=== PATIENT | female | born 1990 | race Caucasian/White ===

== ENCOUNTER 2023-02-01 22:37 | Outpatient (REF) | payer OTHER, SELFPAY ==
[2023-02-04 20:10] LABS: Age Gdln ACOG Testing Note (.); HPV Aptima Negative (Negative); IGP, Aptima HPV, rfx 16/18,45 Note (.)
== END 2023-02-01 22:38 | disposition home or self-care (01) ==
LOC: LAB 22:37
PROVIDERS: PCP Obstetrics & Gynecology; Visit Provider Obstetrics & Gynecology
DX: Z01.419 Encounter for gynecological examination (general) (routine) without abnormal findings (principal)
CPT/HCPCS: 87624; G0145

== ENCOUNTER 2024-02-07 20:45 | Outpatient (REF) | payer OTHER, SELFPAY ==
[2024-02-10 19:11] LABS: Age Gdln ACOG Testing Note (.); HPV Aptima Negative (Negative); IGP, Aptima HPV, rfx 16/18,45 Note (.)
== END 2024-02-07 20:46 | disposition home or self-care (01) ==
LOC: LAB 20:45
PROVIDERS: PCP Obstetrics & Gynecology; Visit Provider Obstetrics & Gynecology
DX: Z01.419 Encounter for gynecological examination (general) (routine) without abnormal findings (principal)
CPT/HCPCS: 87624; 88175

== ENCOUNTER 2025-02-12 22:45 | Outpatient (REF) | payer OTHER, SELFPAY ==
--- OUTSIDE RECORDS SUMMARY | 2025-02-12 16:00 | XMS_ITS | Encounter Summary ---
Author Organization [facility] Address [address] [place] [address] Care Team Providers Care Manager Gyn Name Role Phone Maria Isabel Zamora NP Primary Care Provider +1 [phone] Reason for Visit * Reason Comments Gynecologic Exam Encounter Details Date Type Department Care Team (Late Contact Info) Description 02/12/2025 4:00 PM EDT Office Visit [facility] OB [address] [place] [address] Manuel Hernandez, DO [address] [place] [address] Well woman exam with routine gynecological exam; Dyspareunia in female; Urinary tract infection without hematuria, site unspecified Social History Tobacco Use Types Packs/Day Years Used Date Smoking Tobacco: Never Smokeless Tobacco: Never Alcohol Use Standard Drinks/Week Comments Yes 2 (1 standard drink = 0.6 oz pur e alcohol) caffeine intake: soda B1300 Health Literacy Answer Date Recor ded How often do you need to hav e someone help you when you read instructions, pamphlets, or other written material from your doctor or pharmacy? Never 06/22/2024 Humiliation, Afraid, Rape, and Kick questionnair e Answer Date Recorded Within the last year, have y ou been afraid of your partner or ex-partner? No 05/04/2023 Within the last year, have y ou been humiliated or emotionally abused in other ways by your partner or ex-partner? No Within the last year, have y ou been kicked, hit, slapped, or otherwise physically hurt by your partner or ex-partner? No 05/04/2023 Within the last year, have y ou been raped or forced to have any kind of sexual activity by your partner or ex-partner? No 05/04/2023 Social Connection and Isolat ion Panel [NHANES] Answer Date Recorded In a typical week, how many times do you talk on the phone with family, friends, or neighbors? More than three times a week 06/22/2024 How often do you get togethe r with friends or relatives? Twice a week 06/22/2024 How often do you attend chur ch or confucianist services? Never 06/22/2024 Do you belong to any clubs o r organizations such as roman catholic groups, unions, fraternal or athletic groups, or school groups? No 06/22/2024 How often do you attend meet ings of the clubs or organizations you belong to? Never 06/22/2024 Are you , , di vorced, , never , or living with a partner? 06/22/2024 AUDIT-C Answer Date Recorded Q1: How often do you have a drink containing alc ohol? 2-4 times a month 06/22/2024 Q2: How many drinks containi ng alcohol do you have on a typical day when you are drinking? 3 or 4 06/22/2024 Q3: How often do you have si x or more drinks on one occasion? Never 06/22/2024 Overall Financial Resource Strain (CARDIA) Answe r Date Recorded How hard is it for you to pa y for the very basics like food, housing, medical care, and heating? Not hard at all 06/22/2024 [facility] of Occupat ional Health - Occupational Stress Questionnaire Answer Date Recorded Do you feel stress - tense, restless, nervous, or anxious, or unable to sleep at night because your mind is troubled all the time - these days? Not at all 06/22/2024 Exercise Vital Sign Answer Date Recorde d On average, how many days pe r week do you engage in moderate to strenuous exercise (like a brisk walk)? 3 days 06/22/2024 On average, how many minutes do you engage in exercise at this level? 20 min 06/22/2024 Hunger Vital Sign Answer Date Recorded Within the past 12 months, y ou worried that your food would run out before you got the money to buy more. Never true 06/22/20 24 Within the past 12 months, t he food you bought just didn't last and you didn't have money to get more. Never true 06/22/2024 PRAPARE - Transportation Answer Date Re corded In the past 12 months, has l ack of transportation kept you from medical appointments or from getting medications? No 02/2024 In the past 12 months, has l ack of transportation kept you from meetings, work, or from getting things needed for daily living? No 06/22/2024 Housing Stability Vital Sign Answer Anson e Recorded In the last 12 months, was t here a time when you were not able to pay the mortgage or rent on time? No 05/04/2023 In the last 12 months, how many places have you lived? 2 05/04/2023 In the last 12 months, was t here a time when you did not have a steady place to sleep or slept in a fpc (including now)? No 05/04/2023 Housing Stability Vital Sign Answer Anson e Recorded In the last 12 months, was t here a time when you were not able to pay the mortgage or rent on time? No 06/22/2024 In the past 12 months, how m any times have you moved where you were living? 1 06/22/2024 At any time in the past 12 m [facility], were you homeless or living in a fpc (including now)? No 06/22/2024 Comments No Sex and Gender Information Value Date Recorded Sex Assigned at Female 06/22/2024 11:39 AM EST Legal Sex Female 7:12 PM EDT Gender Identity Female 06/22/2024 11:39 AM EST Sexual Orientation Not on file documented as of this encounter Last Filed Vital Signs Vital Sign Reading Time Taken Comments Blood Pressure 110/70 02/12/2025 4:00 PM EDT Pulse - - Temperature - - Respiratory Rate - - Oxygen Saturation - - Inhaled Oxygen Concentration - - Weight 71.2 kg (157 lb) 02/12/2025 4:00 PM EDT Height 172.7 cm (5' 8 ) 02/12/2025 4:00 PM EDT Body Mass Index 23.87 02/12/2025 4:00 PM EDT documented in this encounter Plan of Treatment Upcoming Encounters Date Type Department Care Team (Late st Contact Info) Description 02/18/2026 4:00 PM EDT Office Visit [facility] [address] [place] [phone] Manuel Hernandez, [address] [place] [address] Scheduled Orders Name Type Priority Associated Diagnoses Orde r Schedule Pap Smear Pathology and Cytology Routine Well woman exam with routine gynecological exam Ordered: 02/12/2025 HPV DNA probe, amplified Microbiology Routine Well woman exam with routine gynecological exam Ordered: 02/12/2025 documented as of this encounter Procedures Procedure Name Priority Date/Time Associated Diagnosis Comments POCT URINALYSIS DIPSTICK Routine 02/12/2025 4:02 PM EDT Well woman exam with routine gynecological exam PAP SMEAR Routine 02/07/2024 12:00 AM EDT documented in this encounter Results * POCT urinalysis dipstick manually resulted (02/12/2025 4:02 PM EDT) Color, UA Yellow Clarity, UA Clear Glucose, UA Negative Negative - 2000(110) ++++ mg/dL Bilirubin, UA Negative Negative - 4(70) +++ mg/dL Ketones, UA Negative Negative - 160(16) ++++ mg/dL Spec Grav, UA 1.010 1 - 1.03 Blood, UA Negative Negative - 50 Yash/mcL pH, UA 6.5 5 - 9 Protein, UA Negative Negative - 2000(20) ++++ mg/dL Urobilinogen, UA 0.2 0.2 - 12 mg/dL Leukocytes, UA Negative Negative - 500+++ Zuleyka/mcL Nitrite, UA Negative Negative - Positive Urine 02/12/2025 4:02 PM EDT us Manuel Hernandez DO POINT OF CARE TEST ENTER/EDIT OR DERABLES Final Result * Pap Smear (02/07/2024 12:00 AM EDT) Swab Cervical swab / Unknown us Manuel Hernandez DO LAB CYTOLOGY ORDERABLES Final Re sult EXTERNAL LAB documented in this encounter Visit Diagnoses Diagnosis Well woman exam with routine gynecological exam Routine gynecological examination Dyspareunia in female Urinary tract infection without hematuria, site unspecified documented in this encounter Care Teams Manager Gyn Relationship Specialty Start Date End Date Maria Isabel Zamora, INPATIENT PHARMACIST [address] [place] [address] PCP - General 05/04/23 documented as of this encounter
--- OUTSIDE RECORDS SUMMARY | 2025-02-12 23:08 | XMS_ITS | Encounter Summary ---
Author Organization [facility] Address [address] [place] [address] Care Team Providers Care Sales Exhibitor Name Role Phone Maria Isabel Zamora NP Primary Care Provider + [phone] Encounter Details Date Type Department Care Team (Late st Contact Info) Description 02/12/2025 Bamboo flowsheet [facility] [address] [address] Manuel Hernandez, DO [address] [facility] [address] [place], [facility] Social History Tobacco Use Types Packs/Day Years [...] 06/22/2024 How often do you attend chur or synagogue services? Never 06/22/2024 Do you belong to any clubs o r organizations such as synagogue groups, unions, fraternal or athletic groups, or [...] and heating? Not hard at all 06/22/2024 [facility] of Occupat ional Health - Occupational [...] place to sleep or slept in a prison (including now)? No 05/04/2023 Housing Stability Vital Sign Answer Asnon e Recorded In the last 12 months, was t here a time when you were not able to pay the mortgage or rent on time? No 06/22/2024 In the past 12 months, how m any times have you moved where you were living? 1 06/22/2024 At any time in the past 12 m [facility], were you homeless or living in a prison (including now)? No 06/22/2024 Comments No Sex and Gender Information Value Date Recorded Sex Assigned at Female 06/22/2024 11:39 AM EST Legal Sex Female 7:12 PM EDT Gender Identity Female 06/22/2024 11:39 AM EST Sexual Orientation Not on file documented as of this encounter Plan of Treatment Upcoming Encounters Date Type Department Care Team (Late st Contact Info) Description 02/18/2026 4:00 PM EDT Office Visit [facility] [address] [place] [address] Manuel Hernandez, [address] [place], [place] [id number] documented as of this encounter Visit Diagnoses Not on filedocumented in this encounter Care Teams Sales Exhibitor Relationship Specialty Start Date End Date Maria Isabel Zamroa, JAKE [address] [facility] [address] [place] [address] PCP - General 05/04/23 documented as of this encounter
--- OUTSIDE RECORDS SUMMARY | 2025-02-12 23:08 | XMS_ITS | Encounter Summary ---
Author Organization [facility] Address [address] [place] [address] Care Team Providers Care Entertainment Musician Name Role Phone Maria Isabel Zamora INTERIOR HORTICULTURIST Primary Care Provider +[phone] Encounter Details Date Type Department Care Team (Late Contact Info) Description 01/18/2023 Abstract [facility] [address] [place] [address] Manuel Hernandez DO [facility] [place] [address] [place], [place] [address] Social History Tobacco Use Types Packs/Day Years Used Date Smoking Tobacco: Never Alcohol Use Standard Drinks/Week Comments Yes 0 (1 standard drink = 0.6 oz pur e alcohol) caffeine intake: soda Comments Unknown Sex and Gender Information Value Date Recorded Sex Assigned at Female 06/22/2024 11:39 AM EST Legal Sex Female 7:12 PM EDT Gender Identity Female 06/22/2024 11:39 AM EST Sexual Orientation Not on file documented as of this encounter Plan of Treatment Upcoming Encounters Date Type Department Care Team (Late st Contact Info) Description 02/18/2026 4:00 PM EDT Office Visit [facility] OB [address] [facility] [place] [address] Manuel Hernandez DO [facility] [place] [id number] documented as of this encounter Visit Diagnoses Not on filedocumented in this encounter Care Teams Entertainment Musician Relationship Specialty Start Date End Date Maria Isabel Zamora, INTERIOR HORTICULTURIST [address] [facility] 110 [place] [address] PCP - General 05/04/23 documented as of this encounter
--- OUTSIDE RECORDS SUMMARY | 2025-02-12 23:08 | XMS_ITS | Clinical Summary ---
Author Organization [facility] Address [address] [place] [address] Care Team Providers Care Aircraft Maintenance Instructor Name Role Phone Maria Isabel Zamora PIANO ACCOMPANIST Primary Care Provider [phone] Allergies No known active allergies Medications trimethoprim (Trimpex) 100 MG tabletIndicatio ns:Dyspareunia in female,Urinary tract infection without hematuria, site unspecified Take 1 tablet (100 mg) by mouth if needed (Dyspareunia) for up to 20 doses Take 1 tablet by mouth immediately before intercourse PRN 20 tablet 2 5 Active phenazopyridine (Pyridium) 200 MG tabletIndicatio ns:Dyspareunia in female,Urinary tract infection without hematuria, site unspecified Take 1 tablet (200 mg) by mouth if needed for bladder spasms for up to 10 doses 10 tablet 3 5 025 Discontin ued(Thera py completed ) trimethoprim (Trimpex) 100 MG tabletIndicatio ns:Dyspareunia in female,Urinary tract infection without hematuria, site unspecified Take 1 tablet (100 mg) by mouth if needed (Dyspareunia) for up to 20 doses Take 1 tablet by mouth immediately before intercourse PRN 20 tablet 2 5 025 Discontin ued(Reord er) Active Problems Problem Noted Date Diagnosed Date Hematuria 01/29/2023 Increased frequency of urination 01/29/2023 Interstitial cystitis 01/29/2023 Urgency of micturition 01/29/2023 Encounters Date Type Department Care Team Description 02/12/2025 4:00 PM EDT Office Visit [facility] [address] [place] [phone] Manuel Hernandez, DO Well woman exam with routine gynecological exam; Dyspareunia in female; Urinary tract infection without hematuria, site unspecified 02/12/2025 Bamboo flowsheet [facility] OB [address] [place] [address] Manuel Hernandez, 02/05/2025 Travel from Last 3 Months Immunizations Immunization Administration Dates Next Due DTaP, Unspecified 03/20/1997, 4,1992,1992,1 HPV, Quadrivalent 01/30/2011,10/02/2010,08/01/20 10 Hep B, Adolescent or Pediatric 08/01/2010,2009,01/27/2010 HiB, unspecified 07/16/1993,1992, 2,1992 IPV 03/20/1997, 4,1992,1992,1 MMR 11/14/2003,07/16/1993 Meningococcal MCV4P 01/27/2010 Tdap 02/27/2010 Family History Medical History Relation Name Comments Arthritis Father Ruddy Hyperlipidemia Father Ruddy Hypertension Father Ruddy Hyperlipidemia Mother Pati Hypertension Mother Pati Stroke Mother Pati Breast cancer Mother's Sister 1 Chantel 2010 Kidney disease Mother's Sister 1 Chantel Cancer Mother's Sister 2 Jayla Diabetes Paternal Grandfather Morales Cancer Paternal Grandmother Ivonne Hypertension Sibling Melanoma Neg Hx Psoriasis Neg Hx Relation Name Status Comments Father Ruddy Alive Mother Pati Alive Mother's Sister 1 Chantel Mother's Sister 2 Jayla Paternal Grandfather Morales Paternal Grandmother Ivonne Sibling Social History Tobacco Use Types Packs/Day Years Used Date Smoking Tobacco: Never Smokeless Tobacco: Never Tobacco Cessation:Counseling Given: Not Answered Alcohol Use Standard Drinks/Week Comments Yes 2 [...] often do you attend chur ch or moravian services? Never 06/22/2024 Do you belong to any clubs o r organizations such as orthodox groups, unions, fraternal or athletic groups, or [...] and heating? Not hard at all 06/22/2024 [facility] of Occupat ional Health - Occupational Stress [...] place to sleep or slept in a senior care (including now)? No 05/04/2023 Housing Stability Vital Sign Answer Anson e Recorded In the last 12 months, was t here a time when you were not able to pay the mortgage or rent on time? No 06/22/2024 In the past 12 months, how m any times have you moved where you were living? 1 06/22/2024 At any time in the past 12 m [facility], were you homeless or living in a senior care (including now)? No 06/22/2024 Comments No Sex and Gender Information Value Date Recorded Sex Assigned at Female 06/22/2024 11:39 AM EST Legal Sex Female 7:12 PM EDT Gender Identity Female 06/22/2024 11:39 AM EST Sexual Orientation Not on file Last Filed Vital Signs Vital Sign Reading Time Taken Comments Blood Pressure 110/70 02/12/2025 4:00 PM EDT Pulse 91 06/29/2024 1:05 PM EST Temperature - - Respiratory Rate 17 05/20/2023 4:21 PM EDT Oxygen Saturation 96% 06/29/2024 1:05 PM EST Inhaled Oxygen Concentration - - Weight 71.2 kg (157 lb) 02/12/2025 4:00 PM EDT Height 172.7 cm (5' 8 ) 02/12/2025 4:00 PM EDT Body Mass Index 23.87 02/12/2025 4:00 PM EDT Plan of Treatment Upcoming Encounters Date Type Department Care Team (Late st Contact Info) Description 02/18/2026 4:00 PM EDT Office Visit [facility] [address] [place] [address] Manuel Hernandez, DO [address] [facility] [address] [place], [place] [id number] Health Maintenance Due Date Last Done Comments Influenza Vaccine (Season Ended) 2025 Pap Smear 02/06/2027 02/07/2024, 01/14, 01/13/2022 Cervical Cancer Screening 02/02/2028 HPV/Cotest 02/02/2028 Procedures Procedure Name Priority Date/Time Associated Diagnosis Comments POCT URINALYSIS DIPSTICK Routine 02/12/2025 4:02 PM EDT Well woman exam with routine gynecological exam PAP SMEAR Routine 02/07/2024 12:00 AM EDT from Last 3 Months or Most Recently Relevant to Health Maintenance Results * POCT urinalysis dipstick manually resulted [...] - Positive Urine 02/12/2025 4:02 PM EDT Manuel David DO POINT OF CARE TEST ENTER/EDIT OR DERABLES Final Result * Pap Smear (02/07/2024 12:00 AM EDT) Swab Cervical swab / Unknown Manuel David DO LAB CYTOLOGY ORDERABLES Final Re sult EXTERNAL LAB from Last 3 Months or Most Recently Relevant to Health Maintenance Insurance Care Teams Aircraft Maintenance Instructor Relationship Specialty Start Date End Date Maria Isabel Zamora, PIANO ACCOMPANIST [address] [facility] [address] [place] [address] PCP - General 05/04/23
--- OUTSIDE RECORDS SUMMARY | 2025-02-12 23:08 | XMS_ITS | Clinical Summary ---
Author Organization [facility] Address [address] [place] [address] Care Team Providers Care Team Assistant Name Role Phone Leydi Currannifer IGNACIO - ADJUDICATION SPECIALIST Primary Care Provider Social History Tobacco Use Types Packs/Day Years Used Date Smoking Tobacco: Never Assessed Comments Unknown Sex and Gender Information Value Date Recorded Sex Assigned at Not on file Legal Sex Female 2:16 PM EST Gender Identity Not on file Sexual Orientation Not on file Plan of Treatment Health Maintenance Due Date Last Done Comments DTaP/Tdap/Td vaccine (1 - Tdap) 2011 COVID-19 Vaccine (2023-2 5 season) 2024 Flu vaccine (Season Ended) 2025 Polio vaccine Aged Out No longer elig ible based on patient's age to complete this topic Insurance [facility] [place] [address] [facility] Care Teams Team Assistant Relationship Specialty Start Date End Date Gisel Curran APRN - NP [address] [place] [address] PCP - General Nurse Practitioner 09/30/17
--- OUTSIDE RECORDS SUMMARY | 2025-02-12 23:08 | XMS_ITS | Encounter Summary ---
Author Organization [facility] Address [address] [place] [address] Care Team Providers Care Mattress Weaver Name Role Phone Maria Isabel Zamora STORAGE FACILITY HOUSEKEEPER Primary Care Provider + [phone] Encounter Details Date Type Department Care Team (Late st Contact Info) Description 07/03/2024 Abstract [facility] [address] [facility] [address] [place] [phone] Maria Isabel Zamora NP [address] [facility] [address] [place] [address] Social History Tobacco Use Types Packs/Day Years [...] often do you attend chur ch or worship services? Never 06/22/2024 Do you belong to any clubs o r organizations such as congregational groups, unions, fraternal or athletic groups, or [...] and heating? Not hard at all 06/22/2024 [facility] of Occupat ional Health - Occupational Stress [...] place to sleep or slept in a usp (including now)? No 05/04/2023 Housing Stability Vital Sign Answer Anson e Recorded In the last 12 months, was t here a time when you were not able to pay the mortgage or rent on time? No 06/22/2024 In the past 12 months, how m any times have you moved where you were living? 1 06/22/2024 At any time in the past 12 m [facility], were you homeless or living in a usp (including now)? No 06/22/2024 Comments No Sex [...] EDT Office Visit [facility] [address] [place] [address] Manuel Hernandez DO [address] [place] [address] documented as of this encounter Visit Diagnoses Not on filedocumented in this encounter Care Teams Mattress Weaver Relationship Specialty Start Date End Date Maria Isabel Zamora STORAGE FACILITY HOUSEKEEPER 112 [facility] [address] [place] [address] PCP - General 05/04/23 documented as of this encounter
--- OUTSIDE RECORDS SUMMARY | 2025-02-12 23:08 | XMS_ITS | Encounter Summary ---
Author Organization [facility] Address [address] [place] [address] Care Team Providers Care Bark Press Operator Name Role Phone Maria Isabel Zamora SOUS CHEF Primary Care Provider +[phone] Encounter Details Date Type Department Care Team (Late Contact Info) Description 02/25/2023 Abstract [facility] OB [address] [facility] [address] Manuel Hernandez DO [facility] [place] [address] [place], [facility] Social History Tobacco Use Types Packs/Day Years Used Date Smoking Tobacco: Never Alcohol Use Standard Drinks/Week Comments Yes 0 (1 standard drink = 0.6 oz pur e alcohol) caffeine intake: soda Comments No Sex and Gender Information Value Date Recorded Sex Assigned at Female 06/22/2024 11:39 AM EST Legal Sex Female 7:12 PM EDT Gender Identity Female 06/22/2024 11:39 AM EST Sexual Orientation Not on file documented as of this encounter Plan of Treatment Upcoming Encounters Date Type Department Care Team (Late st Contact Info) Description 02/18/2026 4:00 PM EDT Office Visit [facility] OB [address] [facility] [place] [address] Manuel Hernandez DO [facility] [place] [id number] documented as of this encounter Visit Diagnoses Not on filedocumented in this encounter Care Teams Bark Press Operator Relationship Specialty Start Date End Date Maria Isabel Zamora, SOUS CHEF 112 [facility] 110 [place] [address] PCP - General 05/04/23 documented as of this encounter
--- OUTSIDE RECORDS SUMMARY | 2025-02-12 23:08 | XMS_ITS | Encounter Summary ---
Author Organization [facility] Address [address] [place] [address] Care Team Providers Care Cap Inspector Name Role Phone Maria Isabel Zamora BOAT DECKHAND Primary Care Provider + [phone] Encounter Details Date Type Department Care Team (Latest Contact Info) Description 02/05/2025 Travel Social History Tobacco Use Types Packs/Day Years [...] often do you attend chur ch or restoration services? Never 06/22/2024 Do you belong to any clubs o r organizations such as protestant groups, unions, fraternal or athletic groups, or [...] and heating? Not hard at all 06/22/2024 [facility] of Occupat ional Health - Occupational Stress [...] place to sleep or slept in a fci (including now)? No 05/04/2023 Housing Stability Vital Sign Answer Anson e Recorded In the last 12 months, was t here a time when you were not able to pay the mortgage or rent on time? No 06/22/2024 In the past 12 months, how m any times have you moved where you were living? 1 06/22/2024 At any time in the past 12 m [facility], were you homeless or living in a fci (including now)? No 06/22/2024 Comments No Sex [...] EDT Office Visit [facility] [address] [facility] [place] [address] Manuel Hernandez DO [address] [facility] [place] [address] documented as of this encounter Visit Diagnoses Not on filedocumented in this encounter Care Teams Cap Inspector Relationship Specialty Start Date End Date Maria Isabel Zamora, BOAT DECKHAND [address] [facility] [address] [place] [address] PCP - General 05/04/23 documented as of this encounter
--- OUTSIDE RECORDS SUMMARY | 2025-02-12 23:22 | XMS_ITS | CCD ---
Author Organization [facility] Care Team Providers Care Disease Intervention Specialist Name Role Phone DR CUCO HERNANDEZ Attending Unavailable DR CUCO HERNANDEZ Consulting Unavailable DR CUCO HERNANDEZ Admitting Unavailable CUCO HERNANDEZ Attending Unavailable AWA ZAMORA Attending Unavailable Bina Calderon DENTAL ASSISTANT MEDICAL ASSISTANTGisel Primary Care Provider Awa Zamora NP Primary Care Provider [phone] GISEL CURRAN Primary Care Unavailable AWA ZAMORA Referring Unavailable Medications Current Medications Medication Drug Class(es) Dates Sig (Normalized) Sig (Original) phenazopyridine hydrochloride 200 mg delayed release oral tablet (3 sources) Start: 08-22-2024 phenazopyridine (Pyridium) 200 MG tablet Indications: Dyspareunia in female , Urinary tract infection without hematuria, site unspecified Take 1 tablet (200 mg) by mouth if needed for bladder spasms for up to 10 doses 10 tablet 3 08/22/2024 Active Start: 03-06-2024 End: 06-26-2024 phenazopyridine (Pyridium) 2 00 MG tablet Indications: Dyspareunia in female Take 1 tablet (200 mg) by mouth if needed for bladder spasms for up to 10 doses 10 tablet 3 03/06/2024 06/26/2024 Discontinued (Other) trimethoprim 100 mg oral tablet (1 source) Dihydrofolate Reductase Inhibitor Antibacterial Start: 08-22-2024 trimethoprim (Trimpe x) 100 MG tablet Indications: Dyspareunia in female , Urinary tract infection without hematuria, site unspecified Take 1 tablet (100 mg) by mouth if needed (Dyspareunia) for up to 20 doses Take 1 tablet by mouth immediately before intercourse PRN 20 tablet 2 08/22/2024 Active Completed/Discontinued Medications Medication Drug Class(es) Dates Sig (Normalized) Sig (Original) azithromycin 250 mg oral tablet (1 source) Macrolide Antimicrobial Start: 4 End: 4 take 2 tablets by mouth once daily, then take 1 tablet by mouth once daily azithromycin (Zithromax) 250 MG tablet Indications: Bronchitis Take 2 tablets (500 mg) by mouth Daily for 1 day, THEN 1 tablet (250 mg) Daily for 4 days. 6 tablet 06/28/2024 06/29/2024 Discontinued (Other) dexamethasone 1 mg/ml / tobramycin 3 mg/ml ophthalmic suspension (2 sources) Aminoglycoside Antibacterial, Corticosteroid Start: 4 End: take 1 drop(s) into the eye(s) four times daily tobramycin-dexAMETHas one (Tobradex) ophthalmic suspension instill 1 drop into left eye four times a day 02/04/2024 06/26/2024 Discontinued (Other) ethinyl estradiol 0.035 mg / norethindrone acetate 1 mg oral tablet (2 sources) Estrogen Start: 4 End: 4 norethindrone-ethinyl estradiol (Nortrel 1/35, 28,) 1-35 MG-MCG tablet Indications: Encounter for initial prescription of contraceptive pills TAKE 1 TABLET BY MOUTH ONCE DAILY 84 tablet 4 03/06/2024 06/26/2024 Discontinued (Other) hyoscyamine sulfate 0.12 mg / methenamine 118 mg / methylene blue 10 mg / phenyl salicylate 36 mg / sodium phosphate, monobasic 40.8 mg oral capsule (3 sources) Oxidation-Reductio n Agent Start: 4 End: 4 take 1 capsule by mouth every six hours for urinary tract infection and urinary tract infection Meth-Hyo-M Bl-Na Phos-Ph Tariq (Uribel) 118 MG capsule Indications: Urinary tract infection without hematuria, site unspecified Take 1 capsule by mouth every 6 (six) hours 120 capsule 3 02/08/2024 06/29/2024 Discontinued (Other) methylPREDNISolone (2 sources) Corticosteroid Start: 4 End: methylPREDNISolone (Medrol Dospak) 4 MG tablets Indications: Bronchitis Follow schedule on package instructions 21 tablet 06/28/2024 07/05/2024 Start: 06-28-2024 End: 07-05-2024 methylPREDNISolone (Medrol D ospak) 4 MG tablets Indications: Bronchitis Follow schedule on package instructions 21 tablet 06/28/2024 07/05/2024 Active sulfacetamide sodium 100 mg/ml ophthalmic solution (2 sources) Sulfonamide Antibacterial Start: 01-29-2024 End: 06-26-2024 take 2 drop(s) into the eye(s) three times daily sulfacetamide (Bleph-10) 10 % ophthalmic solution INSTILL 2 DROPS INTO AFFECTED EYE 3 TIMES A DAY FOR 10 DAYS 01/29/2024 06/26/2024 Discontinued (Other) Problems Active Problems Problem Classification Problem Date Documented Date Episodic/Chronic Chronic obstructive pulmonary disease and bronchiectasis (1 source) Bronchitis; Translations: [Bronchitis, not specified as acute or chronic] 06-28-2024 Episodic Immunizations and screening for infectious disease (1 source) Encounter for screening for human papillomavirus (HPV); Translations: [ENC SCREENING HUMAN PAPILLOMAVIRUS] Onset: 01-19-2022 Episodic Other screening for suspected conditions (not mental disorders or infectious disease) (8 sources) Encounter for screening for malignant neoplasm of cervix; Translations: [Patient encounter status] Onset: 01-14-2022 Episodic Urinary tract infections (5 sources) Chronic interstitial cystitis; Translations: [Interstitial cystitis (chronic) without hematuria] Onset: 01-29-2023 01-29-2023 Chronic Past or Other Problems Problem Classification Problem Date Documented Da te Episodic/Chronic Genitourinary symptoms and ill-defined conditions (15 sources) Blood in urine; Translations: [Hematuria, unspecified] Onset: 01-29-2023 01-29-2023 Episodic Results Test Name Value Interpretation Reference Range Facility ALL CBC WITH AUTO DIFFon Erythrocyte distribution width (RBC) [Ratio] 11.9 % 11.8 - 14.4 % [facility] Hematocrit (Bld) [Volume fraction] 41.4 % 36.3 - 47.1 % [facility] Hemoglobin (Bld) [Mass/Vol] 13.4 g/dL 11.9 - 15.1 g/dL [facility] MCH (RBC) [Entitic mass] 30 pg 25.2 - 33.5 pg [facility] MCHC (RBC) [Mass/Vol] 32.4 g/dL 28.4 - 34.8 g/dL [facility] MCV (RBC) [Entitic vol] 92.6 fL 82.6 - 102.9 fL [facility] MHPT NRBC AUTOMATED 0 0.0 per 100 WBC [facility] MHPT PLATELET COUNT 328 [facility] MHPT WBC COUNT 9.6 [facility] Platelet mean volume (Bld) [Entitic vol] 10.2 fL 8.1 - 13.5 fL [facility] RBC (Bld) [#/Vol] 4.47 10*6/uL 3.95 - 5.1 1 m/uL [facility] Original Ordering Provider: AWA LYON [facility] CBCon 07-05-2024 Erythrocyte distribution width (RBC) [Ratio] 11.9 % 11.8 - 14.4 % [facility] Hematocrit (Bld) [Volume fraction] 41.4 % 36.3 - 47.1 % [facility] Hemoglobin (Bld) [Mass/Vol] 13.4 g/dL 11.9 - 15.1 g/dL [facility] MCH (RBC) [Entitic mass] 30.0 pg 25.2 - 33.5 pg [facility] MCHC (RBC) [Mass/Vol] 32.4 g/dL 28.4 - 34.8 g/dL [facility] MCV (RBC) [Entitic vol] 92.6 fL 82.6 - 102.9 fL [facility] Nucleated RBC/100 WBC (Bld) [Ratio] 0.0 % 0.0 per 100 WBC [facility] Platelet mean volume (Bld) [Entitic vol] 10.2 fL 8.1 - 13.5 fL [facility] Platelets (Bld) [#/Vol] 328 10*3/uL [facility] RBC (Bld) [#/Vol] 4.47 10*6/uL 3.95 - 5.1 1 m/uL [facility] WBC other (Bld) [#/Vol] 9.6 [facility] Erythrocyte distribution width (RBC) [Ratio] 11.9 % Normal 11.8-14.4 [facility] Comment on above: Performed By: #### T SH, CBC, CP #### [facility] [address] [place] [address] [employer] Assembler: Marlon Parisi MD #### LIPR #### [address] [id number] [employer] Assembler: Robinson Byrd MD Hematocrit (Bld) [Volume fraction] 41.4 % Normal 36.3-47.1 [facility] Comment on above: Performed By: #### T SH, CBC, CP #### [facility] [address] [place] [address] [employer] Assembler: Marlon Parisi MD #### LIPR #### [address] [id number] [employer] Assembler: Robinson Byrd MD Hemoglobin (Bld) [Mass/Vol] 13.4 g/dL Normal 11.9-15.1 [facility] Comment on above: Performed By: #### T SH, CBC, CP #### [facility] [address] [place] [address] [address] [place] [id number] [employer] Assembler: Marlon Parisi MD #### LIPR #### [address] [id number] [employer] Assembler: Robinson Byrd MD MCH (RBC) [Entitic mass] 30.0 pg Normal 25.2-33.5 [facility] Comment on above: Performed By: #### T SH, CBC, CP #### [address] [place] [address] [employer] Assembler: Marlon Parisi MD #### LIPR #### [address] [id number] [employer] Assembler: Robinson Byrd MD MCHC (RBC) [Mass/Vol] 32.4 g/dL Normal 28.4-34.8 [facility] Comment on above: Performed By: #### T SH, CBC, CP #### [facility] [address] [place], [place] [id number] [employer] Assembler: Marlon Parisi MD #### LIPR #### [address] [id number] [employer] Assembler: Robinson Byrd MD MCV (RBC) [Entitic vol] 92.6 fL Normal 82.6-102.9 [facility] Comment on above: Performed By: #### T SH, CBC, CP #### [facility] [address] [place] [id number] [employer] Assembler: Marlon Parisi MD #### LIPR #### [address] [id number] [employer] Assembler: Robinson Byrd MD NRBC Automated 0.0 per 100 WBC Normal 0.0 [facility] Comment on above: Performed By: #### T SH, CBC, CP #### [facility] [address] [place] [id number] [employer] Assembler: Marlon Parisi MD #### LIPR #### [address] [address] [employer] Assembler: Robinson Byrd MD Platelet mean volume (Bld) [Entitic vol] 10.2 fL Normal 8.1-13.5 [facility] Comment on above: Performed By: #### T SH, CBC, CP #### [facility] [address] [place], [place] [id number] [employer] Assembler: Marlon Parisi MD #### LIPR #### [address] [address] [employer] Assembler: Robinson Byrd MD Platelets (Bld) [#/Vol] 328 10*3/uL Normal 138-453 [facility] Comment on above: Performed By: #### T SH, CBC, CP #### [facility] [address] [place], [place] [id number] [employer] Assembler: Marlon Parisi MD #### LIPR #### [id number] [place] [address] [employer]ights Assembler: Robinson Byrd MD RBC (Bld) [#/Vol] 4.47 10*6/uL Normal 3.95-5.11 [facility] Comment on above: Performed By: #### T SH, CBC, CP #### [address] [place], [place] [id number] [employer] Assembler: Marlon Parisi MD #### LIPR #### [id number] [place] [address] [employer] Assembler: Robinson Byrd MD WBC (Bld) [#/Vol] 9.6 10*3/uL Normal 3.5-11.3 [facility] Comment on above: Performed By: #### T SH, CBC, CP #### [address] [place], [place] 8461283 [employer] Assembler: Marlon Parisi MD #### LIPR #### [address] [address] [employer] Assembler: Robinson Byrd MD Comp Metabolic Profon 2023 Albumin [Mass/Vol] 4.2 g/dL Normal 3.5-5.2 [facility] Comment on above: Performed By: #### T SH, CBC, CP #### [facility] [address] [place], [place] [id number] [employer]ylights Assembler: Marlon Parisi MD #### LIPR #### [address] [place], [place] [id number] [employer]ylights Assembler: Robinson Byrd MD Albumin/Glob Ratio 1.4 Normal 1.0-2.5 [facility] Comment on above: Performed By: #### T SH, CBC, CP #### [facility] [address] [place], [place] [id number] [employer] Assembler: Marlon Parisi MD #### LIPR #### [facility] [address] [place] [address] [employer]ylights Assembler: Robinson Byrd MD Alkaline Phos 68 U/L Normal 35-104 [facility] Comment on above: Performed By: #### T SH, CBC, CP #### [facility] [address] [place], [place] [id number] [employer] Assembler: Marlon Parisi MD #### LIPR #### [address] [address] [employer] Assembler: Robinson Byrd MD ALT [Catalytic activity/Vol] 41 U/L High 10-35 [facility] Comment on above: Performed By: #### T JULIANNE, CBC, CP #### [facility] [address] [place] [address] [employer]yl[employer] Assembler: Marlon Parisi MD #### LIPR #### [address] [address] [employer]yl[employer] Assembler: Robinson Byrd MD Anion gap [Moles/Vol] 11 mmol/L Normal 9-16 [facility] Comment on above: Performed By: #### T JULIANNE, CBC, CP #### [facility] [address] [place] [address] [employer] Assembler: Marlon Parisi MD #### LIPR #### [address] [address] [employer]yl[employer] Assembler: Robinson Byrd MD AST [Catalytic activity/Vol] 25 U/L Normal 10-35 [facility] Comment on above: Performed By: #### T JULIANNE, CBC, CP #### [facility] [address] [place], [place] 0808283 [employer]ylights Assembler: Marlon Parisi MD #### LIPR #### [address] [id number] [employer] Assembler: Robinson Byrd MD Bilirubin [Mass/Vol] 0.5 mg/dL Normal 0.00-1.20 [facility] Comment on above: Performed By: #### T SH, CBC, CP #### [facility] [address] [place] [address] Dr. [place], [place] [id number] [employer]yl[employer] Assembler: Marlon Parisi MD #### LIPR #### [address] [id number] Skyl[employer] Assembler: Robinson Byrd MD BUN/CRE Ratio 23 High 9-20 [facility] Comment on above: Performed By: #### T JULIANNE, CBC, CP #### [address] [place] [phone] [employer]ylights Assembler: Marlon Parisi MD #### LIPR #### [address] [address] [employer]yl[employer] Assembler: Robinson Byrd MD Calcium [Mass/Vol] 9.2 mg/dL Normal 8.6-10.4 [facility] Comment on above: Performed By: #### T JULIANNE, CBC, CP #### [address] [place], [place] [id number] [employer]ylights Assembler: Marlon Parisi MD #### LIPR #### [address] [address] [employer] Assembler: Robinson Byrd MD Chloride [Moles/Vol] 100 mmol/L Normal 98-107 [facility] Comment on above: Performed By: #### T SH, CBC, CP #### [address] [place], [place] 2185783 [employer]ylights Assembler: Marlon Parisi MD #### LIPR #### [address] [place], [place] [id number] Skylights Assembler: Robinson Byrd MD CO2 [Moles/Vol] 28 mmol/L Normal 20-31 [facility] Comment on above: Performed By: #### T JULIANNE, CBC, CP #### [facility] [address] [place], [place] [id number] [employer]ylights Assembler: Marlon Parisi MD #### LIPR #### [address] [address] [employer]ylights Assembler: Robinson Byrd MD Creatinine [Mass/Vol] 0.6 mg/dL Normal 0.50-0.90 [facility] Comment on above: Performed By: #### T JULIANNE, CBC, CP #### [address] [place], [place] 3752883 [employer]ylights Assembler: Marlon Parisi MD #### LIPR #### [address] [address] [employer]yl[employer] Assembler: Robinson Byrd MD GFR/1.73 sq M.predicted among non-blacks MDRD (S/P/Bld) [Vol rate/Area] mL/min/{1.73_m2} Normal >60 [facility] Comment on above: Result Comment: These results are not intended for use in patients <18 years of age. eGFR results are calculated without a race factor using the 2020 CKD-EPI equation. Careful clinical correlation is recommended, particularly when comparing to results calculated using previous equations. The CKD-EPI equation is less accurate in patients with extremes of muscle mass, extra-renal metabolism of creatine, excessive creatine ingestion, or following therapy that affects renal tubular secretion. Performed By: #### T JULIANNE, CBC, CP #### [facility] [address] [place], [place] [id number] [employer]ylights Assembler: Marlon Parisi MD #### LIPR #### [address] [address] [employer]yl[employer] Assembler: Robinson Byrd MD Glucose [Mass/Vol] 80 mg/dL Normal 74-99 [facility] Comment on above: Performed By: #### T JULIANNE, CBC, CP #### [facility] [address] [place], [place] [id number] Skylights Assembler: Marlon Parisi MD #### LIPR #### [address] [address] [employer]ylights Assembler: Robinson Byrd MD Potassium [Moles/Vol] 3.7 mmol/L Normal 3.7-5.3 [facility] Comment on above: Performed By: #### T JULIANNE CBC, CP #### [facility] [address] [place] [address] Dr. [place], [place] [id number] [employer]ylights Assembler: Marlon Parisi MD #### LIPR #### [address] [address] [employer]yl[employer] Assembler: Robinson Byrd MD Protein [Mass/Vol] 7.2 g/dL Normal 6.6-8.7 [facility] Comment on above: Performed By: #### T JULIANNE CBC, CP #### [facility] [address] [place] [address] Dr. [place], [place] [phone] [employer]ylights Assembler: Marlon Parisi MD #### LIPR #### [address] [address] [employer]ylights Assembler: Robinson Byrd MD Sodium [Moles/Vol] 139 mmol/L Normal 136-145 [facility] Comment on above: Performed By: #### T JULIANNE, CBC, CP #### [facility] [address] [place] [address] Dr. [place], [place] 1351483 [employer]ylights Assembler: Marlon Parisi MD #### LIPR #### [address] [address] [employer]ylights Assembler: Robinson Byrd MD Urea nitrogen [Mass/Vol] 14 mg/dL Normal 6-20 [facility] Comment on above: Performed By: #### T SH, CBC, CP #### [facility] [address] [place] [address] [employer]ylights Assembler: Marlon Parisi MD #### LIPR #### [facility] [address] [place], [place] [phone] Skylights Assembler: Robinson Byrd MD Comprehensive Metabolic Pane [facility] 07-05-2024 Albumin [Mass/Vol] 4.2 g/dL 3.5 - 5.2 g/dL [facility] Albumin/Globulin [Mass ratio] 1.4 {ratio} 1.0 - 2.5 [facility] ALP [Catalytic activity/Vol] 68 U/L 35 - 104 U/L [facility] ALT [Catalytic activity/Vol] 41 U/L High 10 - 35 U/L [facility] Anion gap [Moles/Vol] 11 mmol/L 9 - 16 mmol/L [facility] AST [Catalytic activity/Vol] 25 U/L 10 - 35 U/L [facility] Bilirubin [Mass/Vol] 0.5 mg/dL 0.00 - 1.20 mg/dL [facility] Calcium [Mass/Vol] 9.2 mg/dL 8.6 - 10. 4 mg/dL [facility] Chloride [Moles/Vol] 100 mmol/L 98 - 10 7 mmol/L [facility] CO2 [Moles/Vol] 28 mmol/L 20 - 31 mmol/L [facility] Creatinine [Mass/Vol] 0.6 mg/dL 0.50 - 0.90 mg/dL [facility] Est, Glom Filt Rate - PINF [facility] Comment on above: These results are not intended for use in patients <18 years of age. eGFR results are calculated without a race factor using the 2020 CKD-EPI equation. Careful clinical correlation is recommended, particularly when comparing to results calculated using previous equations. The CKD-EPI equation is less accurate in patients with extremes of muscle mass, extra-renal metabolism of creatine, excessive creatine ingestion, or following therapy that affects renal tubular secretion. Glucose [Mass/Vol] 80 mg/dL 74 - 99 mg/dL [facility] Interpretation and review of laboratory results Abnormal [facility] Potassium [Moles/Vol] 3.7 mmol/L 3.7 - 5.3 mmol/L [facility] Protein [Mass/Vol] 7.2 g/dL 6.6 - 8.7 g/dL [facility] Sodium [Moles/Vol] 139 mmol/L 136 - 145 mmol/L [facility] Urea nitrogen [Mass/Vol] 14 mg/dL 6 - 20 mg/dL [facility] Urea nitrogen/Creatinine [Mass ratio] 23 mg/mg High 9 - 20 [facility] Lipid Panelon 07-05-2024 [facility] Lipid Profileon 07-05-2024 Cholesterol [Mass/Vol] 162 mg/dL Normal 0-199 [facility] Comment on above: Cholesterol Guidelines: <200 Desirable 200-240 Borderline >240 Undesirable Result Comment: Cholesterol Guidelines: <200 Desirable 200-240 Borderline >240 Undesirable Performed By: #### T SH, CBC, CP #### [address] [place] [address] Skylights Assembler: Marlon Parisi MD #### LIPR #### [facility] [employer] [address] [place] [address] Skylights Assembler: Robinson Byrd MD Cholesterol in HDL [Mass/Vol] 70 mg/dL Normal >40 [facility] Comment on above: HDL Guidelines: <40 Undesirable 40-59 Borderline >59 Desirable Result Comment: HDL Guidelines: <40 Undesirable 40-59 Borderline >59 Desirable Performed By: #### T SH, CBC, CP #### [address] [place] [address] Skylights Assembler: Marlon Parisi MD #### LIPR #### [facility] [employer] [address] [place] [address] Skylights Assembler: Robinson Byrd MD Cholesterol in LDL [Mass/Vol] 72 mg/dL Normal 0-100 [facility] Comment on above: LDL Guidelines: <100 Desirable 100-129 Near to/above Desirable 130-159 Borderline >159 Undesirable Direct (measured) LDL and calculated LDL are not interchangeable tests. Result Comment: LDL Guidelines: <100 Desirable 100-129 Near to/above Desirable 130-159 Borderline >159 Undesirable Direct (measured) LDL and calculated LDL are not interchangeable tests. Performed By: #### T SH, CBC, CP #### [facility] [address] [place] [address] [place] [id number] [employer]yl[employer] Assembler: Marlon Parisi MD #### LIPR #### [address] [id number] Skyl[employer] Assembler: Robinson Byrd MD Cholesterol in VLDL [Mass/Vol] 20 mg/dL Normal 1-30 [facility] Comment on above: Performed By: #### T JULIANNE, CBC, CP #### [facility] [address] [place] [address] [place] [id number] [employer]ylights Assembler: Marlon Parisi MD #### LIPR #### [address] [id number] Skyl[employer] Assembler: Robinson Byrd MD Cholesterol.total/Chol esterol in HDL [Mass ratio] 2.3 {ratio} Normal [facility] Comment on above: Performed By: #### T JULIANNE, CBC, CP #### [facility] [address] [place] [address] [place] [id number] [employer]ylights Assembler: Marlon Parisi MD #### LIPR #### [address] [id number] [employer]yl[employer] Assembler: Robinson Byrd MD Triglyceride [Mass/Vol] 100 mg/dL Normal <150 [facility] Comment on above: Triglyceride Guidelines: <150 Desirable 150-199 Borderline 200-499 High >499 Very high Based on AHA Guidelines for fasting triglyceride, May 2012. Result Comment: Triglyceride Guidelines: <150 Desirable 150-199 Borderline 200-499 High >499 Very high Based on AHA Guidelines for fasting triglyceride, May 2012. Performed By: #### T JULIANNE, CBC, CP #### [facility] [address] [place] [address] Skylights Assembler: Marlon Parisi MD #### LIPR #### [address] [place] [address] [employer]ylights Assembler: Robinson Byrd MD No Panel Informationon 07-05 [facility] TSHon 07-05-2024 TSH Qn 2.02 m[IU]/L [facility] Thyroid Stim. Horm.on 2023 Thyroid Stim. Horm. 2.02 uIU/mL Normal 0.27-4.20 [facility] Comment on above: Performed By: #### T JULIANNE CBC, CP #### [facility] [address] [place] [address] Skylights Assembler: Marlon Parisi MD #### LIPR #### [address] [place] [address] Skylights Assembler: Robinson Byrd MD PAP ACOG PANEL 2: 23 to 31on 01-16-2022 . . [facility] Comment on above: Performed By: #### [id number] #### [facility] [address] [address] [address] Harry Menendez Age Gdln ACOG Testing - [facility] Comment on above: Performed By: #### [id number] #### [facility] [address] [address] [address] Harry Menendez DIAGNOSIS: Comment [facility] Comment on above: Result Comment: NEGA TIVE FOR INTRAEPITHELIAL LESION OR MALIGNANCY. Performed By: #### [id number] #### [facility] [address] [address] [address] Harry Menendez Methodology: Comment [facility] Comment on above: Result Comment: This liquid based ThinPrep(R) pap test was screened with the use of an image guided system. Performed By: #### [id number] #### [facility] [address] [place] [address] Dr. Harry Menendez Note: Comment Normal [facility] Comment on above: Result Comment: The Pap smear is a screening test designed to aid in the detection of premalignant and malignant conditions of the uterine cervix. It is not a diagnostic procedure and should not be used as the sole means of detecting cervical cancer. Both false-positive and false-negative reports do occur. . Performed By: #### [id number] #### [facility] [address] [place] [address] Dr. Harry Menendez Performed by: Comment Normal [facility] Comment on above: Result Comment: Sandy Jeffries, Assisted Living Administrator (ASCP) Performed By: #### [id number] #### [facility] [address] [place] [address] Dr. Harry Menendez Reflex Criteria: Comment Normal [facility] Comment on above: Result Comment: The HPV DNA reflex criteria were not met with this specimen result therefore, no HPV testing was performed. . Performed By: #### [id number] #### [facility] [address] [place] [address] Dr. Harry Menendez Specimen adequacy: Comment Normal [facility] Comment on above: Result Comment: Sati sfactory for evaluation. Endocervical and/or squamous metaplastic cells (endocervical component) are present. Performed By: #### [id number] #### [facility] [address] [place] [address] Dr. Harry Menendez Comprehensive Metabolic Empo n 10-07-2021 Albumin [Mass/Vol] 3.9 g/dL Normal 3.2-5.5 [facility] Comment on above: Performed By: #### P T, PTT, CBC, CRP, CMP, ESR, TSH3, T4F #### [address] #### CHROMATIN, THYGLOB AB, TPO, ALD, HLAB27, MYOG, CH50, LUPANTCOAG, HITESH, C4, C3, RPR W RFX #### [facility] , Albumin/Globulin [Mass ratio] 1.2 {ratio} Normal [facility] Comment on above: Performed By: #### P T, PTT, CBC, CRP, CMP, ESR, TSH3, T4F #### [place] [address] [place] #### CHROMATIN, THYGLOB AB, TPO, ALD, HLAB27, MYOG, CH50, LUPANTCOAG, HITESH, C4, C3, RPR W RFX #### [facility] , ALP [Catalytic activity/Vol] 43 U/L Normal 32-92 [facility] Comment on above: Performed By: #### P T, PTT, CBC, CRP, CMP, ESR, TSH3, T4F #### [place] [address] [place] #### CHROMATIN, THYGLOB AB, TPO, ALD, HLAB27, MYOG, CH50, LUPANTCOAG, HITESH, C4, C3, RPR W RFX #### [facility] , ALT [Catalytic activity/Vol] 39 U/L Normal 10 [facility] Comment on above: Performed By: #### P T, PTT, CBC, CRP, CMP, ESR, TSH3, T4F #### [place] [address] [place] #### CHROMATIN, THYGLOB AB, TPO, ALD, HLAB27, MYOG, CH50, LUPANTCOAG, HITESH, C4, C3, RPR W RFX #### [facility] , AST [Catalytic activity/Vol] 24 U/L Normal 10 [facility] Comment on above: Performed By: #### P T, PTT, CBC, CRP, CMP, ESR, TSH3, T4F #### [place] [address] [place] #### CHROMATIN, THYGLOB AB, TPO, ALD, HLAB27, MYOG, CH50, LUPANTCOAG, HITESH, C4, C3, RPR W RFX #### [facility] , Bilirubin [Mass/Vol] 1.0 mg/dL Normal 0.3-1.2 [facility] Comment on above: Performed By: #### P T, PTT, CBC, CRP, CMP, ESR, TSH3, T4F #### [address] #### CHROMATIN, THYGLOB AB, TPO, ALD, HLAB27, MYOG, CH50, LUPANTCOAG, HITESH, C4, C3, RPR W RFX #### [facility] , Calcium [Mass/Vol] 9.4 mg/dL Normal 8.2-10.2 [facility] Comment on above: Performed By: #### P T, PTT, CBC, CRP, CMP, ESR, TSH3, T4F #### [place] [address] [place] #### CHROMATIN, THYGLOB AB, TPO, ALD, HLAB27, MYOG, CH50, LUPANTCOAG, HITESH, C4, C3, RPR W RFX #### [facility] , Chloride [Moles/Vol] 104 mmol/L Normal 95-114 [facility] Comment on above: Performed By: #### P T, PTT, CBC, CRP, CMP, ESR, TSH3, T4F #### [place] [address] [place] #### CHROMATIN, THYGLOB AB, TPO, ALD, HLAB27, MYOG, CH50, LUPANTCOAG, HITESH, C4, C3, RPR W RFX #### [facility] , CO2 [Moles/Vol] 22.7 mmol/L Normal 22.0-30.0 [facility] Comment on above: Performed By: #### P T, PTT, CBC, CRP, CMP, ESR, TSH3, T4F #### [place] [address] [place] #### CHROMATIN, THYGLOB AB, TPO, ALD, HLAB27, MYOG, CH50, LUPANTCOAG, HITESH, C4, C3, RPR W RFX #### [facility] , Creatinine [Mass/Vol] 0.60 mg/dL Normal 0.44-1.03 [facility] Comment on above: Performed By: #### P T, PTT, CBC, CRP, CMP, ESR, TSH3, T4F #### [facility] [address] [place] [address] #### CHROMATIN, THYGLOB AB, TPO, ALD, HLAB27, MYOG, CH50, LUPANTCOAG, HITESH, C4, C3, RPR W RFX #### [facility] , Estimated GFR ( Nallely > 60 [facility] Comment on above: Result Comment: GFR estimated reference range: According to KDOQI guidelines, <60 ml/min/1.73m2 is sufficient to diagnose a patient with chronic kidney disease. Performed By: #### P T, PTT, CBC, CRP, CMP, ESR, TSH3, T4F #### [address] #### CHROMATIN, THYGLOB AB, TPO, ALD, HLAB27, MYOG, CH50, LUPANTCOAG, HITESH, C4, C3, RPR W RFX #### [facility] , Estimated GFR (Non- Am > 60 [facility] Comment on above: Performed By: #### P T, PTT, CBC, CRP, CMP, ESR, TSH3, T4F #### [address] #### CHROMATIN, THYGLOB AB, TPO, ALD, HLAB27, MYOG, CH50, LUPANTCOAG, HITESH, C4, C3, RPR W RFX #### [facility] , Globulin (S) [Mass/Vol] 3.3 g/dL [facility] Comment on above: Performed By: #### P T, PTT, CBC, CRP, CMP, ESR, TSH3, T4F #### [address] [place] [address] [place] #### CHROMATIN, THYGLOB AB, TPO, ALD, HLAB27, MYOG, CH50, LUPANTCOAG, HITESH, C4, C3, RPR W RFX #### [facility] , Glucose [Mass/Vol] 89 mg/dL Normal 70-100 [facility] Comment on above: Performed By: #### P T, PTT, CBC, CRP, CMP, ESR, TSH3, T4F #### [address] #### CHROMATIN, THYGLOB AB, TPO, ALD, HLAB27, MYOG, CH50, LUPANTCOAG, HITESH, C4, C3, RPR W RFX #### [facility] , Potassium [Moles/Vol] 4.3 mmol/L Normal 3.5-5.1 [facility] Comment on above: Performed By: #### P T, PTT, CBC, CRP, CMP, ESR, TSH3, T4F #### [address] #### CHROMATIN, THYGLOB AB, TPO, ALD, HLAB27, MYOG, CH50, LUPANTCOAG, HITESH, C4, C3, RPR W RFX #### [facility] , Protein [Mass/Vol] 7.2 g/dL Normal 6.1-7.9 [facility] Comment on above: Performed By: #### P T, PTT, CBC, CRP, CMP, ESR, TSH3, T4F #### [place] [address] [place] #### CHROMATIN, THYGLOB AB, TPO, ALD, HLAB27, MYOG, CH50, LUPANTCOAG, HITESH, C4, C3, RPR W RFX #### [facility] , Sodium [Moles/Vol] 136 mmol/L Normal 136-146 [facility] Comment on above: Performed By: #### P T, PTT, CBC, CRP, CMP, ESR, TSH3, T4F #### [facility] [address] [place] [address] #### CHROMATIN, THYGLOB AB, TPO, ALD, HLAB27, MYOG, CH50, LUPANTCOAG, HITESH, C4, C3, RPR W RFX #### [facility] , Urea nitrogen [Mass/Vol] 9 mg/dL Normal 9-23 [facility] Comment on above: Performed By: #### P T, PTT, CBC, CRP, CMP, ESR, TSH3, T4F #### [facility] [address] [place] [address] #### CHROMATIN, THYGLOB AB, TPO, ALD, HLAB27, MYOG, CH50, LUPANTCOAG, HITESH, C4, C3, RPR W RFX #### [facility] , Lipid Profileon 10-07-2021 Cholesterol [Mass/Vol] 153 mg/dL Normal 140-200 [facility] Comment on above: Result Comment: Chol less than 200 mg/dl low risk Chol 201-239 mg/dl borderline risk Chol 240 mg/dl and greater high risk Performed By: #### P T, PTT, CBC, CRP, CMP, ESR, TSH3, T4F #### [facility] [address] [place] [address] [place] #### CHROMATIN, THYGLOB AB, TPO, ALD, HLAB27, MYOG, CH50, LUPANTCOAG, HITESH, C4, C3, RPR W RFX #### [facility] , Cholesterol in HDL [Mass/Vol] 54 mg/dL Normal 35-85 [facility] Comment on above: Result Comment: HDL CHOL ATP-III CLASSIFICATION Cardiovascular Risk HDL > or equal to 60 mg/dL LOW HDL < 40 mg/dL HIGH Performed By: #### P T, PTT, CBC, CRP, CMP, ESR, TSH3, T4F #### [facility] [address] [place] [address] [place] #### CHROMATIN, THYGLOB AB, TPO, ALD, HLAB27, MYOG, CH50, LUPANTCOAG, HITESH, C4, C3, RPR W RFX #### [facility] , Cholesterol.total/Chol esterol in HDL [Mass ratio] 2.8 {ratio} Normal <5.0 [facility] Comment on above: Result Comment: PERF ORMED BY: [place] [address] PATHOLOGIST [employer] I ASSEMBLER LUKE JAIME M.D. Performed By: #### P T, PTT, CBC, CRP, CMP, ESR, TSH3, T4F #### [address] #### CHROMATIN, THYGLOB AB, TPO, ALD, HLAB27, MYOG, CH50, LUPANTCOAG, HITESH, C4, C3, RPR W RFX #### [facility] , LDL Cholesterol,Calculated 90 mg/dL Normal 0-100 [facility] Comment on above: Result Comment: LDL ATP III CLASSIFICATION LDL less than 100 mg/dL Optimal LDL 100-129 mg/dL Near or above optimal LDL 130-159 mg/dL Borderline high LDL 160-189 mg/dL High LDL greater than 189 mg/dL Very high Performed By: #### P T, PTT, CBC, CRP, CMP, ESR, TSH3, T4F #### [address] #### CHROMATIN, THYGLOB AB, TPO, ALD, HLAB27, MYOG, CH50, LUPANTCOAG, HITESH, C4, C3, RPR W RFX #### [facility] , Triglyceride w/Reflex 44 mg/dL Normal 35-149 [facility] Comment on above: Result Comment: TRIG ATP III CLASSIFICATION TRIG less than 150 mg/dL Normal TRIG 150-199 mg/dL Borderline high TRIG 200-500 mg/dL High TRIG greater than 500 mg/dL Very high Standard traceable to the Center for Disease Conrtrol and Prevention (CDC) test method. Performed By: #### P T, PTT, CBC, CRP, CMP, ESR, TSH3, T4F #### [address] [place] [address] [place] #### CHROMATIN, THYGLOB AB, TPO, ALD, HLAB27, MYOG, CH50, LUPANTCOAG, HITESH, C4, C3, RPR W RFX #### [facility] , VLDL CHOLESTEROL 8 mg/dL Normal [facility] Comment on above: Performed By: #### P T, PTT, CBC, CRP, CMP, ESR, TSH3, T4F #### [facility] [address] [place] [address] [place] #### CHROMATIN, THYGLOB AB, TPO, ALD, HLAB27, MYOG, CH50, LUPANTCOAG, HITESH, C4, C3, RPR W RFX #### [facility] , HITESH Antinuclear Antibodieson 03-04-2021 Antinuclear Abs, IFA Negative Normal . [facility] Comment on above: Order Comment: Speci men Comment: Test(s) 139084-Gwznuotewrb Specimen Comment: was developed and its performance characteristics Specimen Comment: determined by [facility]. It has not been cleared or approved Specimen Comment: by the Food and Drug Administration. List any foods/meds the pt has taken (see Test/Proc Notes):: N/A Patient Posture before Draw (see Test/Proc Notes):: SITTING UP Result Comment: Nega tive <1:80 Borderline 1:80 Positive >1:80 Performed at: [facility] [id number] Skylights Assembler: Oj Martin PhD, Phone: [phone] Performed By: #### P T, PTT, CBC, CRP, CMP, ESR, TSH3, T4F #### [facility] [address] [place] [address] [place] #### CHROMATIN, THYGLOB AB, TPO, ALD, HLAB27, MYOG, CH50, LUPANTCOAG, HITESH, C4, C3, RPR W RFX #### [facility] , Aldosteroneon 03-04-2021 Aldosterone 9.0 ng/dL Normal 0.0-30.0 [facility] Comment on above: Order Comment: Speci men Comment: Test(s) 224085-Vxuligycvia Specimen Comment: was developed and its performance characteristics Specimen Comment: determined by [facility]. It has not been cleared or approved Specimen Comment: by the Food and Drug Administration. List any foods/meds the pt has taken (see Test/Proc Notes):: N/A Patient Posture before Draw (see Test/Proc Notes):: SITTING UP Result Comment: Perf ormed at: - [address] [id number] Skyl[employer] Assembler: Radha Patel MD, Phone: [phone] Performed By: #### P T, PTT, CBC, CRP, CMP, ESR, TSH3, T4F #### [address] #### CHROMATIN, THYGLOB AB, TPO, ALD, HLAB27, MYOG, CH50, LUPANTCOAG, HITESH, C4, C3, RPR W RFX #### [facility] , Antithyroglobulin Abon 03-04 Antithyroglobulin Ab 175.7 High 0.0-0.9 [facility] Comment on above: Order Comment: Speci men Comment: Test(s) 848273-Jzhmsmnxxzt Specimen Comment: was developed and its performance characteristics Specimen Comment: determined by [facility]. It has not been cleared or approved Specimen Comment: by the Food and Drug Administration. List any foods/meds the pt has taken (see Test/Proc Notes):: N/A Patient Posture before Draw (see Test/Proc Notes):: SITTING UP Result Comment: Thyr oglobulin Antibody measured by [employer] Methodology Performed at: [address] [id number] Skyl[employer] Assembler: Oj Martin PhD, Phone: [phone] Performed By: #### P T, PTT, CBC, CRP, CMP, ESR, TSH3, T4F #### [place] [address] [place] #### CHROMATIN, THYGLOB AB, TPO, ALD, HLAB27, MYOG, CH50, LUPANTCOAG, HITESH, C4, C3, RPR W RFX #### [facility] , C-Reactive Proteinon 021 C-Reactive Protein 0.7 mg/dL Normal 0.0-1.0 [facility] Comment on above: Performed By: #### P T, PTT, CBC, CRP, CMP, ESR, TSH3, T4F #### [facility] [address] [place] [address] [place] #### CHROMATIN, THYGLOB AB, TPO, ALD, HLAB27, MYOG, CH50, LUPANTCOAG, HITESH, C4, C3, RPR W RFX #### [facility] , Chromatin Antibodyon 021 Chromatin Antibody <0.2 Normal 0.0-0.9 [facility] Comment on above: Order Comment: Speci men Comment: Test(s) 597165-Houswyyftef Specimen Comment: was developed and its performance characteristics Specimen Comment: determined by [facility]. It has not been cleared or approved Specimen Comment: by the Food and Drug Administration. List any foods/meds the pt has taken (see Test/Proc Notes):: N/A Patient Posture before Draw (see Test/Proc Notes):: SITTING UP Performed By: #### P T, PTT, CBC, CRP, CMP, ESR, TSH3, T4F #### [facility] [address] [place] [address] [place] #### CHROMATIN, THYGLOB AB, TPO, ALD, HLAB27, MYOG, CH50, LUPANTCOAG, HITESH, C4, C3, RPR W RFX #### [facility] , Complement C3on 03-04-2021 Complement C3 130 mg/dL Normal 82-167 [facility] Comment on above: Order Comment: Speci men Comment: Test(s) 186971-Hrjlbmfmehc Specimen Comment: was developed and its performance characteristics Specimen Comment: determined by [facility]. It has not been cleared or approved Specimen Comment: by the Food and Drug Administration. List any foods/meds the pt has taken (see Test/Proc Notes):: N/A Patient Posture before Draw (see Test/Proc Notes):: SITTING UP Performed By: #### P T, PTT, CBC, CRP, CMP, ESR, TSH3, T4F #### [facility] [address] [place] [address] [place] #### CHROMATIN, THYGLOB AB, TPO, ALD, HLAB27, MYOG, CH50, LUPANTCOAG, HITESH, C4, C3, RPR W RFX #### [facility] , Complement C4on 03-04-2021 Complement C4 25 mg/dL Normal 12-38 [facility] Comment on above: Order Comment: Speci men Comment: Test(s) 437994-Tpsjhggfilb Specimen Comment: was developed and its performance characteristics Specimen Comment: determined by [facility]. It has not been cleared or approved Specimen Comment: by the Food and Drug Administration. List any foods/meds the pt has taken (see Test/Proc Notes):: N/A Patient Posture before Draw (see Test/Proc Notes):: SITTING UP Performed By: #### P T, PTT, CBC, CRP, CMP, ESR, TSH3, T4F #### [facility] [address] [place] [address] [place] #### CHROMATIN, THYGLOB AB, TPO, ALD, HLAB27, MYOG, CH50, LUPANTCOAG, HITESH, C4, C3, RPR W RFX #### [facility] , Complement Total (CH50)on Complement Total (CH50) >60 Normal >41 [facility] Comment on above: Order Comment: Speci men Comment: Test(s) 096930-Nerctbotckn Specimen Comment: was developed and its performance characteristics Specimen Comment: determined by [facility]. It has not been cleared or approved Specimen Comment: by the Food and Drug Administration. List any foods/meds the pt has taken (see Test/Proc Notes):: N/A Patient Posture before Draw (see Test/Proc Notes):: SITTING UP Result Comment: Age Male Female 1 - 30 days Not Estab. Not Estab. 31 days - 6 months >32 >20 7 months - 17 years >39 >39 >17 years >41 >41 NOTE: The adult ( >17 years ) reference interval range is used to flag abnormals on this report. If the patient is 17 years old or younger, use the table above to determine out of range values. Performed at: - [facility] [id number] Skyl[employer] Assembler: Oj Martin PhD, Phone: [phone] Performed By: #### P T, PTT, CBC, CRP, CMP, ESR, TSH3, T4F #### [address] #### CHROMATIN, THYGLOB AB, TPO, ALD, HLAB27, MYOG, CH50, LUPANTCOAG, HITESH, C4, C3, RPR W RFX #### [facility] , Complete Blood Count Auto Di ffon 03-04-2021 Basophils (Bld) [#/Vol] 0.0 10*3/uL Normal 0.0-0.2 [facility] Comment on above: Performed By: #### P T, PTT, CBC, CRP, CMP, ESR, TSH3, T4F #### [address] #### CHROMATIN, THYGLOB AB, TPO, ALD, HLAB27, MYOG, CH50, LUPANTCOAG, HITESH, C4, C3, RPR W RFX #### [facility] , Basophils/100 WBC (Bld) 1.0 % Normal . [facility] Comment on above: Performed By: #### P T, PTT, CBC, CRP, CMP, ESR, TSH3, T4F #### [address] #### CHROMATIN, THYGLOB AB, TPO, ALD, HLAB27, MYOG, CH50, LUPANTCOAG, HITESH, C4, C3, RPR W RFX #### [facility] , Eosinophils (Bld) [#/Vol] 0.1 10*3/uL Normal 0.0-0.45 [facility] Comment on above: Performed By: #### P T, PTT, CBC, CRP, CMP, ESR, TSH3, T4F #### [place] [address] [place] #### CHROMATIN, THYGLOB AB, TPO, ALD, HLAB27, MYOG, CH50, LUPANTCOAG, HITESH, C4, C3, RPR W RFX #### [facility] , Eosinophils/100 WBC (Bld) 2.0 % Normal . [facility] Comment on above: Performed By: #### P T, PTT, CBC, CRP, CMP, ESR, TSH3, T4F #### [address] #### CHROMATIN, THYGLOB AB, TPO, ALD, HLAB27, MYOG, CH50, LUPANTCOAG, HITESH, C4, C3, RPR W RFX #### [facility] , Erythrocyte distribution width (RBC) [Ratio] 12.5 % Normal 11.9-15.3 [facility] Comment on above: Performed By: #### P T, PTT, CBC, CRP, CMP, ESR, TSH3, T4F #### [address] #### CHROMATIN, THYGLOB AB, TPO, ALD, HLAB27, MYOG, CH50, LUPANTCOAG, HITESH, C4, C3, RPR W RFX #### [facility] , Hematocrit (Bld) [Volume fraction] 38.8 % Normal 34.0-46.4 [facility] Comment on above: Performed By: #### P T, PTT, CBC, CRP, CMP, ESR, TSH3, T4F #### [place] [address] [place] #### CHROMATIN, THYGLOB AB, TPO, ALD, HLAB27, MYOG, CH50, LUPANTCOAG, HITESH, C4, C3, RPR W RFX #### [facility] , Hemoglobin (Bld) [Mass/Vol] 13.4 g/dL Normal 11.8-15.4 [facility] Comment on above: Performed By: #### P T, PTT, CBC, CRP, CMP, ESR, TSH3, T4F #### [address] #### CHROMATIN, THYGLOB AB, TPO, ALD, HLAB27, MYOG, CH50, LUPANTCOAG, HITESH, C4, C3, RPR W RFX #### [facility] , Lymphocytes (Bld) [#/Vol] 1.1 10*3/uL Normal 1.00-4.8 [facility] Comment on above: Performed By: #### P T, PTT, CBC, CRP, CMP, ESR, TSH3, T4F #### [address] #### CHROMATIN, THYGLOB AB, TPO, ALD, HLAB27, MYOG, CH50, LUPANTCOAG, HITESH, C4, C3, RPR W RFX #### [facility] , Lymphocytes/100 WBC (Bld) 25.9 % Normal . [facility] Comment on above: Performed By: #### P T, PTT, CBC, CRP, CMP, ESR, TSH3, T4F #### [address] #### CHROMATIN, THYGLOB AB, TPO, ALD, HLAB27, MYOG, CH50, LUPANTCOAG, HITESH, C4, C3, RPR W RFX #### [facility] , MCH (RBC) [Entitic mass] 31.4 pg Normal 24.7-34.3 [facility] Comment on above: Performed By: #### P T, PTT, CBC, CRP, CMP, ESR, TSH3, T4F #### [place] [address] [place] #### CHROMATIN, THYGLOB AB, TPO, ALD, HLAB27, MYOG, CH50, LUPANTCOAG, HITESH, C4, C3, RPR W RFX #### [facility] , MCV (RBC) [Entitic vol] 91.3 fL Normal 80-100 [facility] Comment on above: Performed By: #### P T, PTT, CBC, CRP, CMP, ESR, TSH3, T4F #### [facility] [address] [place] [address] #### CHROMATIN, THYGLOB AB, TPO, ALD, HLAB27, MYOG, CH50, LUPANTCOAG, HITESH, C4, C3, RPR W RFX #### [facility] , Mean Corpuscular HGB Conc 34.4 g/dL Normal 32.0-35.0 [facility] Comment on above: Performed By: #### P T, PTT, CBC, CRP, CMP, ESR, TSH3, T4F #### [facility] [address] [place] [address] #### CHROMATIN, THYGLOB AB, TPO, ALD, HLAB27, MYOG, CH50, LUPANTCOAG, HITESH, C4, C3, RPR W RFX #### [facility] , Monocytes (Bld) [#/Vol] 0.2 10*3/uL Normal 0.0-0.8 [facility] Comment on above: Performed By: #### P T, PTT, CBC, CRP, CMP, ESR, TSH3, T4F #### [address] #### CHROMATIN, THYGLOB AB, TPO, ALD, HLAB27, MYOG, CH50, LUPANTCOAG, HITESH, C4, C3, RPR W RFX #### [facility] , Monocytes/100 WBC (Bld) 5.4 % Normal . [facility] Comment on above: Performed By: #### P T, PTT, CBC, CRP, CMP, ESR, TSH3, T4F #### [facility] [address] [place] [address] [place] #### CHROMATIN, THYGLOB AB, TPO, ALD, HLAB27, MYOG, CH50, LUPANTCOAG, HITESH, C4, C3, RPR W RFX #### [facility] , Neutrophils (Bld) [#/Vol] 2.8 10*3/uL Normal 1.8-7.7 [facility] Comment on above: Performed By: #### P T, PTT, CBC, CRP, CMP, ESR, TSH3, T4F #### [address] #### CHROMATIN, THYGLOB AB, TPO, ALD, HLAB27, MYOG, CH50, LUPANTCOAG, HITESH, C4, C3, RPR W RFX #### [facility] , Neutrophils/100 WBC (Bld) 65.7 % Normal . [facility] Comment on above: Performed By: #### P T, PTT, CBC, CRP, CMP, ESR, TSH3, T4F #### [address] #### CHROMATIN, THYGLOB AB, TPO, ALD, HLAB27, MYOG, CH50, LUPANTCOAG, HITESH, C4, C3, RPR W RFX #### [facility] , Nucleated RBC/100 WBC (Bld) [Ratio] 0.1 % Normal 0-0.5 [facility] Comment on above: Performed By: #### P T, PTT, CBC, CRP, CMP, ESR, TSH3, T4F #### [place] [address] [place] #### CHROMATIN, THYGLOB AB, TPO, ALD, HLAB27, MYOG, CH50, LUPANTCOAG, HITESH, C4, C3, RPR W RFX #### [facility] , Platelet mean volume (Bld) [Entitic vol] 9.9 fL Normal 6.3-10.7 [facility] Comment on above: Performed By: #### P T, PTT, CBC, CRP, CMP, ESR, TSH3, T4F #### [place] [address] [place] #### CHROMATIN, THYGLOB AB, TPO, ALD, HLAB27, MYOG, CH50, LUPANTCOAG, HITESH, C4, C3, RPR W RFX #### [facility] , Platelets (Bld) [#/Vol] 214 10*3/uL Normal 150-450 [facility] Comment on above: Performed By: #### P T, PTT, CBC, CRP, CMP, ESR, TSH3, T4F #### [facility] [address] [place] [address] #### CHROMATIN, THYGLOB AB, TPO, ALD, HLAB27, MYOG, CH50, LUPANTCOAG, HITESH, C4, C3, RPR W RFX #### [facility] , RBC (Bld) [#/Vol] 4.25 10*6/uL Normal 3.60-5.00 [facility] Comment on above: Performed By: #### P T, PTT, CBC, CRP, CMP, ESR, TSH3, T4F #### [facility] [address] [place] [address] #### CHROMATIN, THYGLOB AB, TPO, ALD, HLAB27, MYOG, CH50, LUPANTCOAG, HITESH, C4, C3, RPR W RFX #### [facility] , WBC (Bld) [#/Vol] 4.2 10*3/uL Low 4.5-11.0 [facility] Comment on above: Performed By: #### P T, PTT, CBC, CRP, CMP, ESR, TSH3, T4F #### [address] #### CHROMATIN, THYGLOB AB, TPO, ALD, HLAB27, MYOG, CH50, LUPANTCOAG, HITESH, C4, C3, RPR W RFX #### [facility] , Comprehensive Metabolic Pane gaurang 03-04-2021 Albumin [Mass/Vol] 3.9 g/dL Normal 3.2-5.5 [facility] Comment on above: Performed By: #### P T, PTT, CBC, CRP, CMP, ESR, TSH3, T4F #### [facility] [address] [place] [address] [place] #### CHROMATIN, THYGLOB AB, TPO, ALD, HLAB27, MYOG, CH50, LUPANTCOAG, HITESH, C4, C3, RPR W RFX #### [facility] , Albumin/Globulin [Mass ratio] 1.3 {ratio} Normal [facility] Comment on above: Performed By: #### P T, PTT, CBC, CRP, CMP, ESR, TSH3, T4F #### [facility] [address] [place] [address] #### CHROMATIN, THYGLOB AB, TPO, ALD, HLAB27, MYOG, CH50, LUPANTCOAG, HITESH, C4, C3, RPR W RFX #### [facility] , ALP [Catalytic activity/Vol] 52 U/L Normal 32 [facility] Comment on above: Performed By: #### P T, PTT, CBC, CRP, CMP, ESR, TSH3, T4F #### [facility] [address] [place] [address] [place] #### CHROMATIN, THYGLOB AB, TPO, ALD, HLAB27, MYOG, CH50, LUPANTCOAG, HITESH, C4, C3, RPR W RFX #### [facility] , ALT [Catalytic activity/Vol] 20 U/L Normal [facility] Comment on above: Performed By: #### P T, PTT, CBC, CRP, CMP, ESR, TSH3, T4F #### [facility] [address] [place] [address] [place] #### CHROMATIN, THYGLOB AB, TPO, ALD, HLAB27, MYOG, CH50, LUPANTCOAG, HITESH, C4, C3, RPR W RFX #### [facility] , AST [Catalytic activity/Vol] 24 U/L Normal 10 [facility] Comment on above: Performed By: #### P T, PTT, CBC, CRP, CMP, ESR, TSH3, T4F #### [facility] [address] [place] [address] [place] #### CHROMATIN, THYGLOB AB, TPO, ALD, HLAB27, MYOG, CH50, LUPANTCOAG, HITESH, C4, C3, RPR W RFX #### [facility] , Bilirubin [Mass/Vol] 0.7 mg/dL Normal 0.3-1.2 [facility] Comment on above: Performed By: #### P T, PTT, CBC, CRP, CMP, ESR, TSH3, T4F #### [facility] [address] [place] [address] #### CHROMATIN, THYGLOB AB, TPO, ALD, HLAB27, MYOG, CH50, LUPANTCOAG, HITESH, C4, C3, RPR W RFX #### [facility] , Calcium [Mass/Vol] 9.6 mg/dL Normal 8.2-10.2 [facility] Comment on above: Performed By: #### P T, PTT, CBC, CRP, CMP, ESR, TSH3, T4F #### [facility] [address] [place] [address] [place] #### CHROMATIN, THYGLOB AB, TPO, ALD, HLAB27, MYOG, CH50, LUPANTCOAG, HITESH, C4, C3, RPR W RFX #### [facility] , Chloride [Moles/Vol] 103 mmol/L Normal 95-114 [facility] Comment on above: Performed By: #### P T, PTT, CBC, CRP, CMP, ESR, TSH3, T4F #### [facility] [address] [place] [address] [place] #### CHROMATIN, THYGLOB AB, TPO, ALD, HLAB27, MYOG, CH50, LUPANTCOAG, HITESH, C4, C3, RPR W RFX #### [facility] , CO2 [Moles/Vol] 23.4 mmol/L Normal 22.0-30.0 [facility] Comment on above: Performed By: #### P T, PTT, CBC, CRP, CMP, ESR, TSH3, T4F #### [facility] [address] [place] [address] #### CHROMATIN, THYGLOB AB, TPO, ALD, HLAB27, MYOG, CH50, LUPANTCOAG, HITESH, C4, C3, RPR W RFX #### [facility] , Creatinine [Mass/Vol] 0.62 mg/dL Normal 0.44-1.03 [facility] Comment on above: Performed By: #### P T, PTT, CBC, CRP, CMP, ESR, TSH3, T4F #### [facility] [address] [place] [address] #### CHROMATIN, THYGLOB AB, TPO, ALD, HLAB27, MYOG, CH50, LUPANTCOAG, HITESH, C4, C3, RPR W RFX #### [facility] , Estimated GFR ( Nallely > 60 [facility] Comment on above: Result Comment: GFR estimated reference range: According to KDOQI guidelines, <60 ml/min/1.73m2 is sufficient to diagnose a patient with chronic kidney disease. Performed By: #### P T, PTT, CBC, CRP, CMP, ESR, TSH3, T4F #### [address] #### CHROMATIN, THYGLOB AB, TPO, ALD, HLAB27, MYOG, CH50, LUPANTCOAG, HITESH, C4, C3, RPR W RFX #### [facility] , Estimated GFR (Non- Am > 60 [facility] Comment on above: Performed By: #### P T, PTT, CBC, CRP, CMP, ESR, TSH3, T4F #### [facility] [address] [place] [address] [place] #### CHROMATIN, THYGLOB AB, TPO, ALD, HLAB27, MYOG, CH50, LUPANTCOAG, HITESH, C4, C3, RPR W RFX #### [facility] , Globulin (S) [Mass/Vol] 3.1 g/dL Normal [facility] Comment on above: Performed By: #### P T, PTT, CBC, CRP, CMP, ESR, TSH3, T4F #### [place] [address] [place] #### CHROMATIN, THYGLOB AB, TPO, ALD, HLAB27, MYOG, CH50, LUPANTCOAG, HITESH, C4, C3, RPR W RFX #### [facility] , Glucose [Mass/Vol] 80 mg/dL Normal 70-100 [facility] Comment on above: Result Comment: [facility] Glucose Reference Range is dependent on time and content of last meal. Glucose of more than 200 mg/dL in a nonstressed, ambulatory subject supports the diagnosis of Diabetes Mellitus. ADA recommended reference range Performed By: #### P T, PTT, CBC, CRP, CMP, ESR, TSH3, T4F #### [place] [address] [place] #### CHROMATIN, THYGLOB AB, TPO, ALD, HLAB27, MYOG, CH50, LUPANTCOAG, HITESH, C4, C3, RPR W RFX #### [facility] , Potassium [Moles/Vol] 4.1 mmol/L Normal 3.5-5.1 [facility] Comment on above: Performed By: #### P T, PTT, CBC, CRP, CMP, ESR, TSH3, T4F #### [place] [address] [place] #### CHROMATIN, THYGLOB AB, TPO, ALD, HLAB27, MYOG, CH50, LUPANTCOAG, HITESH, C4, C3, RPR W RFX #### [facility] , Protein [Mass/Vol] 7.0 g/dL Normal 6.1-7.9 [facility] Comment on above: Performed By: #### P T, PTT, CBC, CRP, CMP, ESR, TSH3, T4F #### [address] [place] [address] [place] #### CHROMATIN, THYGLOB AB, TPO, ALD, HLAB27, MYOG, CH50, LUPANTCOAG, HITESH, C4, C3, RPR W RFX #### [facility] , Sodium [Moles/Vol] 138 mmol/L Normal 136-146 [facility] Comment on above: Performed By: #### P T, PTT, CBC, CRP, CMP, ESR, TSH3, T4F #### [facility] [address] [place] [address] #### CHROMATIN, THYGLOB AB, TPO, ALD, HLAB27, MYOG, CH50, LUPANTCOAG, HITESH, C4, C3, RPR W RFX #### [facility] , Urea nitrogen [Mass/Vol] 9 mg/dL Normal 9-23 [facility] Comment on above: Performed By: #### P T, PTT, CBC, CRP, CMP, ESR, TSH3, T4F #### [facility] [address] [place] [address] #### CHROMATIN, THYGLOB AB, TPO, ALD, HLAB27, MYOG, CH50, LUPANTCOAG, HITESH, C4, C3, RPR W RFX #### [facility] , Dipstick and Microscopicon 0 03-04-2021 Appearance (U) Clear Normal Clear [facility] Comment on above: Order Comment: Name Collection Type:: Clean-Voided Midstream Performed By: #### P T, PTT, CBC, CRP, CMP, ESR, TSH3, T4F #### [facility] [address] [place] [address] [place] #### CHROMATIN, THYGLOB AB, TPO, ALD, HLAB27, MYOG, CH50, LUPANTCOAG, HITESH, C4, C3, RPR W RFX #### [facility] , Bacteria,Urine None Seen Normal None Seen [facility] Comment on above: Order Comment: Name Collection Type:: Clean-Voided Midstream Performed By: #### P T, PTT, CBC, CRP, CMP, ESR, TSH3, T4F #### [facility] [address] [place] [address] #### CHROMATIN, THYGLOB AB, TPO, ALD, HLAB27, MYOG, CH50, LUPANTCOAG, HITESH, C4, C3, RPR W RFX #### [facility] , Bilirubin,Urine Negative Normal Negative [facility] Comment on above: Order Comment: Name Collection Type:: Clean-Voided Midstream Performed By: #### P T, PTT, CBC, CRP, CMP, ESR, TSH3, T4F #### [facility] [address] [place] [address] #### CHROMATIN, THYGLOB AB, TPO, ALD, HLAB27, MYOG, CH50, LUPANTCOAG, HITESH, C4, C3, RPR W RFX #### [facility] , Color (U) Yellow Normal Yellow [facility] Comment on above: Order Comment: Name Collection Type:: Clean-Voided Midstream Performed By: #### P T, PTT, CBC, CRP, CMP, ESR, TSH3, T4F #### [facility] [address] [place] [address] #### CHROMATIN, THYGLOB AB, TPO, ALD, HLAB27, MYOG, CH50, LUPANTCOAG, HITESH, C4, C3, RPR W RFX #### [facility] , Glucose Ql (U) Normal Normal Normal [facility] Comment on above: Order Comment: Name Collection Type:: Clean-Voided Midstream Performed By: #### P T, PTT, CBC, CRP, CMP, ESR, TSH3, T4F #### [facility] [address] [place] [address] [place] #### CHROMATIN, THYGLOB AB, TPO, ALD, HLAB27, MYOG, CH50, LUPANTCOAG, HITESH, C4, C3, RPR W RFX #### [facility] , Hyaline Casts,Urine 0-8 Normal 0-8 [facility] Comment on above: Order Comment: Name Collection Type:: Clean-Voided Midstream Result Comment: PERF ORMED BY: [place] [address] PATHOLOGIST BICYCLE I ASSEMBLER LUKE JAIME M.D. Performed By: #### P T, PTT, CBC, CRP, CMP, ESR, TSH3, T4F #### [address] #### CHROMATIN, THYGLOB AB, TPO, ALD, HLAB27, MYOG, CH50, LUPANTCOAG, HITESH, C4, C3, RPR W RFX #### [facility] , Ketones Ql (U) Negative Normal Negative [facility] Comment on above: Order Comment: Name Collection Type:: Clean-Voided Midstream Performed By: #### P T, PTT, CBC, CRP, CMP, ESR, TSH3, T4F #### [address] #### CHROMATIN, THYGLOB AB, TPO, ALD, HLAB27, MYOG, CH50, LUPANTCOAG, HITESH, C4, C3, RPR W RFX #### [facility] , Leukocyte esterase Test strip Ql (U) 1+ High Negative [facility] Comment on above: Order Comment: Name Collection Type:: Clean-Voided Midstream Performed By: #### P T, PTT, CBC, CRP, CMP, ESR, TSH3, T4F #### [address] #### CHROMATIN, THYGLOB AB, TPO, ALD, HLAB27, MYOG, CH50, LUPANTCOAG, HITESH, C4, C3, RPR W RFX #### [facility] , Nitrite,Urine Negative Normal Negative [facility] Comment on above: Order Comment: Name Collection Type:: Clean-Voided Midstream Performed By: #### P T, PTT, CBC, CRP, CMP, ESR, TSH3, T4F #### [address] [place] [address] [place] #### CHROMATIN, THYGLOB AB, TPO, ALD, HLAB27, MYOG, CH50, LUPANTCOAG, HITESH, C4, C3, RPR W RFX #### [facility] , Occult Blood,Urine Trace High Negative [facility] Comment on above: Order Comment: Name Collection Type:: Clean-Voided Midstream Performed By: #### P T, PTT, CBC, CRP, CMP, ESR, TSH3, T4F #### [facility] [address] [place] [address] #### CHROMATIN, THYGLOB AB, TPO, ALD, HLAB27, MYOG, CH50, LUPANTCOAG, HITESH, C4, C3, RPR W RFX #### [facility] , pH (U) 6.5 [pH] Normal 5.0-9.0 [facility] Comment on above: Order Comment: Name Collection Type:: Clean-Voided Midstream Performed By: #### P T, PTT, CBC, CRP, CMP, ESR, TSH3, T4F #### [facility] [address] [place] [address] #### CHROMATIN, THYGLOB AB, TPO, ALD, HLAB27, MYOG, CH50, LUPANTCOAG, HITESH, C4, C3, RPR W RFX #### [facility] , Protein,Urine Negative Normal Negative [facility] Comment on above: Order Comment: Name Collection Type:: Clean-Voided Midstream Performed By: #### P T, PTT, CBC, CRP, CMP, ESR, TSH3, T4F #### [facility] [address] [place] [address] [place] #### CHROMATIN, THYGLOB AB, TPO, ALD, HLAB27, MYOG, CH50, LUPANTCOAG, HITESH, C4, C3, RPR W RFX #### [facility] , RBC LM.HPF (Urine sed) [#/Area] 0 /[HPF] Normal 0-4 [facility] Comment on above: Order Comment: Name Collection Type:: Clean-Voided Midstream Performed By: #### P T, PTT, CBC, CRP, CMP, ESR, TSH3, T4F #### [address] #### CHROMATIN, THYGLOB AB, TPO, ALD, HLAB27, MYOG, CH50, LUPANTCOAG, HITESH, C4, C3, RPR W RFX #### [facility] , Specificy [place],Urine 1.014 Normal 1.001-1.030 [facility] Comment on above: Order Comment: Name Collection Type:: Clean-Voided Midstream Performed By: #### P T, PTT, CBC, CRP, CMP, ESR, TSH3, T4F #### [address] #### CHROMATIN, THYGLOB AB, TPO, ALD, HLAB27, MYOG, CH50, LUPANTCOAG, HITESH, C4, C3, RPR W RFX #### [facility] , Squamous Epithelial Cell,Urine 1-2 Normal 0-2 [facility] Comment on above: Order Comment: Name Collection Type:: Clean-Voided Midstream Performed By: #### P T, PTT, CBC, CRP, CMP, ESR, TSH3, T4F #### [address] #### CHROMATIN, THYGLOB AB, TPO, ALD, HLAB27, MYOG, CH50, LUPANTCOAG, HITESH, C4, C3, RPR W RFX #### [facility] , Urobilinogen,Urine Normal Normal Normal [facility] Comment on above: Order Comment: Name Collection Type:: Clean-Voided Midstream Performed By: #### P T, PTT, CBC, CRP, CMP, ESR, TSH3, T4F #### [address] #### CHROMATIN, THYGLOB AB, TPO, ALD, HLAB27, MYOG, CH50, LUPANTCOAG, HITESH, C4, C3, RPR W RFX #### [facility] , WBC LM.HPF (Urine sed) [#/Area] 0 /[HPF] Normal 0-4 [facility] Comment on above: Order Comment: Name Collection Type:: Clean-Voided Midstream Performed By: #### P T, PTT, CBC, CRP, CMP, ESR, TSH3, T4F #### [facility] [address] [place] [address] #### CHROMATIN, THYGLOB AB, TPO, ALD, HLAB27, MYOG, CH50, LUPANTCOAG, HITESH, C4, C3, RPR W RFX #### [facility] , Erythrocyte Sedimentation Ra kashif 03-04-2021 ESR (Bld) [Velocity] 11 mm/h Normal 0-19 [facility] Comment on above: Result Comment: PERF ORMED BY: [place] [address] PATHOLOGIST BICYCLE I ASSEMBLER LUKE JAIME M.D. Performed By: #### P T, PTT, CBC, CRP, CMP, ESR, TSH3, T4F #### [address] #### CHROMATIN, THYGLOB AB, TPO, ALD, HLAB27, MYOG, CH50, LUPANTCOAG, HITESH, C4, C3, RPR W RFX #### [facility] , Free T4 (Free Thyroxine)on 0 03-04-2021 Free T4 [Mass/Vol] 0.78 ng/dL Normal 0.61-1.12 [facility] Comment on above: Performed By: #### P T, PTT, CBC, CRP, CMP, ESR, TSH3, T4F #### [place] [address] [place] #### CHROMATIN, THYGLOB AB, TPO, ALD, HLAB27, MYOG, CH50, LUPANTCOAG, HITESH, C4, C3, RPR W RFX #### [facility] , HLA B27 Disease Associationo n 03-04-2021 HLA B27 Disease Association Positive Normal . [facility] Comment on above: Order Comment: Speci men Comment: Test(s) 877167-Cbrmbulfxmk Specimen Comment: was developed and its performance characteristics Specimen Comment: determined by [facility]. It has not been cleared or approved Specimen Comment: by the Food and Drug Administration. List any foods/meds the pt has taken (see Test/Proc Notes):: N/A Patient Posture before Draw (see Test/Proc Notes):: SITTING UP Result Comment: HLA- B*27 Positive This patient is positive for HLA-B*27. This procedure rules out the B*27:06 and 27:09 alleles, which the literature suggests are not associated with spondyloarthropathies. B27 allele interpretation for all loci based on IMGT/HLA database version 3.44 This test was developed and its performance characteristics determined by [facility]. It has not been cleared or approved by the Food and Drug Administration. [facility] CLIA ID Number [id number] This test was performed using PCR (Polymerase Chain Reaction)/SSOP (Sequence Specific Oligonucleotide Probes) technique. SBT (Sequence Based Typing) and/or SSP (Sequence Specific Primers) may be used as supplemental methods when necessary. Please contact [facility] Customer Service at if you have any questions. Director of [facility] Dr Sukhi Kinsey, PhD Performed at: [address] [place] [id number] Skylights Assembler: Sukhi Kinsey PhD, Phone: [phone] Performed By: #### P T, PTT, CBC, CRP, CMP, ESR, TSH3, T4F #### [address] #### CHROMATIN, THYGLOB AB, TPO, ALD, HLAB27, MYOG, CH50, LUPANTCOAG, HITESH, C4, C3, RPR W RFX #### [facility] , Lupus Anticoagulant Compon 0 03-04-2021 Dilute Prothrombin Time (dPt) 25.6 Normal 0.0-55.0 [facility] Comment on above: Order Comment: Speci men Comment: Test(s) 132792-Jgjiiaqzzre Specimen Comment: was developed and its performance characteristics Specimen Comment: determined by [facility]. It has not been cleared or approved Specimen Comment: by the Food and Drug Administration. List any foods/meds the pt has taken (see Test/Proc Notes):: N/A Patient Posture before Draw (see Test/Proc Notes):: SITTING UP Performed By: #### P T, PTT, CBC, CRP, CMP, ESR, TSH3, T4F #### [place] [address] [place] #### CHROMATIN, THYGLOB AB, TPO, ALD, HLAB27, MYOG, CH50, LUPANTCOAG, HITESH, C4, C3, RPR W RFX #### [facility] , dPT Confirm Ratio 1.11 Normal 0.00-1.40 [facility] Comment on above: Order Comment: Speci men Comment: Test(s) 838328-Iwxnssfwpyc Specimen Comment: was developed and its performance characteristics Specimen Comment: determined by [facility]. It has not been cleared or approved Specimen Comment: by the Food and Drug Administration. List any foods/meds the pt has taken (see Test/Proc Notes):: N/A Patient Posture before Draw (see Test/Proc Notes):: SITTING UP Performed By: #### P T, PTT, CBC, CRP, CMP, ESR, TSH3, T4F #### [place] [address] [place] #### CHROMATIN, THYGLOB AB, TPO, ALD, HLAB27, MYOG, CH50, LUPANTCOAG, HITESH, C4, C3, RPR W RFX #### [facility] , DRVVT Lupus 27.9 Normal 0.0-47.0 [facility] Comment on above: Order Comment: Speci men Comment: Test(s) 341675-Dwdoauahfhv Specimen Comment: was developed and its performance characteristics Specimen Comment: determined by [facility]. It has not been cleared or approved Specimen Comment: by the Food and Drug Administration. List any foods/meds the pt has taken (see Test/Proc Notes):: N/A Patient Posture before Draw (see Test/Proc Notes):: SITTING UP Performed By: #### P T, PTT, CBC, CRP, CMP, ESR, TSH3, T4F #### [place] [address] [place] #### CHROMATIN, THYGLOB AB, TPO, ALD, HLAB27, MYOG, CH50, LUPANTCOAG, HITESH, C4, C3, RPR W RFX #### [facility] , Interpretation Comment: Normal . [facility] Comment on above: Order Comment: Speci men Comment: Test(s) 279504-Bqartcyujac Specimen Comment: was developed and its performance characteristics Specimen Comment: determined by [facility]. It has not been cleared or approved Specimen Comment: by the Food and Drug Administration. List any foods/meds the pt has taken (see Test/Proc Notes):: N/A Patient Posture before Draw (see Test/Proc Notes):: SITTING UP Result Comment: No l upus anticoagulant was detected. Performed at: [facility] [id number] Skylights Assembler: Radha Patel MD, Phone: [phone] Performed By: #### P T, PTT, CBC, CRP, CMP, ESR, TSH3, T4F #### [address] #### CHROMATIN, THYGLOB AB, TPO, ALD, HLAB27, MYOG, CH50, LUPANTCOAG, HITESH, C4, C3, RPR W RFX #### [facility] , PTT-LA 31.7 Normal 0.0-51.9 [facility] Comment on above: Order Comment: Speci men Comment: Test(s) 993464-Cslznkgoeoz Specimen Comment: was developed and its performance characteristics Specimen Comment: determined by [facility]. It has not been cleared or approved Specimen Comment: by the Food and Drug Administration. List any foods/meds the pt has taken (see Test/Proc Notes):: N/A Patient Posture before Draw (see Test/Proc Notes):: SITTING UP Performed By: #### P T, PTT, CBC, CRP, CMP, ESR, TSH3, T4F #### [place] [address] [place] #### CHROMATIN, THYGLOB AB, TPO, ALD, HLAB27, MYOG, CH50, LUPANTCOAG, HITESH, C4, C3, RPR W RFX #### [facility] , Thrombin Time 19.0 Normal 0.0-23.0 [facility] Comment on above: Order Comment: Speci men Comment: Test(s) 957837-Pfbyaoymfak Specimen Comment: was developed and its performance characteristics Specimen Comment: determined by [facility]. It has not been cleared or approved Specimen Comment: by the Food and Drug Administration. List any foods/meds the pt has taken (see Test/Proc Notes):: N/A Patient Posture before Draw (see Test/Proc Notes):: SITTING UP Performed By: #### P T, PTT, CBC, CRP, CMP, ESR, TSH3, T4F #### [place] [address] [place] #### CHROMATIN, THYGLOB AB, TPO, ALD, HLAB27, MYOG, CH50, LUPANTCOAG, HITESH, C4, C3, RPR W RFX #### [facility] , Myoglobinon 03-04-2021 Myoglobin [Mass/Vol] ng/mL Low 25-58 [facility] Comment on above: Order Comment: Speci men Comment: Test(s) 958936-Wzxytlxitvv Specimen Comment: was developed and its performance characteristics Specimen Comment: determined by [facility]. It has not been cleared or approved Specimen Comment: by the Food and Drug Administration. List any foods/meds the pt has taken (see Test/Proc Notes):: N/A Patient Posture before Draw (see Test/Proc Notes):: SITTING UP Result Comment: Perf ormed at: - [facility] [id number] Skylights Assembler: Oj Martin PhD, Phone: [phone] Performed By: #### P T, PTT, CBC, CRP, CMP, ESR, TSH3, T4F #### [place] [address] [place] #### CHROMATIN, THYGLOB AB, TPO, ALD, HLAB27, MYOG, CH50, LUPANTCOAG, HITESH, C4, C3, RPR W RFX #### [facility] , Partial Thromboplastin Timeo n 03-04-2021 aPTT Coag (Bld) [Time] 30.5 s Normal 25.1-36.5 [facility] Comment on above: Result Comment: PERF ORMED BY: [place] [address] PATHOLOGIST BICYCLE I ASSEMBLER LUKE JAIME M.D. Performed By: #### P T, PTT, CBC, CRP, CMP, ESR, TSH3, T4F #### [facility] [address] [place] [address] #### CHROMATIN, THYGLOB AB, TPO, ALD, HLAB27, MYOG, CH50, LUPANTCOAG, HITESH, C4, C3, RPR W RFX #### [facility] , Prothrombin Time INRon 03-04 INR Coag (PPP) [Relative time] 0.9 {INR} Normal [facility] Comment on above: Result Comment: INR Therapeutic Range A) Pre- and Peroperative OAT started two weeks before surgery. NOT HIP SURGERY: 1.5 - 2.5 HIP SURGERY: 2 - 3 B) Primary and secondary prevention of venous THROMBOSIS: 2 - 3 C) Active venous thrombosis, pulmonary embolism and prevention of recurrent venous thrombosis: 2 - 3 D) Prevention of arterial thromboembolism including patients with mechanical heart valves: 3 - 4.5 Performed By: #### P T, PTT, CBC, CRP, CMP, ESR, TSH3, T4F #### [facility] [address] [place] [address] #### CHROMATIN, THYGLOB AB, TPO, ALD, HLAB27, MYOG, CH50, LUPANTCOAG, HITESH, C4, C3, RPR W RFX #### [facility] , PT Coag (PPP) [Time] 10.4 s Normal 9.0-12.9 [facility] Comment on above: Performed By: #### P T, PTT, CBC, CRP, CMP, ESR, TSH3, T4F #### [place] [address] [place] #### CHROMATIN, THYGLOB AB, TPO, ALD, HLAB27, MYOG, CH50, LUPANTCOAG, HITESH, C4, C3, RPR W RFX #### [facility] , RPR w/rfx to Quant TP Abson 03-04-2021 RPR, Rfx Quant RPR Non-Reactive Normal Non Reactive [facility] Comment on above: Order Comment: Speci men Comment: Test(s) 655252-Iyjhhjrstyc Specimen Comment: was developed and its performance characteristics Specimen Comment: determined by [facility]. It has not been cleared or approved Specimen Comment: by the Food and Drug Administration. List any foods/meds the pt has taken (see Test/Proc Notes):: N/A Patient Posture before Draw (see Test/Proc Notes):: SITTING UP Result Comment: Perf ormed at: - [facility] [place] [id number] Skylights Assembler: Oj Martin PhD, Phone: [phone] PERFORMED BY: [place] [address] PATHOLOGIST BICYCLE I ASSEMBLER LUKE JAIME M.D. Performed By: #### P T, PTT, CBC, CRP, CMP, ESR, TSH3, T4F #### [address] #### CHROMATIN, THYGLOB AB, TPO, ALD, HLAB27, MYOG, CH50, LUPANTCOAG, HITESH, C4, C3, RPR W RFX #### [facility] , Thyroid Peroxidase Antibodie son 03-04-2021 Thyroid Peroxidase Antibodies 10 Normal 0-34 [facility] Comment on above: Order Comment: Speci men Comment: Test(s) 697863-Afuzwrpspuv Specimen Comment: was developed and its performance characteristics Specimen Comment: determined by [facility]. It has not been cleared or approved Specimen Comment: by the Food and Drug Administration. List any foods/meds the pt has taken (see Test/Proc Notes):: N/A Patient Posture before Draw (see Test/Proc Notes):: SITTING UP Result Comment: Perf ormed at: - [facility] [address] [id number] Skylights Assembler: Oj Martin PhD, Phone: [phone] Performed By: #### P T, PTT, CBC, CRP, CMP, ESR, TSH3, T4F #### [address] #### CHROMATIN, THYGLOB AB, TPO, ALD, HLAB27, MYOG, CH50, LUPANTCOAG, HITESH, C4, C3, RPR W RFX #### [facility] , Thyroid Stimulating Hormoneo n 03-04-2021 TSH Qn 1.31 m[IU]/L Normal 0.45-5.33 [facility] Comment on above: Result Comment: PERF ORMED BY: [place] [address] PATHOLOGIST BICYCLE I ASSEMBLER LUKE JAIME M.D. Performed By: #### P T, PTT, CBC, CRP, CMP, ESR, TSH3, T4F #### [address] #### CHROMATIN, THYGLOB AB, TPO, ALD, HLAB27, MYOG, CH50, LUPANTCOAG, HITESH, C4, C3, RPR W RFX #### [facility] , Auth for Release of Medical Recordson 03-06-2020 Auth for Release of Medical Records [id number]. [id number]:[id number] Normal [facility] Coding Summary.on 07-07-2019 Coding Summary. 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 However, the narrative phrase printed from the coding software may appear abbreviated, or result in slightly different terminology. Coded By: Consuelo Sandoval Date Saved: 07/07/2019 09:10 am [facility] Main OR Intraoperative Recor anthony 07-06-2019 Main OR Intraoperative Record IntraOp Document Type FTURO Summary Primary Physician: Jame Garcia Jr., MD Finalized Date/Time: 07/06/19 15:30:20 Pt. Name: KARYNNASREEN/Sex: 1990 Female Med Rec #: [id number] Physician: Jame Garcia Jr., MD Financial #: [id number] Pt. Type: O Room/Bed: / Admit/Disch: 07/06/19 14:35:33 - Institution: Case Times FTURO Entry 1 Patient Times In Room 07/06/19 15:23:00 Out Room 07/06/19 15:32:00 Procedure Times Start 07/06/19 15:28:00 Stop 07/06/19 15:31:00 Anesthesia Times Last Modified By: Julia DE PAZ, RNAnamika 07/06/19 15:30:12 Case Attendance FTURO Entry 1 Entry 2 Entry 3 Case Attendee Jose Ritchie MD, Jame DE PAZ, RN, Earnest ADKINS, Rossana Willson Role Performed Surgeon - Primary Human Services Professional - Primary Scrub - Primary Time In 07/06/19 15:23:00 07/06/19 15:23:00 07/06/19 15:23:00 Time Out 07/06/19 15:32:00 07/06/19 15:32:00 07/06/19 15:32:00 Procedure CYSTOSCOPY LOCAL WITH CYSTOSCOPY LOCAL WITH CYSTOSCOPY LOCAL WITH URETHRAL DILATION(.) URETHRAL DILATION(.) URETHRAL DILATION(.) Comments Last Modified By: Julia DE PAZ, RN, Julia DE PAZ, RN, Julia DE PAZ, MELINDA, Anamika 07/06/19 15:30:14 Anamika 07/06/19 15:30:14 Anamika 07/06/19 15:30:14 Surgical Procedures FTURO Entry 1 Procedure Description Procedure CYSTOSCOPY LOCAL WITH Modifiers . URETHRAL DILATION Surgeon Description CYSTO U.D. Primary Procedure Yes Primary Surgeon Jame Garcia Jr., MD Start 07/06/19 15:28:00 Stop 07/06/19 15:31:00 Anesthesia Type Local Surgical Service Urology Wound Class 2 - Clean-Contaminated Last Modified By: Julia DE PAZ, MELINDA, Anamika 07/06/19 15:30:15 General Case Data FTURO Pre-Care Text: Classifies surgical wound, implements aseptic technique, initiates traffic control Entry 1 Case Information OR URO 1 FT Case Level None Wound Class 2 - Clean-Contaminated Specialty Urology Preop Diagnosis URINARY URGENCY , Postop Same As Preop Yes URETHRAL STRICTURE , UTI Postop Diagnosis URINARY URGENCY , Outcomes Met? Yes URETHRAL STRICTURE , UTI Last Modified By: Julia DE PAZ, MELINDA, Anamika 07/06/19 13:02:59 Post-Care Text: The patient is free from signs and symptoms of infection EU IntraOp - FTURO Pre-Care Text: Implements protective measures prior to operative or invasive procedure, confirms identity before the operative or invasive procedure, verifies operative procedure, surgical site, and laterality Entry 1 EU Perioperative Protocols Procedure(s) CYSTOSCOPY LOCAL WITH Patient Identity Birthday, ID Band URETHRAL DILATION(.) Verified (select at Check, Patient least 2): Participation Consents / H and P HandP, Surgery/Procedure Operative Site N/A Verified Consent Marking Verified Surgical Site Yes Laterality Verified n/a Verified Procedure Verified Yes Correct Patient Yes Position Verified Availability Equipment, Medication Time Out Jose Ritchie MD, Jame Nunez, Verified (If Participants Julia DE PAZ, RN, Applicable) Earnest Willson CST, Rossana Ness Time Out Complete 07/06/19 15:26:00 Allergies Reviewed? Yes Allergies Reviewed Self/Patient With Body Position Frog Legged Prep Area perinium Prep Agents Betadine Solution Skin. Condition Unable to Visualize Additional None Specimens Collected Vitals - EU Blood Pressure 108/65 Pulse 88 bpm Respirations 18 br/min SPO2 97 % EBL 0 IandO - EU Total Intake 0 mL Total Output 0 mL Outcomes Met? Yes Last Modified By: Julia DE PAZ RN, Kelly 07/06/19 15:29:41 Post-Care Text: The patient is free from signs and symptoms of injury caused by extraneous objects Case Comments Finalized By: Julia DE PAZ RN, Kelly Document Signatures Signed By: Julia DE PAZ RN, Kelly 07/06/19 15:30 Normal [facility] Main OR Preoperative Recordo n 07-06-2019 Main OR Preoperative Record Holding Area Document Type FTURO Summary Primary Physician: Jame Garcia Jr., MD Finalized Date/Time: 07/06/19 15:25:12 Pt. Name: KARYNNASREEN D.O.B./Sex: 1990 Female Med Rec #: [id number] Physician: Jame Garcia Jr., MD Financial #: [id number] Pt. Type: O Room/Bed: / Admit/Disch: 07/06/19 14:35:33 - Institution: Case Times Holding FTURO Pre-Care Text: Verifies consent for planned procedure, identifies individual values and wishes concerning care, includes family members in perioperative teaching Secures patient's records' belongings, and valuables, maintains patient's dignity and privacy, and maintains patient confidentiality Entry 1 In Holding 07/06/19 15:03:00 Outcomes Met? Yes Last Modified By: Carla Worrell LPN 07/06/19 15:03:20 Post-Care Text: The patient participates in decisions affecting his or her perioperative plan of care The patient's right to privacy is maintained Surgery Checklist FTURO Entry 1 Patient Birthday, ID Band Procedure History and Physical, Identification: Check, Patient Verification: Surgical Consent, With Participation Patient NPO after Midnight: n/a Personal Items: Jewelry Personal Items earrings Complaints of Pain: No Comment: Skin Integrity Unable to Visualize Vitals - EU Blood Pressure 102/73 Pulse 102 bpm Respirations 16 br/min SPO2 RN Reviewed Yes Last Modified By: Julia DE PAZ RN, Kelly 07/06/19 15:25:08 Finalized By: Julia DE PAZ RN, Kelly Document Signatures Signed By: Julia DE PAZ RN, Kelly 07/06/19 15:25 Carla Worrell LPN 07/06/19 15:05 Julia DE PAZ, MELINDA, Anamika 07/06/19 15:25 Normal [facility] Operative Reporton Operative Report Patient: NASREEN BOSS Age: 29 years Sex: Female : 1990 Associated Diagnoses: None Author: Jose Ritchie MD, Jame Nunez Procedure Operative Information Details: Date/ Time: 07/06/19 15:31:00. Pre-Op Dx: Frequency - R35.0, Urgency - R39.15, Hx of UTI's - Z87.440, Urethral Stricture - Female Post Trauma Urethral Stricture Female - N35.028. Post-Op Dx: Same. Anesthesia Type: Local. Procedure: Local Cystoscopy with Urethral Dilation. Complications: None. Risks/Benefits/Inform ed Consent: Surgical risks, benefits, details of the procedure have been explained to the patient, Full informed consent has been obtained. Intraoperative Information Prepped: Patient is brought back to the endoscopy suite, Patient is placed in modified dorso/lithotomy position, Patient prepped in the usual fashion with Betadine solution, 2% Xylocaine Jelly is placed per Urethra, After waiting several minutes the Cystoscope is introduced. The Urethra is: Tight. The Bladder is: Normal, Trabeculated None (0). The ureteral orifices: Show efflux of clear urine. The Urethra was dilated to: 28 Chinese w/ sounds. Devices Implanted: None. Removal: Cystoscope is removed, The patient tolerated it well. Postoperative Information Discharge: Patient is discharged home with antibiotic coverage, Follow up arranged. Normal [facility] Comment on above: Result Comment: Elec tronically Signed By: Jose Ritchie MD, Jame Nunez\.br\Date and Time Signed: 07/06/19 15:32 EST Vital Signs Date Time Vital Sign Value Performing Clinician Marcelino saenz 06-29-2024 13:05-0500 Body height 172.7 cm Awa Zamora NP Work Phone: [facility] 06-29-2024 13:05-0500 Body mass index (BMI) [Ratio] 23.72 kg/m2 Awa Zamora NP Work Phone: [facility] 06-29-2024 13:05-0500 Body weight 70.76 kg Awa Zamora DENTAL ASSISTANT MEDICAL ASSISTANT Work Phone: [facility] 06-29-2024 13:05-0500 Diastolic blood pressure 78 mm[Hg] Awa Zamora DENTAL ASSISTANT MEDICAL ASSISTANT Work Phone: [facility] 06-29-2024 13:05-0500 Heart rate 91 /min Awa Zamora DENTAL ASSISTANT MEDICAL ASSISTANT Work Phone: [facility] 06-29-2024 13:05-0500 SaO2% (BldA) [Mass fraction] 96 % Awa Zamora DENTAL ASSISTANT MEDICAL ASSISTANT Work Phone: [facility] 06-29-2024 13:05-0500 Systolic blood pressure 102 mm[Hg] Awa Zamora DENTAL ASSISTANT MEDICAL ASSISTANT Work Phone: [facility] Healthcare Encounters Encounter Date Encounter Type Care Provider Facility Start: 02-12-2025 End: 02-12-2025 Bamboo flowsheet Cuco David DO Work Phone: [facility] Start: 02-12-2025 End: 02-12-2025 Bamboo flowsheet Cuco David DO Work Phone: [facility] Start: 07-05-2024 End: 07-05-2024 Clinisync Result Encounter Awa Zamora NP Work Phone: [facility] External Department Unsolicited Start: 07-05-2024 End: 07-05-2024 Clinisync Result Encounter Awa Zamora DENTAL ASSISTANT MEDICAL ASSISTANT Work Phone: [facility] External Department Unsolicited Start: 07-05-2024 End: 07-05-2024 ambulatory GISEL BINA [facility] Start: 07-05-2024 End: 07-05-2024 Encounter for general adult medical examination without abnormal findings GISEL BINA [facility] Start: 07-05-2024 End: 07-05-2024 Subsequent hospital visit by physician Gisel Calderon NP Work Phone: [facility] Start: 06-29-2024 End: 06-29-2024 Patient encounter status Awa Zamora DENTAL ASSISTANT MEDICAL ASSISTANT Work Phone: [facility] Work Phone: Start: 06-29-2024 End: 06-29-2024 Periodic preventive med est patient 18-39 yrs Awa Zamora DENTAL ASSISTANT MEDICAL ASSISTANT Work Phone: [facility] Comment on above: Encounter for wellne ss examination in adult (Primary Dx); Screening for lipid disorders; Screening for thyroid disorder Start: 06-29-2024 End: 06-29-2024 ambulatory AWA ZAMORA Not Available Start: 06-28-2024 End: 06-28-2024 Orders Only Awa Zamora DENTAL ASSISTANT MEDICAL ASSISTANT Work Phone: [facility] Comment on above: Bronchitis (Primary Dx) Start: 02-07-2024 End: 02-07-2024 ambulatory CUCO HERNANDEZ Not Available Start: 01-14-2022 End: 01-14-[address] CUCO HERNANDEZ Facility:[facility] Procedures Date Procedure Procedure Detail Performing Clinician Start: 07-05-2024 ALL CBC WITH AUTO DIFF Awa Zamora DENTAL ASSISTANT MEDICAL ASSISTANT Work Phone: Start: 07-05-2024 Comprehensive metabo lic panel Awa Zamora GAS PUMPER - AUDIO VISUAL PROJECT MANAGER Work Phone: Start: 07-05-2024 Lipid panel Awa mckinney GAS PUMPER - AUDIO VISUAL PROJECT MANAGER Work Phone: Start: 02-07-2024 Microscopic observat ion [Identifier] in Cervix by Cyto stain Cuco Hernandez DO Work Phone: Start: 02-01-2023 Microscopic observat ion [Identifier] in Cervix by Cyto stain Awa Zamora DENTAL ASSISTANT MEDICAL ASSISTANT Work Phone: Plan of Treatment Date Care Activity Detail Author Start: 02-02-2028 Screening for malign ant neoplasm of cervix [facility] Start: 02-06-2027 Screening for malign ant neoplasm of cervix Pap Smear [facility] Start: 04-16-2025 Influenza vaccination Influenz a Vaccine (Season Ended) [facility] Start: 02-12-2025 End: 02-12-2025 Patient encounter procedure [facility] Comment on above: Arrived Start: 06-29-2024 End: 06-29-2025 CBC panel - Blood by Automated count CBC Lab Routine Encounter for wellness examination in adult Expected: 06/29/2024 (Approximate), Expires: 06/29/2025 [facility] Comment on above: Expected: 06/29/2024 (Approximate), Expires: 06/29/2025 Start: 06-29-2024 End: 06-29-2025 Comprehensive metabolic 2000 panel - Serum or Plasma Comprehensive metabolic panel Lab Routine Encounter for wellness examination in adult Expected: 06/29/2024 (Approximate), Expires: 06/29/2025 [facility] Comment on above: Expected: 06/29/2024 (Approximate), Expires: 06/29/2025 Start: 06-29-2024 End: 06-29-2025 Lipid 1996 panel - Serum or Plasma Lipid panel Lab Routine Encounter for wellness examination in adult Screening for lipid disorders Expected: 06/29/2024 (Approximate), Expires: 06/29/2025 [facility] Comment on above: Expected: 06/29/2024 (Approximate), Expires: 06/29/2025 Start: 06-29-2024 End: 06-29-2025 Thyrotropin [Units/volume] in Serum or Plasma TSH Lab Routine Encounter for wellness examination in adult Screening for thyroid disorder Expected: 06/29/2024 (Approximate), Expires: 06/29/2025 [facility] Work Phone: Comment on above: Expected: 06/29/2024 (Approximate), Expires: 06/29/2025 Start: 04-16-2024 COVID-19 Vaccine ( season) COVID-19 Vaccine ( season) [facility] Start: 04-16-2024 Influenza vaccination Influenza Vacc ine (#1) [facility] Start: 03-16-2024 Influenza vaccination Flu vaccine (# 1) [facility] Start: 2011 DTaP/Tdap/Td vaccine (1 - Tdap) DTaP/Tdap/Td vaccine (1 - Tdap) [facility] Immunizations Immunization Date Immunization Notes Care Provider Cass wilburn 01-30-2011 human papilloma viru s vaccine, quadrivalent Awa Zamora DENTAL ASSISTANT MEDICAL ASSISTANT Work Phone: [facility] 10-02-2010 human papilloma viru s vaccine, quadrivalent Awa Zamora DENTAL ASSISTANT MEDICAL ASSISTANT Work Phone: [facility] 08-01-2010 hepatitis B vaccine, pediatric or pediatric/adolescent dosage Awa Zamora DENTAL ASSISTANT MEDICAL ASSISTANT Work Phone: [facility] 08-01-2010 human papilloma viru s vaccine, quadrivalent Awa Zamora DENTAL ASSISTANT MEDICAL ASSISTANT Work Phone: [facility] 02-27-2010 hepatitis B vaccine, pediatric or pediatric/adolescent dosage Awa Zamora DENTAL ASSISTANT MEDICAL ASSISTANT Work Phone: [facility] 02-27-2010 tetanus toxoid, redu jeffery diphtheria toxoid, and acellular pertussis vaccine, adsorbed Awa [place] DENTAL ASSISTANT MEDICAL ASSISTANT Work Phone: [facility] 01-27-2010 hepatitis B vaccine, pediatric or pediatric/adolescent dosage Awa Zamora DENTAL ASSISTANT MEDICAL ASSISTANT Work Phone: [facility] 01-27-2010 meningococcal polysaccharide (groups A, C, Y and W-135) diphtheria toxoid conjugate vaccine (MCV4P) Awa Noah DENTAL ASSISTANT MEDICAL ASSISTANT Work Phone: [facility] 11-14-2003 measles, mumps and r ubella virus vaccine Awa Noah DENTAL ASSISTANT MEDICAL ASSISTANT Work Phone: [facility] 03-20-1997 diphtheria, tetanus toxoids and acellular pertussis vaccine, unspecified formulation Awa Noah DENTAL ASSISTANT MEDICAL ASSISTANT Work Phone: [facility] 03-20-1997 poliovirus vaccine, inactivated Awa Noah DENTAL ASSISTANT MEDICAL ASSISTANT Work Phone: [facility] 10-02-1993 diphtheria, tetanus toxoids and acellular pertussis vaccine, unspecified formulation Awa [place] DENTAL ASSISTANT MEDICAL ASSISTANT Work Phone: [facility] 10-02-1993 poliovirus vaccine, inactivated Awa Zamora DENTAL ASSISTANT MEDICAL ASSISTANT Work Phone: [facility] 07-16-1993 haemophilus influenz ae type b vaccine, conjugate unspecified formulation Awa Zamora DENTAL ASSISTANT MEDICAL ASSISTANT Work Phone: [facility] 07-16-1993 measles, mumps and r ubella virus vaccine Awa [place] DENTAL ASSISTANT MEDICAL ASSISTANT Work Phone: [facility] 1990 diphtheria, tetanus toxoids and acellular pertussis vaccine, unspecified formulation Awa Noah DENTAL ASSISTANT MEDICAL ASSISTANT Work Phone: [facility] 1990 haemophilus influenz ae type b vaccine, conjugate unspecified formulation Awa Noah DENTAL ASSISTANT MEDICAL ASSISTANT Work Phone: [facility] 1990 poliovirus vaccine, inactivated Awa [place] DENTAL ASSISTANT MEDICAL ASSISTANT Work Phone: [facility] 1990 diphtheria, tetanus toxoids and acellular pertussis vaccine, unspecified formulation Awa [place] DENTAL ASSISTANT MEDICAL ASSISTANT Work Phone: [facility] 1990 haemophilus influenz ae type b vaccine, conjugate unspecified formulation Awa [place] DENTAL ASSISTANT MEDICAL ASSISTANT Work Phone: [facility] 1990 poliovirus vaccine, inactivated Awa Noah DENTAL ASSISTANT MEDICAL ASSISTANT Work Phone: [facility] 1990 diphtheria, tetanus toxoids and acellular pertussis vaccine, unspecified formulation Awa Noah DENTAL ASSISTANT MEDICAL ASSISTANT Work Phone: [facility] 1990 haemophilus influenz ae type b vaccine, conjugate unspecified formulation Awa Noah DENTAL ASSISTANT MEDICAL ASSISTANT Work Phone: [facility] 1990 poliovirus vaccine, inactivated Awa [place] DENTAL ASSISTANT MEDICAL ASSISTANT Work Phone: [facility] Payers Date Payer Category Payer Private Health Insurance [id number] 2021 Private Health Insurance [id number] 1990 Unknown [id number] 1990 Unknown [id number] 1990 Unknown [id number] 1990 Unknown [id number] 1957 Private Health Insurance [id number] Unknown [id number] Social History Date Type Detail Facility Tobacco smoking stat [facility] Tobacco smoking consumption unknown [facility] Start: 1990 Sex assigned at Not on file B on [facility] Start: 05-04-2023 End: 06-22-2024 Gender identity Not on file [facility] Start: 01-14-2023 End: 06-29-2024 Tobacco smoking status MAIS Never smoked tobacco [facility] Start: 06-29-2024 Tobacco use and exposure Smokeless tobacco non-user [facility] Start: 02-07-2024 End: 06-29-2024 Alcoholic beverage intake Current drinker of alcohol (finding) [facility] Start: 06-22-2024 End: 06-29-2024 Alcoholic beverage intake [facility] How often do you nee d to have someone help you when you read instructions, pamphlets, or other written material from your doctor or pharmacy [SILS] Never [facility] Within the last year , have you been afraid of your partner or ex-partner? No [facility] Are you now , , , , never or living with a partner? [facility] How often to you hav e a drink containing alcohol? 2-4 times a month [facility] How many standard drinks containing alcohol do you have on a typical day? 3 or 4 [facility] How often do you hav e 6 or more drinks on 1 occasion? Never [facility] Do you feel stress - tense, restless, nervous, or anxious, or unable to sleep at night because your mind is troubled all the time - these days [OSQ] Not at all [facility] (I/We) worried wheth er (my/our) food would run out before (I/we) got money to buy more. Never true [facility] Start: 01-14-2023 Alcohol Comment caffeine intake: sod a [facility] Start: 1990 Sex assigned at Female [facility] Start: 06-22-2024 Gender identity Identifies as female gender (finding) [facility] History of Present illness Narrative 06-29-2024 Awa Zamora, DENTAL ASSISTANT MEDICAL ASSISTANT - 06/29/2024 1:00 PM EST Note Date & Type Note Facility 06-29-2024 History of Presen t illness Narrative Images from the original note were not included. Subjective Patient ID: Nasreen Felix is a 34 y.o. female who presents for Annual Exam. Pt is here for her annual and also to look at wart, it is located on her right thumb , been there for a couple of months Current Outpatient Medications on File Prior to Visit Medication Sig Dispense Refill azithromycin (Zithromax) 250 MG tablet Take 2 tablets (500 mg) by mouth Daily for 1 day, THEN 1 tablet (250 mg) Daily for 4 days. 6 tablet 0 Meth-Hyo-M Bl-Na Phos-Ph Tariq (Uribel) 118 MG capsule Take 1 capsule by mouth every 6 (six) hours 120 capsule 3 methylPREDNISolone (Medrol Dospak) 4 MG tablets Follow schedule on package instructions 21 tablet 0 [DISCONTINUED] norethindrone-ethinyl estradiol (Nortrel 1/35, 28,) 1-35 MG-MCG tablet TAKE 1 TABLET BY MOUTH ONCE DAILY 84 tablet 4 [DISCONTINUED] phenazopyridine (Pyridium) 200 MG tablet Take 1 tablet (200 mg) by mouth if needed for bladder spasms for up to 10 doses 10 tablet 3 [DISCONTINUED] sulfacetamide (Bleph-10) 10 % ophthalmic solution INSTILL 2 DROPS INTO AFFECTED EYE 3 TIMES A DAY FOR 10 DAYS [DISCONTINUED] tobramycin-dexAMETHasone (Tobradex) ophthalmic suspension instill 1 drop into left eye four times a day No current facility-administered medications on file prior to visit. I have reviewed and reconciled the history and medication list with the patient today. No Known Allergies Social History Tobacco Use Smoking status: Never Smokeless tobacco: Never Substance Use Topics Alcohol use: Yes Alcohol/week: 2.0 standard drinks of alcohol Types: 1 Glasses of wine, 1 Cans of beer per week Comment: caffeine intake: soda Drug use: Never Family History Problem Relation Name Age of Onset Hypertension Mother Pati Hyperlipidemia Mother Pati Stroke Mother Pati Hypertension Father Ruddy Hyperlipidemia Father Ruddy Arthritis Father Ruddy Hypertension Sibling Cancer Paternal Grandmother Ivonne Diabetes Paternal Grandfather Morales Breast cancer Mother's Sister Chantel 2010 Kidney disease Mother's Sister Chantel Cancer Mother's Sister Jayla Melanoma Neg Hx Psoriasis Neg Hx Past Medical History: Diagnosis Date BMI 20.0-20.9, adult FOM (frequency of micturition) Hematuria Interstitial cystitis Menorrhagia Oral contraceptive use Plantar warts Rt foot Urgency of micturition Well woman exam Past Surgical History: Procedure Laterality Date DEBRIDEMENT 2013 plantar warts debrided and Cantharone applied EYE SURGERY 2016 Visit Vitals OB Status Having periods Smoking Status Never Review of Systems Constitutional: Positive for fatigue. HENT: Positive for congestion and sore throat. Eyes: Negative. Respiratory: Negative. Cardiovascular: Negative. Gastrointestinal: Negative. Genitourinary: Negative. Musculoskeletal: Negative. Skin: Negative. Neurological: Negative. Psychiatric/Behavioral: Negative. Endocrine: Negative. Objective Physical Exam Vitals reviewed. Constitutional: Appearance: Normal appearance. HENT: Head: Normocephalic. Right Ear: A middle ear effusion is present. Nose: Congestion present. Right Turbinates: Swollen and pale. Left Turbinates: Swollen and pale. Mouth/Throat: Mouth: Mucous membranes are dry. Pharynx: Posterior oropharyngeal erythema present. Cardiovascular: Rate and Rhythm: Normal rate and regular rhythm. Pulmonary: Effort: Pulmonary effort is normal. Breath sounds: Normal breath sounds. Abdominal: General: Bowel sounds are normal. Palpations: Abdomen is soft. Musculoskeletal: General: Normal range of motion. Skin: General: Skin is warm and dry. Neurological: General: No focal deficit present. Mental Status: She is alert and oriented to person, place, and time. Psychiatric: Mood and Affect: Mood normal. Behavior: Behavior normal. Thought Content: Thought content normal. Assessment/Plan Diagnoses and all orders for this visit: Encounter for wellness examination in adult - TSH; Future - Lipid panel; Future - Comprehensive metabolic panel; Future - CBC; Future Wellness form reviewed in detail with the patient. Encouraged patient to stay up to date on immunizations and preventative testing. Encouraged healthy diet, stay active. Will continue with yearly wellness exams. Screening for lipid disorders - Lipid panel; Future Await lab Screening for thyroid disorder - TSH; Future Await lab No follow-ups on file. documented in this encounter [facility] Evaluation note Note Date & Type Note Facility Evaluation note Diagnosis Bronchitis- Primary Bronchitis, not specified as acute or chronic documented in this encounter [facility] Evaluation note Note Date & Type Note Facility Evaluation note Diagnosis Encounter for wellness examination in adult- Primary Screening for lipid disorders Screening for thyroid disorder documented in this encounter [facility] Summary Purpose Family History No Family History Records FoundNo Family History Records FoundNo Family History Records FoundNo Family History Records FoundNo Family History Records Found Advance Directives No Advanced Directives Records FoundNo Advanced Directives Records FoundNo Advanced Directives Records FoundNo Advanced Directives Records FoundNo Advanced Directives Records Found Additional Source Comments INFORMATION SOURCE (unrecogn ized section and content) DATE CREATED AUTHOR 03/09/2020 [facility] DATE CREATED AUTHOR AUTHOR'S ORGANIZ ATION 10/08/2021 [facility] DATE CREATED AUTHOR AUTHOR'S ORGANIZ ATION 01/20/2022 [facility] DATE CREATED AUTHOR AUTHOR'S ORGANIZ ATION 07/02/2024 [facility] Specialists EPIC DATE CREATED AUTHOR AUTHOR'S ORGANIZ ATION 07/08/2024 [facility] pital Care Teams (unrecognized sec tion and content) Disease Intervention Specialist Relationship Specialty Start Date End Date Gisel Curran APRN - DENTAL ASSISTANT MEDICAL ASSISTANT [address] [place] [id number] PCP - General Nurse Practitioner 09/30/17 Disease Intervention Specialist Relationship Specialty Start Date End Date Awa Zamora NP [address] [facility] [address] [place] [address] PCP - General 05/04/23 Disease Intervention Specialist Relationship Specialty Start Date End Date Awa Zamora DENTAL ASSISTANT MEDICAL ASSISTANT [address] [facility] [address] [place] [address] PCP - General 05/04/23 Disease Intervention Specialist Relationship Specialty Start Date End Date Awa Zamora DENTAL ASSISTANT MEDICAL ASSISTANT [address] [facility] [address] [place] [address] PCP - General 05/04/23 Disease Intervention Specialist Relationship Specialty Start Date End Date [place] [address] [place] [address] PCP - General 05/04/23 Reason for Visit (unrecogniz ed section and content) Reason Comments Annual Exam FOR RECORDS PERTAINING TO PATIENTS WHO ARE OR HAVE BEEN ENROLLED IN A CHEMICAL DEPENDENCY/SUBSTANCEABUSE PROGRAM, SOME INFORMATION MAY BE OMITTED. This clinical summary was aggregated from multiple sources. Caution should be exercised in using it in the provision of clinical care. This summary normalizes information from multiple sources, and as a consequence, information in this document may materially change the coding, format and clinical context of patient data. In addition, data may be omitted in some cases. CLINICAL DECISIONS SHOULD BE BASED ON THE PRIMARY CLINICAL RECORDS. [facility] [employer] [facility]. provides no warranty or guarantee of the accuracy or completeness of information in this document.
[2025-02-15 16:09] LABS: Age Gdln ACOG Testing Note (.); HPV Aptima Negative (Negative); IGP, Aptima HPV, rfx 16/18,45 Note (.)
== END 2025-02-12 22:46 | disposition home or self-care (01) ==
LOC: LAB 22:45
PROVIDERS: Visit Provider Obstetrics & Gynecology
DX: Z01.419 Encounter for gynecological examination (general) (routine) without abnormal findings (principal)
CPT/HCPCS: 87624; 88175

== ENCOUNTER 2025-03-24 09:50 | Outpatient (OUT) | payer OTHER, SELFPAY ==
--- OUTSIDE RECORDS SUMMARY | 2025-03-24 09:52 | XMS_ITS | CCD ---
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 Name Role Phone DR CUCO HERNANDEZ Attending Unavailable DR CUCO HERNANDEZ Consulting Unavailable DR CUCO HERNANDEZ Admitting Unavailable Bina Calderon NP, Gisel Primary Care Provider Awa Zamora NP Primary Care Provider GISEL CURRAN Primary Care Unavailable AWA ZAMORA Unavailable CUCO HERNANDEZ Attending Unavailable AWA ZAMORA Attending Unavailable Medications Current Medications Medication Drug Class(es) Dates Sig (Normalized) Sig (Original) Vwvyobpb-Cyp-Dp-FA ( 1 + IRON PO) (1 source) Cglenbte-Whr-Qr-FA ( 1 + IRON PO) Take 1 tablet by mouth Daily Active trimethoprim 100 mg oral tablet (7 sources) Dihydrofolate Reductase Inhibitor Antibacterial Start: 08-22-2024 End: 02-12-2025 trimethoprim (Trimpex) 100 MG tablet Indications: Dyspareunia in female , Urinary tract infection without hematuria, site unspecified Take 1 tablet (100 mg) by mouth if needed (Dyspareunia) for up to 20 doses Take 1 tablet by mouth immediately before intercourse PRN 20 tablet 2 02/12/2025 Active Completed/Discontinued Medications Medication Drug Class(es) Dates [...] suspension (2 sources) Aminoglycoside Antibacterial, Corticosteroid Start: End: take 1 drop(s) into the eye(s) four times daily tobramycin-dexAMETHas one (Tobradex) ophthalmic suspension instill 1 drop into left eye four times a day 02/04/2024 06/26/2024 Discontinued (Other) ethinyl estradiol 0.035 mg / norethindrone acetate 1 mg oral tablet (2 sources) Estrogen Start: 4 End: norethindrone-ethinyl estradiol (Nortrel 1/35, 28,) 1-35 MG-MCG [...] sources) Oxidation-Reductio n Agent Start: 4 End: take 1 capsule by mouth every six hours for urinary tract infection and urinary tract infection Meth-Hyo-M Bl-Na Phos-Ph Tariq (Uribel) 118 MG capsule Indications: Urinary tract infection without hematuria, site unspecified Take 1 capsule by mouth every 6 (six) hours 120 capsule 3 02/08/2024 06/29/2024 Discontinued (Other) methylPREDNISolone (2 sources) Corticosteroid Start: End: methylPREDNISolone (Medrol Dospak) 4 MG tablets Indications: Bronchitis Follow schedule on package instructions 21 tablet 06/28/2024 07/05/2024 Start: 06-28-2024 End: 07-05-2024 methylPREDNISolone (Medrol D ospak) 4 MG tablets Indications: Bronchitis Follow schedule on package instructions 21 tablet 06/28/2024 07/05/2024 Active phenazopyridine hydrochlorid e 200 mg delayed release oral tablet (5 sources) Start: 08-22-2024 End: 02-12-2025 phenazopyridine (Pyridium) 2 00 MG tablet Indications: Dyspareunia in female , Urinary tract infection without hematuria, site unspecified Take 1 tablet (200 mg) by mouth if needed for bladder spasms for up to 10 doses 10 tablet 3 08/22/2024 02/12/2025 Discontinued (Therapy completed) Start: 03-06-2024 End: 06-26-2024 phenazopyridine (Pyridium) 2 00 MG tablet Indications: Dyspareunia in female Take 1 tablet (200 mg) by mouth if needed for bladder spasms for up to 10 doses 10 tablet 3 03/06/2024 06/26/2024 Discontinued (Other) sulfacetamide sodium 100 mg/ml ophthalmic solution (2 [...] [ENC SCREENING HUMAN PAPILLOMAVIRUS] Onset: 01-19-2022 Episodic Menstrual disorders (1 source) Missed period; Translations: [Irregular menstruation, unspecified] 03-15-2025 Chronic Other female genital disorders (2 sources) Pain in female genitalia on intercourse; Translations: [Unspecified dyspareunia] 02-12-2025 Chronic Other and delivery including normal (3 sources) Urine test positive; Translations: [Encounter for test, result positive] 03-15-2025 Episodic Other screening for suspected conditions (not mental disorders or infectious disease) (8 sources) Encounter for screening for malignant neoplasm of cervix; Translations: [Patient encounter status] Onset: 01-14-2022 Episodic Urinary tract infections (9 sources) Chronic interstitial cystitis; Translations: [Interstitial cystitis (chronic) without hematuria] Onset: 01-29-2023 01-29-2023 Chronic Urinary tract infections (2 sources) Urinary tract infectious disease; Translations: [Urinary tract infection, site not specified] 02-12-2025 Episodic Past or Other Problems Problem Classification Problem Date Documented Da te Episodic/Chronic Genitourinary symptoms and ill-defined conditions (20 sources) Blood in urine; Translations: [Hematuria, unspecified] Onset: 01-29-2023 01-29-2023 Episodic Results Test Name Value Interpretation Reference Range Facility HCG ( test) Ql (U)o n 03-16-2025 Interpretation and review of laboratory results Abnormal [facility] Preg Test, Ur Positive Negative [facility] OB TRANSVAGINALon 025 OB TRANSVAGINAL FINDINGS: A single intrauterine gestational sac is present. No subchorionic hemorrhage. A single pole is present. Normal heart rate at 169 beats per minute. Yolk sac also is seen. Current sonographic age is 8 weeks and 6 days based on the crown-rump length measurement of 22 mm. Based on this age, current estimated date of delivery is October 20, 2025. No pelvic fluid or adnexal mass present. Cervical length is 4.7 cm, closed IMPRESSION: Findings consistent with a live intrauterine gestation, current sonographic age of 8 weeks and 6 days resulting in an estimated date of delivery of October 20, 2025 TRANSCRIBED BY: ELECTRONICALLY SIGNED BY: Irwin Keller MD Normal Not Available Comment on above: Order Comment: US OB TRANSVAGINAL No LMP recorded. Urinalysis macro (dipstick) panel (U)on 03-16-2025 Bilirubin, UA Negative Negative - 4(70) +++ mg/dL [facility] Blood, UA Negative Negative - 50 Yash/mcL [facility] Clarity, UA Clear [facility] Color, UA Yellow [facility] Glucose, UA Negative Negative - 1999(110) ++++ mg/dL [facility] Interpretation and review of laboratory results Normal [facility] Ketones, UA Negative Negative - 160(16) ++++ mg/dL [facility] Leukocytes, UA Trace Negative - 500+++ Zuleyka/mcL [facility] Nitrite, UA Negative Negative - Positive [facility] pH, UA 6 5 - 9 [facility] Protein, UA Negative Negative - 1999(20) ++++ mg/dL [facility] Spec Grav, UA 1.015 1 - 1.03 [facility] Urobilinogen, UA 1.0 0.2 - 12 mg/dL [facility] IGP,APTIMA HPV,AGE GDLNon AGE GDLN ACOG TESTING Note . [facility] Comment on above: TESTS RESULT FLAG UN ITS REF RANGE LAB Clinician Provided Cytology Information Source.............Cervix;Endocervix No. of containers..01 ThinPrep Vial Age Algo ACOG Shabnam... 30-65 01 FLAG LEGEND: L-Low Normal,H-High Normal,LL-Alert Low,HH-Alert High <-Panic Low,>-Panic High,A-Abnormal,AA-Critical Abnormal Performed at: 01 =[address] [place] [address] Karmen Yeung MD, HPV APTIMA Negative Negative [facility] Comment on above: This nucleic acid am plification test detects fourteen high- risk HPV types (16,18,31,33,35,39,45,51,52,56,58,59,66,68) without differentiation. Performed at: =[address] [id number] Associate Field Service Engineer: Karmen Yeung MD, Phone: [phone] Performed at: [address] [id number] Associate Field Service Engineer: Karmen Yeung MD, Phone: [phone] IGP, APTIMA HPV, RFX 16/18,45 Note . [facility] Comment on above: TESTS RESULT FLAG UN ITS REF RANGE LAB DIAGNOSIS: 02 NEGATIVE FOR INTRAEPITHELIAL LESION OR MALIGNANCY. CELLULAR CHANGES ASSOCIATED WITH INFLAMMATION ARE PRESENT. Specimen adequacy: 02 Satisfactory for evaluation. Endocervical and/or squamous metaplastic cells (endocervical component) are present. Performed by: 02 Radha Uriarte, Regional Vice President [employer] ([facility]) . 02 Note: Note 02 The Pap smear is a screening test designed to aid in the detection of premalignant and malignant conditions of the uterine cervix. It is not a diagnostic procedure and should not be used as the sole means of detecting cervical cancer. Both false-positive and false-negative reports do occur. Test Methodology: Note 02 This liquid based ThinPrep(R) pap test was screened with the use of an image guided system. HPV Genotype Reflex Note 02 Criteria not met, HPV Genotype not performed. FLAG LEGEND: L-Low Normal,H-High Normal,LL-Alert Low,HH-Alert High <-Panic Low,>-Panic High,A-Abnormal,AA-Critical Abnormal Performed at: 02 [facility] [address] [address] Karmen Yeung MD, BRUSH-SPATULA CERVIX ENDOCERVIX [facility] Urinalysis macro (dipstick) panel (U)on 02-12-2025 Bilirubin, UA Negative Negative - 4(70) +++ mg/dL [facility] Blood, UA Negative Negative - 50 Yash/mcL [facility] Clarity, UA Clear [facility] Color, UA Yellow [facility] Glucose, UA Negative Negative - 1999(110) ++++ mg/dL [facility] Interpretation and review of laboratory results Normal [facility] Ketones, UA Negative Negative - 160(16) ++++ mg/dL [facility] Leukocytes, UA Negative Negative - 500+++ Zuleyka/mcL [facility] Nitrite, UA Negative Negative - Positive [facility] pH, UA 6.5 5 - 9 [facility] Protein, UA Negative Negative - 1999(20) ++++ mg/dL [facility] Spec Grav, UA 1.01 1 - 1.03 [facility] Urobilinogen, UA 0.2 0.2 - 12 mg/dL [facility] ALL CBC WITH AUTO DIFFon Erythrocyte distribution width (RBC) [Ratio] 11.9 % 11.8 - 14.4 % [facility] Hematocrit (Bld) [Volume fraction] 41.4 % 36.3 - 47.1 % [facility] Hemoglobin (Bld) [Mass/Vol] 13.4 g/dL 11.9 - 15.1 g/dL [facility] MCH (RBC) [Entitic mass] 30 pg 25.2 - 33.5 pg [facility] MCHC (RBC) [Mass/Vol] 32.4 g/dL 28.4 - 34.8 g/dL [facility] MCV (RBC) [Entitic vol] 92.6 fL 82.6 - 102.9 fL [facility] AUTOMATED 0 0.0 per 100 WBC [facility] 328 [facility] WBC COUNT 9.6 [facility] Platelet mean volume (Bld) [Entitic vol] 10.2 fL 8.1 - 13.5 fL [facility] RBC (Bld) [#/Vol] 4.47 10*6/uL 3.95 - 5.1 1 m/uL [facility] Original Ordering Provider: AWA LYON [facility] CBCon 07-05-2024 Erythrocyte distribution width (RBC) [Ratio] 11.9 % 11.8 - 14.4 % [facility] Hematocrit (Bld) [Volume fraction] 41.4 % 36.3 - 47.1 % [facility] Hemoglobin (Bld) [Mass/Vol] 13.4 g/dL 11.9 - 15.1 g/dL [facility] MCH (RBC) [Entitic mass] 30.0 pg 25.2 - 33.5 pg [facility] MCHC (RBC) [Mass/Vol] 32.4 g/dL 28.4 - 34.8 g/dL [facility] MCV (RBC) [Entitic vol] 92.6 fL 82.6 - 102.9 fL [facility] Nucleated RBC/100 WBC (Bld) [Ratio] 0.0 % 0.0 per 100 WBC [facility] Platelet mean volume (Bld) [Entitic vol] 10.2 fL 8.1 - 13.5 fL [facility] Platelets (Bld) [#/Vol] 328 10*3/uL [facility] RBC (Bld) [#/Vol] 4.47 10*6/uL 3.95 - 5.1 1 m/uL [facility] WBC other (Bld) [#/Vol] 9.6 [facility] Erythrocyte distribution width (RBC) [Ratio] 11.9 % Normal 11.8-14.4 [facility] Comment on above: Performed By: #### T SH, CBC, CP #### [facility] [address] [place] [address] Associate Field Service Engineer: Marlon Parisi MD #### LIPR #### [facility] [place] [address] Associate Field Service Engineer: Robinson Byrd MD Hematocrit (Bld) [Volume fraction] 41.4 % Normal 36.3-47.1 [facility] Comment on above: Performed By: #### T SH, CBC, CP #### [facility] [address] [address] Associate Field Service Engineer: Marlon Parisi MD #### LIPR #### [address] [place], [place] [phone] Associate Field Service Engineer: Robinson Byrd MD Hemoglobin (Bld) [Mass/Vol] 13.4 g/dL Normal 11.9-15.1 [facility] Comment on above: Performed By: #### T SH, CBC, CP #### [facility] [address] [place] [address] [place] [address] Associate Field Service Engineer: Marlon Parisi MD #### LIPR #### [id number] [place], [place] [phone] Associate Field Service Engineer: Robinson Byrd MD MCH (RBC) [Entitic mass] 30.0 pg Normal 25.2-33.5 [facility] Comment on above: Performed By: #### T SH, CBC, CP #### [address] [place] [phone] Associate Field Service Engineer: Marlon Parisi MD #### LIPR #### [address] [place], [place] [phone] Associate Field Service Engineer: Robinson Byrd MD MCHC (RBC) [Mass/Vol] 32.4 g/dL Normal 28.4-34.8 [facility] Comment on above: Performed By: #### T SH, CBC, CP #### [address] [place] [phone] Associate Field Service Engineer: Marlon Parisi MD #### LIPR #### [address] [place], [place] [phone] Associate Field Service Engineer: Robinson Byrd MD MCV (RBC) [Entitic vol] 92.6 fL Normal 82.6-102.9 [facility] Comment on above: Performed By: #### T SH, CBC, CP #### [facility] [address] [place] [address] [place] [address] Associate Field Service Engineer: Marlon Parisi MD #### LIPR #### [address] [place], [place] [phone] Associate Field Service Engineer: Robinson Byrd MD NRBC Automated 0.0 per 100 WBC Normal 0.0 [facility] Comment on above: Performed By: #### T SH, CBC, CP #### [facility] [address] [place] [address] [place], [place] [phone] Associate Field Service Engineer: Marlon Parisi MD #### LIPR #### [address] [address] Associate Field Service Engineer: Robinson Byrd MD Platelet mean volume (Bld) [Entitic vol] 10.2 fL Normal 8.1-13.5 [facility] Comment on above: Performed By: #### T SH, CBC, CP #### [facility] [address] [place] [address] [place] [phone] Associate Field Service Engineer: Marlon Parisi MD #### LIPR #### [address] [phone] Associate Field Service Engineer: Robinson Byrd MD Platelets (Bld) [#/Vol] 328 10*3/uL Normal 138-453 [facility] Comment on above: Performed By: #### T SH, CBC, CP #### [facility] [address] [place] [address] [place] [phone] Associate Field Service Engineer: Marlon Parisi MD #### LIPR #### [address] [address] Associate Field Service Engineer: Robinson Byrd MD RBC (Bld) [#/Vol] 4.47 10*6/uL Normal 3.95-5.11 [facility] Comment on above: Performed By: #### T SH, CBC, CP #### [facility] [address] [place] [address] [place], [place] [phone] Associate Field Service Engineer: Marlon Parisi MD #### LIPR #### [address] [place] [address] Associate Field Service Engineer: Robinson Byrd MD WBC (Bld) [#/Vol] 9.6 10*3/uL Normal 3.5-11.3 [facility] Comment on above: Performed By: #### T SH, CBC, CP #### [facility] [address] [place], [place] [phone] Associate Field Service Engineer: Malron Parisi MD #### LIPR #### [address] [address] Associate Field Service Engineer: Robinson Byrd MD Comp Metabolic Profon 2023 Albumin [Mass/Vol] 4.2 g/dL Normal 3.5-5.2 [facility] Comment on above: Performed By: #### T SH, CBC, CP #### [address] [place] [phone] Associate Field Service Engineer: Marlon Parisi MD #### LIPR #### [address] [address] Associate Field Service Engineer: Robinson Byrd MD Albumin/Glob Ratio 1.4 Normal 1.0-2.5 [facility] Comment on above: Performed By: #### T SH, CBC, CP #### [facility] [address] [place] [address] [address] [place], [place] [phone] Associate Field Service Engineer: Marlon Parisi MD #### LIPR #### [address] [address] Associate Field Service Engineer: Robinson Byrd MD Alkaline Phos 68 U/L Normal 35-104 [facility] Comment on above: Performed By: #### T SH, CBC, CP #### [address] [place], [place] [phone] Associate Field Service Engineer: Marlon Parisi MD #### LIPR #### [address] [address] Associate Field Service Engineer: Robinson Byrd MD ALT [Catalytic activity/Vol] 41 U/L High 10-35 [facility] Comment on above: Performed By: #### T JULIANNE CBC, CP #### [facility] [address] [place], [place] [phone] Associate Field Service Engineer: Marlon Parisi MD #### LIPR #### [address] [address] Associate Field Service Engineer: Robinson Byrd MD Anion gap [Moles/Vol] 11 mmol/L Normal 9-16 [facility] Comment on above: Performed By: #### T JULIANNE CBC, CP #### [address] [place], [place] [phone] Associate Field Service Engineer: Marlon Parisi MD #### LIPR #### [address] [address] Associate Field Service Engineer: Robinson Byrd MD AST [Catalytic activity/Vol] 25 U/L Normal -35 [facility] Comment on above: Performed By: #### T JOSÉ MIGUEL WHITAKER, CP #### [address] [place], [place] [phone] Associate Field Service Engineer: Marlon Parisi MD #### LIPR #### [address] [address] Associate Field Service Engineer: Robinson Byrd MD Bilirubin [Mass/Vol] 0.5 mg/dL Normal 0.00-1.20 [facility] Comment on above: Performed By: #### T JULIANNE CBC, CP #### [address] [place], [place] [phone] Associate Field Service Engineer: Marlon Parisi MD #### LIPR #### [address] [address] Associate Field Service Engineer: Robinson Byrd MD BUN/CRE Ratio 23 High 9-20 [facility] Comment on above: Performed By: #### T SH, CBC, CP #### [facility] [address] [place], [place] [phone] Associate Field Service Engineer: Marlon Parisi MD #### LIPR #### [address] [phone] Associate Field Service Engineer: Robinson Byrd MD Calcium [Mass/Vol] 9.2 mg/dL Normal 8.6-10.4 [facility] Comment on above: Performed By: #### T JULIANNE, CBC, CP #### [facility] [address] [place], [place] [phone] Associate Field Service Engineer: Marlon Parisi MD #### LIPR #### [address] [address] Associate Field Service Engineer: Robinson Byrd MD Chloride [Moles/Vol] 100 mmol/L Normal 98-107 [facility] Comment on above: Performed By: #### T JULIANNE, CBC, CP #### [facility] [address] [place], [place] [phone] Associate Field Service Engineer: Marlon Parisi MD #### LIPR #### [address] [address] Associate Field Service Engineer: Robinson Byrd MD CO2 [Moles/Vol] 28 mmol/L Normal 20-31 [facility] Comment on above: Performed By: #### T SH, CBC, CP #### [facility] [address] [place], [place] [phone] Associate Field Service Engineer: Marlon Parisi MD #### LIPR #### [address] [address] Associate Field Service Engineer: Robinson Byrd MD Creatinine [Mass/Vol] 0.6 mg/dL Normal 0.50-0.90 [facility] Comment on above: Performed By: #### T JULIANNE CBC, CP #### [address] [place], [place] [phone] Associate Field Service Engineer: Marlon Parisi MD #### LIPR #### [address] [phone] Associate Field Service Engineer: Robinson Byrd MD GFR/1.73 sq M.predicted among non-blacks MDRD (S/P/Bld) [Vol rate/Area] mL/min/{1.73_m2} Normal >60 [facility] Comment on above: Result Comment: These results [...] renal tubular secretion. Performed By: #### T JULIANNE CBC, CP #### [address] [place], [place] 6353683 Associate Field Service Engineer: Marlon Parisi MD #### LIPR #### [address] [address] Associate Field Service Engineer: Robinson Byrd MD Glucose [Mass/Vol] 80 mg/dL Normal 74-99 [facility] Comment on above: Performed By: #### T JULIANNE CBC, CP #### [address] [place], [place] [phone] Associate Field Service Engineer: Marlon Parisi MD #### LIPR #### [address] [address] Associate Field Service Engineer: Robinson Byrd MD Potassium [Moles/Vol] 3.7 mmol/L Normal 3.7-5.3 [facility] Comment on above: Performed By: #### T JULIANNE CBC, CP #### [facility] [address] [place], [place] 1755[address] Associate Field Service Engineer: Marlon Parisi MD #### LIPR #### [address] [place], [place] [phone] Associate Field Service Engineer: Robinson Byrd MD Protein [Mass/Vol] 7.2 g/dL Normal 6.6-8.7 [facility] Comment on above: Performed By: #### T JULIANNE CBC, CP #### [address] [place] [address] Associate Field Service Engineer: Marlon Parisi MD #### LIPR #### [address] [place], [place] [phone] Associate Field Service Engineer: Robinson Byrd MD Sodium [Moles/Vol] 139 mmol/L Normal 136-145 [facility] Comment on above: Performed By: #### T JULIANNE CBC, CP #### [address] [place], [place] 1988[address] Associate Field Service Engineer: Marlon Parisi MD #### LIPR #### [address] [address] Associate Field Service Engineer: Robinson Byrd MD Urea nitrogen [Mass/Vol] 14 mg/dL Normal 6-20 [facility] Comment on above: Performed By: #### T JULIANNE CBC, CP #### [address] [place], [place] [phone] Associate Field Service Engineer: Marlon Parisi MD #### LIPR #### [address] [place], [place] [phone] Associate Field Service Engineer: Robinson Byrd MD Comprehensive Metabolic Pane [facility] 07-05-2024 Albumin [Mass/Vol] 4.2 g/dL 3.5 - 5.2 g/dL [facility] Albumin/Globulin [Mass ratio] 1.4 {ratio} 1.0 - 2.5 [facility] ALP [Catalytic activity/Vol] 68 U/L 35 - 104 U/L [facility] ALT [Catalytic activity/Vol] 41 U/L High 10 - 35 U/L [facility] Anion gap [Moles/Vol] 11 mmol/L 9 - 16 mmol/L [facility] AST [Catalytic activity/Vol] 25 U/L 10 - 35 U/L [facility] Bilirubin [Mass/Vol] 0.5 mg/dL 0.00 - 1.20 mg/dL [facility] Calcium [Mass/Vol] 9.2 mg/dL 8.6 - 10. 4 mg/dL [facility] Chloride [Moles/Vol] 100 mmol/L 98 - 10 7 mmol/L [facility] CO2 [Moles/Vol] 28 mmol/L 20 - 31 mmol/L [facility] Creatinine [Mass/Vol] 0.6 mg/dL 0.50 - 0.90 mg/dL [facility] Est, Glosabina Garnettprecious Rate - PINF [facility] Comment on above: These results are not [...] [Mass/Vol] 80 mg/dL 74 - 99 mg/dL [facility] Interpretation and review of laboratory results Abnormal [facility] Potassium [Moles/Vol] 3.7 mmol/L 3.7 - 5.3 mmol/L [facility] Protein [Mass/Vol] 7.2 g/dL 6.6 - 8.7 g/dL [facility] Sodium [Moles/Vol] 139 mmol/L 136 - 145 mmol/L [facility] Urea nitrogen [Mass/Vol] 14 mg/dL 6 - 20 mg/dL [facility] Urea nitrogen/Creatinine [Mass ratio] 23 mg/mg High [facility] Lipid Panelon 07-05-2024 [facility] Lipid Profileon 07-05-2024 Cholesterol [Mass/Vol] 162 mg/dL Normal 0-[address] [facility] Comment on above: Cholesterol Guidelines: <200 Desirable 200-240 Borderline >240 Undesirable Result Comment: Cholesterol Guidelines: <200 Desirable 200-240 Borderline >240 Undesirable Performed By: #### T JULIANNE CBC, CP #### [address] [place] [address] Associate Field Service Engineer: Marlon Parisi MD #### LIPR #### [facility] [place], [place] [phone] Associate Field Service Engineer: Robinson Byrd MD Cholesterol in HDL [Mass/Vol] 70 mg/dL Normal >40 [facility] Comment on above: HDL Guidelines: <40 Undesirable 40-59 Borderline >59 Desirable Result Comment: HDL Guidelines: <40 Undesirable 40-59 Borderline >59 Desirable Performed By: #### T JULIANNE CBC, CP #### [address] [place] [address] Associate Field Service Engineer: Marlon Parisi MD #### LIPR #### [place] [id number] [place], [place] [id number] Associate Field Service Engineer: Robinson Byrd MD Cholesterol in LDL [Mass/Vol] 72 mg/dL Normal 0-100 [facility] Comment on above: LDL Guidelines: <100 Desirable 100-129 Near to/above Desirable 130-159 Borderline >159 Undesirable Direct (measured) LDL and calculated LDL are not interchangeable tests. Result Comment: LDL Guidelines: <100 Desirable 100-129 Near to/above Desirable 130-159 Borderline >159 Undesirable Direct (measured) LDL and calculated LDL are not interchangeable tests. Performed By: #### T JULIANNE CBC, CP #### [address] [place] [address] Associate Field Service Engineer: Marlon Parisi MD #### LIPR #### [id number] [place], [place] [id number] Associate Field Service Engineer: Robinson Byrd MD Cholesterol in VLDL [Mass/Vol] 20 mg/dL Normal 1-30 [facility] Comment on above: Performed By: #### T JOSÉ MIGUEL WHITAKER, CP #### [address] [place] [address] Associate Field Service Engineer: Marlon Parisi MD #### LIPR #### [id number] [place], [place] [id number] Associate Field Service Engineer: Robinson Byrd MD Cholesterol.total/Chol esterol in HDL [Mass ratio] 2.3 {ratio} Normal [facility] Comment on above: Performed By: #### T JOSÉ MIGUEL WHITAKER, CP #### [address] [place] [address] Associate Field Service Engineer: Marlon Parisi MD #### LIPR #### [id number] [place], [place] [id number] Associate Field Service Engineer: Robinson Byrd MD Triglyceride [Mass/Vol] 100 mg/dL Normal <150 [facility] Comment on above: Triglyceride Guidelines: <150 Desirable 150-199 Borderline 200-499 High >499 Very high Based on AHA Guidelines for fasting triglyceride, May 2012. Result Comment: Triglyceride Guidelines: <150 Desirable 150-199 Borderline 200-499 High >499 Very high Based on AHA Guidelines for fasting triglyceride, May 2012. Performed By: #### T JOSÉ MIGUEL WHITAKER, CP #### [address] [place] [address] Associate Field Service Engineer: Marlon Parisi MD #### LIPR #### [id number] [place], [place] [id number] Associate Field Service Engineer: Robinson Byrd MD No Panel Informationon 07-05 [facility] TSHon 07-05-2024 TSH Qn 2.02 m[IU]/L [facility] Thyroid Stim. Horm.on 2023 Thyroid Stim. Horm. 2.02 uIU/mL Normal 0.27-4.20 [facility] Comment on above: Performed By: #### T SH, CBC, CP #### [facility] [address] [place], [place] [id number] Associate Field Service Engineer: Marlon Parisi MD #### LIPR #### [facility] [address] [place] [address] Associate Field Service Engineer: Robinson Byrd MD Cytology Cervical or vaginal smear or scraping studyOrdered By: Fernanda Snowden on 02-07-2024 [facility] PAP ACOG PANEL 2: 23 to 31on 01-16-2022 . . [facility] Comment on above: Performed By: #### [id number] #### [facility] [address] [place] [address] Dr. Harry Menendez Age Gdln ACOG Testing - [facility] Comment on above: Performed By: #### [id number] #### [facility] [address] [place] [address] Dr. Harry Menendez DIAGNOSIS: Comment [facility] Comment on above: Result Comment: NEGA TIVE FOR INTRAEPITHELIAL LESION OR MALIGNANCY. Performed By: #### [id number] #### [facility] [address] [place] [address] Dr. Harry Menendez Methodology: Comment [facility] Comment on above: Result Comment: This liquid based ThinPrep(R) pap test was screened with the use of an image guided system. Performed By: #### [id number] #### [facility] [address] [place] [address] Dr. Harry Menendez Note: Comment [facility] Comment on above: Result Comment: The Pap smear is a screening test designed to aid in the detection of premalignant and malignant conditions of the uterine cervix. It is not a diagnostic procedure and should not be used as the sole means of detecting cervical cancer. Both false-positive and false-negative reports do occur. . Performed By: #### 4 [id number] #### [facility] [address] [place] [address] Dr. Harry Menendez Performed by: Comment [facility] Comment on above: Result Comment: Sandy Jeffries, Outsole Tacker (ASCP) Performed By: #### 4 [id number] #### [facility] [address] [place] [address] Dr. Harry Menendez Reflex Criteria: Comment [facility] Comment on above: Result Comment: The HPV DNA reflex criteria were not met with this specimen result therefore, no HPV testing was performed. . Performed By: #### 4 [id number] #### [facility] [address] [address] [address] Harry Menendez Specimen adequacy: Comment Normal [facility] Comment on above: Result Comment: Sati sfactory for evaluation. Endocervical and/or squamous metaplastic cells (endocervical component) are present. Performed By: #### 4 [id number] #### [facility] [address] [place] [address] Dr. Harry Menendez Comprehensive Metabolic Empo n 10-07-2021 Albumin [Mass/Vol] 3.9 g/dL Normal 3.2-5.5 [facility] Comment on above: Performed By: #### P T, PTT, CBC, CRP, CMP, ESR, TSH3, T4F #### [facility] [address] [place] [address] [place] #### CHROMATIN, THYGLOB AB, TPO, ALD, HLAB27, MYOG, CH50, LUPANTCOAG, HITESH, C4, C3, RPR W RFX #### [facility] , Albumin/Globulin [Mass ratio] 1.2 {ratio} Normal [facility] Comment on above: Performed By: #### P T, PTT, CBC, CRP, CMP, ESR, TSH3, T4F #### [facility] [address] [place] [address] [place] #### CHROMATIN, THYGLOB AB, TPO, ALD, HLAB27, MYOG, CH50, LUPANTCOAG, HITESH, C4, C3, RPR W RFX #### [facility] , ALP [Catalytic activity/Vol] 43 U/L Normal 32-92 [facility] Comment on above: Performed By: #### P T, PTT, CBC, CRP, CMP, ESR, TSH3, T4F #### [facility] [address] [place] [address] [place] #### CHROMATIN, THYGLOB AB, TPO, ALD, HLAB27, MYOG, CH50, LUPANTCOAG, HITESH, C4, C3, RPR W RFX #### [facility] , ALT [Catalytic activity/Vol] 39 U/L Normal 10- [facility] Comment on above: Performed By: #### P T, PTT, CBC, CRP, CMP, ESR, TSH3, T4F #### [facility] [address] [place] [address] [place] #### CHROMATIN, THYGLOB AB, TPO, ALD, HLAB27, MYOG, CH50, LUPANTCOAG, HITESH, C4, C3, RPR W RFX #### [facility] , AST [Catalytic activity/Vol] 24 U/L Normal 10 [facility] Comment on above: Performed By: #### P T, PTT, CBC, CRP, CMP, ESR, TSH3, T4F #### [facility] [address] [place] [address] [place] #### CHROMATIN, THYGLOB AB, TPO, ALD, HLAB27, MYOG, CH50, LUPANTCOAG, HITESH, C4, C3, RPR W RFX #### [facility] , Bilirubin [Mass/Vol] 1.0 mg/dL Normal 0.3-1.2 [facility] Comment on above: Performed By: #### P T, PTT, CBC, CRP, CMP, ESR, TSH3, T4F #### [facility] [address] [place] [address] [place] #### CHROMATIN, THYGLOB AB, TPO, ALD, HLAB27, MYOG, CH50, LUPANTCOAG, HITESH, C4, C3, RPR W RFX #### [facility] , Calcium [Mass/Vol] 9.4 mg/dL Normal 8.2-10.2 [facility] Comment on above: Performed By: #### P T, PTT, CBC, CRP, CMP, ESR, TSH3, T4F #### [facility] [address] [place] [address] [place] #### CHROMATIN, THYGLOB AB, TPO, ALD, HLAB27, MYOG, CH50, LUPANTCOAG, HITESH, C4, C3, RPR W RFX #### [facility] , Chloride [Moles/Vol] 104 mmol/L Normal 95-114 [facility] Comment on above: Performed By: #### P T, PTT, CBC, CRP, CMP, ESR, TSH3, T4F #### [facility] [address] [place] [address] #### CHROMATIN, THYGLOB AB, TPO, ALD, HLAB27, MYOG, CH50, LUPANTCOAG, HITESH, C4, C3, RPR W RFX #### [facility] , CO2 [Moles/Vol] 22.7 mmol/L Normal 22.0-30.0 [facility] Comment on above: Performed By: #### P T, PTT, CBC, CRP, CMP, ESR, TSH3, T4F #### [facility] [address] [place] [address] [place] #### CHROMATIN, THYGLOB AB, TPO, ALD, HLAB27, MYOG, CH50, LUPANTCOAG, HITESH, C4, C3, RPR W RFX #### [facility] , Creatinine [Mass/Vol] 0.60 mg/dL Normal 0.44-1.03 [facility] Comment on above: Performed By: #### P T, PTT, CBC, CRP, CMP, ESR, TSH3, T4F #### [facility] [address] [place] [address] [place] #### CHROMATIN, THYGLOB AB, TPO, ALD, HLAB27, MYOG, CH50, LUPANTCOAG, HITESH, C4, C3, RPR W RFX #### [facility] , Estimated GFR ( Nallely > 60 Normal [facility] Comment on above: Result Comment: GFR estimated reference range: According to KDOQI guidelines, <60 ml/min/1.73m2 is sufficient to diagnose a patient with chronic kidney disease. Performed By: #### P T, PTT, CBC, CRP, CMP, ESR, TSH3, T4F #### [place] [address] [place] #### CHROMATIN, THYGLOB AB, TPO, ALD, HLAB27, MYOG, CH50, LUPANTCOAG, HITESH, C4, C3, RPR W RFX #### [facility] , Estimated GFR (Non- Am > 60 [facility] Comment on above: Performed By: #### P T, PTT, CBC, CRP, CMP, ESR, TSH3, T4F #### [place] [address] [place] #### CHROMATIN, THYGLOB AB, TPO, ALD, HLAB27, MYOG, CH50, LUPANTCOAG, HITESH, C4, C3, RPR W RFX #### [facility] , Globulin (S) [Mass/Vol] 3.3 g/dL Normal [facility] Comment on above: Performed By: #### P T, PTT, CBC, CRP, CMP, ESR, TSH3, T4F #### [place] [address] [place] #### CHROMATIN, THYGLOB AB, TPO, ALD, HLAB27, MYOG, CH50, LUPANTCOAG, HITESH, C4, C3, RPR W RFX #### [facility] , Glucose [Mass/Vol] 89 mg/dL Normal 70-100 [facility] Comment on above: Performed By: #### P T, PTT, CBC, CRP, CMP, ESR, TSH3, T4F #### [place] [address] [place] #### CHROMATIN, THYGLOB AB, TPO, ALD, HLAB27, MYOG, CH50, LUPANTCOAG, HITESH, C4, C3, RPR W RFX #### [facility] , Potassium [Moles/Vol] 4.3 mmol/L Normal 3.5-5.1 [facility] Comment on above: Performed By: #### P T, PTT, CBC, CRP, CMP, ESR, TSH3, T4F #### [place] [address] [place] #### CHROMATIN, THYGLOB AB, TPO, ALD, HLAB27, MYOG, CH50, LUPANTCOAG, HITESH, C4, C3, RPR W RFX #### [facility] , Protein [Mass/Vol] 7.2 g/dL Normal 6.1-7.9 [facility] Comment on above: Performed By: #### P T, PTT, CBC, CRP, CMP, ESR, TSH3, T4F #### [place] [address] [place] #### CHROMATIN, THYGLOB AB, TPO, ALD, HLAB27, MYOG, CH50, LUPANTCOAG, HITESH, C4, C3, RPR W RFX #### [facility] , Sodium [Moles/Vol] 136 mmol/L Normal 136-146 [facility] Comment on above: Performed By: #### P T, PTT, CBC, CRP, CMP, ESR, TSH3, T4F #### [place] [address] [place] #### CHROMATIN, THYGLOB AB, TPO, ALD, HLAB27, MYOG, CH50, LUPANTCOAG, HITESH, C4, C3, RPR W RFX #### [facility] , Urea nitrogen [Mass/Vol] 9 mg/dL Normal 9-23 [facility] Comment on above: Performed By: #### P T, PTT, CBC, CRP, CMP, ESR, TSH3, T4F #### [place] [address] [place] #### CHROMATIN, THYGLOB AB, TPO, ALD, HLAB27, MYOG, CH50, LUPANTCOAG, HITESH, C4, C3, RPR W RFX #### [facility] , Lipid Profileon 10-07-2021 Cholesterol [Mass/Vol] 153 mg/dL Normal 140-200 [facility] Comment on above: Result Comment: Chol less than 200 mg/dl low risk Chol 201-239 mg/dl borderline risk Chol 240 mg/dl and greater high risk Performed By: #### P T, PTT, CBC, CRP, CMP, ESR, TSH3, T4F #### [address] #### CHROMATIN, THYGLOB AB, TPO, ALD, HLAB27, MYOG, CH50, LUPANTCOAG, HITESH, C4, C3, RPR W RFX #### [facility] , Cholesterol in HDL [Mass/Vol] 54 mg/dL Normal 35-85 [facility] Comment on above: Result Comment: HDL CHOL ATP-III CLASSIFICATION Cardiovascular Risk HDL > or equal to 60 mg/dL LOW HDL < 40 mg/dL HIGH Performed By: #### P T, PTT, CBC, CRP, CMP, ESR, TSH3, T4F #### [address] #### CHROMATIN, THYGLOB AB, TPO, ALD, HLAB27, MYOG, CH50, LUPANTCOAG, HITESH, C4, C3, RPR W RFX #### [facility] , Cholesterol.total/Chol esterol in HDL [Mass ratio] 2.8 {ratio} Normal <5.0 [facility] Comment on above: Result Comment: PERF ORMED BY: [place] [address] PATHOLOGIST VALUER LUKE JAIME M.D. Performed By: #### P T, PTT, CBC, CRP, CMP, ESR, TSH3, T4F #### [place] [address] [place] #### CHROMATIN, THYGLOB AB, TPO, ALD, HLAB27, MYOG, CH50, LUPANTCOAG, HITESH, C4, C3, RPR W RFX #### [facility] , LDL Cholesterol,Calculated 90 mg/dL Normal 0-100 [facility] Comment on above: Result Comment: LDL ATP III CLASSIFICATION LDL less than 100 mg/dL Optimal LDL 100-129 mg/dL Near or above optimal LDL 130-159 mg/dL Borderline high LDL 160-189 mg/dL High LDL greater than 189 mg/dL Very high Performed By: #### P T, PTT, CBC, CRP, CMP, ESR, TSH3, T4F #### [facility] [address] [place] [address] [place] #### CHROMATIN, THYGLOB AB, TPO, ALD, HLAB27, MYOG, CH50, LUPANTCOAG, HITESH, C4, C3, RPR W RFX #### [facility] , Triglyceride w/Reflex 44 mg/dL Normal 35-149 [facility] Comment on above: Result Comment: TRIG ATP III CLASSIFICATION TRIG less than 150 mg/dL Normal TRIG 150-199 mg/dL Borderline high TRIG 200-500 mg/dL High TRIG greater than 500 mg/dL Very high Standard traceable to the Center for Disease Conrtrol and Prevention (CDC) test method. Performed By: #### P T, PTT, CBC, CRP, CMP, ESR, TSH3, T4F #### [facility] [address] [place] [address] [place] #### CHROMATIN, THYGLOB AB, TPO, ALD, HLAB27, MYOG, CH50, LUPANTCOAG, HITESH, C4, C3, RPR W RFX #### [facility] , VLDL CHOLESTEROL 8 mg/dL Normal [facility] Comment on above: Performed By: #### P T, PTT, CBC, CRP, CMP, ESR, TSH3, T4F #### [facility] [address] [place] [address] [place] #### CHROMATIN, THYGLOB AB, TPO, ALD, HLAB27, MYOG, CH50, LUPANTCOAG, HITESH, C4, C3, RPR W RFX #### [facility] , HITESH Antinuclear Antibodieson 03-04-2021 Antinuclear Abs, IFA Negative Normal . [facility] Comment on above: Order Comment: Speci men Comment: Test(s) 282544-[id number] Specimen Comment: was developed and its performance characteristics Specimen Comment: determined by [facility]. It has not been cleared or approved Specimen Comment: by the Food and Drug Administration. List any foods/meds the pt has taken (see Test/Proc Notes):: N/A Patient Posture before Draw (see Test/Proc Notes):: SITTING UP Result Comment: Nega tive <1:80 Borderline 1:80 Positive >1:80 Performed at: [address] [id number] Associate Field Service Engineer: Oj Martin PhD, Phone: [phone] Performed By: #### P T, PTT, CBC, CRP, CMP, ESR, TSH3, T4F #### [facility] [address] [place] [address] #### CHROMATIN, THYGLOB AB, TPO, ALD, HLAB27, MYOG, CH50, LUPANTCOAG, HITESH, C4, C3, RPR W RFX #### [facility] , Aldosteroneon 03-04-2021 Aldosterone 9.0 ng/dL Normal 0.0-30.0 [facility] Comment on above: Order Comment: Speci men Comment: Test(s) [id number] Specimen Comment: was developed and its performance characteristics Specimen Comment: determined by [facility]. It has not been cleared or approved Specimen Comment: by the Food and Drug Administration. List any foods/meds the pt has taken (see Test/Proc Notes):: N/A Patient Posture before Draw (see Test/Proc Notes):: SITTING UP Result Comment: Perf ormed at: - [facility] [id number] Associate Field Service Engineer: Radha Patel MD, Phone: [phone] Performed By: #### P T, PTT, CBC, CRP, CMP, ESR, TSH3, T4F #### [address] #### CHROMATIN, THYGLOB AB, TPO, ALD, HLAB27, MYOG, CH50, LUPANTCOAG, HITESH, C4, C3, RPR W RFX #### [facility] , Antithyroglobulin Abon 03-04 Antithyroglobulin Ab 175.7 High 0.0-0.9 [facility] Comment on above: Order Comment: Speci men Comment: Test(s) [id number]-Dhpwnyyamag Specimen Comment: was developed and its performance characteristics Specimen Comment: determined by [facility]. It has not been cleared or approved Specimen Comment: by the Food and Drug Administration. List any foods/meds the pt has taken (see Test/Proc Notes):: N/A Patient Posture before Draw (see Test/Proc Notes):: SITTING UP Result Comment: Thyr oglobulin Antibody measured by [employer] Performed at: [address] [id number] Associate Field Service Engineer: Oj Martin PhD, Phone: [phone] Performed By: #### P T, PTT, CBC, CRP, CMP, ESR, TSH3, T4F #### [address] #### CHROMATIN, THYGLOB AB, TPO, ALD, HLAB27, MYOG, CH50, LUPANTCOAG, HITESH, C4, C3, RPR W RFX #### [facility] , C-Reactive Proteinon 021 C-Reactive Protein 0.7 mg/dL Normal 0.0-1.0 [facility] Comment on above: Performed By: #### P T, PTT, CBC, CRP, CMP, ESR, TSH3, T4F #### [place] [address] [place] #### CHROMATIN, THYGLOB AB, TPO, ALD, HLAB27, MYOG, CH50, LUPANTCOAG, HITESH, C4, C3, RPR W RFX #### [facility] , Chromatin Antibodyon 07-20-2 021 Chromatin Antibody <0.2 Normal 0.0-0.9 [facility] Comment on above: Order Comment: Speci men Comment: Test(s) [id number]-[id number] Specimen Comment: was developed and its performance characteristics Specimen Comment: determined by [facility]. It has not been cleared or approved Specimen Comment: by the Food and Drug Administration. List any foods/meds the pt has taken (see Test/Proc Notes):: N/A Patient Posture before Draw (see Test/Proc Notes):: SITTING UP Performed By: #### P T, PTT, CBC, CRP, CMP, ESR, TSH3, T4F #### [facility] [address] [place] [address] [place] #### CHROMATIN, THYGLOB AB, TPO, ALD, HLAB27, MYOG, CH50, LUPANTCOAG, HITESH, C4, C3, RPR W RFX #### [facility] , Complement C3on 03-04-2021 Complement C3 130 mg/dL Normal 82-167 [facility] Comment on above: Order Comment: Speci men Comment: Test(s) [id number]-Ejeuuqlhnan Specimen Comment: was developed and its performance characteristics Specimen Comment: determined by [facility]. It has not been cleared or approved Specimen Comment: by the Food and Drug Administration. List any foods/meds the pt has taken (see Test/Proc Notes):: N/A Patient Posture before Draw (see Test/Proc Notes):: SITTING UP Performed By: #### P T, PTT, CBC, CRP, CMP, ESR, TSH3, T4F #### [facility] [address] [place] [address] [place] #### CHROMATIN, THYGLOB AB, TPO, ALD, HLAB27, MYOG, CH50, LUPANTCOAG, HITESH, C4, C3, RPR W RFX #### [facility] , Complement C4on 03-04-2021 Complement C4 25 mg/dL Normal 12-38 [facility] Comment on above: Order Comment: Speci men Comment: Test(s) [id number] Specimen Comment: was developed and its performance characteristics Specimen Comment: determined by [facility]. It has not been cleared or approved Specimen Comment: by the Food and Drug Administration. List any foods/meds the pt has taken (see Test/Proc Notes):: N/A Patient Posture before Draw (see Test/Proc Notes):: SITTING UP Performed By: #### P T, PTT, CBC, CRP, CMP, ESR, TSH3, T4F #### [place] [address] [place] #### CHROMATIN, THYGLOB AB, TPO, ALD, HLAB27, MYOG, CH50, LUPANTCOAG, HITESH, C4, C3, RPR W RFX #### [facility] , Complement Total (CH50)on Complement Total (CH50) >60 Normal >41 [facility] Comment on above: Order Comment: Speci men Comment: Test(s) [id number] Specimen Comment: was developed and its performance [...] out of range values. Performed at: - [facility] [id number] Associate Field Service Engineer: Oj Martin PhD, Phone: [phone] Performed By: #### P T, PTT, CBC, CRP, CMP, ESR, TSH3, T4F #### [place] [address] [place] #### CHROMATIN, THYGLOB AB, TPO, ALD, HLAB27, MYOG, CH50, LUPANTCOAG, HITESH, C4, C3, RPR W RFX #### [facility] , Complete Blood Count Auto Di ffon 03-04-2021 Basophils (Bld) [#/Vol] 0.0 10*3/uL Normal 0.0-0.2 [facility] Comment on above: Performed By: #### P T, PTT, CBC, CRP, CMP, ESR, TSH3, T4F #### [place] [address] [place] #### CHROMATIN, THYGLOB AB, TPO, ALD, HLAB27, MYOG, CH50, LUPANTCOAG, HITESH, C4, C3, RPR W RFX #### [facility] , Basophils/100 WBC (Bld) 1.0 % Normal . [facility] Comment on above: Performed By: #### P T, PTT, CBC, CRP, CMP, ESR, TSH3, T4F #### [place] [address] [place] #### CHROMATIN, THYGLOB AB, TPO, ALD, HLAB27, MYOG, CH50, LUPANTCOAG, HITESH, C4, C3, RPR W RFX #### [facility] , Eosinophils (Bld) [#/Vol] 0.1 10*3/uL Normal 0.0-0.45 [facility] Comment on above: Performed By: #### P T, PTT, CBC, CRP, CMP, ESR, TSH3, T4F #### [place] [address] [place] #### CHROMATIN, THYGLOB AB, TPO, ALD, HLAB27, MYOG, CH50, LUPANTCOAG, HITESH, C4, C3, RPR W RFX #### [facility] , Eosinophils/100 WBC (Bld) 2.0 % Normal . [facility] Comment on above: Performed By: #### P T, PTT, CBC, CRP, CMP, ESR, TSH3, T4F #### [place] [address] [place] #### CHROMATIN, THYGLOB AB, TPO, ALD, HLAB27, MYOG, CH50, LUPANTCOAG, HITESH, C4, C3, RPR W RFX #### [facility] , Erythrocyte distribution width (RBC) [Ratio] 12.5 % Normal 11.9-15.3 [facility] Comment on above: Performed By: #### P T, PTT, CBC, CRP, CMP, ESR, TSH3, T4F #### [address] #### CHROMATIN, THYGLOB AB, TPO, ALD, HLAB27, MYOG, CH50, LUPANTCOAG, HITESH, C4, C3, RPR W RFX #### [facility] , Hematocrit (Bld) [Volume fraction] 38.8 % Normal 34.0-46.4 [facility] Comment on above: Performed By: #### P T, PTT, CBC, CRP, CMP, ESR, TSH3, T4F #### [address] #### CHROMATIN, THYGLOB AB, TPO, ALD, HLAB27, MYOG, CH50, LUPANTCOAG, HITESH, C4, C3, RPR W RFX #### [facility] , Hemoglobin (Bld) [Mass/Vol] 13.4 g/dL Normal 11.8-15.4 [facility] Comment on above: Performed By: #### P T, PTT, CBC, CRP, CMP, ESR, TSH3, T4F #### [address] #### CHROMATIN, THYGLOB AB, TPO, ALD, HLAB27, MYOG, CH50, LUPANTCOAG, HITESH, C4, C3, RPR W RFX #### [facility] , Lymphocytes (Bld) [#/Vol] 1.1 10*3/uL Normal 1.00-4.8 [facility] Comment on above: Performed By: #### P T, PTT, CBC, CRP, CMP, ESR, TSH3, T4F #### [address] #### CHROMATIN, THYGLOB AB, TPO, ALD, HLAB27, MYOG, CH50, LUPANTCOAG, HITESH, C4, C3, RPR W RFX #### [facility] , Lymphocytes/100 WBC (Bld) 25.9 % Normal . [facility] Comment on above: Performed By: #### P T, PTT, CBC, CRP, CMP, ESR, TSH3, T4F #### [address] #### CHROMATIN, THYGLOB AB, TPO, ALD, HLAB27, MYOG, CH50, LUPANTCOAG, HITESH, C4, C3, RPR W RFX #### [facility] , MCH (RBC) [Entitic mass] 31.4 pg Normal 24.7-34.3 [facility] Comment on above: Performed By: #### P T, PTT, CBC, CRP, CMP, ESR, TSH3, T4F #### [address] #### CHROMATIN, THYGLOB AB, TPO, ALD, HLAB27, MYOG, CH50, LUPANTCOAG, HITESH, C4, C3, RPR W RFX #### [facility] , MCV (RBC) [Entitic vol] 91.3 fL Normal 80-100 [facility] Comment on above: Performed By: #### P T, PTT, CBC, CRP, CMP, ESR, TSH3, T4F #### [place] [address] [place] #### CHROMATIN, THYGLOB AB, TPO, ALD, HLAB27, MYOG, CH50, LUPANTCOAG, HITESH, C4, C3, RPR W RFX #### [facility] , Mean Corpuscular HGB Conc 34.4 g/dL Normal 32.0-35.0 [facility] Comment on above: Performed By: #### P T, PTT, CBC, CRP, CMP, ESR, TSH3, T4F #### [facility] [address] [place] [address] [place] #### CHROMATIN, THYGLOB AB, TPO, ALD, HLAB27, MYOG, CH50, LUPANTCOAG, HITESH, C4, C3, RPR W RFX #### [facility] , Monocytes (Bld) [#/Vol] 0.2 10*3/uL Normal 0.0-0.8 [facility] Comment on above: Performed By: #### P T, PTT, CBC, CRP, CMP, ESR, TSH3, T4F #### [place] [address] [place] #### CHROMATIN, THYGLOB AB, TPO, ALD, HLAB27, MYOG, CH50, LUPANTCOAG, HITESH, C4, C3, RPR W RFX #### [facility] , Monocytes/100 WBC (Bld) 5.4 % Normal . [facility] Comment on above: Performed By: #### P T, PTT, CBC, CRP, CMP, ESR, TSH3, T4F #### [facility] [address] [place] [address] [place] #### CHROMATIN, THYGLOB AB, TPO, ALD, HLAB27, MYOG, CH50, LUPANTCOAG, HITESH, C4, C3, RPR W RFX #### [facility] , Neutrophils (Bld) [#/Vol] 2.8 10*3/uL Normal 1.8-7.7 [facility] Comment on above: Performed By: #### P T, PTT, CBC, CRP, CMP, ESR, TSH3, T4F #### [facility] [address] [place] [address] [place] #### CHROMATIN, THYGLOB AB, TPO, ALD, HLAB27, MYOG, CH50, LUPANTCOAG, HITESH, C4, C3, RPR W RFX #### [facility] , Neutrophils/100 WBC (Bld) 65.7 % Normal . [facility] Comment on above: Performed By: #### P T, PTT, CBC, CRP, CMP, ESR, TSH3, T4F #### [facility] [address] [place] [address] #### CHROMATIN, THYGLOB AB, TPO, ALD, HLAB27, MYOG, CH50, LUPANTCOAG, HITESH, C4, C3, RPR W RFX #### [facility] , Nucleated RBC/100 WBC (Bld) [Ratio] 0.1 % Normal 0-0.5 [facility] Comment on above: Performed By: #### P T, PTT, CBC, CRP, CMP, ESR, TSH3, T4F #### [facility] [address] [place] [address] #### CHROMATIN, THYGLOB AB, TPO, ALD, HLAB27, MYOG, CH50, LUPANTCOAG, HITESH, C4, C3, RPR W RFX #### [facility] , Platelet mean volume (Bld) [Entitic vol] 9.9 fL Normal 6.3-10.7 [facility] Comment on above: Performed By: #### P T, PTT, CBC, CRP, CMP, ESR, TSH3, T4F #### [address] #### CHROMATIN, THYGLOB AB, TPO, ALD, HLAB27, MYOG, CH50, LUPANTCOAG, HITESH, C4, C3, RPR W RFX #### [facility] , Platelets (Bld) [#/Vol] 214 10*3/uL Normal 150-450 [facility] Comment on above: Performed By: #### P T, PTT, CBC, CRP, CMP, ESR, TSH3, T4F #### [facility] [address] [place] [address] [place] #### CHROMATIN, THYGLOB AB, TPO, ALD, HLAB27, MYOG, CH50, LUPANTCOAG, HITESH, C4, C3, RPR W RFX #### [facility] , RBC (Bld) [#/Vol] 4.25 10*6/uL Normal 3.60-5.00 [facility] Comment on above: Performed By: #### P T, PTT, CBC, CRP, CMP, ESR, TSH3, T4F #### [address] #### CHROMATIN, THYGLOB AB, TPO, ALD, HLAB27, MYOG, CH50, LUPANTCOAG, HITESH, C4, C3, RPR W RFX #### [facility] , WBC (Bld) [#/Vol] 4.2 10*3/uL Low 4.5-11.0 [facility] Comment on above: Performed By: #### P T, PTT, CBC, CRP, CMP, ESR, TSH3, T4F #### [address] #### CHROMATIN, THYGLOB AB, TPO, ALD, HLAB27, MYOG, CH50, LUPANTCOAG, HITESH, C4, C3, RPR W RFX #### [facility] , Comprehensive Metabolic Pane gaurang 03-04-2021 Albumin [Mass/Vol] 3.9 g/dL Normal 3.2-5.5 [facility] Comment on above: Performed By: #### P T, PTT, CBC, CRP, CMP, ESR, TSH3, T4F #### [place] [address] [place] #### CHROMATIN, THYGLOB AB, TPO, ALD, HLAB27, MYOG, CH50, LUPANTCOAG, HITESH, C4, C3, RPR W RFX #### [facility] , Albumin/Globulin [Mass ratio] 1.3 {ratio} Normal [facility] Comment on above: Performed By: #### P T, PTT, CBC, CRP, CMP, ESR, TSH3, T4F #### [place] [address] [place] #### CHROMATIN, THYGLOB AB, TPO, ALD, HLAB27, MYOG, CH50, LUPANTCOAG, HITESH, C4, C3, RPR W RFX #### [facility] , ALP [Catalytic activity/Vol] 52 U/L Normal 32-92 [facility] Comment on above: Performed By: #### P T, PTT, CBC, CRP, CMP, ESR, TSH3, T4F #### [facility] [address] [place] [address] [place] #### CHROMATIN, THYGLOB AB, TPO, ALD, HLAB27, MYOG, CH50, LUPANTCOAG, HITESH, C4, C3, RPR W RFX #### [facility] , ALT [Catalytic activity/Vol] 20 U/L Normal 10-60 [facility] Comment on above: Performed By: #### P T, PTT, CBC, CRP, CMP, ESR, TSH3, T4F #### [place] [address] [place] #### CHROMATIN, THYGLOB AB, TPO, ALD, HLAB27, MYOG, CH50, LUPANTCOAG, HITESH, C4, C3, RPR W RFX #### [facility] , AST [Catalytic activity/Vol] 24 U/L Normal 10-42 [facility] Comment on above: Performed By: #### P T, PTT, CBC, CRP, CMP, ESR, TSH3, T4F #### [facility] [address] [place] [address] [place] #### CHROMATIN, THYGLOB AB, TPO, ALD, HLAB27, MYOG, CH50, LUPANTCOAG, HITESH, C4, C3, RPR W RFX #### [facility] , Bilirubin [Mass/Vol] 0.7 mg/dL Normal 0.3-1.2 [facility] Comment on above: Performed By: #### P T, PTT, CBC, CRP, CMP, ESR, TSH3, T4F #### [facility] [address] [place] [address] [place] #### CHROMATIN, THYGLOB AB, TPO, ALD, HLAB27, MYOG, CH50, LUPANTCOAG, HITESH, C4, C3, RPR W RFX #### [facility] , Calcium [Mass/Vol] 9.6 mg/dL Normal 8.2-10.2 [facility] Comment on above: Performed By: #### P T, PTT, CBC, CRP, CMP, ESR, TSH3, T4F #### [facility] [address] #### CHROMATIN, THYGLOB AB, TPO, ALD, HLAB27, MYOG, CH50, LUPANTCOAG, HITESH, C4, C3, RPR W RFX #### [facility] , Chloride [Moles/Vol] 103 mmol/L Normal 95-114 [facility] Comment on above: Performed By: #### P T, PTT, CBC, CRP, CMP, ESR, TSH3, T4F #### [facility] [address] #### CHROMATIN, THYGLOB AB, TPO, ALD, HLAB27, MYOG, CH50, LUPANTCOAG, HITESH, C4, C3, RPR W RFX #### [facility] , CO2 [Moles/Vol] 23.4 mmol/L Normal 22.0-30.0 [facility] Comment on above: Performed By: #### P T, PTT, CBC, CRP, CMP, ESR, TSH3, T4F #### [place] [address] [place] #### CHROMATIN, THYGLOB AB, TPO, ALD, HLAB27, MYOG, CH50, LUPANTCOAG, HITESH, C4, C3, RPR W RFX #### [facility] , Creatinine [Mass/Vol] 0.62 mg/dL Normal 0.44-1.03 [facility] Comment on above: Performed By: #### P T, PTT, CBC, CRP, CMP, ESR, TSH3, T4F #### [facility] [address] [place] [address] [place] #### CHROMATIN, THYGLOB AB, TPO, ALD, HLAB27, MYOG, CH50, LUPANTCOAG, HITESH, C4, C3, RPR W RFX #### [facility] , Estimated GFR ( Nallely > 60 [facility] Comment on above: Result Comment: GFR estimated reference range: According to KDOQI guidelines, <60 ml/min/1.73m2 is sufficient to diagnose a patient with chronic kidney disease. Performed By: #### P T, PTT, CBC, CRP, CMP, ESR, TSH3, T4F #### [address] #### CHROMATIN, THYGLOB AB, TPO, ALD, HLAB27, MYOG, CH50, LUPANTCOAG, HITESH, C4, C3, RPR W RFX #### [facility] , Estimated GFR (Non- Am > 60 [facility] Comment on above: Performed By: #### P T, PTT, CBC, CRP, CMP, ESR, TSH3, T4F #### [facility] [address] [place] [address] [place] #### CHROMATIN, THYGLOB AB, TPO, ALD, HLAB27, MYOG, CH50, LUPANTCOAG, HITESH, C4, C3, RPR W RFX #### [facility] , Globulin (S) [Mass/Vol] 3.1 g/dL [facility] Comment on above: Performed By: #### P T, PTT, CBC, CRP, CMP, ESR, TSH3, T4F #### [facility] [address] [place] [address] [place] #### CHROMATIN, THYGLOB AB, TPO, ALD, HLAB27, MYOG, CH50, LUPANTCOAG, HITESH, C4, C3, RPR W RFX #### [facility] , Glucose [Mass/Vol] 80 mg/dL Normal 70-100 [facility] Comment on above: Result Comment: [place] om Glucose Reference Range is dependent on time and content of last meal. Glucose of more than 200 mg/dL in a nonstressed, ambulatory subject supports the diagnosis of Diabetes Mellitus. ADA recommended reference range Performed By: #### P T, PTT, CBC, CRP, CMP, ESR, TSH3, T4F #### [address] #### CHROMATIN, THYGLOB AB, TPO, ALD, HLAB27, MYOG, CH50, LUPANTCOAG, HITESH, C4, C3, RPR W RFX #### [facility] , Potassium [Moles/Vol] 4.1 mmol/L Normal 3.5-5.1 [facility] Comment on above: Performed By: #### P T, PTT, CBC, CRP, CMP, ESR, TSH3, T4F #### [place] [address] [place] #### CHROMATIN, THYGLOB AB, TPO, ALD, HLAB27, MYOG, CH50, LUPANTCOAG, HITESH, C4, C3, RPR W RFX #### [facility] , Protein [Mass/Vol] 7.0 g/dL Normal 6.1-7.9 [facility] Comment on above: Performed By: #### P T, PTT, CBC, CRP, CMP, ESR, TSH3, T4F #### [place] [address] [place] #### CHROMATIN, THYGLOB AB, TPO, ALD, HLAB27, MYOG, CH50, LUPANTCOAG, HITESH, C4, C3, RPR W RFX #### [facility] , Sodium [Moles/Vol] 138 mmol/L Normal 136-146 [facility] Comment on above: Performed By: #### P T, PTT, CBC, CRP, CMP, ESR, TSH3, T4F #### [place] [address] [place] #### CHROMATIN, THYGLOB AB, TPO, ALD, HLAB27, MYOG, CH50, LUPANTCOAG, HITESH, C4, C3, RPR W RFX #### [facility] , Urea nitrogen [Mass/Vol] 9 mg/dL Normal 9- [facility] Comment on above: Performed By: #### P T, PTT, CBC, CRP, CMP, ESR, TSH3, T4F #### [address] #### CHROMATIN, THYGLOB AB, TPO, ALD, HLAB27, MYOG, CH50, LUPANTCOAG, HITESH, C4, C3, RPR W RFX #### [facility] , Dipstick and Microscopicon 0 03-04-2021 Appearance (U) Clear Normal Clear [facility] Comment on above: Order Comment: Name Collection Type:: Clean-Voided Midstream Performed By: #### P T, PTT, CBC, CRP, CMP, ESR, TSH3, T4F #### [address] #### CHROMATIN, THYGLOB AB, TPO, ALD, HLAB27, MYOG, CH50, LUPANTCOAG, HITESH, C4, C3, RPR W RFX #### [facility] , Bacteria,Urine None Seen Normal None Seen [facility] Comment on above: Order Comment: Name Collection Type:: Clean-Voided Midstream Performed By: #### P T, PTT, CBC, CRP, CMP, ESR, TSH3, T4F #### [address] #### CHROMATIN, THYGLOB AB, TPO, ALD, HLAB27, MYOG, CH50, LUPANTCOAG, HITESH, C4, C3, RPR W RFX #### [facility] , Bilirubin,Urine Negative Normal Negative [facility] Comment on above: Order Comment: Name Collection Type:: Clean-Voided Midstream Performed By: #### P T, PTT, CBC, CRP, CMP, ESR, TSH3, T4F #### [address] #### CHROMATIN, THYGLOB AB, TPO, ALD, HLAB27, MYOG, CH50, LUPANTCOAG, HITESH, C4, C3, RPR W RFX #### [facility] , Color (U) Yellow Normal Yellow [facility] Comment on above: Order Comment: Name Collection Type:: Clean-Voided Midstream Performed By: #### P T, PTT, CBC, CRP, CMP, ESR, TSH3, T4F #### [address] #### CHROMATIN, THYGLOB AB, TPO, ALD, HLAB27, MYOG, CH50, LUPANTCOAG, HITESH, C4, C3, RPR W RFX #### [facility] , Glucose Ql (U) Normal Normal Normal [facility] Comment on above: Order Comment: Name Collection Type:: Clean-Voided Midstream Performed By: #### P T, PTT, CBC, CRP, CMP, ESR, TSH3, T4F #### [address] #### CHROMATIN, THYGLOB AB, TPO, ALD, HLAB27, MYOG, CH50, LUPANTCOAG, HITESH, C4, C3, RPR W RFX #### [facility] , Hyaline Casts,Urine 0-8 Normal 0-8 [facility] Comment on above: Order Comment: Name Collection Type:: Clean-Voided Midstream Result Comment: PERF ORMED BY: [place] [address] PATHOLOGIST VALUER LUKE JAIME M.D. Performed By: #### P T, PTT, CBC, CRP, CMP, ESR, TSH3, T4F #### [address] #### CHROMATIN, THYGLOB AB, TPO, ALD, HLAB27, MYOG, CH50, LUPANTCOAG, HITESH, C4, C3, RPR W RFX #### [facility] , Ketones Ql (U) Negative Normal Negative [facility] Comment on above: Order Comment: Name Collection Type:: Clean-Voided Midstream Performed By: #### P T, PTT, CBC, CRP, CMP, ESR, TSH3, T4F #### [address] #### CHROMATIN, THYGLOB AB, TPO, ALD, HLAB27, MYOG, CH50, LUPANTCOAG, HITESH, C4, C3, RPR W RFX #### [facility] , Leukocyte esterase Test strip Ql (U) 1+ High Negative [facility] Comment on above: Order Comment: Name Collection Type:: Clean-Voided Midstream Performed By: #### P T, PTT, CBC, CRP, CMP, ESR, TSH3, T4F #### [address] #### CHROMATIN, THYGLOB AB, TPO, ALD, HLAB27, MYOG, CH50, LUPANTCOAG, HITESH, C4, C3, RPR W RFX #### [facility] , Nitrite,Urine Negative Normal Negative [facility] Comment on above: Order Comment: Name Collection Type:: Clean-Voided Midstream Performed By: #### P T, PTT, CBC, CRP, CMP, ESR, TSH3, T4F #### [place] [address] [place] #### CHROMATIN, THYGLOB AB, TPO, ALD, HLAB27, MYOG, CH50, LUPANTCOAG, HITESH, C4, C3, RPR W RFX #### [facility] , Occult Blood,Urine Trace High Negative [facility] Comment on above: Order Comment: Name Collection Type:: Clean-Voided Midstream Performed By: #### P T, PTT, CBC, CRP, CMP, ESR, TSH3, T4F #### [place] [address] [place] #### CHROMATIN, THYGLOB AB, TPO, ALD, HLAB27, MYOG, CH50, LUPANTCOAG, HITESH, C4, C3, RPR W RFX #### [facility] , pH (U) 6.5 [pH] Normal 5.0-9.0 [facility] Comment on above: Order Comment: Name Collection Type:: Clean-Voided Midstream Performed By: #### P T, PTT, CBC, CRP, CMP, ESR, TSH3, T4F #### [address] #### CHROMATIN, THYGLOB AB, TPO, ALD, HLAB27, MYOG, CH50, LUPANTCOAG, HITESH, C4, C3, RPR W RFX #### [facility] , Protein,Urine Negative Normal Negative [facility] Comment on above: Order Comment: Name Collection Type:: Clean-Voided Midstream Performed By: #### P T, PTT, CBC, CRP, CMP, ESR, TSH3, T4F #### [address] #### CHROMATIN, THYGLOB AB, TPO, ALD, HLAB27, MYOG, CH50, LUPANTCOAG, HITESH, C4, C3, RPR W RFX #### [facility] , RBC LM.HPF (Urine sed) [#/Area] 0 /[HPF] Normal 0-4 [facility] Comment on above: Order Comment: Name Collection Type:: Clean-Voided Midstream Performed By: #### P T, PTT, CBC, CRP, CMP, ESR, TSH3, T4F #### [address] #### CHROMATIN, THYGLOB AB, TPO, ALD, HLAB27, MYOG, CH50, LUPANTCOAG, HITESH, C4, C3, RPR W RFX #### [facility] , Specificy [place],Urine 1.014 Normal 1.001-1.030 [facility] Comment on above: Order Comment: Name Collection Type:: Clean-Voided Midstream Performed By: #### P T, PTT, CBC, CRP, CMP, ESR, TSH3, T4F #### [address] #### CHROMATIN, THYGLOB AB, TPO, ALD, HLAB27, MYOG, CH50, LUPANTCOAG, HITESH, C4, C3, RPR W RFX #### [facility] , Squamous Epithelial Cell,Urine 1-2 Normal 0-2 [facility] Comment on above: Order Comment: Name Collection Type:: Clean-Voided Midstream Performed By: #### P T, PTT, CBC, CRP, CMP, ESR, TSH3, T4F #### [facility] [address] [place] [address] #### CHROMATIN, THYGLOB AB, TPO, ALD, HLAB27, MYOG, CH50, LUPANTCOAG, HITESH, C4, C3, RPR W RFX #### [facility] , Urobilinogen,Urine Normal Normal Normal [facility] Comment on above: Order Comment: Name Collection Type:: Clean-Voided Midstream Performed By: #### P T, PTT, CBC, CRP, CMP, ESR, TSH3, T4F #### [address] #### CHROMATIN, THYGLOB AB, TPO, ALD, HLAB27, MYOG, CH50, LUPANTCOAG, HITESH, C4, C3, RPR W RFX #### [facility] , WBC LM.HPF (Urine sed) [#/Area] 0 /[HPF] Normal 0-4 [facility] Comment on above: Order Comment: Name Collection Type:: Clean-Voided Midstream Performed By: #### P T, PTT, CBC, CRP, CMP, ESR, TSH3, T4F #### [address] #### CHROMATIN, THYGLOB AB, TPO, ALD, HLAB27, MYOG, CH50, LUPANTCOAG, HITESH, C4, C3, RPR W RFX #### [facility] , Erythrocyte Sedimentation Ra kashif 03-04-2021 ESR (Bld) [Velocity] 11 mm/h Normal 0-19 [facility] Comment on above: Result Comment: PERF ORMED BY: [place] [address] PATHOLOGIST VALUER LUKE JAIME M.D. Performed By: #### P T, PTT, CBC, CRP, CMP, ESR, TSH3, T4F #### [facility] [address] [place] [address] #### CHROMATIN, THYGLOB AB, TPO, ALD, HLAB27, MYOG, CH50, LUPANTCOAG, HITESH, C4, C3, RPR W RFX #### [facility] , Free T4 (Free Thyroxine)on 0 03-04-2021 Free T4 [Mass/Vol] 0.78 ng/dL Normal 0.61-1.12 [facility] Comment on above: Performed By: #### P T, PTT, CBC, CRP, CMP, ESR, TSH3, T4F #### [facility] [address] [place] [address] [place] #### CHROMATIN, THYGLOB AB, TPO, ALD, HLAB27, MYOG, CH50, LUPANTCOAG, HITESH, C4, C3, RPR W RFX #### [facility] , HLA B27 Disease Associationo n 03-04-2021 HLA B27 Disease Association Positive Normal . [facility] Comment on above: Order Comment: Speci men Comment: Test(s) 840352-[id number] Specimen Comment: was developed and its performance [...] Drug Administration. [facility] CLIA ID Number [id number] This test was performed using PCR (Polymerase Chain Reaction)/SSOP (Sequence Specific Oligonucleotide Probes) technique. SBT (Sequence Based Typing) and/or SSP (Sequence Specific Primers) may be used as supplemental methods when necessary. Please contact [facility] Customer Service at if you have any questions. Director of [facility] Dr Sukhi Kinsey, PhD Performed at: [address] [place] [id number] Associate Field Service Engineer: Sukhi Kinsey PhD, Phone: [phone] Performed By: #### P T, PTT, CBC, CRP, CMP, ESR, TSH3, T4F #### [place] [address] [place] #### CHROMATIN, THYGLOB AB, TPO, ALD, HLAB27, MYOG, CH50, LUPANTCOAG, HITESH, C4, C3, RPR W RFX #### [facility] , Lupus Anticoagulant Compon 0 03-04-2021 Dilute Prothrombin Time (dPt) 25.6 Normal 0.0-55.0 [facility] Comment on above: Order Comment: Speci men Comment: Test(s) 556904-[id number] Specimen Comment: was developed and its performance characteristics Specimen Comment: determined by [facility]. It has not been cleared or approved Specimen Comment: by the Food and Drug Administration. List any foods/meds the pt has taken (see Test/Proc Notes):: N/A Patient Posture before Draw (see Test/Proc Notes):: SITTING UP Performed By: #### P T, PTT, CBC, CRP, CMP, ESR, TSH3, T4F #### [place] [address] [place] #### CHROMATIN, THYGLOB AB, TPO, ALD, HLAB27, MYOG, CH50, LUPANTCOAG, HITESH, C4, C3, RPR W RFX #### [facility] , dPT Confirm Ratio 1.11 Normal 0.00-1.40 [facility] Comment on above: Order Comment: Speci men Comment: Test(s) 700037-[id number] Specimen Comment: was developed and its performance characteristics Specimen Comment: determined by [facility]. It has not been cleared or approved Specimen Comment: by the Food and Drug Administration. List any foods/meds the pt has taken (see Test/Proc Notes):: N/A Patient Posture before Draw (see Test/Proc Notes):: SITTING UP Performed By: #### P T, PTT, CBC, CRP, CMP, ESR, TSH3, T4F #### [facility] [address] [place] [address] [place] #### CHROMATIN, THYGLOB AB, TPO, ALD, HLAB27, MYOG, CH50, LUPANTCOAG, HITESH, C4, C3, RPR W RFX #### [facility] , DRVVT Lupus 27.9 Normal 0.0-47.0 [facility] Comment on above: Order Comment: Speci men Comment: Test(s) 049906-[id number] Specimen Comment: was developed and its performance characteristics Specimen Comment: determined by [facility]. It has not been cleared or approved Specimen Comment: by the Food and Drug Administration. List any foods/meds the pt has taken (see Test/Proc Notes):: N/A Patient Posture before Draw (see Test/Proc Notes):: SITTING UP Performed By: #### P T, PTT, CBC, CRP, CMP, ESR, TSH3, T4F #### [facility] [address] [place] [address] [place] #### CHROMATIN, THYGLOB AB, TPO, ALD, HLAB27, MYOG, CH50, LUPANTCOAG, HITESH, C4, C3, RPR W RFX #### [facility] , Interpretation Comment: Normal . [facility] Comment on above: Order Comment: Speci men Comment: Test(s) [id number] Specimen Comment: was developed and its performance characteristics Specimen Comment: determined by [facility]. It has not been cleared or approved Specimen Comment: by the Food and Drug Administration. List any foods/meds the pt has taken (see Test/Proc Notes):: N/A Patient Posture before Draw (see Test/Proc Notes):: SITTING UP Result Comment: No l upus anticoagulant was detected. Performed at: - [facility] [id number] Associate Field Service Engineer: Radha Patel MD, Phone: [phone] Performed By: #### P T, PTT, CBC, CRP, CMP, ESR, TSH3, T4F #### [place] [address] [place] #### CHROMATIN, THYGLOB AB, TPO, ALD, HLAB27, MYOG, CH50, LUPANTCOAG, HITESH, C4, C3, RPR W RFX #### [facility] , PTT-LA 31.7 Normal 0.0-51.9 [facility] Comment on above: Order Comment: Speci men Comment: Test(s) [id number] Specimen Comment: was developed and its performance characteristics Specimen Comment: determined by [facility]. It has not been cleared or approved Specimen Comment: by the Food and Drug Administration. List any foods/meds the pt has taken (see Test/Proc Notes):: N/A Patient Posture before Draw (see Test/Proc Notes):: SITTING UP Performed By: #### P T, PTT, CBC, CRP, CMP, ESR, TSH3, T4F #### [place] [address] [place] #### CHROMATIN, THYGLOB AB, TPO, ALD, HLAB27, MYOG, CH50, LUPANTCOAG, HITESH, C4, C3, RPR W RFX #### [facility] , Thrombin Time 19.0 Normal 0.0-23.0 [facility] Comment on above: Order Comment: Speci men Comment: Test(s) [id number]-Ninndtfmhtf Specimen Comment: was developed and its performance characteristics Specimen Comment: determined by [facility]. It has not been cleared or approved Specimen Comment: by the Food and Drug Administration. List any foods/meds the pt has taken (see Test/Proc Notes):: N/A Patient Posture before Draw (see Test/Proc Notes):: SITTING UP Performed By: #### P T, PTT, CBC, CRP, CMP, ESR, TSH3, T4F #### [address] #### CHROMATIN, THYGLOB AB, TPO, ALD, HLAB27, MYOG, CH50, LUPANTCOAG, HITESH, C4, C3, RPR W RFX #### [facility] , Myoglobinon 03-04-2021 Myoglobin [Mass/Vol] ng/mL Low 25-58 [facility] Comment on above: Order Comment: Speci men Comment: Test(s) [id number]-[id number] Specimen Comment: was developed and its performance characteristics Specimen Comment: determined by [facility]. It has not been cleared or approved Specimen Comment: by the Food and Drug Administration. List any foods/meds the pt has taken (see Test/Proc Notes):: N/A Patient Posture before Draw (see Test/Proc Notes):: SITTING UP Result Comment: Perf ormed at: - [facility] [address] [id number] Associate Field Service Engineer: Oj Martin PhD, Phone: [phone] Performed By: #### P T, PTT, CBC, CRP, CMP, ESR, TSH3, T4F #### [address] #### CHROMATIN, THYGLOB AB, TPO, ALD, HLAB27, MYOG, CH50, LUPANTCOAG, HITESH, C4, C3, RPR W RFX #### [facility] , Partial Thromboplastin Timeo n 03-04-2021 aPTT Coag (Bld) [Time] 30.5 s Normal 25.1-36.5 [facility] Comment on above: Result Comment: PERF ORMED BY: [place] [address] PATHOLOGIST VALUER LUKE JAIME M.D. Performed By: #### P T, PTT, CBC, CRP, CMP, ESR, TSH3, T4F #### [facility] [address] [place] [address] [place] #### CHROMATIN, THYGLOB AB, TPO, ALD, HLAB27, MYOG, CH50, LUPANTCOAG, HITESH, C4, C3, RPR W RFX #### [facility] , Prothrombin Time INRon 03-04 INR Coag (PPP) [Relative time] 0.9 {INR} Normal [facility] Comment on above: Result Comment: INR Therapeutic [...] CBC, CRP, CMP, ESR, TSH3, T4F #### [address] #### CHROMATIN, THYGLOB AB, TPO, ALD, HLAB27, MYOG, CH50, LUPANTCOAG, HITESH, C4, C3, RPR W RFX #### [facility] , PT Coag (PPP) [Time] 10.4 s Normal 9.0-12.9 [facility] Comment on above: Performed By: #### P T, PTT, CBC, CRP, CMP, ESR, TSH3, T4F #### [address] #### CHROMATIN, THYGLOB AB, TPO, ALD, HLAB27, MYOG, CH50, LUPANTCOAG, HITESH, C4, C3, RPR W RFX #### [facility] , RPR w/rfx to Quant TP Abson 03-04-2021 RPR, Rfx Quant RPR Non-Reactive Normal Non Reactive [facility] Comment on above: Order Comment: Speci men Comment: Test(s) [id number] Specimen Comment: was developed and its performance characteristics Specimen Comment: determined by [facility]. It has not been cleared or approved Specimen Comment: by the Food and Drug Administration. List any foods/meds the pt has taken (see Test/Proc Notes):: N/A Patient Posture before Draw (see Test/Proc Notes):: SITTING UP Result Comment: Perf ormed at: [address] [id number] Associate Field Service Engineer: Oj Martin PhD, Phone: [phone] PERFORMED BY: [place] [address] PATHOLOGIST VALUER LUKE JAIME M.D. Performed By: #### P T, PTT, CBC, CRP, CMP, ESR, TSH3, T4F #### [address] #### CHROMATIN, THYGLOB AB, TPO, ALD, HLAB27, MYOG, CH50, LUPANTCOAG, HITESH, C4, C3, RPR W RFX #### [facility] , Thyroid Peroxidase Antibodie son 03-04-2021 Thyroid Peroxidase Antibodies 10 Normal 0-34 [facility] Comment on above: Order Comment: Speci men Comment: Test(s) [id number] Specimen Comment: was developed and its performance characteristics Specimen Comment: determined by [facility]. It has not been cleared or approved Specimen Comment: by the Food and Drug Administration. List any foods/meds the pt has taken (see Test/Proc Notes):: N/A Patient Posture before Draw (see Test/Proc Notes):: SITTING UP Result Comment: Perf ormed at: [address] [id number] Associate Field Service Engineer: Oj Martin PhD, Phone: [phone] Performed By: #### P T, PTT, CBC, CRP, CMP, ESR, TSH3, T4F #### [place] [address] [place] #### CHROMATIN, THYGLOB AB, TPO, ALD, HLAB27, MYOG, CH50, LUPANTCOAG, HITESH, C4, C3, RPR W RFX #### [facility] , Thyroid Stimulating Hormoneo n 03-04-2021 TSH Qn 1.31 m[IU]/L Normal 0.45-5.33 [facility] Comment on above: Result Comment: PERF ORMED BY: [place] [address] PATHOLOGIST VALUER LUKE JAIME M.D. Performed By: #### P T, PTT, CBC, CRP, CMP, ESR, TSH3, T4F #### [address] #### CHROMATIN, THYGLOB AB, TPO, ALD, HLAB27, MYOG, CH50, LUPANTCOAG, HITESH, C4, C3, RPR W RFX #### [facility] , Auth for Release of Medical Recordson 03-06-2020 Auth for Release of Medical Records [id number]. [id number] [facility] Coding Summary.on 07-07-2019 Coding Summary. 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 Name: NASREEN BOSS /Sex: 1990 Female Med Rec #: [id number] Physician: Jose Ritchie MD, Jame Nunez Financial #: [id number] Pt. Type: O Room/Bed: / Admit/Disch: 07/06/19 14:35:33 - Institution: Case Times FTURO Entry 1 Patient Times In Room 07/06/19 15:23:00 Out Room 07/06/19 15:32:00 Procedure Times Start 07/06/19 15:28:00 Stop 07/06/19 15:31:00 Anesthesia Times Last Modified By: Julia DE PAZ, RN, Anamika 07/06/19 15:30:12 Case Attendance FTURO Entry 1 Entry 2 Entry 3 Case Attendee Jose Ritchie MD, Jame DE PAZ, RN, Earnest ADKINS, Rossana Willson Role Performed Surgeon - Primary Ivory Carver - Primary Scrub - Primary Time In 07/06/19 15:23:00 07/06/19 15:23:00 07/06/19 15:23:00 Time Out 07/06/19 15:32:00 07/06/19 15:32:00 07/06/19 15:32:00 Procedure CYSTOSCOPY LOCAL WITH CYSTOSCOPY LOCAL WITH CYSTOSCOPY LOCAL WITH URETHRAL DILATION(.) URETHRAL DILATION(.) URETHRAL DILATION(.) Comments Last Modified By: Julia DE PAZ, RN, Julia DE PAZ, RN, Julia DE PAZ, RN, Anamika 07/06/19 15:30:14 Anamika 07/06/19 15:30:14 Anamika 07/06/19 15:30:14 Surgical Procedures FTURO Entry 1 Procedure Description Procedure CYSTOSCOPY LOCAL WITH Modifiers . URETHRAL DILATION Surgeon Description CYSTO U.D. Primary Procedure Yes Primary Surgeon Jose Ritchie MD, Jame Nunez Start 07/06/19 15:28:00 Stop 07/06/19 15:31:00 Anesthesia Type Local Surgical Service Urology Wound Class 2 - Clean-Contaminated Last Modified By: Julia DE PAZ, RN, Anamika 07/06/19 15:30:15 General Case Data FTURO [...] , UTI Last Modified By: Julia DE PAZ RN, Kelly 07/06/19 13:02:59 Post-Care Text: The patient is [...] Jame Nunez, Verified (If Participants Julia DE PAZ RN, Applicable) Earnest Willson CST, Rossana Ness [...] DE PAZ RN, Kelly 07/06/19 15:30 Normal [facility] Main OR Preoperative Recordo n 07-06-2019 Main OR Preoperative Record Holding Area Document Type FTURO Summary Primary Physician: Jose Ritchie MD, Jame Nunez Finalized Date/Time: 07/06/19 15:25:12 Pt. Name: NASREEN BOSS/Sex: 1990 Female Med Rec #: [id number] Physician: Jame Garcia Jr., MD Financial #: [id number] Pt. Type: O Room/Bed: / Admit/Disch: 07/06/19 [...] Carla Worrell LPN 07/06/19 15:05 Julia DE PAZ RN, Kelly 07/06/19 15:25 Normal [facility] Operative Reporton 9 Operative Report Patient: NASREEN BOSS Age: 29 years Sex: Female : 1990 Associated Diagnoses: None Author: Jame Garcia Jr., MD Procedure Operative Information Details: Date/ Time: 07/06/19 [...] with antibiotic coverage, Follow up arranged. Normal [facility] Comment on above: Result Comment: Elec tronically Signed By: Jose Ritchie MD, Jame Nunez\.br\Date and Time Signed: 07/06/19 15:32 EST Vital Signs Date Time Vital Sign Value Performing Clinician Faci lity 03-16-2025 10:04-0400 Body mass index (BMI) [Ratio] 24.45 kg/m2 [facility] 03-16-2025 10:04-0400 Body weight 72.94 kg [facility] 02-12-2025 16:00-0400 Body height 172.7 cm FNZ Work Phone: [facility] 02-12-2025 16:00-0400 Body mass index (BMI) [Ratio] 23.87 kg/m2 [employer] Work Phone: [facility] 02-12-2025 16:00-0400 Body weight 71.22 kg FNZ Work Phone: [facility] 02-12-2025 16:00-0400 Diastolic blood pressure 70 mm[Hg] FNZ Work Phone: [facility] 02-12-2025 16:00-0400 Systolic blood pressure 110 mm[Hg] FNZ Work Phone: [facility] 06-29-2024 13:05-0500 Body height 172.7 cm Awa Zamora [employer] OPERATOR Work Phone: [facility] 06-29-2024 13:05-0500 Body mass index (BMI) [Ratio] 23.72 kg/m2 Awa Zamora [employer] BUGG[employer] OPERATOR Work Phone: [facility] 06-29-2024 13:05-0500 Body weight 70.76 kg Awa Zamora [employer]GOT BUGGY OPERATOR Work Phone: [facility] 06-29-2024 13:05-0500 Diastolic blood pressure 78 mm[Hg] Awa Zamora [employer] BUGG[employer] OPERATOR Work Phone: [facility] 06-29-2024 13:05-0500 Heart rate 91 /min Awa Zamora [employer]GG[employer] OPERATOR Work Phone: [facility] 06-29-2024 13:05-0500 SaO2% (BldA) [Mass fraction] 96 % Awa Zamora [employer] OPERATOR Work Phone: [facility] 06-29-2024 13:05-0500 Systolic blood pressure 102 mm[Hg] Awa Zamora [employer]GOT BUGGY OPERATOR Work Phone: [facility] Healthcare Encounters Encounter Date Encounter Type Care Provider Facility Start: 03-16-2025 End: 03-16-2025 Office outpatient visit 5 minutes Nicole Nurse [facility] Comment on above: GA: 8w6d Start: 03-16-2025 End: 03-16-2025 ambulatory CUCO NICOLE Not Available Start: 02-12-2025 End: 02-12-2025 Patient encounter procedure Cuco Nicole DO Work Phone: [facility] Start: 02-12-2025 End: 02-12-2025 Periodic preventive med est patient 18-39 yrs Cuco Nicole DO Work Phone: [facility] Comment on above: Well woman exam with routine gynecological exam; Dyspareunia in female; Urinary tract infection without hematuria, site unspecified Start: 02-12-2025 End: 02-12-2025 ambulatory CUCO NICOLE Not Available Start: 02-12-2025 End: 02-12-2025 Bamboo flowsheet Cuco Nicole DO Work Phone: [facility] Start: 02-12-2025 End: 02-15-2025 Bamboo flowsheet Cuco Nicole DO Work Phone: [facility] Start: 02-12-2025 End: 02-15-2025 Clinisync Result Encounter Cuco Nicole DO Work Phone: [facility] Unsolicited Start: 07-05-2024 End: 07-05-2024 Clinisync Result Encounter Awa Zamora NP Work Phone: [facility] Unsolicited Start: 07-05-2024 End: 07-05-2024 Clinisync Result Encounter Awa Zamora NP Work Phone: [facility] Unsolicited Start: 07-05-2024 End: 07-05-2024 ambulatory [facility] Start: 07-05-2024 End: 07-05-2024 Encounter for general adult medical examination without abnormal findings [facility] Start: 07-05-2024 End: 07-05-2024 Subsequent hospital visit by physician Gisel Calderon NP Work Phone: [facility] Start: 06-29-2024 End: 06-29-2024 Patient encounter status Awa Zamora NP Work Phone: [facility] Work Phone: Start: 06-29-2024 End: 06-29-2024 Periodic preventive med est patient 18-39 yrs Awa Zamora [employer] OPERATOR Work Phone: [facility] Comment on above: Encounter for wellne ss examination in adult (Primary Dx); Screening for lipid disorders; Screening for thyroid disorder Start: 06-29-2024 End: 06-29-2024 ambulatory AWA ZAMORA Not Available Start: 06-28-2024 End: 06-28-2024 Orders Only Awa Zamora [employer] OPERATOR Work Phone: [facility] Comment on above: Bronchitis (Primary Dx) Start: 01-14-2022 End: 01-14-[address] CUCO HERNANDEZ Facility:[facility] Procedures Date Procedure Procedure Detail Performing Clinician Start: 03-16-2025 End: 03-16-2025 Urnls dip stick/tablet rgnt non-auto w/o micrscp Cuco Nicole DO Work Phone: Start: 02-12-2025 Urnls dip stick/tabl et rgnt non-auto w/o micrscp Cuco Nicole DO Work Phone: Start: 02-12-2025 IGP,APTIMA HPV,AGE GDLN [facility] DO Work Phone: Start: 02-12-2025 Microscopic observat ion [Identifier] in Cervix by Cyto stain [facility] Start: 07-05-2024 ALL CBC WITH AUTO DIFF wAa Zamora [employer]GG[employer] OPERATOR Work Phone: Start: 07-05-2024 Comprehensive metabo lic panel Awa Zamora [employer]IEF - [employer]ER Work Phone: Start: 07-05-2024 Lipid panel Awa mckinney [employer] - [employer]ER Work Phone: Start: 02-07-2024 Microscopic observat ion [Identifier] in Cervix by Cyto stain Cuco Nicole DO Work Phone: Start: 02-07-2024 Cytp cerv/vag auto t hin layer prep mnl screen Cuco Nicole DO Work Phone: Start: 02-01-2023 Microscopic observat ion [Identifier] in Cervix by Cyto stain Awa Zamora [employer] OPERATOR Work Phone: Plan of Treatment Date Care Activity Detail Author Start: 02-13-2028 Screening for malign ant neoplasm of cervix Pap Smear [facility] Start: 02-02-2028 Screening for malign ant neoplasm of cervix [facility] Start: 02-06-2027 Screening for malign ant neoplasm of cervix Pap Smear [facility] Start: 02-18-2026 End: 02-18-2026 Patient encounter procedure [facility] Start: 04-16-2025 Influenza vaccination [facility] Start: 04-04-2025 End: 04-04-2025 Patient encounter procedure 04/04/2025 2:50 PM EDT Routine [facility] [address] [place] [id number] Cuco Hernandez DO [address] [place] [address] [facility] Start: 03-16-2025 End: 03-16-2026 ABO/Rh ABO/Rh Lab Routine Missed menses , unspecified gestational age ([facility]) Expected: 03/16/2025 (Approximate), Expires: 03/16/2026 [facility] Comment on above: Expected: 03/16/2025 (Approximate), Expires: 03/16/2026 Start: 03-16-2025 End: 03-16-2026 Blood type and Indirect antibody screen panel - Blood Type and screen Lab Routine Missed menses , unspecified gestational age ([facility]) Expected: 03/16/2025 (Approximate), Expires: 03/16/2026 [facility] Comment on above: Expected: 03/16/2025 (Approximate), Expires: 03/16/2026 Start: 03-16-2025 End: 03-16-2026 Drugs of abuse panel - Urine by Screen method Rapid drug screen, urine Lab Routine , unspecified gestational age ([facility]) Encounter for supervision of normal first in first trimester ([facility]) Expected: 03/16/2025 (Approximate), Expires: 03/16/2026 [facility] Comment on above: Expected: 03/16/2025 (Approximate), Expires: 03/16/2026 Start: 03-15-2025 End: 06-15-2025 US Pelvis transvaginal US OB transvaginal Imaging Routine Missed menses Positive urine test ([facility]) Expected: 03/15/2025, Expires: 06/15/2025 [facility] Work Phone: Comment on above: Expected: 03/15/2025 , Expires: 06/15/2025 Start: 02-12-2025 End: 02-12-2025 Patient encounter procedure [facility] Comment on above: Arrived Start: 06-29-2024 End: 06-29-2025 CBC panel - Blood by Automated count CBC Lab Routine Encounter for wellness examination in adult Expected: 06/29/2024 (Approximate), Expires: 06/29/2025 [facility] Comment on above: Expected: 06/29/2024 (Approximate), Expires: 06/29/2025 Start: 06-29-2024 End: 06-29-2025 Comprehensive metabolic 2000 panel - Serum or Plasma Comprehensive metabolic panel Lab Routine Encounter for wellness examination in adult Expected: 06/29/2024 (Approximate), Expires: 06/29/2025 [facility] Comment on above: Expected: 06/29/2024 (Approximate), Expires: 06/29/2025 Start: 06-29-2024 End: 06-29-2025 Lipid 1996 panel - Serum or Plasma Lipid panel Lab Routine Encounter for wellness examination in adult Screening for lipid disorders Expected: 06/29/2024 (Approximate), Expires: 06/29/2025 [facility] Comment on above: Expected: 06/29/2024 (Approximate), Expires: 06/29/2025 Start: 06-29-2024 End: 06-29-2025 Thyrotropin [Units/volume] in Serum or Plasma TSH Lab Routine Encounter for wellness examination in adult Screening for thyroid disorder Expected: 06/29/2024 (Approximate), Expires: 06/29/2025 [facility] Work Phone: Comment on above: Expected: 06/29/2024 (Approximate), Expires: 06/29/2025 Start: 04-16-2024 COVID-19 Vaccine ( season) COVID-19 Vaccine ( season) [facility] Start: 04-16-2024 Influenza vaccination Influenza Vacc ine (#1) [facility] Start: 03-16-2024 Influenza vaccination Flu vaccine (# 1) [facility] Start: 2011 DTaP/Tdap/Td vaccine (1 - Tdap) DTaP/Tdap/Td vaccine (1 - Tdap) [facility] Bacteria identified in Urine by Culture Urine culture Microbiology Routine Missed menses Ordered: 03/16/2025 [facility] Comment on above: Ordered: 03/16/2025 CBC W Auto Different ial panel - Blood CBC and differential Lab Routine Missed menses , unspecified gestational age ([facility]) Ordered: 03/16/2025 [facility] Comment on above: Ordered: 03/16/2025 Cytology Cervical or vaginal smear or scraping study Pap Smear Pathology and Cytology Routine Well woman exam with routine gynecological exam Ordered: 02/12/2025 [facility] Work Phone: Comment on above: Ordered: 02/12/2025 Hemoglobin A1c/Hemoglobin.total in Blood Hemoglobin A1c Lab Routine Missed menses , unspecified gestational age ([facility]) Ordered: 03/16/2025 [facility] Comment on above: Ordered: 03/16/2025 Hepatitis B virus surface Ag [Presence] in Serum or Plasma by Immunoassay Hepatitis B surface antigen Lab Routine Missed menses , unspecified gestational age ([facility]) Ordered: 03/16/2025 [facility] Comment on above: Ordered: 03/16/2025 Hepatitis C virus Ab [Presence] in Serum or Plasma by Immunoassay Hepatitis C antibody Lab Routine Missed menses , unspecified gestational age ([facility]) Ordered: 03/16/2025 [facility] Comment on above: Ordered: 03/16/2025 HIV-1/HIV-2 antigen/antibody combination immunoassay HIV-1 and HIV-2 antibodies Lab Routine Missed menses , unspecified gestational age ([facility]) Ordered: 03/16/2025 [facility] Comment on above: Ordered: 03/16/2025 Human papilloma viru s DNA [Presence] in Unspecified specimen by Probe with amplification HPV DNA probe, amplified Microbiology Routine Well woman exam with routine gynecological exam Ordered: 02/12/2025 [facility] Comment on above: Ordered: 02/12/2025 Reagin Ab [Presence] in Serum by RPR RPR Lab Routine Missed menses , unspecified gestational age ([facility]) Ordered: 03/16/2025 [facility] Comment on above: Ordered: 03/16/2025 Rubella antibody, IgG Rubella an tibody, IgG Lab Routine Missed menses , unspecified gestational age ([facility]) Ordered: 03/16/2025 [facility] Comment on above: Ordered: 03/16/2025 US Pelvis transvaginal US OB tra nsvaginal Imaging Routine Missed menses Positive urine test ([facility]) 03/16/2025 9:32 AM EDT [facility] Immunizations Immunization Date Immunization Notes Care Provider Cass wilburn 01-30-2011 human papilloma viru s vaccine, quadrivalent Awa Zamora [employer] OPERATOR Work Phone: [facility] 10-02-2010 human papilloma viru s vaccine, quadrivalent Awa Zamora [employer]GOT BUGGY OPERATOR Work Phone: [facility] 08-01-2010 hepatitis B vaccine, pediatric or pediatric/adolescent dosage Awa Zamora INGOT BUGGY OPERATOR Work Phone: [facility] 08-01-2010 human papilloma viru s vaccine, quadrivalent Awa Zamora INGOT BUGGY OPERATOR Work Phone: [facility] 02-27-2010 hepatitis B vaccine, pediatric or pediatric/adolescent dosage Awa Zamora INGOT BUGGY OPERATOR Work Phone: [facility] 02-27-2010 tetanus toxoid, redu jeffery diphtheria toxoid, and acellular pertussis vaccine, adsorbed Awa Zamora INGOT BUGGY OPERATOR Work Phone: [facility] 01-27-2010 hepatitis B vaccine, pediatric or pediatric/adolescent dosage Awa Zamora INGOT BUGGY OPERATOR Work Phone: [facility] 01-27-2010 meningococcal polysaccharide (groups A, C, Y and W-135) diphtheria toxoid conjugate vaccine (MCV4P) Awa Zamora INGOT BUGGY OPERATOR Work Phone: [facility] 11-14-2003 measles, mumps and r ubella virus vaccine Awa Zamora INGOT BUGGY OPERATOR Work Phone: [facility] 03-20-1997 diphtheria, tetanus toxoids and acellular pertussis vaccine, unspecified formulation Awa Zamora INGOT BUGGY OPERATOR Work Phone: [facility] 03-20-1997 poliovirus vaccine, inactivated Awa Zamora INGOT BUGGY OPERATOR Work Phone: [facility] 10-02-1993 diphtheria, tetanus toxoids and acellular pertussis vaccine, unspecified formulation Awa Banquete INGOT BUGGY OPERATOR Work Phone: [facility] 10-02-1993 poliovirus vaccine, inactivated Awa Banquete INGOT BUGGY OPERATOR Work Phone: [facility] 07-16-1993 haemophilus influenz ae type b vaccine, conjugate unspecified formulation Awa Noah [employer]OT BUGGY OPERATOR Work Phone: [facility] 07-16-1993 measles, mumps and r ubella virus vaccine Awa Banquete INGOT BUGGY OPERATOR Work Phone: [facility] 1990 diphtheria, tetanus toxoids and acellular pertussis vaccine, unspecified formulation Awa Banquete INGOT BUGGY OPERATOR Work Phone: [facility] 1990 haemophilus influenz ae type b vaccine, conjugate unspecified formulation Awa Noah INGOT BUGGY OPERATOR Work Phone: [facility] 1990 poliovirus vaccine, inactivated Awa Noah INGOT BUGGY OPERATOR Work Phone: [facility] 1990 diphtheria, tetanus toxoids and acellular pertussis vaccine, unspecified formulation Awa Noah INGOT BUGGY OPERATOR Work Phone: [facility] 1990 haemophilus influenz ae type b vaccine, conjugate unspecified formulation Awa Noah INGOT BUGGY OPERATOR Work Phone: [facility] 1990 poliovirus vaccine, inactivated Awa Noah INGOT BUGGY OPERATOR Work Phone: [facility] 1990 diphtheria, tetanus toxoids and acellular pertussis vaccine, unspecified formulation Awa Banquete INGOT BUGGY OPERATOR Work Phone: [facility] 1990 haemophilus influenz ae type b vaccine, conjugate unspecified formulation Awa Banquete INGOT BUGGY OPERATOR Work Phone: [facility] 1990 poliovirus vaccine, inactivated Awa Noah INGOT BUGGY OPERATOR Work Phone: [facility] Payers Date Payer Category Payer Private Health Insurance [id number] 2021 Private Health Insurance [id number] 1990 Unknown [id number] 1990 Unknown [id number] 1990 Unknown [id number] 1990 Unknown [id number] 1990 Unknown [id number] [id number] [id number] 1990 Unknown [id number] 1957 Private Health Insurance [id number] Unknown [id number] Social History Date Type Detail Facility [facility] Start: 1990 Sex assigned at Not on file B on [facility] Start: 05-04-2023 End: 06-22-2024 Gender identity Not on file [facility] Start: 01-14-2023 End: 06-29-2024 Tobacco smoking status AZIS Never smoked tobacco [facility] Start: 06-29-2024 Tobacco use and exposure Smokeless tobacco non-user [facility] Start: 06-29-2024 End: 03-16-2025 Alcoholic beverage intake Current drinker of alcohol [...] Identifies as female gender (finding) [facility] Start: 01-27-2025 [facility] History of Present illness Narrative 03-16-2025 Ning QuinonesBUZZ arizmendi - 03/16/2025 9:30 AM EDT Note Date & Type Note Facility 03-16-2025 History of Presen t illness Narrative Reason for Appointment: Patient ID: Nasreen Felix is a 34 y.o. female who presents for Amenorrhea Patient presents today for a Nurse OB Intake appointment. Patient is 8w6d with a Estimated Date of Delivery: 10/20/25 OB History Para Term AB Living 1 0 0 0 0 0 SAB IAB Ectopic Multiple Live Births 0 0 0 0 0 # Outcome Date GA Lbr Balbir/2nd Weight Sex Type Anes PTL Lv 1 Current Current Medications: has a current medication list which includes the following prescription(s): [id number] and trimethoprim. Medical History: Active Ambulatory Problems Diagnosis Date Noted Hematuria 01/29/2023 Increased frequency of urination 01/29/2023 Interstitial cystitis 01/29/2023 Urgency of micturition 01/29/2023 Resolved Ambulatory Problems Diagnosis Date Noted No Resolved Ambulatory Problems Past Medical History: Diagnosis Date BMI 20.0-20.9, adult FOM (frequency of micturition) Menorrhagia Oral contraceptive use Plantar warts Well woman exam Family History Problem Relation Name Age of Onset Hypertension Mother Pati Hyperlipidemia Mother Pati Stroke Mother Pati Hypertension Father Ruddy Hyperlipidemia Father Ruddy Arthritis Father Ruddy Hypertension Sibling Cancer Paternal Grandmother Ivonne Diabetes Paternal Grandfather Morales Breast cancer Mother's Sister Chantel 2010 Kidney disease Mother's Sister Chantel Cancer Mother's Sister Jayla Melanoma Neg Hx Psoriasis Neg Hx Social History Tobacco Use Smoking status: Never Smokeless tobacco: Never Substance Use Topics Alcohol use: Yes Alcohol/week: 2.0 standard drinks of alcohol Types: 1 Glasses of wine, 1 Cans of beer per week Comment: caffeine intake: soda Drug use: Never Past Surgical History: Procedure Laterality Date DEBRIDEMENT 2013 plantar warts debrided and Cantharone applied EYE SURGERY 2015 No Known Allergies Vitals: Estimated body mass index is 24.45 kg/m as calculated from the following: Height as of 02/12/25: 5' 8 . Weight as of this encounter: 160 lb 12.8 oz. BP: Patient's last menstrual period was 01/13/2025. Assessment/Plan Diagnoses and all orders for this visit: Missed menses - US OB transvaginal; Future - Type and screen; Future - ABO/Rh; Future - CBC and differential - Hemoglobin A1c - RPR - Rubella antibody, IgG - Hepatitis B surface antigen - Hepatitis C antibody - HIV-1 and HIV-2 antibodies - Urine culture - POCT , urine manually resulted - POCT urinalysis dipstick manually resulted Positive urine test ([facility]) - US OB transvaginal; Future , unspecified gestational age ([facility]) - Type and screen; Future - ABO/Rh; Future - CBC and differential - Hemoglobin A1c - RPR - Rubella antibody, IgG - Hepatitis B surface antigen - Hepatitis C antibody - HIV-1 and HIV-2 antibodies - Rapid drug screen, urine; Future Encounter for supervision of normal first in first trimester ([facility]) - Rapid drug screen, urine; Future Nurse Note: OB Intake: Patient presents today for first OB visit. Patients history has been reviewed in great detail including any potential risks. Patient signed consent forms and patient desires testing in both trimesters. Patient currently has no complaints and has been advised to drink 6-8 glasses of water a day, eat no raw or undercooked meat, and stay away from [facility]. Patient has also been advised to not change litter boxes and eat 6 small meals a day. Patient has been consulted regarding the do's and don'ts of . Patient was given labs and all questions and concerns were answered. Follow Up: Patient is to return in 4 weeks for routine OB appointment. Follow Up: Patient is to have labs drawn at directed and return to office for initial OB appointment with provider. Patient may call office as needed with any concerns or questions. Nurse Visit Completed by: Ning Garvey LPN documented in this encounter [facility] History of Present illness Narrative 02-12-2025 Marysol San MA - 02/12/2025 4:00 PM EDT Note Date & Type Note Facility 02-12-2025 History of Presen t illness Narrative Reason for Appointment: Patient ID: Nasreen Felix is a 34 y.o. female who presents for Gynecologic Exam Patient presents today for Annual Exam. MEDICATIONS Current Outpatient Medications Medication Instructions trimethoprim (TRIMPEX) 100 mg, Oral, As needed, Take 1 tablet by mouth immediately before intercourse PRN ALLERGIES No Known Allergies PROBLEMS Active Ambulatory Problems Diagnosis Date Noted Hematuria 01/29/2023 Increased frequency of urination 01/29/2023 Interstitial cystitis 01/29/2023 Urgency of micturition 01/29/2023 Resolved Ambulatory Problems Diagnosis Date Noted No Resolved Ambulatory Problems Past Medical History: Diagnosis Date BMI 20.0-20.9, adult FOM (frequency of micturition) Menorrhagia Oral contraceptive use Plantar warts Well woman exam HISTORY PAST MEDICAL HISTORY SOCIAL HISTORY Past Medical History: Diagnosis Date BMI 20.0-20.9, adult FOM (frequency of micturition) Hematuria Interstitial cystitis Menorrhagia Oral contraceptive use Plantar warts Rt foot Urgency of micturition Well woman exam Social History Tobacco Use Smoking status: Never Smokeless tobacco: Never Substance Use Topics Alcohol use: Yes Alcohol/week: 2.0 standard drinks of alcohol Types: 1 Glasses of wine, 1 Cans of beer per week Comment: caffeine intake: soda Drug use: Never FAMILY HISTORY Family History Problem Relation Name Age of Onset Hypertension Mother Pati Hyperlipidemia Mother Pati Stroke Mother Pati Hypertension Father Ruddy Hyperlipidemia Father Ruddy Arthritis Father Ruddy Hypertension Sibling Cancer Paternal Grandmother Ivonne Diabetes Paternal Grandfather Morales Breast cancer Mother's Sister Chantel 2010 Kidney disease Mother's Sister Chantel Cancer Mother's Sister Jayla Melanoma Neg Hx Psoriasis Neg Hx SURGICAL HISTORY Past Surgical History: Procedure Laterality Date DEBRIDEMENT 2013 plantar warts debrided and Cantharone applied EYE SURGERY 2015 REVIEW OF SYSTEMS Review of Systems: Review of Systems All other systems reviewed and are negative. OBJECTIVE Objective: Physical Exam Constitutional: Appearance: Normal appearance. She is well-developed. Genitourinary: Vulva normal. Cardiovascular: Rate and Rhythm: Normal rate and regular rhythm. Pulmonary: Effort: Pulmonary effort is normal. Breath sounds: Normal breath sounds. Abdominal: General: Bowel sounds are normal. There is no distension. Palpations: Abdomen is soft. Tenderness: There is no abdominal tenderness. There is no guarding or rebound. Musculoskeletal: General: No swelling. Normal range of motion. Right lower leg: No edema. Left lower leg: No edema. Neurological: Mental Status: She is alert and oriented to person, place, and time. Skin: General: Skin is warm and dry. Psychiatric: Mood and Affect: Mood normal. Behavior: Behavior normal. Vitals and nursing note reviewed. Exam conducted with a market reporter present. Vitals: Estimated body mass index is 23.72 kg/m as calculated from the following: Height as of 06/29/24: 5' 8 . Weight as of 06/29/24: 156 lb. BP: No LMP recorded. ASSESSMENT & PLAN ICD-10-CM 1. Well woman exam with routine gynecological exam Z01.419 Pap Smear HPV DNA probe, amplified Annual Exam: Patient presents today for an annual exam. Patient states she is doing well and has no complaints. Pap was obtained without difficulty. Patient with history of frequent cystis and has managed symptoms with Trimpex 100mg.by mouth if needed (Dyspareunia) for up to 20 doses Take 1 tablet by mouth immediately before intercourse PRN, She has had a great response and no symptoms while continuing the Trimpex. Orders Placed This Encounter Procedures HPV DNA probe, amplified Follow Up: Patient is to return in one year for annual unless needed otherwise. Documented by Marysol San MA on behalf of: Cuco Hernandez DO documented in this encounter [facility] History of Present illness Narrative 06-29-2024 Awa Zamora NP - 06/29/2024 1:00 PM EST Note Date [...] 21 tablet 0 [DISCONTINUED] norethindrone-ethinyl estradiol (Nortrel , 28,) 1-35 MG-MCG tablet TAKE 1 TABLET [...] disorder documented in this encounter [facility] Evaluation note Note Date & Type Note Facility Evaluation note Diagnosis Well woman exam with routine gynecological exam Routine gynecological examination Dyspareunia in female Urinary tract infection without hematuria, site unspecified documented in this encounter [facility] Evaluation note Note Date & Type Note Facility Evaluation note Diagnosis Missed menses Positive urine test ([facility]) , unspecified gestational age ([facility]) Encounter for supervision of normal first in first trimester ([facility]) documented in this encounter [facility] Summary [...] section and content) DATE CREATED AUTHOR 03/09/2020 [facility] DATE CREATED AUTHOR AUTHOR'S ORGANIZ ATION 10/08/2021 [facility] DATE CREATED AUTHOR AUTHOR'S ORGANIZ ATION 01/20/2022 [facility] DATE CREATED AUTHOR AUTHOR'S ORGANIZ ATION 07/08/2024 [facility] DATE CREATED AUTHOR AUTHOR'S ORGANIZ ATION 03/23/2025 [facility] EPIC Care Teams (unrecognized sec tion and content) Biodiesel Plant Manager Relationship Specialty Start Date End Date Gisel Curran APRN - INGOT BUGGY OPERATOR [address] [place] [address] PCP - General Nurse Practitioner 09/30/17 [employer]iodiesel Plant Manager Relationship Specialty Start Date End Date Awa Zamora NP [address] [facility] [address] [place] [address] PCP - General 05/04/23 Biodiesel Plant Manager Relationship Specialty Start Date End Date Awa Zamora, INGOT BUGGY OPERATOR [address] [facility] [address] [place] [address] PCP - General 05/04/23 Biodiesel Plant Manager Relationship Specialty Start Date End Date Awa Zamora, INGOT BUGGY OPERATOR [address] [facility] [address] [place] [address] PCP - General 05/04/23 Biodiesel Plant Manager Relationship Specialty Start Date End Date Awa Zamora, INGOT BUGGY OPERATOR [address] [facility] [address] [place] [address] PCP General 05/04/23 Biodiesel Plant Manager Relationship Specialty Start Date End Date Awa Zamora, INGOT BUGGY OPERATOR [address] [facility] [address] [place] [address] PCP [facility] 05/04/23 Biodiesel Plant Manager Relationship Specialty Start Date End Date Awa Zamora, INGOT BUGGY OPERATOR [address] [facility] [address] [place] [address] PCP General 05/04/23 Reason for Visit (unrecogniz ed section and content) Reason Comments Annual Exam Reason Comments Gynecologic Exam Reason Comments Amenorrhea FOR RECORDS PERTAINING TO PATIENTS WHO ARE [...] BE BASED ON THE PRIMARY CLINICAL RECORDS. [employer] [facility]. provides no warranty or guarantee of the accuracy or completeness of information in this document.
[2025-03-24 10:32] LABS: Hematocrit 35.7 % (36.0-48.0); Hemoglobin 12.0 g/dL (12.0-16.0); Immature Granulocytes Abs Auto 0.05 10^3/uL (0.00-0.03); Immature Granulocytes Pct Auto 0.5 % (0.0-0.5); Lymphocytes Absolute Auto 1.4 10^3/uL (1.2-3.8); Mean Corpuscular HGB Conc 33.6 g/dL (29.9-35.2); Mean Corpuscular Hemoglobin 30.2 pg (26.7-34.0); Mean Corpuscular Volume 89.9 fL (81.0-99.0); Platelet Count 265 10^3/uL (150-450); Red Blood Count 3.97 10^6/uL (4.20-5.40); White Blood Count 10.3 10^3/uL (4.0-11.0)
[2025-03-24 10:43] LABS: Cannabinoid Screen Urine NEGATIVE (NEGATIVE); Methamphetamines Screen Urine NEGATIVE (NEGATIVE); Tricyclic Antidepressant Urine NEGATIVE (NEGATIVE)
[2025-03-25 12:12] LABS: Rubella Antibodies, IgG <0.90 index (Immune >0.99)
[2025-03-25 14:08] LABS: Rapid Plasma Reagin, Quant Non Reactive titer (NonRea<1:1)
== END 2025-03-24 09:51 | disposition home or self-care (01) ==
PROVIDERS: Visit Provider Obstetrics & Gynecology
DX: Z34.01 Encounter for supervision of normal first pregnancy, first trimester (principal); N92.6 Irregular menstruation, unspecified
CPT/HCPCS: 36415; 80307; 83036; 85025; 86592; 86762; 86803; 86850; 86900; 86901; 87086; 87340; 87389

== ENCOUNTER 2025-07-07 08:41 | Outpatient (OUT) | payer OTHER, SELFPAY ==
--- OUTSIDE RECORDS SUMMARY | 2025-07-03 09:10 | XMS_ITS | Encounter Summary ---
Author Organization [facility] Address [address] [place] [address] Care Team Providers Care Conversion Worker Name Role Phone Maria Isabel Zaomra NP Primary Care Provider + [phone] Reason for Visit * ReasonCommentsRoutine Visit Encounter Details DateTypeDepartmentCare Team (Latest Contact Info)Tarjxsjkiml91/18/2025 9:10 AM ESTRoutine [facility] [address] [place] [phone] Manuel Hernandez DO [address] [place] [id number] 24 weeks gestation of ([facility]); Second trimester ([facility]); Nonintractable headache, unspecified chronicity pattern, unspecified headache type; Diabetes mellitus screening; Urinary urgency Social History Tobacco UseTypesPacks/DayYears UsedDateSmoking Tobacco: NeverSmokeless Tobacco: NeverAlcohol UseStandard Drinks/WeekCommentsYes2 (1 standard drink = 0.6 oz pure alcohol)caffeine intake: [id number] Health LiteracyAnswerDate RecordedHow often do you need to have someone help you when you read instructions, pamphlets, or other written material from your doctor or pharmacy?Never06/22/2024Humiliation, Afraid, Rape, and Kick questionnaireAnswerDate RecordedWithin the last year, have you been afraid of your partner or ex-partner?No05/04/2023Within the last year, have you been humiliated or emotionally abused in other ways by your partner or ex-partner?No05/04/2023Within the last year, have you been kicked, hit, slapped, or otherwise physically hurt by your partner or ex-partner?No 05/04/2023Within the last year, have you been raped or forced to have any kind of sexual activity by your partner or ex-partner?No05/04/2023Social Connection and Isolation PanelAnswerDate RecordedIn a typical week, how many times do you talk on the phone with family, friends, or neighbors?More than three times a week06/22/2024How often do you get together with friends or relatives?Twice a week06/22/2024How often do you attend mu-ism or taoist services?Never 06/22/2024o you belong to any clubs or organizations such as mu-ism groups, unions, fraternal or athletic groups, or school groups?No06/22/2024How often do you attend meetings of the clubs or organizations you belong to?Never06/22/2024 Are you , , , , never , or living with a partner?Qhwwjqp4706/22/2024UDIT-CAnswerDate RecordedQ1: How often do you have a drink containing alcohol?2-4 times a month06/22/2024Q2: How many drinks containing alcohol do you have on a typical day when you are drinking?3 or 4 06/22/2024Q3: How often do you have six or more drinks on one occasion?Never 06/22/2024Overall Financial Resource Strain (CARDIA)AnswerDate RecordedHow hard is it for you to pay for the very basics like food, housing, medical care, and heating?Not hard at all06/22/2024[facility] [place] [facility] Occup[facility] Health - Occupational Stress QuestionnaireAnswerDate RecordedDo you feel stress - tense, restless, nervous, or anxious, or unable to sleep at night because yourmind is troubled all the time - these days?Not at all06/22/2024Exercise Vital SignAnswer Date RecordedOn average, how many days per week do you engage in moderate to strenuous exercise (like a brisk walk)?3 days06/22/2024On average, how many minutes do you engage in exercise at this level?20 min06/22/2024Hunger Vital SignAnswerDate RecordedWithin the past 12 months, you worried that your food would run out before you got the money to buymore.Never true06/22/2024Within the past 12 months, the food you bought just didn't last and you didn't have money to get more.Never true06/22/2024RAPARE - TransportationAnswerDate RecordedIn the past 12 months, has lack of transportation kept you from medical appointments or from getting medications?No06/22/2024In the past 12 months, has lack of transportation kept you from meetings, work, or from getting things needed for daily living?No06/22/2024Housing Stability Vital SignAnswerDate RecordedIn the last 12 months, was there a time when you were not able to pay the mortgage or rent on time?No05/04/2023In the last 12 months, how many places have you lived?In the last 12 months, was there a time when you did not have a steady place to sleep or slept in [facility] (including now)?No 05/04/2023Housing Stability Vital SignAnswerDate RecordedIn the last 12 months, was there a time when you were not able to pay the mortgage or rent on time?No 06/22/2024In the past 12 months, how many times have you moved where you were living?t any time in the past 12 months, were you homeless or living in a fpc (including now)?No06/22/2024Estimated Date of Delivery KsormumbJyk25/07/2026ased on last menstrual period of 01/13/2025Sex and Gender InformationValueDate RecordedSex Assigned at SrqeeVcedai02/07/2024 11:39 AM EST Legal LicKdcafv25/15/2023 7:12 PM EDTGender KovozphbMouyww75/07/2024 11:39 AM ESTSexual OrientationNot on filedocumented as of this encounter Last Filed Vital Signs Vital SignReadingTime TakenCommentsBlood Axlyrutu733/6807/03/2025 9:30 AM EST Pulse--Temperature--Respiratory Rate--Oxygen Saturation--Inhaled Oxygen Concentration--Vselqa29.3 kg (185 lb 12.8 oz)07/03/2025 9:30 AM ESTHeight--Body Mass Index28.25002/12/2025 4:00 PM EDTdocumented in this encounter Progress Notes * Becca Espinosa, METEOROLOGY INSTRUCTOR - 07/03/2025 9:10 AM EST Reason for Appointment: Patient ID: Nasreen Felix is a 35 y.o. female who presents for Routine Visit Patient presents today for Return OB appointment. MEDICATIONS Current Outpatient Medications Medication Instructions magnesium oxide (MAG-OX) 400 mg, Oral, Daily Nqojwbfl-Bxp-Op-FA ( 1 + IRON PO) 1 tablet, Daily ALLERGIES No Known Allergies PROBLEMS Active Ambulatory [...] SYSTEMS Review of Systems: Review of Systems Constitutional: Negative. HENT: Negative. Eyes: Negative. Respiratory: Negative. Cardiovascular: Negative. Gastrointestinal: Negative. Genitourinary: Negative. Musculoskeletal: Negative. Skin: Negative. Neurological: Negative. All other systems reviewed and are negative. Hematological: Negative. Endocrine: Negative. Allergic/Immunologic: Negative. OBJECTIVE Objective: Physical Exam Constitutional: Appearance: Normal appearance. She is well-developed. Cardiovascular: Rate and Rhythm: Normal rate and [...] nursing note reviewed. Exam conducted with a thermal intelligence analyst present. Vitals: Estimated body mass index is 28.25 kg/m?? as calculated from the following: Height as of 02/12/25: 5' 8 . Weight as of this encounter: 185 lb 12.8 oz. BP: 118/68 Patient's last menstrual period was 01/13/2025. Assessment/Plan ICD-10-CM 1. 24 weeks gestation of ([facility]) Z3A.24 POCT urinalysis dipstick manually resulted 2. Second trimester ([facility]) Z34.92 POCT urinalysis dipstick manually resulted 3. Nonintractable headache, unspecified chronicity pattern, unspecified headache type R51.9 4. Diabetes mellitus screening Z13.1 CBC Glucose tolerance, 1 hour CBC Glucose tolerance, 1 hour Assessment/Plan Patient presents today for a routine obstetrics appointment. Patient is currently 24w3d with a Estimated Date of Delivery: 10/20/25. Pt has urge to urinate, will send for culture. Pt given glucola and CBC to have obtained. Pt to return in 4 weeks for scheduled OB appt. Documented by Becca Espinosa LPN on behalf of: Manuel Hernandez DO documented in this encounter Plan of Treatment DateTypeDepartmentCare Team (Latest Contact Info)Rloqdynjwpt11/16/2025 10:20 AM ESTRoutine [facility] [address] [place] [address] [place] [phone] Manuel Hernandez, DO [address] [place], [place] [phone] 02/18/2026 4:00 PM EDTOffice Visit [facility] [address] [place] [address] Manuel Hernandez, DO [address] [place], [place] [phone] NameTypePriorityAssociated DiagnosesOrder ScheduleCBCLabRoutine Diabetes mellitus screening Expected: 07/03/2025 (Approximate), Expires: 07/03/2026Glucose tolerance, 1 hour LabRoutine Diabetes mellitus screening Expected: 07/03/2025 (Approximate), Expires: 07/03/2026Urine cultureMicrobiology Routine Urinary urgency Ordered: 07/03/2025documented as of this encounter Procedures Procedure NamePriorityDate/TimeAssociated DiagnosisCommentsPOCT URINALYSIS UVDJTXXMPykiwlt26/18/2025 9:27 AM EST 24 weeks gestation of ([facility]) Second trimester ([facility]) documented in this encounter Results * (ABNORMAL) POCT urinalysis dipstick manually resulted (07/03/2025 9:27 AM EST) ComponentValueRef RangeTest MethodAnalysis TimePerformed AtPathologist SignatureColor, UAYellowClarity, UAClearGlucose, UANegativeNegative - 2000(110) ++++ mg/dLBilirubin, UANegativeNegative - 4(70) +++ mg/dLKetones, UA NegativeNegative - 160(16) ++++ mg/dLSpec Grav, UA1.0101 - 1.03Blood, UA NegativeNegative - 50 Yash/mcLpH, UA7.55 - 9Protein, UANegativeNegative - 2000(20) ++++ mg/dLUrobilinogen, UA1.00.2 - 12 mg/dLLeukocytes, UAPositive Negative - 500+++ Zuleyka/mcLNitrite, UANegativeNegative - PositiveSpecimen (Source)Anatomical Location / LateralityCollection Method / VolumeCollection TimeReceived TfrjUtjhh07/18/2025 9:27 AM EST Narrative Authorizing ProviderResult TypeResult StatusCorey David DOPOINT OF CARE TEST ENTER/EDIT ORDERABLESFinal Result documented in this encounter Visit Diagnoses Diagnosis 24 weeks gestation of ([facility]) Second trimester ([facility]) state, incidental Nonintractable headache, unspecified chronicity pattern, unspecified headache type Diabetes mellitus screening Screening for diabetes mellitus Urinary urgency Urgency of urination documented in this encounter Care Teams Team MemberRelationshipSpecialtyStart DateEnd Date Maria Isabel Zamora [employer] [address] [place] [address] PCP - General05/04/23documented as of this encounter
--- OUTSIDE RECORDS SUMMARY | 2025-07-07 08:44 | XMS_ITS | CCD ---
Author Organization [facility] Care Team Providers Care Inspector Canvas [employer] Name Role Phone DR CUCO HERNANDEZ Attending Unavailable DAVID, DR NORWOOD Consulting Unavailable DR CUCO HERNANDEZ Admitting Unavailable Bina Calderon NP, Gisel Primary Care Provider Awa Zamora NP Primary Care Provider [phone] GISEL CURRAN Primary Care Unavailable AWA ZAMORA Referring Unavailable CUCO HERNANDEZ Referring Unavailable CUCO HERNANDEZ Attending Unavailable AWA ZAMORA Attending Unavailable CUCO HERNANDEZ Attending Unavailable CUCO HERNANDEZ Attending Unavailable CUCO HERNANDEZ Attending Unavailable Medications Current Medications MedicationDrug Class(es)DatesSig (Normalized)Sig (Original)cephalexin 500 mg oral capsule (2 sources)Cephalosporin AntibacterialStart: 04-04-2025 End: 20-27-7277dfld 1 capsule by mouth in the morning, then take 1 capsule by mouth in the evening, then take 1 capsule by mouth at bedtimecephalexin (Keflex) 500 MG capsule Indications: UTI symptoms Take 1 capsule (500 mg) by mouth in the morning and 1 capsule (500 mg) in the evening and 1 capsule (500 mg) before bedtime. Do all this for 10 days. 30 capsule 04/04/2025 04/14/2025 Active magnesium oxide 400 mg oral tablet (6 sources)Start: 04-18-2025 End: 16-91-5909pydd 1 tablet by mouth once dailymagnesium oxide (Mag-Ox) 400 MG tablet Indications: Nonintractable headache, unspecified chronicitypattern, unspecified headache type Take 1 tablet (400 mg) by mouth Daily 30 tablet 6 04/18/2025 11/14/2025 ActivePrenatal Ryipbeck-Zfb-Zd-FA ( 1 + IRON PO) (11 sources) Jvucumtv-Www-Wa-FA ( 1 + IRON PO) Take 1 tablet by mouth Daily Activetrimethoprim 100 mg oral tablet (17 sources)Dihydrofolate Reductase Inhibitor AntibacterialStart: 08-22-2024 End: 14-07-5830hpbxddxfkpve (Trimpex) 100 MG tablet Indications: Dyspareunia in female , Urinary tract infection without hematuria, site unspecified Take 1 tablet (100 mg) by mouth if needed (Dyspareunia) for up to20 doses Take 1 tablet by mouth immediately before intercourse PRN 20 tablet 2 02/12/2025 Active Completed/Discontinued Medications MedicationDrug Class(es)DatesSig (Normalized)Sig (Original)azithromycin 250 mg oral tablet (1 source)Macrolide AntimicrobialStart: 06-28-2024 End: 26-48-9747zksi 2 tablets by mouth once daily, then take 1 tablet by mouth once dailyazithromycin (Zithromax) 250 MG tablet Indications: Bronchitis Take 2 tablets (500 mg) by mouth Daily for 1 day, THEN 1 tablet (250 mg) Daily for 4 days. 6 tablet 06/28/2024 06/29/2024 Discontinued (Other)dexamethasone 1 mg/ml / tobramycin 3 mg/ml ophthalmic suspension (2 sources)Aminoglycoside Antibacterial, CorticosteroidStart: 02-04-2024 End: 12-09-9676gykg 1 drop(s) into the eye(s) four times dailytobramycin- dexAMETHasone (Tobradex) ophthalmic suspension instill 1 drop into left eye four times aday 02/04/2024 06/26/2024 Discontinued (Other)ethinyl estradiol 0.035 mg / norethindrone acetate 1 mg oral tablet (2 sources)EstrogenStart: 03-06-2024 End: 29-73-6967ijbxpwbxpcvgx-ethinyl estradiol (Nortrel 1/35, 28,) 1-35 MG-MCG tablet Indications: Encounter for initial prescription of contraceptive pills TAKE 1 TABLET BY MOUTH ONCE DAILY 84 tablet 4 03/06/2024 06/26/2024 Discontinued (Other)hyoscyamine sulfate 0.12 mg / methenamine 118 mg / methylene blue 10 mg / phenyl salicylate 36 mg /sodium phosphate, monobasic 40.8 mg oral capsule (3 sources)Oxidation-Reduction AgentStart: 02-08-2024 End: 69-40-1305jjjz 1 capsule by mouth every six hours for urinary tract infection and urinary tract tsfyskrjrXaby-Npv-J Bl-Na Phos-Ph Tariq (Uribel) 118 MG capsule Indications: Urinary tract infection without hematuria, site unspecified Take 1 capsule by mouth every 6 (six) hours 120 capsule 3 02/08/2024 06/29/2024 Discontinued (Other)methylPREDNISolone (2 sources)CorticosteroidStart: 06-28-2024 End: 66-05-0381diguxmGLQDOPKjykeq (Medrol Dospak) 4 MG tablets Indications: Bronchitis Follow schedule on package instructions 21 tablet 06/28/2024 07/05/2024 ExpiredStart: 06-28-2024 End: 46-13-1481cbzuzmDLQNPAYbehto (Medrol Dospak) 4 MG tablets Indications: Bronchitis Follow schedule on package instructions 21 tablet 06/28/2024 07/05/2024 Activephenazopyridine hydrochloride 100 mg oral tablet (7 sources)Start: 04-04-2025 End: 56-60-9319mxrx 1 tablet by mouth three times daily as needed for muscle spasmsphenazopyridine (Pyridium) 100 MG tablet Indications: UTI symptoms Take 1 tablet (100 mg) by mouth 3 (three) times a day as needed for bladder spasms for up to 4 days 12 tablet 1 04/04/2025 04/08/2025 ExpiredStart: 08-22-2024 End: 23-82-9461ishuprttnmrkevv (Pyridium) 200 MG tablet Indications: Dyspareunia in female , Urinary tract infection without hematuria, site unspecified Take 1 tablet (200 mg) by mouth if needed for bladder spasms for up to 10 doses 10 tablet 3 08/22/2024 02/12/2025 Discontinued (Therapy completed)Start: 03-06-2024 End: 17-36-0185kcvanocjhyhktcn (Pyridium) 200 MG tablet Indications: Dyspareunia in female Take 1 tablet (200 mg) by mouth if needed for bladder spasms for up to 10 doses 10 tablet 3 03/06/2024 06/26/2024 Discontinued (Other)sulfacetamide sodium 100 mg/ml ophthalmic solution (2 sources)Sulfonamide AntibacterialStart: 01-29-2024 End: 82-38-3796ltkb 2 drop(s) into the eye(s) three times dailysulfacetamide (Bleph-10) 10 % ophthalmic solution INSTILL 2 DROPS INTO AFFECTED EYE 3 TIMES A DAY FOR 10 DAYS 01/29/2024 06/26/2024 Discontinued (Other) Problems Active Problems Problem ClassificationProblemDateDocumented DateEpisodic/ChronicChronic obstructive pulmonary disease and bronchiectasis (1 source)Bronchitis; Translations: [Bronchitis, not specified as acute or chronic]45-74-1672TbagmltaOxljnote; including migraine (4 sources)Headache; Translations: [Nonintractable headache, unspecified chronicity pattern, unspecified headache type]75-46-1629NfvnyblaMzppzfuzgabkr and screening for infectious disease (3 sources)Encounter for screening for human papillomavirus (HPV); Translations: [Exposure to sexually transmissible disorder]Onset: 157393-19-9053Cikzjyud Menstrual disorders (1 source)Missed period; Translations: [Irregular menstruation, unspecified] 35-49-7484NezrvvpHzrvl female genital disorders (2 sources)Pain in female genitalia on intercourse; Translations: [Unspecified dyspareunia]53-30-4171GziymhdJfmdq female genital disorders (2 sources)Vaginal discharge; Translations: [Other specified noninflammatory disorders of vagina]63-61-5441DsokklpgMqqjy and delivery including normal (9 sources)Urine test positive; Translations: [Encounter for test, result positive]94-97-1963DcoaacatZulyv screening for suspected conditions (not mental disorders or infectious disease) (10 sources)Encounter for screening for malignant neoplasm of cervix; Translations: [Patient encounter status]Onset: 34-23-6373GrmlzxxwYccnttqh codes; unclassified (2 sources)Gestation period, 11 weeks; Translations: [11 weeks gestation of ]61-07-5203SeambusiSqucwgic codes; unclassified (2 sources)Gestation period, 15 weeks; Translations: [15 weeks gestation of ]99-34-4680StoyrnolObxxwhgq codes; unclassified (2 sources)Gestation period, 20 weeks; Translations: [20 weeks gestation of ]74-87-9628ZrovhaelNujdnes tract infections (19 sources)Chronic interstitial cystitis; Translations: [Interstitial cystitis (chronic) without hematuria]Onset: 231800-93-4918GlgbhakQckpezl tract infections (2 sources)Urinary tract infectious disease; Translations: [Urinary tract infection, site not specified]54-09-0626Decovync Past or Other Problems Problem ClassificationProblemDateDocumented DateEpisodic/ChronicGenitourinary symptoms and ill-defined conditions (20 sources)Blood in urine; Translations: [Hematuria, unspecified]Onset: 863768-03-1350Olozxgoy Results Test NameValueInterpretationReference RangeFacilityUrinalysis macro (dipstick) panel (U)on 96-85-5003Celbvuuwp, UANegativeNegative - 4(70) +++ mg/dLNOMS HealthcareBlood, UANegativeNegative - 50 Yash/mcLNOMS HealthcareClarity, UAClear NOMS HealthcareColor, UAColorlessNOMS HealthcareGlucose, UANegativeNegative - 2000(110) ++++ mg/dLNOMS HealthcareInterpretation and review of laboratory resultsNormalNOMS HealthcareKetones, UANegativeNegative - 160(16) ++++ mg/dLNOMS HealthcareLeukocytes, UANegativeNegative - 500+++ Zuleyka/mcLNOMS HealthcareNitrite, UANegativeNegative - PositiveNOMS HealthcarepH, UA7.05 - 9NOMS Healthcare Protein, UANegativeNegative - 2000(20) ++++ mg/dLNOMS HealthcareSpec Grav, UA 1.0051 - 1.03NOMS HealthcareUrobilinogen, UA1.00.2 - 12 mg/dLNOMS HealthcareNOMS HealthcareRECURRENT VAGINITIS (HTRX)on 25-75-4637XPENURXZQ HUPSIQK6FHKJ HealthcareATOPOBIUM VAGINAENot detectedNOMT HealthcareBVAB 2,3 (BACTERIAL VAGINOSIS ASSOCIATED BACTERIA 2, 3); MOBILUNCUS EGU5EDBF HealthcareBVAB 2,3 (BACTERIAL VAGINOSIS ASSOCIATED BACTERIA 2, 3); MOBILUNCUS SPPNot detectedNOMS HealthcareCANDIDA ALBICANS, PARAPSILOSIS, VGZDLDRDSH2KRWZ HealthcareCANDIDA ALBICANS, PARAPSILOSIS, TROPICALISNot detectedNOMS HealthcareCANDIDA GLABRATA0 NOMS HealthcareCANDIDA GLABRATANot detectedNOMS HealthcareCANDIDA HRWCRU8KHAB HealthcareCANDIDA KRUSEINot detectedNOMS HealthcareCHLAMYDIA HCIUJXRZGBP9THDK HealthcareCHLAMYDIA TRACHOMATISNot detectedNOMS HealthcareGARDNERELLA VAGINALIS0 NOMS HealthcareGARDNERELLA VAGINALISNot detectedNOMS HealthcareMEGASPHAERA (TYPES 1, 2)0NOMS HealthcareMEGASPHAERA (TYPES 1, 2)Not detectedNOMS Healthcare MYCOPLASMA PZFNSKDILJ3IGCM HealthcareMYCOPLASMA GENITALIUMNot detectedNOMS HealthcareNEISSERIA WBUCDSEQJCO9PLIF HealthcareNEISSERIA GONORRHOEAENot detected NOMS HealthcareTRICHOMONAS WKPACSRDP5SXST HealthcareTRICHOMONAS VAGINALISNot detectedNOMS HealthcareNOMS HealthcareUS OB 14+ WEEKS ANATOMY SCANon 05-02-2025 US OB 14+ WEEKS ANATOMY SCANFINDINGS: A single, live intrauterine is present with normal cardiac rate of 160 beats per minute. Normal activity. morphology is grossly normal with the exception of mild fullness of the ventricular system. Normal posterior fossa appearance. The cervix is long and closed, 4.0 cm.The placenta is posterior, Grade 1, 3.0 cm inferior aspect from the closed cervical os The current sonographic age is 22 weeks and 0 days, based on the following measurements: BPD 5.4cm ( 22weeks,3 days) Head Circumference 20.1cm ( 22 weeks, 1 days) Abdominal Circumference 17.0cm ( 22.weeks, 0 days) Femur Length 3.6cm (21 weeks, 2 days) Presentation Cephalic Placenta Posterior, Grade 1 Weight (g) by Percentile Greater 97 % * These measurements result in an estimated date of delivery of October 09, 2025 The current estimated weight is 447 grams ( 1 pound, 0 ounces). IMPRESSION: 1.Single, live intrauterine , current sonographic age of 22 weeks and 0 days, with an estimated date of delivery of October 09, 2025. 2. Mild ventricular prominence recommend continued maternal- evaluation. * Estimated Weight (g) by Percentile is based upon an accurate estimated age based on last menstrual period. TRANSCRIBED BY: ELECTRONICALLY SIGNED BY: Rama Mendoza AvailableComment on above:Order Comment: US OB ANATOMY SINGLE W US OB CERVICAL LENGTH Estimated Date of Delivery: 10/20/25 Gestational Age as of 05/02/2025: 46c3zRwglepvfru macro (dipstick) panel (U)on 84-69-8399Onpgxqlsj, UANegativeNegative - 4(70) +++ mg/dLNOMS HealthcareBlood, UANegativeNegative - 50 Yash/mcLNOMS HealthcareClarity, UAClearNOMS Healthcare Color, UAYellowNOMS HealthcareGlucose, UANegativeNegative - 1999(110) ++++ mg/dL NOMS HealthcareInterpretation and review of laboratory resultsNormalNOMS HealthcareKetones, UANegativeNegative - 160(16) ++++ mg/dLNOMS Healthcare Leukocytes, UANegativeNegative - 500+++ Zuleyka/mcLNOMS HealthcareNitrite, UA NegativeNegative - PositiveNOMS HealthcarepH, UA65 - 9NOMS HealthcareProtein, UA NegativeNegative - 1999(20) ++++ mg/dLNOMS HealthcareSpec Grav, UA1.021 - 1.03 NOMS HealthcareUrobilinogen, UA1.00.2 - 12 mg/dLNOMS HealthcareNOMS Healthcare Urinalysis macro (dipstick) panel (U)on 89-28-8675Jybdjrvwx, UANegativeNegative - 4(70) +++ mg/dLNOMS HealthcareBlood, UANegativeNegative - 50 Yash/mcLNOMS HealthcareClarity, UAClearNOMS HealthcareColor, UAYellowNOMS HealthcareGlucose, UANegativeNegative - 2000(110) ++++ mg/dLNOMS HealthcareInterpretation and review of laboratory resultsAbnormalNOMS HealthcareKetones, UANegativeNegative - 160(16) ++++ mg/dLNOMS HealthcareLeukocytes, UANegativeNegative - 500+++ Zuleyka/mcL NOMS HealthcareNitrite, UANegativeNegative - PositiveNOMS HealthcarepH, UA7.55 - 9NOMS HealthcareProtein, UANegativeNegative - 1999(20) ++++ mg/dLNOMS Healthcare Spec Grav, UA1.0051 - 1.03NOMS HealthcareUrobilinogen, UA1.00.2 - 12 mg/dLNOMS HealthcareNOMS HealthcareBOX TESTon 01-36-7585WXD TEST SENT OUTUNITY BOXNOMS CfeeuvzodnQOQ8KNSFQWSNY BowuyofvqfDSJ76/9/25NOMS HealthcareCLINISYNCNOMS HealthcareHCG ( test) Ql (U)on 51-24-7048Mbvbdugqumnyff and review of laboratory resultsAbnormalNOMS HealthcarePreg Test, UrPositiveNegativeNOMS HealthcareNOMS HealthcareUS OB TRANSVAGINALon 82-50-7759BP OB TRANSVAGINAL FINDINGS: A single intrauterine gestational sac is present. No subchorionic hemorrhage. A single pole is present. Normal heart rate at 169 beats per minute. Yolk sac also is seen. Current sonographic age is 8 weeks and 6 days based on the crown-rump length measurement of 22 mm. Based on this age,current estimated date of delivery is October 20, 2025. No pelvic fluid or adnexal mass present. Cervical length is 4.7 cm, closed IMPRESSION: Findings consistent with a live intrauterine gestation, current sonographic age of 8 weeks and 6 days resulting in an estimated date of delivery of October 20, 2025 TRANSCRIBED BY: ELECTRONICALLY SIGNED BY: Rama Mendoza AvailableComment on above:Order Comment: US OB TRANSVAGINAL No LMP recorded.Urinalysis macro (dipstick) panel (U)on 91-65-2237Gfqgrzcya, UA NegativeNegative - 4(70) +++ mg/dLNOMS HealthcareBlood, UANegativeNegative - 50 Yash/mcLNOMS HealthcareClarity, UAClearNOMS HealthcareColor, UAYellowNOMS HealthcareGlucose, UANegativeNegative - 2000(110) ++++ mg/dLNOMS Healthcare Interpretation and review of laboratory resultsNormalNOMT HealthcareKetones, UA NegativeNegative - 160(16) ++++ mg/dLNOMS HealthcareLeukocytes, UATraceNegative - 500+++ Zuleyka/mcLNOMS HealthcareNitrite, UANegativeNegative - PositiveNOMS HealthcarepH, UA65 - 9NOMS HealthcareProtein, UANegativeNegative - 2000(20) ++++ mg/dLNOMS HealthcareSpec Grav, UA1.0151 - 1.03NOMS HealthcareUrobilinogen, UA1.0 0.2 - 12 mg/dLNOShriners Hospitals for ChildrenNOMT HealthcareIGP,APTIMA HPV,AGE GDLNon 02-15-2025 AGE GDLN ACOG TESTINGNote.NOMS HealthcareComment on above:TESTS RESULT FLAG UNITS REF RANGE LAB Clinician Provided Cytology Information Source.............Cervix;Endocervix No. of containers..01 ThinPrep Vial Age Algo ACOG Shabnam... FLAG LEGEND: L-Low Normal,H-High Normal,LL-Alert Low,HH-Alert High <-Panic Low,>-Panic High,A-Abnormal,AA-Critical Abnormal Performed at: 01 =[address] [place] [address] Karmen Yeung MD, HPV APTIMANegativeNegativeHUNTSMAN [facility] HealthcareComment on above:This nucleic acid amplification test detects fourteen high- risk HPV types (16,18,31,33,35,39,45,51,52,56,58,59,66,68) without differentiation. Performed at: =[address] [id number] Garbage Truck Driver: Karmen Yeung MD, Phone: [phone] Performed at: [address] [place], [place], [place] [id number] Garbage Truck Driver: Karmen Yeung MD, Phone: [phone] IGP, APTIMA HPV, RFX 16/18,45Note.NOMS [facility] - TrumbullComment on above:TESTS RESULT FLAG UNITS REF RANGE LAB DIAGNOSIS: 02 NEGATIVE FOR INTRAEPITHELIAL LESION OR MALIGNANCY. CELLULAR CHANGES ASSOCIATED WITH INFLAMMATION ARE PRESENT. Specimen adequacy: 02 Satisfactory for evaluation. Endocervical and/or squamous metaplastic cells (endocervical component) are present. Performed by: Julissa Uriarte, Canvas Goods Supervisor ([facility]) . 02 Note: Note 02 [...] High,A-Abnormal,AA-Critical Abnormal Performed at: [address] [facility] [address] [place] [address] Karmen Yeung MD, BRUSH-SPATULA CERVIX ENDOCERVIX CLINISYNCNOMS HealthcareUrinalysis macro (dipstick) panel (U)on 02-12-2025 Bilirubin, UANegativeNegative - 4(70) +++ mg/dLHUNTSMAN MENTAL HEALTH [facility]STITUTE HealthcareBlood, UANegative Negative - 50 Yash/mcLHUNTSMAN MENTAL HEALTH INSTITUTE HealthcareClarity, UAClearHUNTSMAN MENTAL [facility]ALTH [facility] HealthcareColor, UA YellowNOShriners Hospitals for ChildrenGlucose, UANegativeNegative - 2000(110) ++++ mg/dLHUNTSMAN MENTAL [facility]ALTH [facility]STITUTE HealthcareInterpretation and review of laboratory resultsNormalThe [facility] Ketones, UANegativeNegative - 160(16) ++++ mg/dLThe Rehabilitation Institute of St. LouisLeukocytes, UA NegativeNegative - 500+++ Zuleyka/mcLThe Rehabilitation Institute of St. LouisNitrite, UANegativeNegative - PositiveHUNTSMAN MENTAL HEALTH INSTITUTE HealthcarepH, UA6.55 - 9NOMT HealthcareProtein, UANegativeNegative - 2000(20) ++++ mg/dLThe Rehabilitation Institute of St. LouisSpec Grav, UA1.011 - 1.03[facility] Urobilinogen, UA0.20.2 - 12 mg/dLBothwell Regional Health Center HealthcareALL CBC WITH AUTO DIFFon 53-62-9310Qoqujanaqyq distribution width (RBC) [Ratio]11.9 %11.8 - 14.4 % [facility] HealthcareHematocrit (Bld) [Volume fraction]41.4 %36.3 - 47.1 %[facility] St. LouisHemoglobin (Bld) [Mass/Vol]13.4 g/dL11.9 - 15.1 g/dLCass Medical CenterH (RBC) [Entitic mass]30 pg25.2 - 33.5 pgCass Medical CenterHC (RBC) [Mass/Vol]32.4 g/dL28.4 - 34.8 g/dLCass Medical CenterV (RBC) [Entitic vol]92.6 fL82.6 - 102.9 fLReynolds County General Memorial Hospital NRBC VUOJAGCCJ38.0 per 100 WBCReynolds County General Memorial Hospital PLATELET CBPDK243UMWJReynolds County General Memorial Hospital WBC COUNT9.6The [facility] Institute of St. LouisPlatelet mean volume (Bld) [Entitic vol]10.2 fL8.1 - 13.[address] fLThe Rehabilitation Institute [address] LouisRBC (Bld) [#/Vol]4.47 10*6/uL3.95 - 5.11 m/uLNOMS HealthcareOriginal Ordering Provider: AWA JOSEPH SHILAURAINISYNCNOMS [facility] 31-60-1923Edgkvidisgm distribution width (RBC) [Ratio]11.9 %11.8 - 14.4 %[facility] SystemHematocrit (Bld) [Volume fraction]41.4 %36.3 - 47.1 %[facility] SystemHemoglobin (Bld) [Mass/Vol] 13.4 g/dL11.9 - 15.1 g/dLBon Galion HospitalH (RBC) [Entitic mass]30.0 pg 25.2 - 33.5 pgBon Galion HospitalHC (RBC) [Mass/Vol]32.4 g/dL28.4 - 34.8 g/dLBon Galion HospitalV (RBC) [Entitic vol]92.6 fL82.6 - 102.9 fLFauquier Health SystemNucleated RBC/100 WBC (Bld) [Ratio]0.0 %0.0 per 100 WBCFauquier Health SystemPlatelet mean volume (Bld) [Entitic vol]10.2 fL8.1 - 13.5 fL [facility] SystemPlatelets (Bld) [#/Vol]328 10*3/uLFauquier Health SystemRBC (Bld) [#/Vol]4.47 10*6/uL3.95 - 5.11 m/[facility] CenterWBC other (Bld) [#/Vol]9.6Bon [facility] Erythrocyte distribution width (RBC) [Ratio]11.9 %Rswttc01.8-14.4As[facility] Medical CenterComment on above:Performed By: #### TSH, CBC, CP #### [facility] [address] [place] [address] Garbage Truck Driver: Marlon Parisi MD #### LIPR #### [facility] [address] [place] [address] Garbage Truck Driver: Robinson Byrd MDHematocrit (Bld) [Volume fraction]41.4 %Normal 36.3-47.1MNorwalk Memorial HospitalComment on above:Performed By: #### TSH, CBC, CP #### [address] [place] [id number] Garbage Truck Driver: Marlon Parisi MD #### LIPR #### [address] [id number] Garbage Truck Driver: Robinson Byrd MDHemoglobin (Bld) [Mass/Vol]13.4 g/dLNormal 11.9-15.1MProMedica Toledo Hospital HospitalComment on above:Performed By: #### TSH, CBC, CP #### [address] [place] [id number] Garbage Truck Driver: Marlon Parisi MD #### LIPR #### [address] [id number] Garbage Truck Driver: YAN DonnellyCH (RBC) [Entitic mass]30.0 vgNgzuyl28.2-33.5 [facility] HospitalComment on above:Performed By: #### TSH, CBC, CP #### [address] [place] [id number] Garbage Truck Driver: Marlon Parisi MD #### LIPR #### [address] [id number] Garbage Truck Driver: YAN DonnellyCHC (RBC) [Mass/Vol]32.4 g/iZMdqroo00.4-34.8 [facility] CenterComment on above:Performed By: #### TSH, CBC, CP #### [address] [place] [address] Garbage Truck Driver: Marlon Parisi MD #### LIPR #### [address] [id number] Garbage Truck Driver: YAN DonnellyCV (RBC) [Entitic vol]92.6 gHEwocto13.6-102.9 [facility] CenterComment on above:Performed By: #### TSH, CBC, CP #### [address] [place] [address] Garbage Truck Driver: Marlon Parisi MD #### LIPR #### [address] [id number] Garbage Truck Driver: Robinson Byrd MDNRBC Automated0.0 per 100 WBCNormal0.0[facility] CenterComkarmanos cancer center on above:Performed By: #### TSH, CBC, CP #### [address] [place], [place] [id number] Garbage Truck Driver: Marlon Parisi MD #### LIPR #### [address] [address] Garbage Truck Driver: Sadia Donnelly mean volume (Bld) [Entitic vol]10.2 fL Normal8.1-13.5[facility] CenterComkarmanos cancer center on above:Performed By: #### TSH, CBC, CP #### [address] [place], [place] [address] Garbage Truck Driver: Marlon Parisi MD #### LIPR #### [address] [address] Garbage Truck Driver: Faraz Donnelly (Bld) [#/Vol]328 10*3/gHKnmtjj271-448 [facility] CenterComkarmanos cancer center on above:Performed By: #### TSH, CBC, CP #### [address] [place], [place] [address] Garbage Truck Driver: Marlon Parisi MD #### LIPR #### [address] [address] Garbage Truck Driver: HEBERT DonnellyBC (Bld) [#/Vol]4.47 10*6/uLNormal3.95-5.11 [facility] CenterComment on above:Performed By: #### TSH, CBC, CP #### [address] [place] [address] Garbage Truck Driver: Marlon Parisi MD #### LIPR #### [address] [address] Garbage Truck Driver: Robinson Byrd MDSMALLPO[facility] [#/Vol]9.6 10*3/uLNormal3.5-11.3MNorwalk Memorial HospitalComment on above:Performed By: #### TSH, CBC, CP #### [address] [place] [id number] Garbage Truck Driver: Marlon Parisi MD #### LIPR #### [address] [address] Garbage Truck Driver: Robinson Byrd [facility] Metabolic Profon 17-06-1415Oazbfms [Mass/Vol]4.2 g/dLNormal3.5-5.2Mohiohealth hardin memorial hospitaly [facility] HospitalComment on above:Performed By: #### TSH, CBC, CP #### [address] [place] [id number] Garbage Truck Driver: Marlon Parisi MD #### LIPR #### [address] [address] Garbage Truck Driver: Robinson Byrd MDAlbumin/Glob Ratio1.5Gaqbhv0.0-2.5[facility] Hospitalcy [facility] HospitalComment on above:Performed By: #### TSH, CBC, CP #### [address] [place], [place] [id number] Garbage Truck Driver: Marlon Parisi MD #### LIPR #### [address] [address] Garbage Truck Driver: Charisma Donnelly Phos68 U/EGghobg53-737MxtynAshtabula County Medical CenterComkarmanos cancer center on above:Performed By: #### TSH, CBC, CP #### [address] [place], [place] [id number] Garbage Truck Driver: Marlon Parisi MD #### LIPR #### [address] [id number] Garbage Truck Driver: Robinson Byrd MDALT [Catalytic activity/Vol]41 U/FNpji08-66GusgcAshtabula County Medical CenterComkarmanos cancer center on above:Performed By: #### TSH, CBC, CP #### [address] [place], [place] [phone] Garbage Truck Driver: Marlon Parisi MD #### LIPR #### [address] [address] Garbage Truck Driver: Pamela Donnelly gap [Moles/Vol]11 mmol/LNormal9-16[facility] CenterComkarmanos cancer center on above:Performed By: #### TSH, CBC, CP #### [address] [place], [place] [id number] Garbage Truck Driver: Marlon Parisi MD #### LIPR #### [address] [address] Garbage Truck Driver: Robinson Byrd MDAST [Catalytic activity/Vol]25 U/LIqpsdd66-16 [facility] CenterComkarmanos cancer center on above:Performed By: #### TSH, CBC, CP #### [address] [place], [place] [id number] Garbage Truck Driver: Marlon Parisi MD #### LIPR #### [address] [address] Garbage Truck Driver: Robinson Byrd MDBilirubin [Mass/Vol]0.5 mg/dLNormal0.00-1.20 [facility] CenterComment on above:Performed By: #### TSH, CBC, CP #### [facility] [address] [place] [address] Garbage Truck Driver: Marlon Parisi MD #### LIPR #### [address] [address] Garbage Truck Driver: Robinson Byrd MDBUN/CRE Pjaop24Jujy6-59SausoAshtabula County Medical Center Comment on above:Performed By: #### TSH, CBC, CP #### [facility] [address] [place] [address] Garbage Truck Driver: Marlon Parisi MD #### LIPR #### [address] [address] Garbage Truck Driver: Robinson Byrd MDCalcium [Mass/Vol]9.2 mg/dLNormal8.6-10.4[facility] Medical CenterComment on above:Performed By: #### TSH, CBC, CP #### [address] [place] [address] Garbage Truck Driver: Marlon Parisi MD #### LIPR #### [address] [address] Garbage Truck Driver: Robinson Byrd MDChloride [Moles/Vol]100 mmol/CTrhcds78-995KmohbAshtabula County Medical CenterComment on above:Performed By: #### TSH, CBC, CP #### [address] [place] [address] Garbage Truck Driver: Marlon Parisi MD #### LIPR #### [address] [address] Garbage Truck Driver: Robinson Byrd MDCO2 [Moles/Vol]28 mmol/UTlabda98-25IlgijAshtabula County Medical CenterComment on above:Performed By: #### TSH, CBC, CP #### [address] [place], [place] [address] Garbage Truck Driver: Marlon Parisi MD #### LIPR #### [address] [place], [place] [id number] Garbage Truck Driver: PARADISE Donnellyreatinine [Mass/Vol]0.6 mg/dLNormal0.50-0.90 [facility] CenterComment on above:Performed By: #### TSH, CBC, CP #### [address] [place], [place] [id number] Garbage Truck Driver: Marlon Parisi MD #### LIPR #### [address] [id number] Garbage Truck Driver: Robinson Byrd MDGFR/1.73 sq M.predicted among non-blacks MDRD (S/P/Bld) [Vol rate/Area]mL/min/{1.73_m2}Normal>60[facility] Medical CenterComment on above:Result Comment: These results are not intended for [...] or following therapy that affects renal tubular secretion.Performed By: #### TSH, CBC, CP #### [address] [place], [place] [id number] Garbage Truck Driver: Marlon Parisi MD #### LIPR #### [address] [address] Garbage Truck Driver: Robinson Byrd MDGlucose [Mass/Vol]80 mg/mGFbaago65-32ZvsbrNorwalk Memorial HospitalComment on above:Performed By: #### TSH, CBC, CP #### [address] [place] [address] Garbage Truck Driver: Marlon Parisi MD #### LIPR #### [place] [id number] Garbage Truck Driver: Robinson Byrd MDPotassium [Moles/Vol]3.7 mmol/LNormal3.7-5.3 [facility] Medical CenterComment on above:Performed By: #### TSH, CBC, CP #### [address] [place] [address] Garbage Truck Driver: Marlon Parisi MD #### LIPR #### [place] [address] Garbage Truck Driver: Robinson Byrd MDProtein [Mass/Vol]7.2 g/dLNormal6.6-8.7[facility] County Medical CenterComment on above:Performed By: #### TSH, CBC, CP #### [address] [place] [address] Garbage Truck Driver: Marlon Parisi MD #### LIPR #### [place] [address] Garbage Truck Driver: JOSE Donnellyodium [Moles/Vol]139 mmol/JQhabmx378-819XukkgAshtabula County Medical CenterComment on above:Performed By: #### TSH, CBC, CP #### [address] [place] [address] Garbage Truck Driver: Marlon Parisi MD #### LIPR #### [place] [address] Garbage Truck Driver: Robinson Byrd MDUrea nitrogen [Mass/Vol]14 mg/dLNormal6-20MerStamford HospitalComment on above:Performed By: #### TSH, CBC, CP #### [address] [place] [address] Garbage Truck Driver: Marlon Parisi MD #### LIPR #### [facility] [address] [place] [address] Garbage Truck Driver: Robinson Byrd [facility] Hospitalensive Metabolic Panelon 07-05-2024 Albumin [Mass/Vol]4.2 g/dL3.5 - 5.2 g/dLBon [facility] TMS [facility]ysons CornerAlbumin/Globulin [Mass ratio]1.4 {ratio}1.0 - 2.5Bon [facility] HealthALP [Catalytic activity/Vol]68 U/L35 - 104 U/LBon [facility] HealthALT [Catalytic activity/Vol]41 U/LHigh10 - 35 U/LBon [facility] TMS [facility] Tysons CornerAnion gap [Moles/Vol] 11 mmol/L9 - 16 mmol/LBon [facility] HealthAST [Catalytic activity/Vol]25 U/L 10 - 35 U/LBon [facility] T[facility] Tys[facility] CornerBilirubin [Mass/Vol]0.5 mg/dL0.00 - 1.20 mg/dLBon [facility] T[facility] T[facility] CornerCalcium [Mass/Vol]9.2 mg/dL8.6 - 10.4 mg/dLBon [facility] T[facility] Tysons CornerChloride [Moles/Vol]100 mmol/L98 - 107 mmol/LBon [facility] HealthCO2 [Moles/Vol]28 mmol/L20 - 31 mmol/LBon [facility] Creatinine [Mass/Vol]0.6 mg/dL0.50 - 0.90 mg/dLBon [facility]nem[facility] HeatGenie HealthEst, Glom Filt Rate- PINFBon [facility] TMS [facility] Tysons CornerComment on above: These results are not intended [...] therapy that affects renal tubular secretion. Glucose [Mass/Vol]80 mg/dL74 - 99 mg/dLBon [facility] Joseph'S HospitalAireonInterpretation and review of laboratory resultsAbnormalBon [facility] HeatGenie HealthPotassium [Moles/Vol]3.7 mmol/L3.7 - 5.3 mmol/LBon [facility] HealthProtein [Mass/Vol] 7.2 g/dL6.6 - 8.7 g/dLBon [facility] HospitalSodium [Moles/Vol]139 mmol/L136 - 145 mmol/LBon [facility] HospitalUrea nitrogen [Mass/Vol]14 mg/dL6 - 20 mg/dL [facility] SystemUrea nitrogen/Creatinine [Mass ratio]23 mg/mgHigh9 - 20 [facility] SystemLipid Panelon 44-67-3060Xgm [facility] County HospitalLipid Profileon 31-99-0727Hxfvhmqwuhj [Mass/Vol]162 mg/dLNormal0-199[facility] [place] on above: Cholesterol Guidelines: <200 Desirable 200-240 Borderline >240 Undesirable Result Comment: Cholesterol Guidelines: <200 Desirable 200-240 Borderline >240 UndesirablePerformed By: #### TSH, CBC, CP #### [address] [place] [address] Garbage Truck Driver: Marlon Parisi MD #### LIPR #### [facility] [employer] [address] [place] [address] Garbage Truck Driver: PARADISE Donnellyholesterol in HDL [Mass/Vol]70 mg/dLNormal>40 [facility] on above: HDL Guidelines: <40 Undesirable 40-59 Borderline >59 Desirable Result Comment: HDL Guidelines: <40 Undesirable 40-59 Borderline >59 DesirablePerformed By: #### TSH, CBC, CP #### [address] [place] [address] Garbage Truck Driver: Marlon Parisi MD #### LIPR #### [facility] [employer] [address] [place] [address] Garbage Truck Driver: PARADISE Donnellyholesterol in LDL [Mass/Vol]72 mg/dLNormal0-100 [facility] on above: LDL Guidelines: <100 Desirable 100-129 Near to/above Desirable 130-159 Borderline >159 Undesirable Direct (measured) LDL and calculated LDL are not interchangeable tests. Result Comment: LDL Guidelines: <100 Desirable 100-129 Near to/above Desirable 130-159 Borderline >159 Undesirable Direct (measured) LDL and calculated LDL are not interchangeable tests.Performed By: #### TSH, CBC, CP #### [facility] [address] [place] [address] [place], [place] [id number] Garbage Truck Driver: Marlon Parisi MD #### LIPR #### [address] [id number] Garbage Truck Driver: PARADISE Donnellyholesterol in VLDL [Mass/Vol]20 mg/dLNormal1-30 [facility] on above:Performed By: #### TSH, CBC, CP #### [facility] [address] [place] [address] [place] [place] [id number] Garbage Truck Driver: Marlon Parisi MD #### LIPR #### [address] [id number] Garbage Truck Driver: PARADISE Donnellyholeshane.total/Cholesterol in HDL [Mass ratio]2.3 {ratio}NormalRiverside Doctors' Hospital [place] on above:Performed By: #### TSH, CBC, CP #### [facility] [address] [place] [address] [place], [place] 936[address] Garbage Truck Driver: Marlon Parisi MD #### LIPR #### [address] [address] Garbage Truck Driver: Robinson Byrd MDTriglyceride [Mass/Vol]100 mg/dLNormal<150Bon [facility] on above: Triglyceride Guidelines: <150 Desirable 150-199 Borderline 200-499 High >499 Very high Based on AHA Guidelines for fasting triglyceride, May 2012. Result Comment: Triglyceride Guidelines: <150 Desirable 150-199 Borderline 200-499 High >499 Very high Based on AHA Guidelines for fasting triglyceride, May 2012.Performed By: #### TSH, CBC, CP #### [facility] [address] [place], [place] [address] Garbage Truck Driver: Marlon Parisi MD #### LIPR #### [address] [place], [place] [address] Garbage Truck Driver: Robinson Byrd MDNo Panel Informationon 88-54-5639Tph [facility] County HospitalTSHon 97-80-7433AGW Qn2.02 m[IU]/LBon [facility] County HospitalThyroid Stim. Horm.on 14-46-6595Jcukgew Stim. Horm.2.02 uIU/mLNormal0.27-4.20[facility] CenterComment on above:Performed By: #### TSH, CBC, CP #### [address] [place] [address] Garbage Truck Driver: Marlon Parisi MD #### LIPR #### [address] [id number] Garbage Truck Driver: Robinson Byrd [facility] – OK[place]HOMA CITYytology Cervical or vaginal smear or scraping studyOrdered By: Fernanda Snowden on 63-22-7445TXRQFulton Medical Center[facility] ACOG PANEL 2: 21 to 29on 01-16-2022..NormalGreene Memorial HospitalComment on above:Performed By: #### [id number] #### [facility] [address] [address] [address] Harry Vasquez Gdln ACOG Cyhebzx63-04XdaqkeBwfMemorial Health SystemComment on above:Performed By: #### [id number] #### [facility] [address] [address] [address] Harry MenendezDIAGNOSIS:CommentNoMemorial Health SystemComment on above: Result Comment: NEGATIVE FOR INTRAEPITHELIAL LESION OR MALIGNANCY.Performed By: #### [id number] #### [facility] [address] [address] [address] Harry MenendezMethodology:CommentNoMemorial Health SystemComment on above: Result Comment: This liquid based ThinPrep(R) pap test was screened with the use of an image guided system.Performed By: #### [id number] #### [place] [address] [address] Harry MenendezNote:CommentParkwood Hospital on above:Result Comment: The Pap smear is a screening test designed to aid in the detection of premalignant and malignant conditions of the uterine cervix. It is not a diagnostic procedure and should not be used as the sole means of detecting cervical cancer. Both false-positive and false-negative reports do occur. .Performed By: #### [id number] #### [address] [address] [address] Harry MenendezPerformed by:CommentParkwood Hospital on above: Result Comment: Luisana Jeffries, Lathing Supervisor (ASCP)Performed By: #### [id number] #### [address] [address] [address] Harry MenendezReflex Criteria:CommentParkwood Hospital on above:Result Comment: The HPV DNA reflex criteria were not met with this specimen result therefore, no HPV testing was performed. .Performed By: #### [id number] #### [address] [address] [address] Harry MenendezSpecimen adequacy:CommentParkwood Hospital on above:Result Comment: Satisfactory for evaluation. Endocervical and/or squamous metaplastic cells (endocervical component) are present.Performed By: #### [id number] #### [place] [address] [address] Harry MenendezComprehensive Metabolic Empon 72-05-3296Qfmaczi [Mass/Vol]3.9 g/dLNormal3.2-5.5FBrown Memorial HospitalComment on above:Performed By: #### PT, PTT, CBC, CRP, CMP, ESR, TSH3, T4F #### [place] [address] [place] #### CHROMATIN, THYGLOB AB, TPO, ALD, HLAB27, MYOG, CH50, LUPANTCOAG, HITESH, C4, C3, RPR W RFX #### [facility] ,Albumin/Globulin [Mass ratio]1.2 {ratio}[facility] Comment on above:Performed By: #### PT, PTT, CBC, CRP, CMP, ESR, TSH3, T4F #### [facility] [address] [place] [address] [place] #### CHROMATIN, THYGLOB AB, TPO, ALD, HLAB27, MYOG, CH50, LUPANTCOAG, HITESH, C4, C3, RPR W RFX #### [facility] ,ALP [Catalytic activity/Vol]43 U/XZzagxx61-60UbsfgzouzSelect Medical Specialty Hospital - Canton Comment on above:Performed By: #### PT, PTT, CBC, CRP, CMP, ESR, TSH3, T4F #### [facility] [address] [place] [address] [place] #### CHROMATIN, THYGLOB AB, TPO, ALD, HLAB27, MYOG, CH50, LUPANTCOAG, HITESH, C4, C3, RPR W RFX #### [facility] ,ALT [Catalytic activity/Vol]39 U/NZuckcg72-94IypglznuaSelect Medical Specialty Hospital - Canton Comment on above:Performed By: #### PT, PTT, CBC, CRP, CMP, ESR, TSH3, T4F #### [facility] [address] [place] [address] [place] #### CHROMATIN, THYGLOB AB, TPO, ALD, HLAB27, MYOG, CH50, LUPANTCOAG, HITESH, C4, C3, RPR W RFX #### [facility] ,AST [Catalytic activity/Vol]24 U/YHmnnzh06-51UrrqekcbjSelect Medical Specialty Hospital - [place] Comment on above:Performed By: #### PT, PTT, CBC, CRP, CMP, ESR, TSH3, T4F #### [place] [address] [place] #### CHROMATIN, THYGLOB AB, TPO, ALD, HLAB27, MYOG, CH50, LUPANTCOAG, HITESH, C4, C3, RPR W RFX #### [facility] ,Bilirubin [Mass/Vol]1.0 mg/dLNormal0.3-1.2FBrown Memorial Hospital Comment on above:Performed By: #### PT, PTT, CBC, CRP, CMP, ESR, TSH3, T4F #### [address] #### CHROMATIN, THYGLOB AB, TPO, ALD, HLAB27, MYOG, CH50, LUPANTCOAG, HITESH, C4, C3, RPR W RFX #### [facility] ,Calcium [Mass/Vol]9.4 mg/dLNormal8.2-10.[address] [place] [address] Comment on above:Performed By: #### PT, PTT, CBC, CRP, CMP, ESR, TSH3, T4F #### [place] [address] [place] #### CHROMATIN, THYGLOB AB, TPO, ALD, HLAB27, MYOG, CH50, LUPANTCOAG, HITESH, C4, C3, RPR W RFX #### [facility] ,Chloride [Moles/Vol]104 mmol/DNlqgfc61-766NwiyraklcSelect Medical Specialty Hospital - [facility] Comment on above:Performed By: #### PT, PTT, CBC, CRP, CMP, ESR, TSH3, T4F #### [place] [address] [place] #### CHROMATIN, THYGLOB AB, TPO, ALD, HLAB27, MYOG, CH50, LUPANTCOAG, HITESH, C4, C3, RPR W RFX #### [facility] ,CO2 [Moles/Vol]22.7 mmol/ZXlcmqt21.0-30.0[facility] Comment on above:Performed By: #### PT, PTT, CBC, CRP, CMP, ESR, TSH3, T4F #### [place] [address] [place] #### CHROMATIN, THYGLOB AB, TPO, ALD, HLAB27, MYOG, CH50, LUPANTCOAG, HITESH, C4, C3, RPR W RFX #### [facility] ,Creatinine [Mass/Vol]0.60 mg/dLNormal0.44-1.03[facility] Comment on above:Performed By: #### PT, PTT, CBC, CRP, CMP, ESR, TSH3, T4F #### [facility] [address] [place] [address] #### CHROMATIN, THYGLOB AB, TPO, ALD, HLAB27, MYOG, CH50, LUPANTCOAG, HITESH, C4, C3, RPR W RFX #### [facility] ,Estimated GFR ( Nallely> 60[facility] Comment on above:Result Comment: GFR estimated reference range: According to KDOQI guidelines, <60 ml/min/1.73m2 is sufficient to diagnose a patient with chronic kidney disease.Performed By: #### PT, PTT, CBC, CRP, CMP, ESR, TSH3, T4F #### [address] #### CHROMATIN, THYGLOB AB, TPO, ALD, HLAB27, MYOG, CH50, LUPANTCOAG, HITESH, C4, C3, RPR W RFX #### [facility] ,Estimated GFR (Non- Am> 60[facility] Medical CenterComment on above:Performed By: #### PT, PTT, CBC, CRP, CMP, ESR, TSH3, T4F #### [address] #### CHROMATIN, THYGLOB AB, TPO, ALD, HLAB27, MYOG, CH50, LUPANTCOAG, HITESH, C4, C3, RPR W RFX #### [facility] ,Globulin (S) [Mass/Vol]3.3 g/dLNoVan Wert County HospitalComment on above:Performed By: #### PT, PTT, CBC, CRP, CMP, ESR, TSH3, T4F #### [place] [address] [place] #### CHROMATIN, THYGLOB AB, TPO, ALD, HLAB27, MYOG, CH50, LUPANTCOAG, HITESH, C4, C3, RPR W RFX #### [facility] ,Glucose [Mass/Vol]89 mg/lKShhiub52-694ElvtzrpvmSelect Medical Specialty Hospital - CantonComment on above:Performed By: #### PT, PTT, CBC, CRP, CMP, ESR, TSH3, T4F #### [place] [address] [place] #### CHROMATIN, THYGLOB AB, TPO, ALD, HLAB27, MYOG, CH50, LUPANTCOAG, HITESH, C4, C3, RPR W RFX #### [facility] ,Potassium [Moles/Vol]4.3 mmol/LNormal3.5-5.1FBrown Memorial Hospital Comment on above:Performed By: #### PT, PTT, CBC, CRP, CMP, ESR, TSH3, T4F #### [facility] [address] [place] [address] [place] #### CHROMATIN, THYGLOB AB, TPO, ALD, HLAB27, MYOG, CH50, LUPANTCOAG, HITESH, C4, C3, RPR W RFX #### [facility] ,Protein [Mass/Vol]7.2 g/dLNormal6.1-7.9Select [facility] Specialty Hospital - CantonComment on above:Performed By: #### PT, PTT, CBC, CRP, CMP, ESR, TSH3, T4F #### [place] [address] [place] #### CHROMATIN, THYGLOB AB, TPO, ALD, HLAB27, MYOG, CH50, LUPANTCOAG, HITESH, C4, C3, RPR W RFX #### [facility] ,Sodium [Moles/Vol]136 mmol/ZUukccz137-099GgwnzgvkhSelect Medical Specialty Hospital - [place] Comment on above:Performed By: #### PT, PTT, CBC, CRP, CMP, ESR, TSH3, T4F #### [facility] [address] [place] [address] [place] #### CHROMATIN, THYGLOB AB, TPO, ALD, HLAB27, MYOG, CH50, LUPANTCOAG, HITESH, C4, C3, RPR W RFX #### [facility] ,Urea nitrogen [Mass/Vol]9 mg/dLNormal9-23[facility] Comment on above:Performed By: #### PT, PTT, CBC, CRP, CMP, ESR, TSH3, T4F #### [facility] [address] [place] [address] [place] #### CHROMATIN, THYGLOB AB, TPO, ALD, HLAB27, MYOG, CH50, LUPANTCOAG, HITESH, C4, C3, RPR W RFX #### [facility] ,Lipid Profileon 68-08-0065Wtihoolicuj [Mass/Vol]153 mg/gVWkwmzj444-157BpbiugokhSelect Medical Specialty Hospital - CantonComment on above:Result Comment: Chol less than 200 mg/dl low risk Chol 201-239 mg/dl borderline risk Chol 240 mg/dl and greater high riskPerformed By: #### PT, PTT, CBC, CRP, CMP, ESR, TSH3, T4F #### [facility] [address] [place] [address] [place] #### CHROMATIN, THYGLOB AB, TPO, ALD, HLAB27, MYOG, CH50, LUPANTCOAG, HITESH, C4, C3, RPR W RFX #### [facility] ,Cholesterol in HDL [Mass/Vol]54 mg/fQZhzmzr06-82DhzxhtuyjSelect Medical Specialty Hospital - CantonComment on above:Result Comment: HDL CHOL ATP-III CLASSIFICATION Cardiovascular Risk HDL > or equal to 60 mg/dL LOW HDL < 40 mg/dL HIGHPerformed By: #### PT, PTT, CBC, CRP, CMP, ESR, TSH3, T4F #### [place] [address] [place] #### CHROMATIN, THYGLOB AB, TPO, ALD, HLAB27, MYOG, CH50, LUPANTCOAG, HITESH, C4, C3, RPR W RFX #### [facility] ,Cholesterol.total/Cholesterol in HDL [Mass ratio]2.8 {ratio}Normal<5.0Select [facility] Special[facility] Hospital - CantonComment on above:Result Comment: PERFORMED BY: [place] [address] PATHOLOGIST [employer] REPRESENTATIVE LUKE JAIME M.D.Performed By: #### PT, PTT, CBC, CRP, CMP, ESR, TSH3, T4F #### [address] #### CHROMATIN, THYGLOB AB, TPO, ALD, HLAB27, MYOG, CH50, LUPANTCOAG, HITESH, C4, C3, RPR W RFX #### [facility] ,LDL Cholesterol,Amiovvyugc00 mg/dLNormal0-100[facility] Comment on above:Result Comment: LDL ATP III CLASSIFICATION LDL less than 100 mg/dL Optimal LDL 100-129 mg/dL Near or above optimal LDL 130-159 mg/dL Borderline high LDL 160-189 mg/dL High LDL greater than 189 mg/dL Very highPerformed By: #### PT, PTT, CBC, CRP, CMP, ESR, TSH3, T4F #### [place] [address] [place] #### CHROMATIN, THYGLOB AB, TPO, ALD, HLAB27, MYOG, CH50, LUPANTCOAG, HITESH, C4, C3, RPR W RFX #### [facility] ,Triglyceride w/Gjikqk84 mg/tUGpjtsi87-626IqxomiegcSelect Medical Specialty Hospital - [facility] Comment on above:Result Comment: TRIG ATP III CLASSIFICATION TRIG less than 150 mg/dL Normal TRIG 150-199 mg/dL Borderline high TRIG 200-500 mg/dL High TRIG greater than 500 mg/dL Very high Standard traceable to the Center for Disease Conrtrol and Prevention (CDC) test method.Performed By: #### PT, PTT, CBC, CRP, CMP, ESR, TSH3, T4F #### [place] [address] [place] #### CHROMATIN, THYGLOB AB, TPO, ALD, HLAB27, MYOG, CH50, LUPANTCOAG, HITESH, C4, C3, RPR W RFX #### [facility] ,VLDL CHOLESTEROL8 mg/dLNormalSelect Medical Specialty Hospital - CantonComment on above: Performed By: #### PT, PTT, CBC, CRP, CMP, ESR, TSH3, T4F #### [place] [address] [place] #### CHROMATIN, THYGLOB AB, TPO, ALD, HLAB27, MYOG, CH50, LUPANTCOAG, HITESH, C4, C3, RPR W RFX #### [facility] ,HITESH Antinuclear Antibodieson 40-61-7534Hkxgicogwhm Abs, IFANegativeNormal. [facility] - CantonComment on above:Order Comment: Specimen Comment: Test(s) 212333-Jkzkvmjcjge Specimen Comment: was developed and its performance characteristics Specimen Comment: determined by [facility]. It has not been cleared or approved Specimen Comment: by the Food and Drug Administration. List any foods/meds the pt has taken (see Test/Proc Notes):: N/A Patient Posture before Draw (see Test/Proc Notes):: SITTING UPResult Comment: Negative <1:80 Borderline 1:80 Positive >1:80 Performed at: [facility] [id number] Garbage Truck Driver: Oj Martin PhD, Phone: [phone] By: #### PT, PTT, CBC, CRP, CMP, ESR, TSH3, T4F #### [place] [address] [place] #### CHROMATIN, THYGLOB AB, TPO, ALD, HLAB27, MYOG, CH50, LUPANTCOAG, HITESH, C4, C3, RPR W RFX #### [facility] ,Aldosteroneon 64-52-9260Mctjzvbppcd7.0 ng/dLNormal0.0-30.0[facility] - CantonComment on above:Order Comment: Specimen Comment: Test(s) [id number] Specimen Comment: was developed and its performance characteristics Specimen Comment: determined by [facility]. It has not been cleared or approved Specimen Comment: by the Food and Drug Administration. List any foods/meds the pt has taken (see Test/Proc Notes):: N/A Patient Posture before Draw (see Test/Proc Notes):: SITTING UPResult Comment: Performed at: [address] [id number] Garbage Truck Driver: Radha Patel MD, Phone: [phone] By: #### PT, PTT, CBC, CRP, CMP, ESR, TSH3, T4F #### [address] #### CHROMATIN, THYGLOB AB, TPO, ALD, HLAB27, MYOG, CH50, LUPANTCOAG, HITESH, C4, C3, RPR W RFX #### [facility] ,Antithyroglobulin Abon 95-37-2960Myqrrfyfpnppsfmhd Ab175.7High0.0-0.9[facility] - CantonComment on above:Order Comment: Specimen Comment: Test(s) [id number]-Umsammorsfk Specimen Comment: was developed and itsperformance characteristics Specimen Comment: determined by [facility]. It has not been cleared or approved Specimen Comment: by the Food and Drug Administration. List any foods/meds the pt has taken (see Test/Proc Notes):: N/A Patient Posture before Draw (see Test/Proc Notes):: SITTING UPResult Comment: Thyroglobulin Antibody measured by [employer] Performed at: [address] [id number] Garbage Truck Driver: Oj Martin PhD, Phone: [phone] By: #### PT, PTT, CBC, CRP, CMP, ESR, TSH3, T4F #### [place] [address] [place] #### CHROMATIN, THYGLOB AB, TPO, ALD, HLAB27, MYOG, CH50, LUPANTCOAG, HITESH, C4, C3, RPR W RFX #### [facility] ,C-Reactive Proteinon 25-55-0324H-Reactive Protein0.7 mg/dLNormal0.0-1.0 [facility] - CantonComment on above:Performed By: #### PT, PTT, CBC, CRP, CMP, ESR, TSH3, T4F #### [facility] [address] #### CHROMATIN, THYGLOB AB, TPO, ALD, HLAB27, MYOG, CH50, LUPANTCOAG, HITESH, C4, C3, RPR W RFX #### [facility] ,Chromatin Antibodyon 78-62-7054Opbpgbvnr Antibody<0.8Efeplm8.0-0.9[facility] - CantonComment on above:Order Comment: Specimen Comment: Test(s) [id number]-Ejhwhaxmpgc Specimen Comment: was developed and itsperformance characteristics Specimen Comment: determined by [facility]. It has not been cleared or approved Specimen Comment: by the Food and Drug Administration. List any foods/meds the pt has taken (see Test/Proc Notes):: N/A Patient Posture before Draw (see Test/Proc Notes):: SITTING UPPerformed By: #### PT, PTT, CBC, CRP, CMP, ESR, TSH3, T4F #### [facility] [address] [place] [address] [place] #### CHROMATIN, THYGLOB AB, TPO, ALD, HLAB27, MYOG, CH50, LUPANTCOAG, HITESH, C4, C3, RPR W RFX #### [facility] ,Complement C3on 33-09-3193Mpuccqpplm C3130 mg/mCMjepfe10-456GunertbouSelect Medical Specialty Hospital - CantonComment on above:Order Comment: Specimen Comment: Test(s) [id number]- Aldosterone Specimen Comment: was developed and itsperformance characteristics Specimen Comment: determined by [facility]. It has not been cleared or approved Specimen Comment: by the Food and Drug Administration. List any foods/meds the pt has taken (see Test/Proc Notes):: N/A Patient Posture before Draw (see Test/Proc Notes):: SITTING UPPerformed By: #### PT, PTT, CBC, CRP, CMP, ESR, TSH3, T4F #### [place] [address] [place] #### CHROMATIN, THYGLOB AB, TPO, ALD, HLAB27, MYOG, CH50, LUPANTCOAG, HITESH, C4, C3, RPR W RFX #### [facility] ,Complement C4on [id number] C425 mg/oIRiwasj19-06GnkyxgcpuSelect Medical Specialty Hospital - CantonComment on above:Order Comment: Specimen Comment: Test(s) 812341- Aldosterone Specimen Comment: was developed and itsperformance characteristics Specimen Comment: determined by [facility]. It has not been cleared or approved Specimen Comment: by the Food and Drug Administration. List any foods/meds the pt has taken (see Test/Proc Notes):: N/A Patient Posture before Draw (see Test/Proc Notes):: SITTING UPPerformed By: #### PT, PTT, CBC, CRP, CMP, ESR, TSH3, T4F #### [place] [address] [place] #### CHROMATIN, THYGLOB AB, TPO, ALD, HLAB27, MYOG, CH50, LUPANTCOAG, HITESH, C4, C3, RPR W RFX #### [facility] ,Complement Total (CH50)on 56-72-5119Cuuglcvhwk Total (CH50)>60Normal>41 [facility] - CantonComment on above:Order Comment: Specimen Comment: Test(s) [id number]-Fvhzbtuqfvf Specimen Comment: was developed and its performance characteristics Specimen Comment: determined by [facility]. It has not been cleared or approved Specimen Comment: by the Food and Drug Administration. List any foods/meds the pt has taken (see Test/Proc Notes):: N/A Patient Posture before Draw (see Test/Proc Notes):: SITTING UPResult Comment: Age Male Female 1 - 30 [...] out of range values. Performed at: - [facility] [id number] Garbage Truck Driver: Oj Martin PhD, Phone: [phone] By: #### PT, PTT, CBC, CRP, CMP, ESR, TSH3, T4F #### [address] #### CHROMATIN, THYGLOB AB, TPO, ALD, HLAB27, MYOG, CH50, LUPANTCOAG, HITESH, C4, C3, RPR W RFX #### [facility] ,Complete Blood Count Auto Diffon [id number] (Bld) [#/Vol]0.0 10*3/uL Normal0.0-0.2FBrown Memorial HospitalComment on above:Performed By: #### PT, PTT, CBC, CRP, CMP, ESR, TSH3, T4F #### [address] #### CHROMATIN, THYGLOB AB, TPO, ALD, HLAB27, MYOG, CH50, LUPANTCOAG, HITESH, C4, C3, RPR W RFX #### [facility] ,Basophils/100 WBC (Bld)1.0 %Normal.[facility] - CantonComment on above:Performed By: #### PT, PTT, CBC, CRP, CMP, ESR, TSH3, T4F #### [place] [address] [place] #### CHROMATIN, THYGLOB AB, TPO, ALD, HLAB27, MYOG, CH50, LUPANTCOAG, HITESH, C4, C3, RPR W RFX #### [facility] ,Eosinophils (Bld) [#/Vol]0.1 10*3/uLNormal0.0-0.45[facility] - CantonComment on above:Performed By: #### PT, PTT, CBC, CRP, CMP, ESR, TSH3, T4F #### [address] #### CHROMATIN, THYGLOB AB, TPO, ALD, HLAB27, MYOG, CH50, LUPANTCOAG, HITESH, C4, C3, RPR W RFX #### [facility] ,Eosinophils/100 WBC (Bld)2.0 %Normal.[facility] - CantonComment on above:Performed By: #### PT, PTT, CBC, CRP, CMP, ESR, TSH3, T4F #### [address] #### CHROMATIN, THYGLOB AB, TPO, ALD, HLAB27, MYOG, CH50, LUPANTCOAG, HITESH, C4, C3, RPR W RFX #### [facility] ,Erythrocyte distribution width (RBC) [Ratio]12.5 %Hqrams55.9-15.3FBrown Memorial HospitalComment on above:Performed By: #### PT, PTT, CBC, CRP, CMP, ESR, TSH3, T4F #### [place] [address] [place] #### CHROMATIN, THYGLOB AB, TPO, ALD, HLAB27, MYOG, CH50, LUPANTCOAG, HITESH, C4, C3, RPR W RFX #### [facility] ,Hematocrit (Bld) [Volume fraction]38.8 %Roeezp43.0-46.4FBrown Memorial HospitalComment on above:Performed By: #### PT, PTT, CBC, CRP, CMP, ESR, TSH3, T4F #### [place] [address] [place] #### CHROMATIN, THYGLOB AB, TPO, ALD, HLAB27, MYOG, CH50, LUPANTCOAG, HITESH, C4, C3, RPR W RFX #### [facility] ,Hemoglobin (Bld) [Mass/Vol]13.4 g/bXVcsday27.8-15.4FBrown Memorial HospitalComment on above:Performed By: #### PT, PTT, CBC, CRP, CMP, ESR, TSH3, T4F #### [address] #### CHROMATIN, THYGLOB AB, TPO, ALD, HLAB27, MYOG, CH50, LUPANTCOAG, HITESH, C4, C3, RPR W RFX #### [facility] ,Lymphocytes (Bld) [#/Vol]1.1 10*3/uLNormal1.00-4.8[facility] - CantonComment on above:Performed By: #### PT, PTT, CBC, CRP, CMP, ESR, TSH3, T4F #### [place] [address] [place] #### CHROMATIN, THYGLOB AB, TPO, ALD, HLAB27, MYOG, CH50, LUPANTCOAG, HITESH, C4, C3, RPR W RFX #### [facility] ,Lymphocytes/100 WBC (Bld)25.9 %Normal.[facility] - CantonComment on above:Performed By: #### PT, PTT, CBC, CRP, CMP, ESR, TSH3, T4F #### [place] [address] [place] #### CHROMATIN, THYGLOB AB, TPO, ALD, HLAB27, MYOG, CH50, LUPANTCOAG, HITESH, C4, C3, RPR W RFX #### [facility] ,MCH (RBC) [Entitic mass]31.4 mvPcdzvj04.7-34.3FBrown Memorial Hospital Comment on above:Performed By: #### PT, PTT, CBC, CRP, CMP, ESR, TSH3, T4F #### [place] [address] [place] #### CHROMATIN, THYGLOB AB, TPO, ALD, HLAB27, MYOG, CH50, LUPANTCOAG, HITESH, C4, C3, RPR W RFX #### [facility] ,MCV (RBC) [Entitic vol]91.3 bDMcgifn11-971ZjnfadamsSelect Medical Specialty Hospital - Canton Comment on above:Performed By: #### PT, PTT, CBC, CRP, CMP, ESR, TSH3, T4F #### [address] #### CHROMATIN, THYGLOB AB, TPO, ALD, HLAB27, MYOG, CH50, LUPANTCOAG, HITESH, C4, C3, RPR W RFX #### [facility] ,Mean Corpuscular HGB Conc34.4 g/hBYpeipz87.0-35.0[facility] - CantonComment on above:Performed By: #### PT, PTT, CBC, CRP, CMP, ESR, TSH3, T4F #### [address] #### CHROMATIN, THYGLOB AB, TPO, ALD, HLAB27, MYOG, CH50, LUPANTCOAG, HITESH, C4, C3, RPR W RFX #### [facility] ,Monocytes (Bld) [#/Vol]0.2 10*3/uLNormal0.0-0.8[facility] - CantonComment on above:Performed By: #### PT, PTT, CBC, CRP, CMP, ESR, TSH3, T4F #### [address] #### CHROMATIN, THYGLOB AB, TPO, ALD, HLAB27, MYOG, CH50, LUPANTCOAG, HITESH, C4, C3, RPR W RFX #### [facility] ,Monocytes/100 WBC (Bld)5.4 %Normal.[facility] - CantonComment on above:Performed By: #### PT, PTT, CBC, CRP, CMP, ESR, TSH3, T4F #### [place] [address] [place] #### CHROMATIN, THYGLOB AB, TPO, ALD, HLAB27, MYOG, CH50, LUPANTCOAG, HITESH, C4, C3, RPR W RFX #### [facility] ,Neutrophils (Bld) [#/Vol]2.8 10*3/uLNormal1.8-7.7FBrown Memorial HospitalComment on above:Performed By: #### PT, PTT, CBC, CRP, CMP, ESR, TSH3, T4F #### [address] #### CHROMATIN, THYGLOB AB, TPO, ALD, HLAB27, MYOG, CH50, LUPANTCOAG, HITESH, C4, C3, RPR W RFX #### [facility] ,Neutrophils/100 WBC (Bld)65.7 %Normal.[facility] - CantonComment on above:Performed By: #### PT, PTT, CBC, CRP, CMP, ESR, TSH3, T4F #### [place] [address] [place] #### CHROMATIN, THYGLOB AB, TPO, ALD, HLAB27, MYOG, CH50, LUPANTCOAG, HITESH, C4, C3, RPR W RFX #### [facility] ,Nucleated RBC/100 WBC (Bld) [Ratio]0.1 %Normal0-0.5FBrown Memorial HospitalComkarmanos cancer center on above:Performed By: #### PT, PTT, CBC, CRP, CMP, ESR, TSH3, T4F #### [place] [address] [place] #### CHROMATIN, THYGLOB AB, TPO, ALD, HLAB27, MYOG, CH50, LUPANTCOAG, HITESH, C4, C3, RPR W RFX #### [facility] ,Platelet mean volume (Bld) [Entitic vol]9.9 fLNormal6.3-10.7FBrown Memorial HospitalComment on above:Performed By: #### PT, PTT, CBC, CRP, CMP, ESR, TSH3, T4F #### [facility] [address] [place] [address] [place] #### CHROMATIN, THYGLOB AB, TPO, ALD, HLAB27, MYOG, CH50, LUPANTCOAG, HITESH, C4, C3, RPR W RFX #### [facility] ,Platelets (Bld) [#/Vol]214 10*3/cVIuycqx214-150EhieoghldSelect Medical Specialty Hospital - CantonComment on above:Performed By: #### PT, PTT, CBC, CRP, CMP, ESR, TSH3, T4F #### [facility] [address] [place] [address] [place] #### CHROMATIN, THYGLOB AB, TPO, ALD, HLAB27, MYOG, CH50, LUPANTCOAG, HITESH, C4, C3, RPR W RFX #### [facility] ,RBC (Bld) [#/Vol]4.25 10*6/uLNormal3.60-5.00[facility] Comment on above:Performed By: #### PT, PTT, CBC, CRP, CMP, ESR, TSH3, T4F #### [facility] [address] [place] [address] [place] #### CHROMATIN, THYGLOB AB, TPO, ALD, HLAB27, MYOG, CH50, LUPANTCOAG, HITESH, C4, C3, RPR W RFX #### [facility] ,WBC (Bld) [#/Vol]4.2 10*3/uLLow4.5-11.0[facility] - CantonComment on above:Performed By: #### PT, PTT, CBC, CRP, CMP, ESR, TSH3, T4F #### [facility] [address] [place] [address] [place] #### CHROMATIN, THYGLOB AB, TPO, ALD, HLAB27, MYOG, CH50, LUPANTCOAG, HITESH, C4, C3, RPR W RFX #### [facility] ,Comprehensive Metabolic Panelon [id number] [Mass/Vol]3.9 g/dLNormal 3.2-5.5FBrown Memorial HospitalComment on above:Performed By: #### PT, PTT, CBC, CRP, CMP, ESR, TSH3, T4F #### [facility] [address] [place] [address] [place] #### CHROMATIN, THYGLOB AB, TPO, ALD, HLAB27, MYOG, CH50, LUPANTCOAG, HITESH, C4, C3, RPR W RFX #### [facility] ,Albumin/Globulin [Mass ratio]1.3 {ratio}[facility] Comment on above:Performed By: #### PT, PTT, CBC, CRP, CMP, ESR, TSH3, T4F #### [place] [address] [place] #### CHROMATIN, THYGLOB AB, TPO, ALD, HLAB27, MYOG, CH50, LUPANTCOAG, HITESH, C4, C3, RPR W RFX #### [facility] ,ALP [Catalytic activity/Vol]52 U/UOukxxt20-33XlczaquhiSelect Medical Specialty Hospital - Canton Comment on above:Performed By: #### PT, PTT, CBC, CRP, CMP, ESR, TSH3, T4F #### [facility] [address] [place] [address] [place] #### CHROMATIN, THYGLOB AB, TPO, ALD, HLAB27, MYOG, CH50, LUPANTCOAG, HITESH, C4, C3, RPR W RFX #### [facility] ,ALT [Catalytic activity/Vol]20 U/XLbaxut53-29ItckuvzgaSelect Medical Specialty Hospital - Canton Comment on above:Performed By: #### PT, PTT, CBC, CRP, CMP, ESR, TSH3, T4F #### [place] [address] [place] #### CHROMATIN, THYGLOB AB, TPO, ALD, HLAB27, MYOG, CH50, LUPANTCOAG, HITESH, C4, C3, RPR W RFX #### [facility] ,AST [Catalytic activity/Vol]24 U/OPuvvmb15-84KfofahvrjSelect Medical Specialty Hospital - Canton Comment on above:Performed By: #### PT, PTT, CBC, CRP, CMP, ESR, TSH3, T4F #### [address] #### CHROMATIN, THYGLOB AB, TPO, ALD, HLAB27, MYOG, CH50, LUPANTCOAG, HITESH, C4, C3, RPR W RFX #### [facility] ,Bilirubin [Mass/Vol]0.7 mg/dLNormal0.3-1.2FBrown Memorial Hospital Comment on above:Performed By: #### PT, PTT, CBC, CRP, CMP, ESR, TSH3, T4F #### [place] [address] [place] #### CHROMATIN, THYGLOB AB, TPO, ALD, HLAB27, MYOG, CH50, LUPANTCOAG, HITESH, C4, C3, RPR W RFX #### [facility] ,Calcium [Mass/Vol]9.6 mg/dLNormal8.2-10.[address] [place] [address] Comment on above:Performed By: #### PT, PTT, CBC, CRP, CMP, ESR, TSH3, T4F #### [place] [address] [place] #### CHROMATIN, THYGLOB AB, TPO, ALD, HLAB27, MYOG, CH50, LUPANTCOAG, HITESH, C4, C3, RPR W RFX #### [facility] ,Chloride [Moles/Vol]103 mmol/WPygeef77-839EqvrhrxudSelect Medical Specialty Hospital - Canton Comment on above:Performed By: #### PT, PTT, CBC, CRP, CMP, ESR, TSH3, T4F #### [place] [address] [place] #### CHROMATIN, THYGLOB AB, TPO, ALD, HLAB27, MYOG, CH50, LUPANTCOAG, HITESH, C4, C3, RPR W RFX #### [facility] ,CO2 [Moles/Vol]23.4 mmol/MYeyghx22.0-30.0[facility] Comment on above:Performed By: #### PT, PTT, CBC, CRP, CMP, ESR, TSH3, T4F #### [address] #### CHROMATIN, THYGLOB AB, TPO, ALD, HLAB27, MYOG, CH50, LUPANTCOAG, HITESH, C4, C3, RPR W RFX #### [facility] ,Creatinine [Mass/Vol]0.62 mg/dLNormal0.44-1.03[facility] Comment on above:Performed By: #### PT, PTT, CBC, CRP, CMP, ESR, TSH3, T4F #### [place] [address] [place] #### CHROMATIN, THYGLOB AB, TPO, ALD, HLAB27, MYOG, CH50, LUPANTCOAG, HITESH, C4, C3, RPR W RFX #### [facility] ,Estimated GFR ( Nallely> 60NoVan Wert County Hospital Comment on above:Result Comment: GFR estimated reference range: According to KDOQI guidelines, <60 ml/min/1.73m2 is sufficient to diagnose a patient with chronic kidney disease.Performed By: #### PT, PTT, CBC, CRP, CMP, ESR, TSH3, T4F #### [address] #### CHROMATIN, THYGLOB AB, TPO, ALD, HLAB27, MYOG, CH50, LUPANTCOAG, HITESH, C4, C3, RPR W RFX #### [facility] ,Estimated GFR (Non- Am> 60NormUniversity Hospitals Samaritan Medical CenterComment on above:Performed By: #### PT, PTT, CBC, CRP, CMP, ESR, TSH3, T4F #### [address] #### CHROMATIN, THYGLOB AB, TPO, ALD, HLAB27, MYOG, CH50, LUPANTCOAG, HITESH, C4, C3, RPR W RFX #### [facility] ,Globulin (S) [Mass/Vol]3.1 g/dLNormUniversity Hospitals Samaritan Medical CenterComment on above:Performed By: #### PT, PTT, CBC, CRP, CMP, ESR, TSH3, T4F #### [address] #### CHROMATIN, THYGLOB AB, TPO, ALD, HLAB27, MYOG, CH50, LUPANTCOAG, HITESH, C4, C3, RPR W RFX #### [facility] ,Glucose [Mass/Vol]80 mg/wNDzprke53-636Fgroacqld[address] [place], [place] [address]Comment on above:Result Comment: Random Glucose Reference Range is dependent on time and content of last meal. Glucose of more than 200 mg/dL in a nonstressed, ambulatory subject supports the diagnosis of Diabetes Mellitus. ADA recommended reference rangePerformed By: #### PT, PTT, CBC, CRP, CMP, ESR, TSH3, T4F #### [address] #### CHROMATIN, THYGLOB AB, TPO, ALD, HLAB27, MYOG, CH50, LUPANTCOAG, HITESH, C4, C3, RPR W RFX #### [facility] ,Potassium [Moles/Vol]4.1 mmol/LNormal3.5-5.1FBrown Memorial Hospital Comment on above:Performed By: #### PT, PTT, CBC, CRP, CMP, ESR, TSH3, T4F #### [place] [address] [place] #### CHROMATIN, THYGLOB AB, TPO, ALD, HLAB27, MYOG, CH50, LUPANTCOAG, HITESH, C4, C3, RPR W RFX #### [facility] ,Protein [Mass/Vol]7.0 g/dLNormal6.1-7.9[facility] - CantonComment on above:Performed By: #### PT, PTT, CBC, CRP, CMP, ESR, TSH3, T4F #### [place] [address] [place] #### CHROMATIN, THYGLOB AB, TPO, ALD, HLAB27, MYOG, CH50, LUPANTCOAG, HITESH, C4, C3, RPR W RFX #### [facility] ,Sodium [Moles/Vol]138 mmol/ZWtwphu393-245JrcpxguvsSelect Medical Specialty Hospital - Canton Comment on above:Performed By: #### PT, PTT, CBC, CRP, CMP, ESR, TSH3, T4F #### [address] #### CHROMATIN, THYGLOB AB, TPO, ALD, HLAB27, MYOG, CH50, LUPANTCOAG, HITESH, C4, C3, RPR W RFX #### [facility] ,Urea nitrogen [Mass/Vol]9 mg/dLNormal9-23[facility] Comment on above:Performed By: #### PT, PTT, CBC, CRP, CMP, ESR, TSH3, T4F #### [place] [address] [place] #### CHROMATIN, THYGLOB AB, TPO, ALD, HLAB27, MYOG, CH50, LUPANTCOAG, HITESH, C4, C3, RPR W RFX #### [facility] ,Dipstick and Microscopicon 54-05-9931Rnwvcrkgsf (U)ClearNoalClearSelect Medical Specialty Hospital - CantonComment on above:Order Comment: Name Collection Type:: Clean-Voided MidstreamPerformed By: #### PT, PTT, CBC, CRP, CMP, ESR, TSH3, T4F #### [place] [address] [place] #### CHROMATIN, THYGLOB AB, TPO, ALD, HLAB27, MYOG, CH50, LUPANTCOAG, HITESH, C4, C3, RPR W RFX #### [facility] ,Bacteria,UrineNone SeenNormalAbrazo Arrowhead Campuse SeenSelect Medical Specialty Hospital - CantonComment on above:Order Comment: Name Collection Type:: Clean-Voided MidstreamPerformed By: #### PT, PTT, CBC, CRP, CMP, ESR, TSH3, T4F #### [address] #### CHROMATIN, THYGLOB AB, TPO, ALD, HLAB27, MYOG, CH50, LUPANTCOAG, HITESH, C4, C3, RPR W RFX #### [facility] ,Bilirubin,UrineNegativeNormalNegativeSelect Medical Specialty Hospital - CantonComment on above:Order Comment: Name Collection Type:: Clean-Voided MidstreamPerformed By: #### PT, PTT, CBC, CRP, CMP, ESR, TSH3, T4F #### [address] #### CHROMATIN, THYGLOB AB, TPO, ALD, HLAB27, MYOG, CH50, LUPANTCOAG, HITESH, C4, C3, RPR W RFX #### [facility] ,Color (U)YellowNormalYellowSelect Medical Specialty Hospital - CantonComment on above: Order Comment: Name Collection Type:: Clean-Voided MidstreamPerformed By: #### PT, PTT, CBC, CRP, CMP, ESR, TSH3, T4F #### [address] #### CHROMATIN, THYGLOB AB, TPO, ALD, HLAB27, MYOG, CH50, LUPANTCOAG, HITESH, C4, C3, RPR W RFX #### [facility] ,Glucose Ql (U)NormalNormalNormUniversity Hospitals Samaritan Medical CenterComment on above:Order Comment: Name Collection Type:: Clean-Voided MidstreamPerformed By: #### PT, PTT, CBC, CRP, CMP, ESR, TSH3, T4F #### [address] #### CHROMATIN, THYGLOB AB, TPO, ALD, HLAB27, MYOG, CH50, LUPANTCOAG, HITESH, C4, C3, RPR W RFX #### [facility] ,Hyaline Casts,Lghlg0-9Nmlojf0-9UsljmpedlSelect Medical Specialty Hospital - CantonComment on above:Order Comment: Name Collection Type:: Clean-Voided MidstreamResult Comment: PERFORMED BY: [place] [address] PATHOLOGIST PROMOTIONS REPRESENTATIVE LUKE JAIME M.D.Performed By: #### PT, PTT, CBC, CRP, CMP, ESR, TSH3, T4F #### [address] #### CHROMATIN, THYGLOB AB, TPO, ALD, HLAB27, MYOG, CH50, LUPANTCOAG, HITESH, C4, C3, RPR W RFX #### [facility] ,Ketones Ql (U)NegativeNormalNegTriHealth McCullough-Hyde Memorial HospitalComment on above:Order Comment: Name Collection Type:: Clean-Voided MidstreamPerformed By: #### PT, PTT, CBC, CRP, CMP, ESR, TSH3, T4F #### [address] #### CHROMATIN, THYGLOB AB, TPO, ALD, HLAB27, MYOG, CH50, LUPANTCOAG, HITESH, C4, C3, RPR W RFX #### [facility] ,Leukocyte esterase Test strip Ql (U)1+HighNegTriHealth McCullough-Hyde Memorial HospitalComment on above:Order Comment: Name Collection Type:: Clean-Voided MidstreamPerformed By: #### PT, PTT, CBC, CRP, CMP, ESR, TSH3, T4F #### [place] [address] [place] #### CHROMATIN, THYGLOB AB, TPO, ALD, HLAB27, MYOG, CH50, LUPANTCOAG, HITESH, C4, C3, RPR W RFX #### [facility] ,Nitrite,UrineNegativeNormgaNegTriHealth McCullough-Hyde Memorial HospitalComment on above:Order Comment: Name Collection Type:: Clean-Voided MidstreamPerformed By: #### PT, PTT, CBC, CRP, CMP, ESR, TSH3, T4F #### [address] #### CHROMATIN, THYGLOB AB, TPO, ALD, HLAB27, MYOG, CH50, LUPANTCOAG, HITESH, C4, C3, RPR W RFX #### [facility] ,Occult Blood,UrineTraceHighNegTriHealth McCullough-Hyde Memorial HospitalComment on above:Order Comment: Name Collection Type:: Clean-Voided MidstreamPerformed By: #### PT, PTT, CBC, CRP, CMP, ESR, TSH3, T4F #### [address] #### CHROMATIN, THYGLOB AB, TPO, ALD, HLAB27, MYOG, CH50, LUPANTCOAG, HITESH, C4, C3, RPR W RFX #### [facility] ,pH (U)6.5 [pH]Normal5.0-9.0[facility] - CantonComment on above: Order Comment: Name Collection Type:: Clean-Voided MidstreamPerformed By: #### PT, PTT, CBC, CRP, CMP, ESR, TSH3, T4F #### [address] #### CHROMATIN, THYGLOB AB, TPO, ALD, HLAB27, MYOG, CH50, LUPANTCOAG, HITESH, C4, C3, RPR W RFX #### [facility] ,Protein,UrineNegativeNormalNegTriHealth McCullough-Hyde Memorial HospitalComment on above:Order Comment: Name Collection Type:: Clean-Voided MidstreamPerformed By: #### PT, PTT, CBC, CRP, CMP, ESR, TSH3, T4F #### [address] #### CHROMATIN, THYGLOB AB, TPO, ALD, HLAB27, MYOG, CH50, LUPANTCOAG, HITESH, C4, C3, RPR W RFX #### [facility] ,RBC LM.HPF (Urine sed) [#/Area]0 /[HPF]Normal0-4FBrown Memorial HospitalComment on above:Order Comment: Name Collection Type:: Clean-Voided MidstreamPerformed By: #### PT, PTT, CBC, CRP, CMP, ESR, TSH3, T4F #### [address] #### CHROMATIN, THYGLOB AB, TPO, ALD, HLAB27, MYOG, CH50, LUPANTCOAG, HITESH, C4, C3, RPR W RFX #### [facility] ,Specificy [place],Urine1.891Tqwnya7.001-1.030[facility] Comment on above:Order Comment: Name Collection Type:: Clean-Voided Midstream Performed By: #### PT, PTT, CBC, CRP, CMP, ESR, TSH3, T4F #### [address] #### CHROMATIN, THYGLOB AB, TPO, ALD, HLAB27, MYOG, CH50, LUPANTCOAG, HITESH, C4, C3, RPR W RFX #### [facility] ,Squamous Epithelial Cell,Zfych9-5Tviadj9-7SwjldsvfcBrown Memorial Hospital Comment on above:Order Comment: Name Collection Type:: Clean-Voided Midstream Performed By: #### PT, PTT, CBC, CRP, CMP, ESR, TSH3, T4F #### [address] #### CHROMATIN, THYGLOB AB, TPO, ALD, HLAB27, MYOG, CH50, LUPANTCOAG, HITESH, C4, C3, RPR W RFX #### [facility] ,Urobilinogen,UrineNormalNormalNormalSelect Medical Specialty Hospital - CantonComment on above:Order Comment: Name Collection Type:: Clean-Voided MidstreamPerformed By: #### PT, PTT, CBC, CRP, CMP, ESR, TSH3, T4F #### [address] #### CHROMATIN, THYGLOB AB, TPO, ALD, HLAB27, MYOG, CH50, LUPANTCOAG, HITESH, C4, C3, RPR W RFX #### [facility] ,WBC LM.HPF (Urine sed) [#/Area]0 /[HPF]Normal0-4FBrown Memorial HospitalComment on above:Order Comment: Name Collection Type:: Clean-Voided MidstreamPerformed By: #### PT, PTT, CBC, CRP, CMP, ESR, TSH3, T4F #### [address] #### CHROMATIN, THYGLOB AB, TPO, ALD, HLAB27, MYOG, CH50, LUPANTCOAG, HITESH, C4, C3, RPR W RFX #### [facility] ,Erythrocyte Sedimentation Rateon 55-40-1065ERV (Bld) [Velocity]11 mm/hNormal 0-19[facility] - CantonComment on above:Result Comment: PERFORMED BY: [place] [address] PATHOLOGIST PROMOTIONS REPRESENTATIVE LUKE JAIME M.D.Performed By: #### PT, PTT, CBC, CRP, CMP, ESR, TSH3, T4F #### [place] [address] [place] #### CHROMATIN, THYGLOB AB, TPO, ALD, HLAB27, MYOG, CH50, LUPANTCOAG, HITESH, C4, C3, RPR W RFX #### [facility] ,Free T4 (Free Thyroxine)on 38-21-5067Utni T4 [Mass/Vol]0.78 ng/dLNormal 0.61-1.12[facility] - CantonComment on above:Performed By: #### PT, PTT, CBC, CRP, CMP, ESR, TSH3, T4F #### [facility] [address] [place] [address] [place] #### CHROMATIN, THYGLOB AB, TPO, ALD, HLAB27, MYOG, CH50, LUPANTCOAG, HITESH, C4, C3, RPR W RFX #### [facility] ,HLA B27 Disease Associationon [id number] B27 Disease AssociationPositive Normal.[facility] CantonComment on above:Order Comment: Specimen Comment: Test(s) 486610-[id number] Specimen Comment: was developed and its performance characteristics Specimen Comment: determined by [facility]. It has not been cleared or approved Specimen Comment: by the Food and Drug Administration. List any foods/meds the pt has taken (see Test/Proc Notes):: N/A Patient Posture before Draw (see Test/Proc Notes):: SITTING UPResult Comment: HLA-B*27 Positive This patient is positive for HLA-B*27. [...] Drug Administration. [facility] CLIA ID Number [id number] This test was performed using PCR (Polymerase Chain Reaction)/SSOP (Sequence Specific Oligonucleotide Probes) technique. SBT (Sequence Based Typing) and/or SSP (Sequence Specific Primers) may be used as supplemental methods when necessary. Please contact [facility] Customer Service at if you have any questions. Director of [facility] Dr Sukhi Kinsey, PhD Performed at: [address] [id number] [employer]bage Truck Driver: Sukhi Kinsey PhD, Phone: [phone] By: #### PT, PTT, CBC, CRP, CMP, ESR, TSH3, T4F #### [place] [address] [place] #### CHROMATIN, THYGLOB AB, TPO, ALD, HLAB27, MYOG, CH50, LUPANTCOAG, HITESH, C4, C3, RPR W RFX #### [facility] ,Lupus Anticoagulant Compon [id number] Prothrombin Time (dPt)25.6Normal 0.0-55.0[facility] CantonComment on above:Order Comment: Specimen Comment: Test(s) [id number]-Lhrxooghxsv Specimen Comment: was developed and itsperformance characteristics Specimen Comment: determined by [facility]. It has not been cleared or approved Specimen Comment: by the Food and Drug Administration. List any foods/meds the pt has taken (see Test/Proc Notes):: N/A Patient Posture before Draw (see Test/Proc Notes):: SITTING UPPerformed By: #### PT, PTT, CBC, CRP, CMP, ESR, TSH3, T4F #### [place] [address] [place] #### CHROMATIN, THYGLOB AB, TPO, ALD, HLAB27, MYOG, CH50, LUPANTCOAG, HITESH, C4, C3, RPR W RFX #### [facility] ,dPT Confirm Ratio1.59Mugpag0.00-1.40[facility] CantonComment on above:Order Comment: Specimen Comment: Test(s) [id number] Specimen Comment: was developed and itsperformance characteristics Specimen Comment: determined by [facility]. It has not been cleared or approved Specimen Comment: by the Food and Drug Administration. List any foods/meds the pt has taken (see Test/Proc Notes):: N/A Patient Posture before Draw (see Test/Proc Notes):: SITTING UPPerformed By: #### PT, PTT, CBC, CRP, CMP, ESR, TSH3, T4F #### [place] [address] [place] #### CHROMATIN, THYGLOB AB, TPO, ALD, HLAB27, MYOG, CH50, LUPANTCOAG, HITESH, C4, C3, RPR W RFX #### [facility] ,DRVVT Lupus27.3Jpokcd0.0-47.0[facility] CantonComment on above: Order Comment: Specimen Comment: Test(s) [id number]-Wxguxpgorvt Specimen Comment: was developed and itsperformance characteristics Specimen Comment: determined by [facility]. It has not been cleared or approved Specimen Comment: by the Food and Drug Administration. List any foods/meds the pt has taken (see Test/Proc Notes):: N/A Patient Posture before Draw (see Test/Proc Notes):: SITTING UP Performed By: #### PT, PTT, CBC, CRP, CMP, ESR, TSH3, T4F #### [address] #### CHROMATIN, THYGLOB AB, TPO, ALD, HLAB27, MYOG, CH50, LUPANTCOAG, HITESH, C4, C3, RPR W RFX #### [facility] ,InterpretationComment:Normal.[facility] CantonComment on above: Order Comment: Specimen Comment: Test(s) 389438-Hfhutmuvfhi Specimen Comment: was developed and itsperformance characteristics Specimen Comment: determined by [facility]. It has not been cleared or approved Specimen Comment: by the Food and Drug Administration. List any foods/meds the pt has taken (see Test/Proc Notes):: N/A Patient Posture before Draw (see Test/Proc Notes):: SITTING UP Result Comment: No lupus anticoagulant was detected. Performed at: - [facility] [id number] Garbage Truck Driver: Radha Patel MD, Phone: [phone] By: #### PT, PTT, CBC, CRP, CMP, ESR, TSH3, T4F #### [address] #### CHROMATIN, THYGLOB AB, TPO, ALD, HLAB27, MYOG, CH50, LUPANTCOAG, HITESH, C4, C3, RPR W RFX #### [facility] ,PTT-LA31.5Hukifc1.0-51.9[facility] - CantonComment on above:Order Comment: Specimen Comment: Test(s) [id number]-Hkvdlaijimc Specimen Comment: was developed and itsperformance characteristics Specimen Comment: determined by [facility]. It has not been cleared or approved Specimen Comment: by the Food and Drug Administration. List any foods/meds the pt has taken (see Test/Proc Notes):: N/A Patient Posture before Draw (see Test/Proc Notes):: SITTING UP Performed By: #### PT, PTT, CBC, CRP, CMP, ESR, TSH3, T4F #### [facility] [address] [place] [address] [place] #### CHROMATIN, THYGLOB AB, TPO, ALD, HLAB27, MYOG, CH50, LUPANTCOAG, HITESH, C4, C3, RPR W RFX #### [facility] ,Thrombin Time19.8Ajmntn1.0-23.0[facility] CantonComment on above:Order Comment: Specimen Comment: Test(s) 554877-Newnolhlxxx Specimen Comment: was developed and itsperformance characteristics Specimen Comment: determined by [facility]. It has not been cleared or approved Specimen Comment: by the Food and Drug Administration. List any foods/meds the pt has taken (see Test/Proc Notes):: N/A Patient Posture before Draw (see Test/Proc Notes):: SITTING UPPerformed By: #### PT, PTT, CBC, CRP, CMP, ESR, TSH3, T4F #### [facility] [address] [place] [address] [place] #### CHROMATIN, THYGLOB AB, TPO, ALD, HLAB27, MYOG, CH50, LUPANTCOAG, HITESH, C4, C3, RPR W RFX #### [facility] ,Myoglobinon 46-83-6125Detimyvni [Mass/Vol]ng/eOHmc84-17UufsjyazdSelect Medical Specialty Hospital - CantonComment on above:Order Comment: Specimen Comment: Test(s) [id number]- Aldosterone Specimen Comment: was developed and itsperformance characteristics Specimen Comment: determined by [facility]. It has not been cleared or approved Specimen Comment: by the Food and Drug Administration. List any foods/meds the pt has taken (see Test/Proc Notes):: N/A Patient Posture before Draw (see Test/Proc Notes):: SITTING UPResult Comment: Performed at: [facility] [id number] Garbage Truck Driver: Oj Martin PhD, Phone: [phone] By: #### PT, PTT, CBC, CRP, CMP, ESR, TSH3, T4F #### [address] #### CHROMATIN, THYGLOB AB, TPO, ALD, HLAB27, MYOG, CH50, LUPANTCOAG, HITESH, C4, C3, RPR W RFX #### [facility] ,Partial Thromboplastin Timeon 09-29-9245eOEF Coag (Bld) [Time]30.5 sNormal 25.1-36.5FBrown Memorial HospitalComment on above:Result Comment: PERFORMED BY: [place] [address] PATHOLOGIST PROMOTIONS REPRESENTATIVE LUKE JAIME M.D.Performed By: #### PT, PTT, CBC, CRP, CMP, ESR, TSH3, T4F #### [address] #### CHROMATIN, THYGLOB AB, TPO, ALD, HLAB27, MYOG, CH50, LUPANTCOAG, HITESH, C4, C3, RPR W RFX #### [facility] ,Prothrombin Time INRon 65-37-9955OIL Coag (PPP) [Relative time]0.9 {INR}Normal [facility] CantonComment on above:Result Comment: INR Therapeutic Range A) Pre- and [...] patients with mechanical heart valves: 3 - 4.5Performed By: #### PT, PTT, CBC, CRP, CMP, ESR, TSH3, T4F #### [address] #### CHROMATIN, THYGLOB AB, TPO, ALD, HLAB27, MYOG, CH50, LUPANTCOAG, HITESH, C4, C3, RPR W RFX #### [facility] ,PT Coag (PPP) [Time]10.4 sNormal9.0-12.9[facility] Comment on above:Performed By: #### PT, PTT, CBC, CRP, CMP, ESR, TSH3, T4F #### [address] #### CHROMATIN, THYGLOB AB, TPO, ALD, HLAB27, MYOG, CH50, LUPANTCOAG, HITESH, C4, C3, RPR W RFX #### [facility] ,RPR w/rfx to Quant TP Abson 89-68-6616YVB, Rfx Quant RPRNon-ReactiveNormalNon ReactiveSelect Medical Specialty Hospital - CantonComment on above:Order Comment: Specimen Comment: Test(s) 072430-Kqtbagdwqlo Specimen Comment: was developed and itsperformance characteristics Specimen Comment: determined by [facility]. It has not been cleared or approved Specimen Comment: by the Food and Drug Administration. List any foods/meds the pt has taken (see Test/Proc Notes):: N/A Patient Posture before Draw (see Test/Proc Notes):: SITTING UPResult Comment: Performed at: - [facility], [place], [place] [id number] Garbage Truck Driver: Oj Martin PhD, Phone: [phone] PERFORMED BY: [place] [address] PATHOLOGIST PROMOTIONS REPRESENTATIVE LUKE JAIME M.D.Performed By: #### PT, PTT, CBC, CRP, CMP, ESR, TSH3, T4F #### [address] #### CHROMATIN, THYGLOB AB, TPO, ALD, HLAB27, MYOG, CH50, LUPANTCOAG, HITESH, C4, C3, RPR W RFX #### [facility] ,Thyroid Peroxidase Antibodieson 71-52-0139Rkyadmx Peroxidase Jsazqzzfpr53Pzigrj 0-34[facility] - CantonComment on above:Order Comment: Specimen Comment: Test(s) [id number]-Xwsqvffotyu Specimen Comment: was developed and its performance characteristics Specimen Comment: determined by [facility]. It has not been cleared or approved Specimen Comment: by the Food and Drug Administration. List any foods/meds the pt has taken (see Test/Proc Notes):: N/A Patient Posture before Draw (see Test/Proc Notes):: SITTING UPResult Comment: Performed at: [address] [id number] Garbage Truck Driver: Oj Martin PhD, Phone: [phone] By: #### PT, PTT, CBC, CRP, CMP, ESR, TSH3, T4F #### [address] #### CHROMATIN, THYGLOB AB, TPO, ALD, HLAB27, MYOG, CH50, LUPANTCOAG, HITESH, C4, C3, RPR W RFX #### [facility] ,Thyroid Stimulating Hormoneon 42-90-5977XAE Qn1.31 m[IU]/LNormal0.45-5.33 [facility] - CantonComment on above:Result Comment: PERFORMED BY: [place] [address] PATHOLOGIST PROMOTIONS REPRESENTATIVE LUKE JAIME M.D.Performed By: #### PT, PTT, CBC, CRP, CMP, ESR, TSH3, T4F #### [address] #### CHROMATIN, THYGLOB AB, TPO, ALD, HLAB27, MYOG, CH50, LUPANTCOAG, HITESH, C4, C3, RPR W RFX #### [facility] ,Auth for Release of Medical Recordson [id number] for Release of Medical [id number]#1.00CD:127[facility] HospitalCoding Summary.on 08-68-8625Buczmt Summary.CODING DATE: 07/07/2019 FINAL [facility] STATUS: Home (Routine DC) PAYOR: Commercial [...] By: Consuelo Sandoval Date Saved: 07/07/2019 09:10 [facility] Intraoperative Recordon 84-13-0334Ybvf OR Intraoperative RecordIntraOp Document Type FTURO Summary Primary Physician: Jame Garcia Jr., MD Finalized Date/Time: 07/06/19 15:30:20 Pt. Name: NASREEN BOSS D.O.B./Sex: 1990 Female Med Rec #: [id number] Physician: Jame Garcia Jr., MD Financial #: [id number] Pt. Type: O Room/Bed: / Admit/Disch: 07/06/19 14:35:33 - Institution: Case Times FTURO Entry 1 Patient Times In Room 07/06/19 15:23:00 Out Room 07/06/19 15:32:00 Procedure Times Start 07/06/19 15:28:00 Stop 07/06/19 15:31:00 Anesthesia Times Last Modified By: Julia DE PAZ, MELINDA, Anamika 07/06/19 15:30:12 Case Attendance FTURO Entry 1 Entry 2 Entry 3 Case Attendee Jose Ritchie MD, Jame DE PAZ, RN, Earnest AUTOMATIC RIVETING MACHINE OPERATOR, Rossana Willson Role Performed Surgeon - Primary Servicer [employer] - Primary Scrub - Primary Time In [...] U.D. Primary Procedure Yes Primary Surgeon Jose Ricthie MD, Jame Nunez Start 07/06/19 15:28:00 Stop [...] Position Verified Availability Equipment, Medication Time Out Jame Garcia Jr., MD, Verified (If Participants Julia DE PAZ, MELINDA, Applicable) Earnest Willson CST, Kimberly A Time Out Complete 07/06/19 15:26:00 Allergies Reviewed? [...] By: Julia DE PAZ RN, Kelly 07/06/19 15:30[facility] HospitalMain OR Preoperative Recordon 60-83-0809Kksy OR Preoperative RecordHolding Area Document Type FTURO Summary Primary Physician: Jame Garcia Jr., MD Finalized Date/Time: 07/06/19 15:25:12 Pt. Name: KARYNNASREEN/Sex: 1990 Female Med Rec #: [id number] Physician: Jame Garcia Jr., MD Financial #: [id number] Pt. Type: O Room/Bed: / Admit/Disch: 07/06/19 [...] or her perioperative plan of care The patient'sright to privacy is maintained Surgery Checklist FTURO [...] 15:05 Julia DE PAZ RN, Kelly 07/06/19 15:25[facility] Operative Reporton 27-16-6710Duqaefxqk ReportPatient: NASREEN BOSS Age: 29 years Sex: Female [...] Local Cystoscopy with Urethral Dilation. Complications: None. Risks/Benefits/Informed Consent: Surgical risks, benefits, details of the [...] urine. The Urethra was dilated to: 28 Panamanian w/ sounds. Devices Implanted: None. Removal: Cystoscope is removed, The patient tolerated it well. Postoperative Information Discharge: Patient is discharged home with antibiotic coverage, Follow up arranged.[facility] [facility] HospitalComment on above:Result Comment: Electronically Signed By: Jose Ritchie MD, Jame Camacho\Date and Time Signed: 07/06/1915:32 EST Vital Signs Date TimeVital SignValuePerforming NegulbfzdRpnrcvhb31-99-0186 11:23-0400Body mass index (BMI) [Ratio]27.19 kg/q1Bekrl David DO Work Phone: [phone] [place], [place] [address]Ttypxwfirl64-26-5426 11:23-0400Body .1 kg Cuco David DO Work Phone: [phone] [place], [place] [address]10-21-2025 11:23-0400Diastolic blood pkychokt72 mm[Hg]Cuco David DO Work Phone: [phone] [place], [place] [address]Vyqljrwcye13-22-5760 11:23-0400Systolic blood gbugpthd526 mm[Hg]Cuco David DO Work Phone: [phone]09-17-2025 14:00-0400Body mass index (BMI) [Ratio]25.54 kg/c9Vpjpl David DO Work Phone: [phone] [place], [place] [address]Dcognecfbk68-16-8641 14:00-0400Body jnjivy25.2 kg Cuco David DO Work Phone: [phone] [place], [place] [address]Rizmridjut76-03-5218 14:00-0400Diastolic blood mm[Hg]Cuco David DO Work Phone: [phone] [place], [place] [address]Eurjkiyrlx73-92-6801 14:00-0400Systolic blood kdupdstb288 mm[Hg]Cuco David DO Work Phone: [phone]08-20-2025 14:33-0400Body mass index (BMI) [Ratio]25.24 kg/q9Gsfsn David DO Work Phone: [phone] [place], [place] [address]Acedodfrnv00-09-9119 14:33-0400Body jfcpes53.3 kg Cuco David DO Work Phone: [facility] LouisHzxgzwauhh95-82-3745 14:33-0400Diastolic blood mm[Hg]Cuco David DO Work Phone: [phone] LouisEqweqcjnlp27-45-4039 14:33-0400Systolic blood mm[Hg]Cuco David DO Work Phone: [phone] LouisYnwhvxdjlw55-70-8043 10:04-0400Body mass index (BMI) [Ratio]24.45 kg/h2VolrxSt. Clare's Hospital08-01-2025 10:04-0400Body weight 72.94 kgSt. Clare's Hospital06-30-2025 16:00-0400Body caesvj076.7 cmCorey David DO Work Phone: [phone] LouisVmmqkntbfg57-98-6595 16:00-0400Body mass index (BMI) [Ratio]23.87 kg/q2Vlnmr David DO Work Phone: [phone] [place], [place] [address]Xsjryppxrw10-23-5881 16:00-0400Body sonnjz29.22 kgCorey David DO Work Phone: [facility] LouisKjzehauezj87-41-4224 16:00-0400Diastolic blood lertchus91 mm[Hg]Cuco David DO Work Phone: [facility] LouisOwmgepashx19-65-3506 16:00-0400Systolic blood mm[Hg]Cuco David DO Work Phone: [facility] LouisBpctzvlpah27-30-2352 13:05-0500Body twyvgh940.7 cmSherri [place] SUPERINTENDENT OF GENERATION Work Phone: [phone]. LouisDhmhxffnvc31-55-8259 13:05-0500Body mass index (BMI) [Ratio]23.72 kg/d5Plvryh [place] SUPERINTENDENT OF GENERATION Work Phone: [facility] LouisNmxbbiqweq56-65-8388 13:05-0500Body .76 kgSherri Noah SUPERINTENDENT OF GENERATION Work Phone: [phone] LouisRxpesptkzq56-58-6870 13:05-0500Diastolic blood gxpsowzz78 mm[Hg]Awa [place] SUPERINTENDENT OF GENERATION Work Phone: [facility] Borsmooobf97-22-9073 13:05-0500Heart rate91 /min Awa Zamora SUPERINTENDENT OF GENERATION Work Phone: noMS Ycaboypkxs27-10-5992 13:05-1245HpP7% (BldA) [Mass fraction]96 %Awa Zamora SUPERINTENDENT OF GENERATION Work Phone: noMS Jqdmzmtllu62-06-4169 13:05-0500Systolic blood frvrfkne629 mm[Hg]Awa Zamora SUPERINTENDENT OF GENERATION Work Phone: [facility] Encounters Encounter DateEncounter TypeCare ProviderFacilityStart: 06-05-2025 End: 77-71-9856uwfuocqupuSYFKS FAZIONot AvailableStart: 06-05-2025 End: 51-12-8704Jxiwxyvy flow sheetCorey David DO Work Phone: [facility]ctor OBGYNComment on above:20 weeks gestation of ([facility]); Second trimester ([facility]); Nonintractable headache, unspecified chronicity pattern, unspecified headache typeStart: 06-05-2025 End: 57-33-3988vqxgjqhpdpBWZWJ FAZIONot AvailableStart: 05-02-2025 End: 64-15-4380Pqefbz flowsheetCorey David DO Work Phone: [facility] OBGYNStart: 05-02-2025 End: 30-54-2617Gqywiz flowsheetCorey David DO Work Phone: [facility] OBGYNStart: 05-02-2025 End: 42-89-9389Jkiynnzo Result EncounterCorey David DO Work Phone: [facility] External Department UnsolicitedStart: 05-02-2025 End: 07-79-6649Xgdqpvxa flow sheetCorey David DO Work Phone: NOZJ Chani OBGYNComment on above:15 weeks gestation of ([facility]); Second trimester ([facility]); Nonintractable headache, unspecified chronicity pattern, unspecified headache type; Screening, , for anatomic survey ([facility]); Exposure to STD; Vaginal dischargeStart: 05-02-2025 End: 82-50-1074tioiunuvroZZDRB FAZIONot AvailableStart: 04-04-2025 End: 52-06-8982Xesoqehz flow sheetCorey David DO Work Phone: [facility] Chani OBGYNComment on above:First trimester ([facility]); 11 weeks gestation of ([facility]); UTI symptomsStart: 04-04-2025 End: 99-91-2615hsmzltchybXGQBF FAZIONot AvailableStart: 04-04-2025 End: 81-62-8631Csbsdu flowsheetCorey David DO Work Phone: [facility] OBGYNStart: 04-04-2025 End: 99-90-1929Npghlt flowsheetCorey David DO Work Phone: NOQD [facility]ctor OBGYNStart: 03-24-2025 End: 09-04-3828Zhhyioufr Result EncounterCorey David DO Work Phone: [facility] External Department UnsolicitedStart: 03-24-2025 End: 39-68-6900Uiyotplwh Result EncounterCorey David DO Work Phone: [facility] External Department UnsolicitedStart: 03-16-2025 End: 70-43-7777Bjmydc outpatient visit 5 minutesFazio Nurse [facility] Bcp ObNOMS Proctor OBGYNComment on above:GA: 1c5dKxilc: 03-16-2025 End: 00-12-2104mjptyffxhtLHEPH FAZIONot AvailableStart: 02-12-2025 End: 69-13-3405Bfqvrqk encounter procedureCorey David DO Work Phone: NOTL HealthcareStart: 02-12-2025 End: 24-80-0019Bglbhxbt preventive med est patient 18-39 yrsCorey David DO Work Phone: [facility] BCP OBComment on above:Well woman exam with routine gynecological exam; Dyspareunia in female; Urinary tract infection without hematuria, site unspecifiedStart: 02-12-2025 End: 17-40-0097xgqizqxbefILVOW FAZIONot AvailableStart: 02-12-2025 End: 61-79-8647Fbsywm flowsheetCorey David DO Work Phone: n[facility] BCP OBStart: 02-12-2025 End: 66-90-2327Anvxtt flowsheetCorey David DO Work Phone: [facility] BCP OBStart: 02-12-2025 End: 75-50-7170Mrwrokoyd Result EncounterCorey David DO Work Phone: [facility] External Department UnsolicitedStart: 07-05-2024 End: 16-93-7462Mgbbvsqlk Result EncounterSmansi Zamora NP Work Phone: [facility] External Department UnsolicitedStart: 07-05-2024 End: 53-31-8047Fsfljwqjl Result EncounterSmansi Zamora SUPERINTENDENT OF GENERATION Work Phone: [facility] External Department UnsolicitedStart: 07-05-2024 End: 42-21-3684lijqxuzkcjUAIYMBZD KAPLEMercy Newburg HospitalStart: 07-05-2024 End: 91-63-9124Avwacbcon for general adult medical examination without abnormal findingsGISEL [facility] HospitalStart: 07-05-2024 End: 98-67-8691Tdhcaklbvl hospital visit by physicianGisel Calderon NP Work Phone: mthz LaboratoryStart: 06-29-2024 End: 96-89-9732Syoyvye encounter statusAwa Zamora NP Work Phone: [facility] Work Phone: Start: 06-29-2024 End: 69-00-9139Ahtpuozi preventive med est patient 18-39 yrsAwa Zamora NP Work Phone: [facility] CI FMComment on above:Encounter for wellness examination in adult (Primary Dx); Screening for lipid disorders; Screening for thyroid disorderStart: 06-29-2024 End: 08-27-5196avtcbqzymoEESWPP M SHIVELYNot AvailableStart: 06-28-2024 End: 81-05-3577Ofbvxn OnlyAwa Zamora SUPERINTENDENT OF GENERATION Work Phone: [facility] CI FMComment on above:Bronchitis (Primary Dx) Start: 01-14-2022 End: 01-25-1052juvdvmwwutQQ CUCO FAZIOFacility:H1 Procedures DateProcedureProcedure DetailPerforming ClinicianStart: 20-01-4673Qiinc dip stick/tablet rgnt non-auto w/o micrscpCorey David DO Work Phone: Start: 23-90-0240HASVKWDQS VAGINITIS (HTRX)Cuco David DO Work Phone: Start: 56-56-5934Puofx dip stick/tablet rgnt non-auto w/o micrscpCorey David DO Work Phone: Start: 31-78-2544Irzeo dip stick/tablet rgnt non-auto w/o micrscpCorey David DO Work Phone: Start: 49-41-1413CHX TESTCorey David DO Work Phone: Start: 03-16-2025 End: 47-35-7312Jyhqk dip stick/tablet rgnt non-auto w/o micrscpCorey David DO Work Phone: Start: 72-07-3933Ytaiv dip stick/tablet rgnt non-auto w/o micrscpCorey David DO Work Phone: Start: 70-58-7511ZJR,APTIMA HPV,AGE GDLNCorey David DO Work Phone: Start: 68-05-8155Nvqxhpcdjxe observation [Identifier] in Cervix by Cyto stainFazio ObStart: 28-24-0330KVU CBC WITH AUTO DIFFSherri M Noah SUPERINTENDENT OF GENERATION Work Phone: Start: 44-77-9422Thtsiruyuspsu metabolic panelSherdeepika Noah METAL SLITTER - HEEL P[employer]ER Work Phone: Start: 68-76-9724Dvbui panelSmansi Zamora METAL SLITTER - HEEL PACKER Work Phone: Start: 72-09-9823Lzdjhhhiknl observation [Identifier] in Cervix by Cyto stainCorey David DO Work Phone: Start: 30-07-3582Klgd cerv/vag auto thin layer prep mnl screenCorey David DO Work Phone: Start: 91-46-8647Ihcitxgnkwt observation [Identifier] in Cervix by Cyto stainSmansi Zamora SUPERINTENDENT OF GENERATION Work Phone: Plan of Treatment DateCare ActivityDetailAuthorStart: 48-05-4038Apxkmmikw for malignant neoplasm of cervixNOMS HealthcareStart: 27-14-1853Esntgfbmg for malignant neoplasm of cervixNOMS HealthcareStart: 77-70-2088Mulqodjzf for malignant neoplasm of cervix Pap SmearNOMS HealthcareStart: 02-18-2026 End: 67-87-1692Ylqqsal encounter procedureNOMS BCP OBStart: 07-03-2025 End: 00-62-2121Uajxkhn encounter azmatoslt16/18/2025 9:10 AM EST Routine [facility] [address] [place], [id number] Cuco Hernandez, DO [address] [place] [address] [facility] OBGYNStart: 06-05-2025 End: 25-76-1747Ctsbfdz encounter lqbmfdyjl17/21/2025 11:10 AM EDT Routine [facility] [address] [place] [phone] Cuco Hernandez, DO [address] [place] [address] [facility] OBGYNStart: 06-05-2025 End: 03-20-5568Kxiitwrnqmaf / ancillary services loxxsrdlyb84/21/2025 10:00 AM EDT Ancillary Procedure [facility] [address] [place] [phone] [facility] OBGYNStart: 05-02-2025 End: 35-86-6129Kbphz fetoprotein, maternalAlpha fetoprotein, maternal Lab Routine 15 weeks gestation of ([facility]) Second trimester ([facility]) Expected: 05/02/2025 (Approximate), Expires: 06/01/2025[facility] Comment on above:Expected: 05/02/2025 (Approximate), Expires: 06/01/2025Start: 05-02-2025 End: 95-94-5463XV for pregnancyUS OB 14+ weeks anatomy scan Imaging Routine Screening, , for anatomic survey ([facility]) Expected: 05/02/2025, Expires: 08/01/2025[facility] HealthcareComment on above:Expected: 05/02/2025, Expires: 08/01/2025Start: 05-02-2025 End: 53-72-6339Baifnie encounter procedureNOMS Chani OBGYNComment on above: ArrivedStart: 16-23-3196Gkkmdkrlj vaccinationNOMT HealthcareStart: 04-04-2025 End: 38-98-3324Cgjvpkm encounter procedureNOMS Chani OBGYNComment on above: ArrivedStart: 03-16-2025 End: 55-07-5499SPE/RhABO/Rh Lab Routine Missed menses , unspecified gestational age ([facility]) Expected: 03/16/2025 (Approximate), Expires: 03/16/2026[facility] HealthcareComment on above:Expected: 03/16/2025 (Approximate), Expires: 03/16/2026Start: 03-16-2025 End: 16-28-0177Ogblo type and Indirect antibody screen panel - BloodType and screen Lab Routine Missed menses , unspecified gestational age ([facility]) Expected: 03/16/2025 (Approximate), Expires: 03/16/2026[facility] Comment on above:Expected: 03/16/2025 (Approximate), Expires: 03/16/2026Start: 03-16-2025 End: 67-68-0883Erlwa of abuse panel - Urine by Screen methodRapid drug screen, urine Lab Routine , unspecified gestational age ([facility]) Encounter for supervision of normal first in first trimester ([facility]) Expected: 03/16/2025 (Approximate), Expires: 03/16/2026[facility] HealthcareComment on above: Expected: 03/16/2025 (Approximate), Expires: 03/16/2026Start: 03-15-2025 End: 54-46-4236FO Pelvis transvaginalUS OB transvaginal Imaging Routine Missed menses Positive urine test ([facility]) Expected: 03/15/2025, Expires: 06/15/2025[facility] Work Phone: comment on above:Expected: 03/15/2025, Expires: 06/15/2025Start: 02-12-2025 End: 59-92-2970Slnenph encounter procedureNOMS BCP OBComment on above:Arrived Start: 06-29-2024 End: 88-48-4204CFB panel - Blood by Automated countCBC Lab Routine Encounter for wellness examination in adult Expected: 06/29/2024 (Approximate), Expires: 06/29/2025[facility] HealthcareComment on above:Expected: 06/29/2024 (Approximate), Expires: 06/29/2025Start: 06-29-2024 End: 02-98-9846Hizxakucqnbqb metabolic 2000 panel - Serum or PlasmaComprehensive metabolic panel Lab Routine Encounter for wellness examination in adult Expected: 06/29/2024 (Approximate), Expires: 06/29/2025[facility] HealthcareComment on above:Expected: 06/29/2024 (Approximate), Expires: 06/29/2025Start: 06-29-2024 End: 38-48-7603Bizfr 1996 panel - Serum or PlasmaLipid panel Lab Routine Encounter for wellness examination in adult Screening for lipid disorders Ex pected: 06/29/2024 (Approximate), Expires: 06/29/2025[facility] HealthcareComment on above:Expected: 06/29/2024 (Approximate), Expires: 06/29/2025Start: 06-29-2024 End: 51-88-6688Umsnpmqfgya [Units/volume] in Serum or PlasmaTSH Lab Routine Encounter for wellness examination in adult Screening for thyroid disorder Expected: 06/29/2024 (Approximate), Expires: 06/29/2025[facility] Healthcare Work Phone: Comment on above:Expected: 06/29/2024 (Approximate), Expires: 06/29/2025Start: 38-85-1835FCYKX-19 Vaccine ( season)COVID- 19 Vaccine ( season)[facility]: [facility]24 Influenza vaccinationInfluenza Vaccine (#1)[facility] HealthcareStart: 03-16-2024 Influenza vaccinationFlu vaccine (#1)[facility] SystemStart: 2011 DTaP/Tdap/Td vaccine (1 - Tdap)DTaP/Tdap/Td vaccine (1 - Tdap)[facility] SystemBacteria identified in Urine by CultureUrine culture Microbiology Routine Missed menses Ordered: 03/16/2025[facility] HealthcareComment on above:Ordered: 03/16/2025BC W Auto Differential panel - BloodCBC and differential Lab Routine Missed menses , unspecified gestational age ([facility]) Ordered: 03/16/2025[facility] HealthcareComment on above:Ordered: 03/16/2025HLAMYDIA TRACHOMATIS (GENITO/STI)CHLAMYDIA TRACHOMATIS (GENITO/STI) Lab Routine Exposure to STD Ordered: 05/02/2025[facility] HealthcareComment on above:Ordered: 05/02/2025 Cytology Cervical or vaginal smear or scraping studyPap Smear Pathology and Cytology Routine Well woman exam with routine gynecological exam Ordered: [facility] Healthcare Work Phone: comment on above:Ordered: 02/12/2025Hemoglobin A1c/Hemoglobin.total in BloodHemoglobin A1c Lab Routine Missed menses , unspecified gestational age ([facility]) Ordered: 03/16/2025[facility] HealthcareComment on above:Ordered: 03/16/2025Hepatitis B virus surface Ag [Presence] in Serum or Plasma by ImmunoassayHepatitis B surface antigen Lab Routine Missed menses , unspecified gestational age ([facility]) Ordered: 03/16/2025[facility] HealthcareComment on above:Ordered: 03/16/2025Hepatitis C virus Ab [Presence] in Serum or Plasma by ImmunoassayHepatitis C antibody Lab Routine Missed menses , unspecified gestational age ([facility]) Ordered: 03/16/2025[facility] HealthcareComment on above:Ordered: 03/16/2025HIV-1/HIV-2 antigen/antibody combination immunoassayHIV-1 and HIV-2 antibodies Lab Routine Missed menses , unspecified gestational age ([facility]) Ordered: 03/16/2025[facility] HealthcareComment on above:Ordered: 03/16/2025Human papilloma virus DNA [Presence] in Unspecified specimen by Probe with amplificationHPV DNA probe, amplified Microbiology Routine Well woman exam with routine gynecological exam Ordered: 02/12/2025[facility] on above:Ordered: 02/12/2025Neisseria gonorrhoeae DNA [Presence] in Unspecified specimen by DIMPLE with probe detection Neisseria gonorrhea DNA probe, direct Lab Routine Exposure to STD Ordered: 05/02/2025[facility] HealthcareComment on above:Ordered: 05/02/2025Reagin Ab [Presence] in Serum by RPRRPR Lab Routine Missed menses , unspecified gestational age ([facility]) Ordered: 03/16/2025[facility] HealthcareComment on above: Ordered: 03/16/2025Rubella antibody, IgGRubella antibody, IgG Lab Routine Missed menses , unspecified gestational age ([facility]) Ordered: 03/16/2025[facility] HealthcareComment on above:Ordered: 03/16/2025SURESWAB(R) ADVANCED VAGINITIS PLUS, TMASURESWAB(R) ADVANCED VAGINITIS PLUS, TMA Pathology and Cytology Routine Vaginal discharge Ordered: 05/02/2025[facility] Healthcare Work Phone: comment on above:Ordered: 05/02/2025US Pelvis transvaginalUS OB transvaginal Imaging Routine Missed menses Positive urine test ([facility]) 59:32 AM [facility] Immunizations Immunization DateImmunizationNotesCare GpwcfsszDdnubmmt01-49-5929wzbor papilloma virus vaccine, quadrivalentSherri [place] SUPERINTENDENT OF GENERATION Work Phone: [facility] LouisDlonbsbizz23-34-0126atjmz papilloma virus vaccine, quadrivalentSherri [place] SUPERINTENDENT OF GENERATION Work Phone: [phone] HealthcareThe [facility] St. LouisTnhhrzwigj96-65-8630eypsfmgez B vaccine, pediatric or pediatric/adolescent dosageSherri [place] SUPERINTENDENT OF GENERATION Work Phone: [phone] HealthcareThe [facility] St. LouisZeyngfkwuz82-24-6749ddfek papilloma virus vaccine, quadrivalentSherri Noah SUPERINTENDENT OF GENERATION Work Phone: [phone] HealthcareThe [facility] St. LouisOkxnxaokfh45-74-9831kswzdkcnb B vaccine, pediatric or pediatric/adolescent dosageSherri Noah SUPERINTENDENT OF GENERATION Work Phone: [phone] JungleThe [facility] Institute of St. LouisGnjjnxicew22-84-8354nvvwtbm toxoid, reduced diphtheria toxoid, and acellular pertussis vaccine, adsorbedShyumikoi Noah SUPERINTENDENT OF GENERATION Work Phone: [phone] HealthcareThe [facility]. LouisMnbhgpawra31-28-4065qevlffrux B vaccine, pediatric or pediatric/adolescent dosageSherri Noah SUPERINTENDENT OF GENERATION Work Phone: [phone] HealthcareThe [facility] St. LouisBameunngrm94-51-4695futbxkoojkgdp polysaccharide (groups A, C, Y and W-135) diphtheria toxoid conjugate vaccine (MCV4P)Awadeepkia Zamora SUPERINTENDENT OF GENERATION Work Phone: [phone] HealthcareThe [facility] St. LouisDxwxmsfqvb08-44-2147spwobzt, mumps and rubella virus vaccineSri Noah SUPERINTENDENT OF GENERATION Work Phone: [phone] HealthcareThe [facility]. LouisWqxwcbfejg78-34-8076glcacbbcfh, tetanus toxoids and acellular pertussis vaccine, unspecified formulationSherri Noah SUPERINTENDENT OF GENERATION Work Phone: [phone] HealthcareThe [facility]. LouisTtpdriohlq85-44-3221ecdzzrtrmg vaccine, inactivatedShyumikoi Noah SUPERINTENDENT OF GENERATION Work Phone: [facility] LouisYcfwmsbfbn13-62-0367ndxgwpatoa, tetanus toxoids and acellular pertussis vaccine, unspecified formulationSherri Noah SUPERINTENDENT OF GENERATION Work Phone: [phone] HealthcareThe [facility]. LouisImxbuhgdlr56-89-1083fikajaauxy vaccine, inactivatedSherri [place] SUPERINTENDENT OF GENERATION Work Phone: [phone] HealthcareThe [facility]. LouisTqliwcgmhy25-59-6007kxwnipzidnm influenzae type b vaccine, conjugate unspecified formulationSherri Noah SUPERINTENDENT OF GENERATION Work Phone: [phone] HealthcareThe [facility]. LouisXrfauqdyzx99-01-5555bvujfnd, mumps and rubella virus vaccineSherri Noah SUPERINTENDENT OF GENERATION Work Phone: [phone] JungleThe [facility] Institute of St. LouisIijowtgmse58-69-1355zaiciajkxu, tetanus toxoids and acellular pertussis vaccine, unspecified formulationSherri Noah SUPERINTENDENT OF GENERATION Work Phone: [phone] JungleThe [facility] St. LouisOaduvbfpul40-97-6414iinfgnjhstb influenzae type b vaccine, conjugate unspecified formulationSherri Noah SUPERINTENDENT OF GENERATION Work Phone: [phone] HealthcareThe [facility]. LouisVwzarjdwrg60-83-8232eatuljcfvx vaccine, inactivatedSherri [place] SUPERINTENDENT OF GENERATION Work Phone: [phone] HealthcareThe [facility]. LouisJwqsdzdpqu72-06-0909fvcmcfmxrv, tetanus toxoids and acellular pertussis vaccine, unspecified formulationSherri [place] SUPERINTENDENT OF GENERATION Work Phone: [phone] HealthcareThe [facility]. LouisVzcdsfaqah42-15-3721hfwuimcmksx influenzae type b vaccine, conjugate unspecified formulationSherri [place] SUPERINTENDENT OF GENERATION Work Phone: [phone] HealthcareThe [facility] St. LouisHfoullifsv80-67-8551smeozcwoiz vaccine, inactivatedSherri [place] SUPERINTENDENT OF GENERATION Work Phone: [phone] HealthcareThe [facility] St. LouisSxijfymayd68-32-5087zbhdixqfgt, tetanus toxoids and acellular pertussis vaccine, unspecified formulationSherri [place] SUPERINTENDENT OF GENERATION Work Phone: [phone] HealthcareThe [facility]. LouisOnvgmpqocc66-54-8845suuinvzyxsa influenzae type b vaccine, conjugate unspecified formulationSherri [place] SUPERINTENDENT OF GENERATION Work Phone: [phone] HealthcareThe [facility] St. LouisDosxcmdznx97-39-6907upqbjvasfn vaccine, inactivatedSherri Noah SUPERINTENDENT OF GENERATION Work Phone: [phone] JungleThe [facility]. Louis Payers DatePayer CategoryPayerPolicy [id number] Health Insurance [id number] Health [id number] [id number] 2.16.840.1.704086.3.57[id number] 2.16.840.1.560264.3.57[id number] 2.16.840.1.071410.3.57[id number] 2.16.840.1.915362.3.57[id number] 2.16.840.1.756811.3.57[id number] 2.16.840.1.086284.3.57[id number] 2.16.840.1.694728.3.57[id number] 2.16.840.1.969821.3.57[id number] 2.16.840.1.877812.3.57[id number] 2.16.840.1.062163.3.579.2.789938-34-0695Jjqffsc Health [id number] [id number] 1.2.840.934450.1.13.239.2.7.3.760920.315 Social History DateTypeDetailFacilityTobacco smoking status NHISTobacco smoking consumption unknownNOMS HealthcareStart: 62-01-3923Tus assigned at birthNot on fileBon Oro[facility] Hospital HealthStart: 05-04-2023 End: 03-27-0740Aoqxik identityNot on fileNOMT HealthcareStart: 01-14-2023 End: 30-98-9326Puzhexs smoking status NHISNever smoked tobaccoHUNTSMAN MENTAL HEALTH INSTITUTE Healthcare Start: 64-58-8295Ehamhnq use and exposureSmokeless tobacco non-userNOMT HealthcareStart: 06-29-2024 End: 61-49-7529Cegewapbn beverage intakeCurrent drinker of alcohol (finding)[facility] HealthcareStart: 06-22-2024 End: 19-00-1339Rqpvyaqsq beverage intakeHUNTSMAN MENTAL HEALTH INSTITUTE HealthcareStart: 88-14-7452Psm often do you need to have someone help you when you read instructions, pamphlets, or other written material from your doctor or pharmacy [SILS]Never NOM HealthcareWithin the last year, have you been afraid of your partner or ex-partner?NoNOMS HealthcareAre you now , , , , never or living with a partner?MarriedNOMS HealthcareHow often to you have a drink containing alcohol?2-4 times a monthNOMS HealthcareHow many standard drinks containing alcohol do you have on a typical day?3 or 4NOMS HealthcareHow often do you have 6 or more drinks on 1 occasion?NeverNOMS HealthcareDo you feel stress - tense, restless, nervous, or anxious, or unable to sleep at night because yourmind is troubled all the time - these days [OSQ] Not at allNOMS Healthcare(I/We) worried whether (my/our) food would run out before (I/we) got money to buy more.Never trueNOMT HealthcareStart: 01-14-2023 Alcohol Commentcaffeine intake: sodaNOMT HealthcareStart: 91-36-6158Ace assigned at birthFemaleNOMT HealthcareStart: 97-81-9044Qtvppl identityIdentifies as female gender (finding)[facility] HealthcareStart: 28-01-5027FvllmzvijGHWK Healthcare Clinical Notes 06-29-2024 to 06-05-2025 Note Date & LehmZmlmTrcuacss01-88-0482 History of Present illness Narrative* Becca Espinosa LPN - 06/05/2025 11:10 AM EDT Reason for Appointment: Patient ID: Nasreen eFlix is a 35 y.o. female who presents for Routine Visit Patient presents today for Return OB appointment. MEDICATIONS Current Outpatient Medications Medication Instructions magnesium oxide (MAG-OX) 400 mg, Oral, Daily Tmrxwody-Bhi-Yu-FA ( 1 + IRON PO) 1 tablet, Daily trimethoprim (TRIMPEX) 100 mg, Oral, As needed, [...] nursing note reviewed. Exam conducted with a chimney builder present. Vitals: Estimated body mass index is 27.19 kg/m as calculated from the following: Height as of 02/12/25: 5' 8 . Weight as of this encounter: 178 lb 12.8 oz. BP: 120/68 Patient's last menstrual period was 01/13/2025. Assessment/Plan ICD-10-CM 1. 20 weeks gestation of ([facility]) Z3A.20 POCT urinalysis dipstick manually resulted 2. Second trimester ([facility]) Z34.92 POCT urinalysis dipstick manually resulted 3. Nonintractable headache, unspecified chronicity pattern, unspecified headache type R51.9 Patient presents today for a routine obstetrics appointment. Patient is currently 20w3d with a Estimated Date of Delivery: 10/20/25. Pt had anatomy scan prior to appt will notify once results are results. Pt to return in 4 weeks for scheduled OB appt. Documented by Becca Espinosa LPN on behalf of: Cuco Hernandez DO documented in this encounterThe Rehabilitation Institute of St. LouisFoouwaqoym25-45-7210 History of Present illness Narrative* Cuco Hernandez DO - 05/02/2025 1:50 PM EDT Reason for Appointment: Patient ID: Nasreen Felix is a 35 y.o. female who presents for Routine Visit, Well Women Visit, and STI Screening Patient presents today for STD Check. and Return OB appointment. MEDICATIONS Current Outpatient Medications Medication Instructions magnesium oxide (MAG-OX) 400 mg, Oral, Daily Viswyngj-Pon-Pg-FA ( 1 + IRON PO) 1 tablet, Daily trimethoprim (TRIMPEX) 100 mg, Oral, As needed, [...] debrided and Cantharone applied EYE SURGERY 2016 REVIEW OF SYSTEMS Review of Systems: Review [...] nursing note reviewed. Exam conducted with a chimney builder present. Vitals: Estimated body mass index is 25.54 kg/m as calculated from the following: Height as of 02/12/25: 5' 8 . Weight as of this encounter: 168 lb. BP: 120/74 Patient's last menstrual period was 01/13/2025. ASSESSMENT & PLAN ICD-10-CM 1. 15 weeks gestation of ([facility]) Z3A.15 POCT urinalysis dipstick manually resulted Alpha fetoprotein, maternal Alpha fetoprotein, maternal 2. Second trimester ([facility]) Z34.92 POCT urinalysis dipstick manually resulted Alpha fetoprotein, maternal Alpha fetoprotein, maternal 3. Nonintractable headache, unspecified chronicity pattern, unspecified headache type R51.9 4. Screening, , for anatomic survey ([facility]) Z36.89 US OB 14+ weeks anatomy scan US OB 14+ weeks anatomy scan 5. Exposure to STD Z20.2 CHLAMYDIA TRACHOMATIS (GENITO/STI) Neisseria gonorrhea DNA probe, direct 6. Vaginal discharge N89.8 SURESWAB(R) ADVANCED VAGINITIS PLUS, TMA New OB: Patient presents today for 1st time obstetrics appointment with provider. Patient is currently 15w4d . Patients history has been reviewed in great detail including any potential risks. Patient stated she currently has no complaints. Expectations throughout regarding labs, ultrasounds, and appointments have been discussed with the patient in detail. It was reiterated that the patient is to drink 6-8 glasses of water a day, eat 6 small meals a day, do not consume raw or undercooked meat, and [facility] away from [facility]. Patient has been consulted regarding any further do's and don'tsof . Patient voiced understanding and all questions and concerns were answered. Cultures ob tained today. Anatomy scan order given. Orders Placed This Encounter Procedures US OB 14+ weeks anatomy scan CHLAMYDIA TRACHOMATIS (GENITO/STI) Neisseria gonorrhea DNA probe, direct Alpha fetoprotein, maternal POCT urinalysis dipstick manually resulted Follow Up: Patient is to return in 4 weeks for routine OB appointment. Documented by Becca Espinosa LPN on behalf of: Cuco Hernandez DO documented in this encounterThe Rehabilitation Institute of St. LouisNhazioialo48-10-8153 History of Present illness Narrative* Becca Espinosa LPN - 04/04/2025 2:50 PM EDT Reason for Appointment: Patient ID: Nasreen Felix is a 35 y.o. female who presents for Routine Visit Patient presents today for Return OB appointment. MEDICATIONS Current Outpatient Medications Medication Instructions Zgiowzqo-Pzh-Oi-FA ( 1 + IRON PO) 1 tablet, Daily trimethoprim (TRIMPEX) 100 mg, Oral, As needed, [...] debrided and Cantharone applied EYE SURGERY 2016 REVIEW OF SYSTEMS Review of Systems: Review [...] nursing note reviewed. Exam conducted with a chimney builder present. Vitals: Estimated body mass index is 25.24 kg/m as calculated from the following: Height as of 02/12/25: 5' 8 . Weight as of this encounter: 166 lb. BP: 120/76 Patient's last menstrual period was 01/13/2025. ASSESSMENT & PLAN ICD-10-CM 1. First trimester ([facility]) Z34.91 POCT urinalysis dipstick manually resulted 2. 11 weeks gestation of ([facility]) Z3A.11 POCT urinalysis dipstick manually resulted New OB: Patient presents today for 1st time obstetrics appointment with provider. Patient is currently 11w4d . Patients history has been reviewed in great detail including any potential risks. Patient stated she currently has no complaints. Expectations throughout regarding labs, ultrasounds, and appointments have been discussed with the patient in detail. It was reiterated that the patient is to drink 6-8 glasses of water a day, eat 6 small meals a day, do not consume raw or undercooked meat, and stay away from [facility]. Patient has been consulted regarding any further do's and don'tsof . Patient voiced understanding and all questions and concerns were answered. Orders Placed This Encounter Procedures POCT urinalysis dipstick manually resulted Follow Up: Patient is to return in 4 weeks for routine OB appointment. Documented by Becca Espinosa LPN on behalf of: Cuco Hernandez DO documented in this encounterThe Rehabilitation Institute of St. LouisRxnzleeocx26-67-7122 History of Present illness Narrative* Ning Garvey LPN - 03/16/2025 9:30 AM EDT Reason for Appointment: Patient ID: Nasreen Felix [...] medication list which includes the following prescription(s): chkznnlc-ewf-ba-fa and trimethoprim. Medical History: Active Ambulatory Problems [...] urinalysis dipstick manually resulted Positive urine test ([facility]) - US OB transvaginal; Future , unspecified gestational age ([facility]) - Type and screen; Future - ABO/Rh; Future - CBC and differential - Hemoglobin A1c - RPR - Rubella antibody, IgG - Hepatitis B surface antigen - Hepatitis C antibody - HIV-1 and HIV-2 antibodies - Rapid drug screen, urine; Future Encounter for supervision of normal first in first trimester ([facility]) - Rapid drug screen, urine; Future Nurse Note: OB Intake: Patient presents today for first OB visit. Patients history has been reviewed in great detail including any potential risks. Patient signed consent forms and patient desires testing in both trimesters. Patient currently has no complaints and has been advised to drink 6-8 glasses of water a day, eatno raw or undercooked meat, and stay away from [facility]. Patient has also been advised to not change litter boxes and eat 6 small meals a day. Patient has been consulted regarding the do's and don'ts ofpregnancy. Patient was given labs and all questions [...] by: Ning Garvey LPN documented in this encounterThe Rehabilitation Institute of St. LouisPivrxusnog55-90-4972 History of Present illness Narrative* Marysol SanJOAQUIN - 02/12/2025 4:00 PM EDT Reason for Appointment: Patient ID: Nasreen Felix [...] Past Surgical History: Procedure Laterality Date DEBRIDEMENT 2014 plantar warts debrided and Cantharone applied EYE SURGERY 2016 REVIEW OF SYSTEMS Review of Systems: Review [...] nursing note reviewed. Exam conducted with a chimney builder present. Vitals: Estimated body mass index is [...] of: Cuco Hernandez DO documented in this encounterThe Rehabilitation Institute of St. LouisLcjakdzljh35-65-4201 History of Present illness Narrative* Awa Zamora NP - 06/29/2024 1:00 PM EST Images from the original note were not [...] , 28,) 1-35 MG-MCG tablet TAKE 1 TABLETBY MOUTH ONCE DAILY 84 tablet 4 [DISCONTINUED] [...] No follow-ups on file. documented in this encounterNOMT HealthcareEvaluation note* Diagnosis Bronchitis- Primary Bronchitis, not specified as acute or chronic documented in this encounter [facility] HealthcareEvaluation note* Diagnosis Encounter for wellness examination in adult- Primary Screening for lipid disorders Screening for thyroid disorder documented in this encounter [facility] HealthcareEvaluation note* Diagnosis Well woman exam with routine gynecological exam Routine gynecological examination Dyspareunia in female Urinary tract infection without hematuria, site unspecified documented in this encounter [facility] HealthcareEvaluation note* Diagnosis Missed menses Positive urine test ([facility]) , unspecified gestational age ([facility]) Encounter for supervision of normal first in first trimester ([facility]) documented in this encounter [facility] HealthcareEvaluation note* Diagnosis First trimester ([facility]) state, incidental 11 weeks gestation of ([facility]) UTI symptoms documented in this encounter [facility] HealthcareEvaluation note* Diagnosis 15 weeks gestation of ([facility]) Second trimester ([facility]) state, incidental Nonintractable headache, unspecified chronicity pattern, unspecified headache type Screening, , for anatomic survey ([facility]) Encounter for anatomic survey Exposure to STD Vaginal discharge Leukorrhea, not specified as infective documented in this encounter [facility] HealthcareEvaluation note* Diagnosis 20 weeks gestation of ([facility]) Second trimester ([facility]) state, incidental Nonintractable headache, unspecified chronicity pattern, unspecified headache type documented in this encounter [facility] Summary [...] section and content) DATE CREATED AUTHOR 03/09/2020 [facility] DATE CREATED AUTHOR AUTHOR'S ORGANIZ ATION 10/08/2021 [facility] DATE CREATED AUTHOR AUTHOR'S ORGANIZ ATION 01/20/2022 [facility] DATE CREATED AUTHOR AUTHOR'S ORGANIZ ATION 07/08/2024 [facility] DATE CREATED AUTHOR AUTHOR'S ORGANIZ ATION 06/06/2025 [facility] EPIC Care Teams (unrecognized sec tion and content) Team MemberRelationshipSpecialtyStart DateEnd Date Gisel Curran APRN - SUPERINTENDENT OF GENERATION [address] [place] [address] PCP - GeneralNnapoleon Practitioner09/30/17Team MemberRelationshipSpecialtyStart Date End Date Awa Zamora NP [address] [address] PCP - General9/19/23Team MemberRelationshipSpecialtyStart DateEnd Date Awa Zamora, SUPERINTENDENT OF GENERATION [address] [place] [address] PCP - General9/19/23Team MemberRelationshipSpecialtyStart DateEnd Date Awa Zamora, SUPERINTENDENT OF GENERATION [address] [place] [address] PCP - General9/19/23Team MemberRelationshipSpecialtyStart DateEnd Date Awa Zamora, SUPERINTENDENT OF GENERATION [address] [place] [address] PCP - General9/19/23Team MemberRelationshipSpecialtyStart DateEnd Date Awa Zamora, SUPERINTENDENT OF GENERATION [address] [place] [address] PCP - General9/19/23Team MemberRelationshipSpecialtyStart DateEnd Date Awa Zamora, SUPERINTENDENT OF GENERATION [address] [place] [address] PCP - General9/19/23Team MemberRelationshipSpecialtyStart DateEnd Date Aaw Zamora, SUPERINTENDENT OF GENERATION [address] [place] [address] PCP - General9/19/23Team MemberRelationshipSpecialtyStart DateEnd Date Awa Zamora, SUPERINTENDENT OF GENERATION [address] [place] [address] PCP - General9/19/23Team MemberRelationshipSpecialtyStart DateEnd Date Awa Zamora, SUPERINTENDENT OF GENERATION [address] [facility] [address] [place] [address] PCP - General05/04/23Team MemberRelationshipSpecialtyStart DateEnd Date Awa Zamora, JAKE [address] [facility] [address] [place] [address] PCP - General05/04/23Team MemberRelationshipSpecialtyStart DateEnd Date Awa Zamora, SUPERINTENDENT OF GENERATION [address] [facility] [address] [place] [address] PCP - [facility]05/04/23 Reason for Visit (unrecogniz ed section and content) ReasonCommentsAnnual ExamReasonCommentsGynecologic ExamReasonCommentsAmenorrhea ReasonCommentsRoutine VisitReasonCommentsRoutine VisitWell Women VisitSTI Screening FOR RECORDS PERTAINING TO PATIENTS WHO ARE [...] BE BASED ON THE PRIMARY CLINICAL RECORDS. [facility] [place] [facility]. provides no warranty or guarantee of the accuracy or completeness of information in this document.
--- OUTSIDE RECORDS SUMMARY | 2025-07-07 08:45 | XMS_ITS | Clinical Summary ---
Author Organization [facility] Address [address] [place] [address] Care Team Providers Care Integrated Circuit Fabricator Name Role Phone Maria Isabel Zamora PRINCIPAL DEVELOPER Primary Care Provider + [phone] Allergies No known active allergies Medications MedicationSigDispense QuantityRefillsLast FilledStart DateEnd DateStatus Cnlhwzos-Gue-Qg-FA ( 1 + IRON PO) Take 1 tablet by mouth DailyActive magnesium oxide (Mag-Ox) 400 MG tablet Indications:Nonintractable headache, unspecified chronicity pattern, unspecified headache typeTake 1 tablet (400 mg) by mouth Daily 30 tablet 60504/6Active trimethoprim (Trimpex) 100 MG tablet Indications:Dyspareunia in female,Urinary tract infection without hematuria, site unspecifiedTake 1 tablet (100 mg) by mouth if needed (Dyspareunia) for up to 20 doses Take 1 tablet by mouth immediately before intercourse PRN 20 tablet 5109/02/2024Discontinued Active Problems ProblemNoted DateDiagnosed UwnzPjjgcovox90/16/2023Increased frequency of xmijeyqmr84/16/2023Interstitial uwetthwl66/16/2023Urgency of micturition 01/29/2023Estimated Date of KqmthxtkCpbwyizdNnc66/07/2026ased on last menstrual period of 01/13/2025 Encounters DateTypeDepartmentCare ZgmtQflzfflqnfr13/18/2025 9:10 AM ESTRoutine [facility] [address] [place] [address] [place] [phone] David, Manuel, DO 24 weeks gestation of ([facility]); Second trimester ([facility]); Nonintractable headache, unspecified chronicity pattern, unspecified headache type; Diabetes mellitus screening; Urinary bwzawey7507/03/2025amboo flowsheet [facility] [address] [place] [address] Manuel Hernandez, DO 06/26/20251203Khlaid52/21/2025 11:10 AM EDTRoutine [facility] [address] [place] [address] Manuel Hernandez, DO 20 weeks gestation of ([facility]); Second trimester ([facility]); Nonintractable headache, unspecified chronicity pattern, unspecified headache type06/05/2025 10:00 AM EDTAncillary Procedure [facility] [address] [place] [address] 06/04/20257094Tyckwa96/14/0589Vzhler07/23/2025bstract [facility] [address] [place] [address] Manuel Hernandez, DO 05/02/2025 1:50 PM EDTRoutine [facility] [address] [place] [address] Manuel Hernandez, DO 15 weeks gestation of ([facility]); Second trimester ([facility]); Nonintractable headache, unspecified chronicity pattern, unspecified headache type; Screening, , for anatomic survey ([facility]); Exposure to STD; Vaginal mtcjxeyoj64/17/2025External Result Encounter [facility] External Department Unsolicited Manuel Hernandez, DO 05/02/2025amboo flowsheet [facility] [address] [place] [address] Manuel Hernandez, DO 04/25/20250694Yfbauo82/03/2025Telephone [facility] [address] [facility] [place] [phone] Fernanda Snowden MA 04/11/2025Telephone [facility] [address] [place] [address] Manuel Hernandez DO from Last 3 Months Immunizations ImmunizationAdministration DatesNext DueDTaP, Mbtzwllxrov35/05/1997,10/02/1993, 1992,1992,1992HPV, Qsbrmdxmshkh71/17/2011,10/02/2010, 08/01/2010Hep B, Adolescent or Momjpadev41/17/2010,02/27/2010,01/27/2010HiB, qdnkrfxmnez92/01/1993,1992,1992,1992IPV03/20/1997,10/02/1993, 1992,1992,1992MMR11/14/2003,07/16/1993Meningococcal MCV4P 01/27/2010Tdap02/27/2010 Family History Medical HistoryRelationNameCommentsArthritisFatherKentHyperlipidemiaFatherKent HypertensionFatherKentHyperlipidemiaMotherLynnHypertensionMotherLynnStrokeMother LynnBreast cancerMother's Sister 1Annadeceased 2011Kidney diseaseMother's Sister 1AnnaCancerMother's Sister 2SheilaDiabetesPaternal GrandfatherVernonCancer Paternal GrandmotherStephanieHypertensionSiblingMelanomaNeg HxPsoriasisNeg Hx RelationNameStatusCommentsFatherKentAliveMotherLynnAliveMother's Sister 1Anna DeceasedMother's Sister 2SheilaPaternal GrandfatherVernonPaternal Grandmother StephanieSibling Social History Tobacco UseTypesPacks/DayYears UsedDateSmoking Tobacco: NeverSmokeless Tobacco: Never Tobacco Cessation:Counseling Given: Not Answered Alcohol UseStandard Drinks/WeekCommentsYes2 (1 standard drink = 0.6 oz pure alcohol)caffeine intake: [id number] Health LiteracyAnswerDate RecordedHow often do you need [...] relatives?Twice a week06/22/2024How often do you attend buddhist or mu-ism services?Never 06/22/2024o you belong to any clubs or organizations such as buddhist groups, unions, fraternal or athletic groups, or school groups?No06/22/2024How often do you attend meetings of the clubs or organizations you belong to?Never06/22/2024 Are you , , , , never , or living with a partner?Yqyfkoq6806/22/2024UDIT-CAnswerDate RecordedQ1: How often do you have a [...] housing, medical care, and heating?Not hard at all06/22/2024[facility] [place] of Occupational Health - Occupational Stress QuestionnaireAnswerDate [...] steady place to sleep or slept in ashelter (including now)?No 05/04/2023Housing Stability Vital SignAnswerDate RecordedIn the last 12 months, was there a time when you were not able to pay the mortgage or rent on time?No 06/22/2024In the past 12 months, how many times have you moved where you were living?4At any time in the past 12 months, were you homeless or living in a long-term (including now)?No06/22/2024Estimated Date of Delivery FakbvzihXsz10/07/2026Based on last menstrual period of 5/31/2025Sex and Gender InformationValueDate RecordedSex Assigned at DwstuOjbsqc54/07/2024 11:39 AM EST Legal DrdSwprfd16/15/2023 7:12 PM EDTGender EvjmowofAdmkvg67/07/2024 11:39 AM ESTSexual OrientationNot on file Last Filed Vital Signs Vital SignReadingTime TakenCommentsBlood Iybvvhzy835/6807/03/2025 9:30 AM EST Lksgr708606/29/2024 1:05 PM ESTTemperature--Respiratory Ppyc9030 4:21 PM EDTOxygen Haeplvkmqi84%06/29/2024 1:05 PM ESTInhaled Oxygen Concentration-- Plxfaj27.3 kg (185 lb 12.8 oz)07/03/2025 9:30 AM AVKPjkhei680.7 cm (5' 8 ) 02/12/2025 4:00 PM EDTBody Mass Index28.25002/12/2025 4:00 PM EDT Plan of Treatment DateTypeDepartmentCare Team (Latest Contact Info)Bovoudtqztz65/16/2025 10:20 AM ESTRoutine NOM[facility]ius [facility] [address] [place] [address] [place] [address] Manuel Hernandez, [address] [place], [place] [phone] 02/18/2026 4:00 PM EDTOffice Visit KHADAR [facility] [address] [place] [address] [place] [phone] Manuel Hernandez, [address] [place], [place] [phone] Health MaintenanceDue DateLast DoneCommentsCOVID-19 Vaccine ( season) /10/2021, 09/10/2020, 08/13/2020Influenza Vaccine (#1)2025 HPV/Fkawxx0802/02/2028Cervical Cancer Phfzspwxp78/30/2028Pap Smear02/13/2028 02/12/2025, 02/07/2024, 02/01/2023, Additional history existsPneumococcal Vaccine: Pediatrics (0 to 5 Years) and At-Risk Patients (6 to 64 Years)Aged Out No longer eligible based on patient's age to complete this topic Procedures Procedure NamePriorityDate/TimeAssociated DiagnosisCommentsURINARY TRACT INFECTION (HTRX)Xrwwytn6707/03/2025 12:17 PM EST POCT URINALYSIS YGACMOAOCkrtumh70/18/2025 9:27 AM EST 24 weeks gestation of ([facility]) Second trimester ([facility]) POCT URINALYSIS DYSWTCFMRckpzks44/21/2025 11:27 AM EDT 20 weeks gestation of ([facility]) Second trimester ([facility]) US OB 14+ WEEKS ANATOMY DIIIHbopwqy01/21/2025 11:17 AM EDT Screening, , for anatomic survey ([facility]) RECURRENT VAGINITIS (HTRX)Zydrbgf7305/02/2025 3:19 PM EDT POCT URINALYSIS SNQTCLEKVacqdql30/17/2025 2:07 PM EDT 15 weeks gestation of ([facility]) Second trimester ([facility]) PAP DGHYZCwwrvgs88/30/2025 12:00 AM EDTfrom Last 3 Months or Most Recently Relevant to Health Maintenance Results * URINARY TRACT INFECTION (HTRX) (07/03/2025 12:17 PM EST)ComponentValueRef RangeTest MethodAnalysis TimePerformed AtPathologist SignatureACINETOBACTER LYJYNGOW968.961 - 24.689 ppm07/04/2025 6:33 AM ESTHealthTrackRx at [facility]Port ACINETOBACTER BAUMANIINot Zixzuiqy75.961 - 24.689 ppm07/04/2025 6:33 AM EST [facility] at LabPortCITROBACTER UAQPXIUK543.000 - 32.015 ppm07/04/2025 6:33 AM ESTHealthTrackRx at LabPortCITROBACTER FREUNDIINot Swqvgpko83.000 - 32.015 ppm07/04/2025 6:33 AM ESTHealthTrackRx at LabPortENTEROBACTER AEROGENES, PUSHYJR226.000 - 32.290 ppm07/04/2025 6:33 AM ESTHealthTrackRx at LabPortENTEROBACTER AEROGENES, CLOACAENot Zqoiicxo37.000 - 32.290 ppm 07/04/2025 6:33 AM ESTHealthTrackRx at LabPortENTEROCOCCUS FAECALIS, FAECIUM0 26.000 - 33.043 ppm07/04/2025 6:33 AM ESTHealthTrackRx at LabPortENTEROCOCCUS FAECALIS, FAECIUMNot Sperxttk08.000 - 33.043 ppm07/04/2025 6:33 AM EST [facility] at LabPortESCHERICHIA EOIF222.000 - 28.500 ppm07/04/2025 6:33 AM ESTHealthTrackRx at LabPortESCHERICHIA COLINot Xulirrbf59.000 - 28.500 ppm 07/04/2025 6:33 AM ESTHealthTrackRx at LabPortKLEBSIELLA PNEUMONIAE, OXYTOCA0 23.000 - 31.865 ppm07/04/2025 6:33 AM ESTHealthTrackRx at LabPortKLEBSIELLA PNEUMONIAE, OXYTOCANot Txhzgrhx88.000 - 31.865 ppm07/04/2025 6:33 AM EST [facility] at LabPortMORGANELLA PFWNDLVR884.961 - 24.689 ppm07/04/2025 6:33 AM ESTHealthTrackRx at LabPortMORGANELLA MORGANIINot Yttvhutw78.961 - 24.689 ppm07/04/2025 6:33 AM ESTHealthTrackRx at LabPortPROTEUS MIRABILIS, VULGARIS0 23.000 - 28.500 ppm07/04/2025 6:33 AM ESTHealthTrackRx at LabPortPROTEUS MIRABILIS, VULGARISNot Lpgsxgvf94.000 - 28.500 ppm07/04/2025 6:33 AM EST [facility] at LabPortPSEUDOMONAS PTRYRMZPQC473.000 - 31.801 ppm07/04/2025 6:33 AM ESTHealthTrackRx at LabPortPSEUDOMONAS AERUGINOSANot Bmvlivhd25.000 - 31.801 ppm07/04/2025 6:33 AM ESTHealthTrackRx at LabPortSTAPHYLOCOCCUS AUREUS0 26.000 - 31.595 ppm07/04/2025 6:33 AM ESTHealthTrackRx at [facility] STAPHYLOCOCCUS AUREUSNot Nmwvbvds28.000 - 31.595 ppm07/04/2025 6:33 AM EST [facility] at LabPortSTREPTOCOCCUS AGALACTIAE (GROUP B STREP)026.000 - 32.435 ppm11 6:33 AM ESTHealthTrackRx at LabPortSTREPTOCOCCUS AGALACTIAE (GROUP B STREP)Not Svrshxns42.000 - 32.435 ppm07/04/2025 6:33 AM ESTHealthTrackRx at LabPortCANDIDA ALBICANS, PARAPSILOSIS, SLCCTTKJWP393.000 - 30.347 ppm07/04/2025 6:33 AM ESTHealthTrackRx at LabPortCANDIDA ALBICANS, PARAPSILOSIS, TROPICALISNot Ibnginkd28.000 - 30.347 ppm07/04/2025 6:33 AM EST [facility] LabPortCANDIDA FJHZWXFJ842.000 - 31.618 ppm07/04/2025 6:33 AM ESTHealthTrackRx at LabPortCANDIDA GLABRATANot Cgxjtiph45.000 - 31.618 ppm 07/04/2025 6:33 AM ESTHealthTrackRx at LabPortCANDIDA MZUDQS118.000 - 30.873 ppm07/04/2025 6:33 AM ESTHealthTrackRx at LabPortCANDIDA KRUSEINot Detected 23.000 - 30.873 ppm07/04/2025 6:33 AM ESTHealthTrackRx at LabPortSERRATIA DKWHNWXIXN640.000 - 31.581 ppm07/04/2025 6:33 AM ESTHealthTrackRx at [facility] SERRATIA MARCESCENSNot Deiixfns12.000 - 31.581 ppm07/04/2025 6:33 AM EST [facility] at LabPortSTREPTOCOCCUS PYOGENES (GROUP A STREP)019.961 - 24.689 ppm07/04/2025 6:33 AM ESTHealthTrackRx at [facility]STREPTOCOCCUS PYOGENES (GROUP A STREP)Not Hddrjbjd30.961 - 24.689 ppm07/04/2025 6:33 AM ESTHealthTrackRx at [facility] HospitalSTAPHYLOCOCCUS EPIDERMIDIS, HAEMOLYTICUS, LUGDUNENSIS, SAPROPHYTICUS (SADOX624.961 - 24.689 ppm07/04/2025 6:33 AM ESTHealthTrackRx at [facility] STAPHYLOCOCCUS EPIDERMIDIS, HAEMOLYTICUS, LUGDUNENSIS, SAPROPHYTICUS (URINANot Pgcnydfv03.961 - 24.689 ppm07/04/2025 6:33 AM ESTHealthTrackRx at [facility] STAPHYLOCOCCUS EPIDERMIDIS, HAEMOLYTICUS, LUGDUNENSIS, SAPROPHYTICUS (URINA0 19.961 - 24.689 ppm07/04/2025 6:33 AM ESTHealthTrackRx at [facility] STAPHYLOCOCCUS EPIDERMIDIS, HAEMOLYTICUS, LUGDUNENSIS, SAPROPHYTICUS (URINANot Iqctklew52.961 - 24.689 ppm07/04/2025 6:33 AM ESTHealthTrackRx at [facility] Specimen (Source)Anatomical Location / LateralityCollection Method / Volume Collection TimeReceived FgnyOhuch99/18/2025 12:17 PM EST07/04/2025 1:31 AM EST Narrative Authorizing ProviderResult TypeResult StatusCorey David DOLAB BLOOD ORDERABLES Final ResultPerforming OrganizationAddressCity/State/ZIP CodePhone Number [facility] [address] [address] * (ABNORMAL) POCT urinalysis dipstick manually resulted (07/03/2025 9:27 AM EST) Only the most recent of3 resultswithin the time period is included. ComponentValueRef RangeTest MethodAnalysis TimePerformed AtPathologist Signature Color, UAYellowClarity, UAClearGlucose, UANegativeNegative - 2000(110) ++++ mg/dLBilirubin, UANegativeNegative - 4(70) +++ mg/dLKetones, UANegativeNegative - 160(16) ++++ mg/dLSpec Grav, UA1.0101 - 1.03Blood, UANegativeNegative - 50 Yash/mcLpH, UA7.55 - 9Protein, UANegativeNegative - 2000(20) ++++ mg/dL Urobilinogen, UA1.00.2 - 12 mg/dLLeukocytes, UAPositiveNegative - 500+++ Zuleyka/mcL Nitrite, UANegativeNegative - PositiveSpecimen (Source)Anatomical Location / LateralityCollection Method / VolumeCollection TimeReceived SephRhvgy60/18/2025 9:27 AM EST Narrative Authorizing ProviderResult TypeResult StatusCorey David DOPOINT OF CARE TEST ENTER/EDIT ORDERABLESFinal Result * US OB 14+ weeks anatomy scan (06/05/2025 11:17 AM EDT)Anatomical Region LateralityModalityBodyUltrasoundSpecimen (Source)Anatomical Location / LateralityCollection Method / VolumeCollection TimeReceived Time06/05/2025 2:49 PM EDT Impressions 06/06/2025 7:08 AM EDT 1.Single, live intrauterine , current sonographic age of 22 weeks and 0 days, with an estimated date of delivery of October 09, 2025. 2. Mild ventricular prominence recommend continued maternal- evaluation. * ??Estimated Weight (g) by Percentile is based upon an accurate estimated age based onlast menstrual period. ?? TRANSCRIBED BY: ? ELECTRONICALLY SIGNED BY: Irwin Keller MD Narrative 06/06/2025 7:08 AM EDT FINDINGS: A single, live intrauterine is present with normal cardiac rate of ??160 beats per minute. Normal activity. morphology is grossly normal with the exception of mild fullness of the ventricular system. ??Normal posterior fossa appearance. ??The cervix is long and closed, ??4.0 ??cm. ??The placenta is posterior, Grade 1, 3.0 cm inferior aspect from the closed cervical ??os ??The current sonographic age is 22 weeks and 0 days, based on the following measurements: BPD ?5.4cm ( 22weeks,3 ??days) Head Circumference ?20.1cm ( 22 weeks, 1 days) Abdominal Circumference ?17.0cm ( 22.weeks, 0 days) Femur Length ? 3.6cm (21 weeks, 2 days) Presentation ? Cephalic ? Placenta ? Posterior, Grade 1 Weight (g) by Percentile ??Greater 97 % * These measurements result in an estimated date of delivery of October 09, 2025 ?? The current estimated weight is ??447 ??grams ( 1 pound, 0 ??ounces). ?? Procedure Note Irwin Keller MD - 06/06/2025 FINDINGS: A single, live intrauterine is present with normal cardiacrate of 160 beats per minute. Normal activity. morphology isgrossly normal with the exception of mild fullness of the ventricularsystem. Normal posterior fossa appearance. The cervix is long andclosed, 4.0 cm. The placenta is posterior, Grade 1, 3.0 cm inferioraspect from the closed cervical os The current sonographic age is 22weeks and 0 days, based on the following measurements: BPD 5.4cm ( 22weeks,3 days) Head Circumference 20.1cm ( 22 weeks, 1 days) Abdominal Circumference 17.0cm ( 22.weeks, 0 days) Femur Length 3.6cm (21 weeks, 2 days) Presentation Cephalic Placenta Posterior, Grade 1 Weight (g) by Percentile Greater 97 % * These measurements result in an estimated date of delivery of September The current estimated weight is 447 grams ( 1 pound, 0ounces). IMPRESSION: 1.Single, live intrauterine , current sonographic age of 22weeks and 0 days, with an estimated date of delivery of September. 2. Mild ventricular prominence recommend continued maternal-fetalevaluation. * Estimated Weight (g) by Percentile is based upon an accurateestimated age based on last menstrual period. TRANSCRIBED BY: ELECTRONICALLY SIGNED BY: Irwin Keller MD Authorizing ProviderResult TypeResult StatusCorey David BROWN OB US PROCEDURES Final Result * RECURRENT VAGINITIS (HTRX) (05/02/2025 3:19 PM EDT)ComponentValueRef RangeTest MethodAnalysis TimePerformed AtPathologist SignatureATOPOBIUM FCDCLLK921.961 - 24.689 ppm05/03/2025 6:41 AM EDTHealthTrackRx at LabPortATOPOBIUM VAGINAENot Frxovyek44.961 - 24.689 ppm05/03/2025 6:41 AM EDTHealthTrackRx at LabPortBVAB 2,3 (BACTERIAL VAGINOSIS ASSOCIATED BACTERIA 2, 3); MOBILUNCUS WSA694.961 - 24.689 ppm05/03/2025 6:41 AM EDTHealthTrackRx at LabPortBVAB 2,3 (BACTERIAL VAGINOSIS ASSOCIATED BACTERIA 2, 3); MOBILUNCUS SPPNot Weoanvxg88.961 - 24.689 ppm05/03/2025 6:41 AM EDTHealthTrackRx at LabPortCANDIDA ALBICANS, PARAPSILOSIS, SSERKHCBLX246.000 - 30.347 ppm05/03/2025 6:41 AM EDT [facility] LabPortCANDIDA ALBICANS, PARAPSILOSIS, TROPICALISNot Detected 23.000 - 30.347 ppm05/03/2025 6:41 AM EDTHealthTrackRx at LabPortCANDIDA LIZCBSSU714.000 - 31.618 ppm05/03/2025 6:41 AM EDTHealthTrackRx at LabPort OSBALDO GLABRATANot Avjfiqfm26.000 - 31.618 ppm05/03/2025 6:41 AM EDT [facility] LabPortCANDIDA UMFBNY123.000 - 30.873 ppm05/03/2025 6:41 AM EDTHealthTrackRx at LabPortCANDIDA KRUSEINot Tymadwvx49.000 - 30.873 ppm 05/03/2025 6:41 AM EDTHealthTrackRx at LabPortCHLAMYDIA YBWXRRBUJWR365.000 - 31.586 ppm05/03/2025 6:41 AM EDTHealthTrackRx at [facility] HospitalCHLAMYDIA TRACHOMATIS Not Ssyootds79.000 - 31.586 ppm05/03/2025 6:41 AM EDTHealthTrackRx at [facility] GARDNERELLA HUMAJWTAE520.961 - 24.689 ppm05/03/2025 6:41 AM EDTHealthTrackRx at [facility] HospitalGARDNERELLA VAGINALISNot Szqeqbjq96.961 - 24.689 ppm05/03/2025 6:41 AM EDTHealthTrackRx at [facility] HospitalMEGASPHAERA (TYPES 1, 2)019.961 - 24.689 ppm 05/03/2025 6:41 AM EDTHealthTrackRx at [facility] HospitalMEGASPHAERA (TYPES 1, 2)Not Ldktilsb75.961 - 24.689 ppm05/03/2025 6:41 AM EDTHealthTrackRx at [facility] NEISSERIA SIWWAEYXNGM931.000 - 32.587 ppm05/03/2025 6:41 AM EDTHealthTrackRx at [facility] HospitalNEISSERIA GONORRHOEAENot Ybgqcdrr49.000 - 32.587 ppm05/03/2025 6:41 AM EDTHealthTrackRx at LabInd[facility] HospitalTRICHOMONAS JWDTQBVAU948.000 - 31.995 ppm 05/03/2025 6:41 AM EDTHealthTrackRx at [facility] HospitalTRICHOMONAS VAGINALISNot Gxkexakk23.000 - 31.995 ppm05/03/2025 6:41 AM EDTHealthTrackRx at [facility] MYCOPLASMA BUFJLDKEOT362.961 - 24.689 ppm05/03/2025 6:41 AM EDTHealthTrackRx at [facility] HospitalMYCOPLASMA GENITALIUMNot Uxboqxtx72.961 - 24.689 ppm05/03/2025 6:41 AM EDTHealthTrackRx at LabPortSpecimen (Source)Anatomical Location / LateralityCollection Method / VolumeCollection TimeReceived TimeTissue 05/02/2025 3:19 PM EDT05/03/2025 1:53 AM EDT Narrative Authorizing ProviderResult TypeResult StatusCorey David DOLAB BLOOD ORDERABLES Final ResultPerforming OrganizationAddressCity/State/ZIP CodePhone Number [facility] [address] [phone] * Pap Smear (02/12/2025 12:00 AM EDT)Specimen (Source)Anatomical Location / LateralityCollection Method / VolumeCollection TimeReceived TimeSwabCervical swab / Unknown Narrative Authorizing ProviderResult TypeResult StatusCorey David DOLAB CYTOLOGY ORDERABLESFinal ResultPerforming OrganizationAddressCity/State/ZIP CodePhone Number EXTERNAL LAB from Last 3 Months or Most Recently Relevant to Health Maintenance Insurance Care Teams Team MemberRelationshipSpecialtyStart DateEnd Date Maria Isabel Zamora NP [address] [place] [address] [address] [place] [address] PCP - [facility]05/04/23
--- OUTSIDE RECORDS SUMMARY | 2025-07-07 08:45 | XMS_ITS | Encounter Summary ---
Author Organization [facility] Address [address] [place] [address] Care Team Providers Care Regional Director Of Finance Name Role Phone Maria Isabel Zamora SENIOR COUNSEL Primary Care Provider + [phone] Encounter Details DateTypeDepartmentCare Team (Latest Contact Info)Enconadypmb12/18/2025amboo flowsheet [facility] [address] [place] [address] Manuel Hernandez DO [address] [facility] [address] [place], [facility] Social History Tobacco UseTypesPacks/DayYears UsedDateSmoking Tobacco: NeverSmokeless Tobacco: NeverAlcohol UseStandard Drinks/WeekCommentsYes2 (1 standard drink = 0.6 oz pure alcohol)caffeine intake: [id number] Health LiteracyAnswerDate RecordedHow often do you need [...] physically hurt by your partner or ex-partner?No 09/19/2023Within the last year, have you been raped or forced to have any kind of sexual activity by your partner or ex-partner?No05/04/2023Social Connection and Isolation PanelAnswerDate RecordedIn a typical week, how many times do you talk on the phone with family, friends, or neighbors?More than three times a week06/22/2024How often do you get together with friends or relatives?Twice a week06/22/2024How often do you attend confucianism or jew services?Never 06/22/2024o you belong to any clubs or organizations such as confucianism groups, unions, fraContinuing Education Records & Resources or athletic groups, or school groups?No06/22/2024How often do you attend meetings of the clubs or organizations you belong to?Never06/22/2024 Are you , , , , never , or living with a partner?Imdctkk2506/22/2024UDIT-CAnswerDate RecordedQ1: How often do you have a [...] housing, medical care, and heating?Not hard at all06/22/2024[facility]instew[facility] [place] of Occupational Health - Occupational Stress QuestionnaireAnswerDate [...] were you homeless or living in a mcc (including now)?No06/22/2024Estimated Date of Delivery HkjmkgwoFbs61/07/2026Based on last menstrual period of 01/13/2025Sex and Gender InformationValueDate RecordedSex Assigned at YabkyChmywx98/07/2024 11:39 AM EST Legal FyyDiuerk70/15/2023 7:12 PM EDTGender HeosehanLouodi84/07/2024 11:39 AM ESTSexual OrientationNot on filedocumented as of this encounter Plan of Treatment DateTypeDepartmentCare Team (Latest Contact Info)Hjxgleskoxi69/16/2025 10:20 AM ESTRoutine [facility] [address] [phone] Manuel Hernandez, DO [address] [facility] [facility] [address] [place] [place], [place] [phone] 02/18/2026 4:00 PM EDTOffice Visit [facility] [address] [address] Manuel Hernandez DO [address] [facility] [place] [address] documented as of this encounter Visit Diagnoses Not on filedocumented in this encounter Care Teams Team MemberRelationshipSpecialtyStart DateEnd Date Maria Isabel Zamora, SENIOR COUNSEL [address] [facility] [address] [place] [address] PCP - General05/04/23documented as of this encounter
--- OUTSIDE RECORDS SUMMARY | 2025-07-07 08:45 | XMS_ITS | Clinical Summary ---
Author Organization [facility] Address [address], [address] [place] [address] Care Team Providers Care International Controller Name Role Phone Gisel Curran APRN - FEATHER TRIMMER Primary Care Provider Social History Tobacco UseTypesPacks/DayYears UsedDateSmoking Tobacco: Never Assessed CommentsUnknownSex and Gender InformationValueDate RecordedSex Assigned at Not on fileLegal FvsBvismy25/15/2018 2:16 PM ESTGender IdentityNot on fileSexual OrientationNot on file Plan of Treatment Health MaintenanceDue DateLast DoneCommentsDTaP/Tdap/Td vaccine (1 - Tdap) 2011Flu vaccine (#1)03/16/2025OVID-19 Vaccine ( season) 2025Polio vaccineAged OutNo longer eligible based on patient's age to complete this topic Insurance * Guarantor: Nasreen Andrade TypeRelation to PatientDate of BirthPhone Billing AddressPersonal/BatuicIeoe1990 [address] [place] [address] [place] [address] Care Teams Team MemberRelationshipSpecialtyStart DateEnd Date Gisel Curran APRN - NP [address] [place] [address] PCP - GeneralNurse Practitioner09/30/17
--- OUTSIDE RECORDS SUMMARY | 2025-07-07 08:45 | XMS_ITS | Encounter Summary ---
Author Organization [facility] Address [address] [place] [address] Care Team Providers Care Restaurant Service Manager Name Role Phone Maria Isabel Zamora NP Primary Care Provider + [phone] Encounter Details DateTypeDepartmentCare Team (Latest Contact Info)Uwonaiktbfr55/11/2025Travel Social History Tobacco UseTypesPacks/DayYears UsedDateSmoking Tobacco: NeverSmokeless Tobacco: NeverAlcohol UseStandard Drinks/WeekCommentsYes2 (1 standard drink = 0.6 oz pure alcohol)caffeine intake: [id number] Health LiteracyAnswerDate RecordedHow often do you need [...] relatives?Twice a week06/22/2024How often do you attend temple or amish services?Never 06/22/2024o you belong to any clubs or organizations such as temple groups, unions, fraternal or athletic groups, or school groups?No06/22/2024How often do you attend meetings of the clubs or organizations you belong to?Never06/22/2024 Are you , , , , never , or living with a partner?Xukhkxx6906/22/2024UDIT-CAnswerDate RecordedQ1: How often do you have a [...] housing, medical care, and heating?Not hard at all06/22/2024[facility] [place] [facility] - Occupational Stress QuestionnaireAnswerDate [...] were you homeless or living in a correction (including now)?No06/22/2024Estimated Date of Delivery HmxpqauwNvi16/07/2026Based on last menstrual period of 01/13/2025Sex and Gender InformationValueDate RecordedSex Assigned at CnlmoMmzkfc21/07/2024 11:39 AM EST Legal KdiLfyovf25/15/2023 7:12 PM EDTGender CdlxaujkOvddyx46/07/2024 11:39 AM ESTSexual OrientationNot on filedocumented as of this encounter Plan of Treatment DateTypeDepartmentCare Team (Latest Contact Info)Nrajxnvapwc87/16/2025 10:20 AM ESTRoutine NOMJulius MOREAU [address] [place] [address] [place] [id number] Manuel Hernandez, DO [address] [place] [address] 02/18/2026 4:00 PM EDTOffice Visit KHADAR MOREAU [address] [place] [address] [place] [address] Manuel Hernandez, [address] [place] [address] documented as of this encounter Visit Diagnoses Not on filedocumented in this encounter Care Teams Team MemberRelationshipSpecialtyStart DateEnd Date Maria Isabel Zamora, SENIOR MAINTENANCE MECHANIC [address] [place] [address] PCP - General05/04/23documented as of this encounter
[2025-07-07 09:54] LABS: Hematocrit 32.8 % (36.0-48.0); Hemoglobin 10.6 g/dL (12.0-16.0); Immature Granulocytes Abs Auto 0.15 10^3/uL (0.00-0.03); Immature Granulocytes Pct Auto 1.3 % (0.0-0.5); Lymphocytes Absolute Auto 1.5 10^3/uL (1.2-3.8); Mean Corpuscular HGB Conc 32.3 g/dL (29.9-35.2); Mean Corpuscular Hemoglobin 30.0 pg (26.7-34.0); Mean Corpuscular Volume 92.9 fL (81.0-99.0); Platelet Count 292 10^3/uL (150-450); Red Blood Count 3.53 10^6/uL (4.20-5.40); White Blood Count 11.6 10^3/uL (4.0-11.0)
[2025-07-07 09:57] LABS: Glucose 1 Hour 143 mg/dL (<130)
== END 2025-07-07 08:42 | disposition home or self-care (01) ==
LOC: LAB 08:42
PROVIDERS: PCP Nurse Practitioner Family; Visit Provider Obstetrics & Gynecology
DX: Z13.1 Encounter for screening for diabetes mellitus (principal); Z3A.24 24 weeks gestation of pregnancy
CPT/HCPCS: 36415; 82950; 85025

== ENCOUNTER 2025-07-10 06:41 | Outpatient (OUT) | payer OTHER, SELFPAY ==
--- OUTSIDE RECORDS SUMMARY | 2025-07-03 09:10 | XMS_ITS | Encounter Summary ---
Author Organization [facility] Address [address] [place] [address] Care Team Providers Care Clinical Interviewer Name Role Phone Maria Isabel Zamora NP Primary Care Provider + [phone] Reason for Visit * ReasonCommentsRoutine Visit Encounter Details DateTypeDepartmentCare Team (Latest Contact Info)Mexmmosuypo98/18/2025 9:10 AM ESTRoutine [facility] [address] [place] [phone] Manuel Hernandez DO [address] [place] [id number] 24 weeks gestation of ([facility]); Second trimester ([facility]); Nonintractable headache, unspecified chronicity pattern, unspecified headache type; Diabetes mellitus screening; Urinary urgency Social History Tobacco UseTypesPacks/DayYears UsedDateSmoking Tobacco: NeverSmokeless Tobacco: NeverAlcohol UseStandard Drinks/WeekCommentsYes2 (1 standard drink = 0.6 oz pure alcohol)caffeine intake: [id number] Health LiteracyAnswerDate RecordedHow often do you need [...] relatives?Twice a week06/22/2024How often do you attend restorationism or anabaptist services?Never 06/22/2024o you belong to any clubs or organizations such as restorationism groups, unions, fraternal or athletic groups, or school groups?No06/22/2024How often do you attend meetings of the clubs or organizations you belong to?Never06/22/2024 Are you , , , , never , or living with a partner?Wswgsbd3406/22/2024UDIT-CAnswerDate RecordedQ1: How often do you have a [...] housing, medical care, and heating?Not hard at all06/22/2024[facility] - Occupational Stress QuestionnaireAnswerDate [...] steady place to sleep or slept in [facility] (including now)?No 05/04/2023Housing Stability Vital SignAnswerDate RecordedIn the last 12 months, was there a time when you were not able to pay the mortgage or rent on time?No 06/22/2024In the past 12 months, how many times have you moved where you were living?t any time in the past 12 months, were you homeless or living in a residential (including now)?No06/22/2024Estimated Date of Delivery ZfxjlalbQux99/07/2026ased on last menstrual period of 01/13/2025Sex and Gender InformationValueDate RecordedSex Assigned at OsikiZthozc60/07/2024 11:39 AM EST Legal DqeOydunp18/15/2023 7:12 PM EDTGender PqgqjxcfKduteo61/07/2024 11:39 AM ESTSexual OrientationNot on filedocumented as of this encounter Last Filed Vital Signs Vital SignReadingTime TakenCommentsBlood Okeivrie685/6807/03/2025 9:30 AM EST Pulse--Temperature--Respiratory Rate--Oxygen Saturation--Inhaled Oxygen Concentration--Gloqom51.3 kg (185 lb 12.8 oz)07/03/2025 9:30 AM ESTHeight--Body Mass Index28.25002/12/2025 4:00 PM EDTdocumented in this encounter Progress Notes * Becca Espinosa, [employer] - 07/03/2025 9:10 AM EST Reason for Appointment: Patient ID: Nasreen Felix is a 35 y.o. female who presents for Routine Visit Patient presents today for Return OB appointment. MEDICATIONS Current Outpatient Medications Medication Instructions magnesium oxide (MAG-OX) 400 mg, Oral, Daily Pvmgqama-Fwx-We-FA ( 1 + IRON PO) 1 tablet, [...] nursing note reviewed. Exam conducted with a structural steel fitter present. Vitals: Estimated body mass index is 28.25 kg/m?? as calculated from the following: Height as of 02/12/25: 5' 8 . Weight as of this encounter: 185 lb 12.8 oz. BP: 118/68 Patient's last menstrual period was 01/13/2025. Assessment/Plan ICD-10-CM 1. 24 weeks gestation of ([facility]) Z3A.24 POCT urinalysis dipstick manually resulted 2. Second trimester ([facility]) Z34.92 POCT urinalysis dipstick manually resulted 3. [...] Plan of Treatment DateTypeDepartmentCare Team (Latest Contact Info)Blqssenoker89/16/2025 10:20 AM ESTRoutine [facility] [address] [place] [address] [place] [phone] Manuel Hernandez, DO [address] [place], [place] [id number] 02/18/2026 4:00 PM EDTOffice Visit [facility] [address] [place] [phone] Manuel Hernandez, DO [address] [place], [place] [id number] NameTypePriorityAssociated DiagnosesOrder ScheduleCBCLabRoutine Diabetes mellitus screening Expected: 07/03/2025 (Approximate), Expires: 07/03/2026Glucose tolerance, 1 hour LabRoutine Diabetes mellitus screening Expected: 07/03/2025 (Approximate), Expires: 07/03/2026Urine cultureMicrobiology Routine Urinary urgency Ordered: 07/03/2025documented as of this encounter Procedures Procedure NamePriorityDate/TimeAssociated DiagnosisCommentsPOCT URINALYSIS IMJOKGVOUivgiry13/18/2025 9:27 AM EST 24 weeks gestation of ([facility]) Second trimester ([facility]) documented in this encounter Results * (ABNORMAL) [...] Location / LateralityCollection Method / VolumeCollection TimeReceived AilcTejcp15/18/2025 9:27 AM EST Narrative Authorizing ProviderResult TypeResult StatusCorey David DOPOINT OF CARE TEST ENTER/EDIT ORDERABLESFinal Result documented in this encounter Visit Diagnoses Diagnosis 24 weeks gestation of ([facility]) Second trimester ([facility]) state, incidental Nonintractable headache, unspecified chronicity pattern, unspecified headache type Diabetes mellitus screening Screening for diabetes mellitus Urinary urgency Urgency of urination documented in this encounter Care Teams Team MemberRelationshipSpecialtyStart DateEnd Date Maria Isabel Zamora MICROBIAL SPECIALIST [address] [place] [address] PCP - General05/04/23documented as of this encounter
--- OUTSIDE RECORDS SUMMARY | 2025-07-10 06:44 | XMS_ITS | CCD ---
Author Organization [facility] Team Providers Care Parts Representative Name Role Phone DR CUCO HERNANDEZ Attending [...] oral capsule (2 sources)Cephalosporin AntibacterialStart: 04-04-2025 End: 24-86-3553htfv 1 capsule by mouth in the morning, [...] mg oral tablet (6 sources)Start: 04-18-2025 End: 75-82-2033biku 1 tablet by mouth once dailymagnesium oxide (Mag-Ox) 400 MG tablet Indications: Nonintractable headache, unspecified chronicitypattern, unspecified headache type Take 1 tablet (400 mg) by mouth Daily 30 tablet 6 04/18/2025 11/14/2025 ActivePrenatal Dncfakxv-Dqc-Lb-FA ( 1 + IRON PO) (11 sources) Wonvkwer-Wzi-Za-FA ( 1 + IRON PO) Take 1 tablet by mouth Daily Activetrimethoprim 100 mg oral tablet (17 sources)Dihydrofolate Reductase Inhibitor AntibacterialStart: 08-22-2024 End: 44-83-2016ikwcvfjijhzh (Trimpex) 100 MG tablet Indications: Dyspareunia in female , Urinary tract infection without hematuria, site unspecified Take 1 tablet (100 mg) by mouth if needed (Dyspareunia) for up to20 doses Take 1 tablet by mouth immediately before intercourse PRN 20 tablet 2 02/12/2025 Active Completed/Discontinued Medications MedicationDrug Class(es)DatesSig (Normalized)Sig (Original)azithromycin 250 mg oral tablet (1 source)Macrolide AntimicrobialStart: 06-28-2024 End: 23-54-3572vbsq 2 tablets by mouth once daily, then take 1 tablet by mouth once dailyazithromycin (Zithromax) 250 MG tablet Indications: Bronchitis Take 2 tablets (500 mg) by mouth Daily for 1 day, THEN 1 tablet (250 mg) Daily for 4 days. 6 tablet 06/28/2024 06/29/2024 Discontinued (Other)dexamethasone 1 mg/ml / tobramycin 3 mg/ml ophthalmic suspension (2 sources)Aminoglycoside Antibacterial, CorticosteroidStart: 02-04-2024 End: 69-64-3879rnji 1 drop(s) into the eye(s) four times dailytobramycin- dexAMETHasone (Tobradex) ophthalmic suspension instill 1 drop into left eye four times aday 02/04/2024 06/26/2024 Discontinued (Other)ethinyl estradiol 0.035 mg / norethindrone acetate 1 mg oral tablet (2 sources)EstrogenStart: 03-06-2024 End: 27-01-9540tkgpkmxferloi-ethinyl estradiol (Nortrel 1/35, 28,) 1-35 MG-MCG tablet Indications: Encounter for initial prescription of contraceptive pills TAKE 1 TABLET BY MOUTH ONCE DAILY 84 tablet 4 03/06/2024 06/26/2024 Discontinued (Other)hyoscyamine sulfate 0.12 mg / methenamine 118 mg / methylene blue 10 mg / phenyl salicylate 36 mg /sodium phosphate, monobasic 40.8 mg oral capsule (3 sources)Oxidation-Reduction AgentStart: 02-08-2024 End: 18-34-0379vtos 1 capsule by mouth every six hours for urinary tract infection and urinary tract kuuawotyiIjsk-Edh-K Bl-Na Phos-Ph Tariq (Uribel) 118 MG capsule Indications: Urinary tract infection without hematuria, site unspecified Take 1 capsule by mouth every 6 (six) hours 120 capsule 3 02/08/2024 06/29/2024 Discontinued (Other)methylPREDNISolone (2 sources)CorticosteroidStart: 06-28-2024 End: 39-04-5375oqysghNBGDFACluqla (Medrol Dospak) 4 MG tablets Indications: Bronchitis Follow schedule on package instructions 21 tablet 06/28/2024 07/05/2024 ExpiredStart: 06-28-2024 End: 77-57-9846fwrfxkOGHUMSDoxixq (Medrol Dospak) 4 MG tablets Indications: Bronchitis Follow schedule on package instructions 21 tablet 06/28/2024 07/05/2024 Activephenazopyridine hydrochloride 100 mg oral tablet (7 sources)Start: 04-04-2025 End: 07-13-5202kzmp 1 tablet by mouth three times daily as needed for muscle spasmsphenazopyridine (Pyridium) 100 MG tablet Indications: UTI symptoms Take 1 tablet (100 mg) by mouth 3 (three) times a day as needed for bladder spasms for up to 4 days 12 tablet 1 04/04/2025 04/08/2025 ExpiredStart: 08-22-2024 End: 32-85-1359uclklidijoxskqu (Pyridium) 200 MG tablet Indications: Dyspareunia in female , Urinary tract infection without hematuria, site unspecified Take 1 tablet (200 mg) by mouth if needed for bladder spasms for up to 10 doses 10 tablet 3 08/22/2024 02/12/2025 Discontinued (Therapy completed)Start: 03-06-2024 End: 68-04-5551otthookhnhvteey (Pyridium) 200 MG tablet Indications: Dyspareunia in female Take 1 tablet (200 mg) by mouth if needed for bladder spasms for up to 10 doses 10 tablet 3 03/06/2024 06/26/2024 Discontinued (Other)sulfacetamide sodium 100 mg/ml ophthalmic solution (2 sources)Sulfonamide AntibacterialStart: 01-29-2024 End: 45-98-9439zfwm 2 drop(s) into the eye(s) three times dailysulfacetamide (Bleph-10) 10 % ophthalmic solution INSTILL 2 DROPS INTO AFFECTED EYE 3 TIMES A DAY FOR 10 DAYS 01/29/2024 06/26/2024 Discontinued (Other) Problems Active Problems Problem ClassificationProblemDateDocumented DateEpisodic/ChronicChronic obstructive pulmonary disease and bronchiectasis (1 source)Bronchitis; Translations: [Bronchitis, not specified as acute or chronic]80-18-0733JlaffzmiQvgarpix; including migraine (4 sources)Headache; Translations: [Nonintractable headache, unspecified chronicity pattern, unspecified headache type]75-32-4805KyrvimlnCxgxryrbnrcds and screening for infectious disease (3 sources)Encounter for screening for human papillomavirus (HPV); Translations: [Exposure to sexually transmissible disorder]Onset: 132869-10-8906Pxslknxc Menstrual disorders (1 source)Missed period; Translations: [Irregular menstruation, unspecified] 60-29-7239ClkyfpyTtqgj female genital disorders (2 sources)Pain in female genitalia on intercourse; Translations: [Unspecified dyspareunia]73-36-1938JptmjygEcyce female genital disorders (2 sources)Vaginal discharge; Translations: [Other specified noninflammatory disorders of vagina]21-94-7014VgbwsgibAwrcp and delivery including normal (9 sources)Urine test positive; Translations: [Encounter for test, result positive]96-72-0024VbwygechXiwvl screening for suspected conditions (not mental disorders or infectious disease) (10 sources)Encounter for screening for malignant neoplasm of cervix; Translations: [Patient encounter status]Onset: 66-90-4643UwtphyryYgqjzpee codes; unclassified (2 sources)Gestation period, 11 weeks; Translations: [11 weeks gestation of ]42-01-0592AlcepxohMdbaiznw codes; unclassified (2 sources)Gestation period, 15 weeks; Translations: [15 weeks gestation of ]92-21-9783UfwhddvcKvlygdbj codes; unclassified (2 sources)Gestation period, 20 weeks; Translations: [20 weeks gestation of ]05-56-8435MuybkxkbXlytjxu tract infections (19 sources)Chronic interstitial cystitis; Translations: [Interstitial cystitis (chronic) without hematuria]Onset: 372132-08-2815MvkmwfhPhjeuas tract infections (2 sources)Urinary tract infectious disease; Translations: [Urinary tract infection, site not specified]26-29-7008Pbckguba Past or Other Problems Problem ClassificationProblemDateDocumented DateEpisodic/ChronicGenitourinary symptoms and ill-defined conditions (20 sources)Blood in urine; Translations: [Hematuria, unspecified]Onset: 436886-40-0012Xhjyoplm Results Test NameValueInterpretationReference RangeFacilityUrinalysis macro (dipstick) panel (U)on 32-42-0530Bwhelburj, UANegativeNegative - 4(70) +++ mg/dLNOMS HealthcareBlood, UANegativeNegative [...] - 12 mg/dLNOMS HealthcareNOMS HealthcareRECURRENT VAGINITIS (HTRX)on 36-24-0846TPWMKZVGL UPWUEQU3GTPP HealthcareATOPOBIUM VAGINAENot detectedNOGA HealthcareBVAB 2,3 (BACTERIAL VAGINOSIS ASSOCIATED BACTERIA 2, 3); MOBILUNCUS BPR6QJRL HealthcareBVAB 2,3 (BACTERIAL VAGINOSIS ASSOCIATED BACTERIA 2, 3); MOBILUNCUS SPPNot detectedNOMS HealthcareCANDIDA ALBICANS, PARAPSILOSIS, BLJJLWHUVO4RLBU HealthcareCANDIDA ALBICANS, PARAPSILOSIS, TROPICALISNot detectedNOMS HealthcareCANDIDA GLABRATA0 NOMS HealthcareCANDIDA GLABRATANot detectedNOMS HealthcareCANDIDA RUYIJE7SMRV HealthcareCANDIDA KRUSEINot detectedNOMS HealthcareCHLAMYDIA JHRIFVREDUN4ACIV HealthcareCHLAMYDIA TRACHOMATISNot detectedNOMS HealthcareGARDNERELLA VAGINALIS0 NOMS HealthcareGARDNERELLA VAGINALISNot detectedNOMS HealthcareMEGASPHAERA (TYPES 1, 2)0NOMS HealthcareMEGASPHAERA (TYPES 1, 2)Not detectedNOMS Healthcare MYCOPLASMA LXQXHBJAXL0TKRJ HealthcareMYCOPLASMA GENITALIUMNot detectedNOMS HealthcareNEISSERIA FKDYVQDOLAP2ONFK HealthcareNEISSERIA GONORRHOEAENot detected NOMS HealthcareTRICHOMONAS MHRJVLXPW6THQL HealthcareTRICHOMONAS VAGINALISNot detectedNOMS HealthcareNOMS HealthcareUS OB 14+ [...] Delivery: 10/20/25 Gestational Age as of 05/02/2025: 24p0rPtugvgagwd macro (dipstick) panel (U)on 23-08-1030Yiuvmtkot, UANegativeNegative - 4(70) +++ mg/dLNOMS HealthcareBlood, UANegativeNegative [...] HealthcareNOMS Healthcare Urinalysis macro (dipstick) panel (U)on 20-40-8537Fxjsfgxbs, UANegativeNegative - 4(70) +++ mg/dLNOMS HealthcareBlood, UANegativeNegative [...] UA1.00.2 - 12 mg/dLNOMS HealthcareNOMS HealthcareBOX TESTon 89-26-7029RMA TEST SENT OUTUNITY BOXNOMS CecrkambolBVG3PSRPATVZN PbnwuuqlvhJIB80/9/25NOMS HealthcareCLINISYNCNOMS HealthcareHCG ( test) Ql (U)on 09-25-0750Fqznwaiwpcwxph and review of laboratory resultsAbnormalNOMS HealthcarePreg Test, UrPositiveNegativeNOMS HealthcareNOMS HealthcareUS OB TRANSVAGINALon 07-28-0914OY OB TRANSVAGINAL FINDINGS: A single intrauterine gestational [...] No LMP recorded.Urinalysis macro (dipstick) panel (U)on 47-23-0096Rynpcdapa, UA NegativeNegative - 4(70) +++ mg/dLNOMS HealthcareBlood, UANegativeNegative - 50 Yash/mcLNOMS HealthcareClarity, UAClearNOMS HealthcareColor, UAYellowNOMS HealthcareGlucose, UANegativeNegative - 2000(110) ++++ mg/dLNOMS Healthcare Interpretation and review of laboratory resultsNormalNOGA HealthcareKetones, UA NegativeNegative - 160(16) ++++ mg/dLNOMS HealthcareLeukocytes, UATraceNegative - 500+++ Zuleyka/mcLNOMS HealthcareNitrite, UANegativeNegative - PositiveNOMS HealthcarepH, UA65 - 9NOMS HealthcareProtein, UANegativeNegative - 2000(20) ++++ mg/dLNOMS HealthcareSpec Grav, UA1.0151 - 1.03NOMS HealthcareUrobilinogen, UA1.0 0.2 - 12 mg/dLNOBarton County Memorial HospitalNOGA HealthcareIGP,APTIMA HPV,AGE GDLNon 02-15-2025 AGE GDLN ACOG TESTINGNote.NOMS HealthcareComment on above:TESTS RESULT FLAG UNITS REF RANGE LAB Clinician Provided Cytology Information Source.............Cervix;Endocervix No. of containers..01 ThinPrep Vial Age Algo ACOG Shbanam... FLAG LEGEND: L-Low Normal,H-High Normal,LL-Alert Low,HH-Alert High <-Panic Low,>-Panic High,A-Abnormal,AA-Critical Abnormal Performed at: 01 =[address] [place] [address] Karmen Yeung MD, HPV APTIMANegativeNegativeSALT [facility] HealthcareComment on above:This nucleic acid amplification test detects fourteen high- risk HPV types (16,18,31,33,35,39,45,51,52,56,58,59,66,68) without differentiation. Performed at: =[address] [id number] Electro Mechanical Technician: Karmen Yeung MD, Phone: [phone] Performed at: [address] [place], [place], [place] [id number] Electro Mechanical Technician: Karmen Yeung MD, Phone: [phone] IGP, APTIMA HPV, RFX 16/18,45Note.NOMS [facility] SystemComment on above:TESTS RESULT FLAG UNITS REF RANGE LAB DIAGNOSIS: 02 NEGATIVE FOR INTRAEPITHELIAL LESION OR MALIGNANCY. CELLULAR CHANGES ASSOCIATED WITH INFLAMMATION ARE PRESENT. Specimen adequacy: 02 Satisfactory for evaluation. Endocervical and/or squamous metaplastic cells (endocervical component) are present. Performed by: Julissa Uriarte, Aquatics Coordinator ([facility]) . 02 Note: Note 02 The Pap [...] High,A-Abnormal,AA-Critical Abnormal Performed at: 02 [address] [facility] [address] [place] [address] Karmen Yeung MD, BRUSH-SPATULA CERVIX ENDOCERVIX CLINISYNCNOMS HealthcareUrinalysis macro (dipstick) panel (U)on 02-12-2025 Bilirubin, UANegativeNegative - 4(70) +++ mg/dLSALT LAKE BE[facility]IORAL [facility] HealthcareBlood, UANegative Negative - 50 Yash/mcLSALT LAKE [facility]IOR[facility] HealthcareClarity, UAClearSALT [facility]KE [facility] HealthcareColor, UA YellowNOBarton County Memorial HospitalGlucose, UANegativeNegative - 2000(110) ++++ mg/dLSALT LAKE [facility] HealthcareInterpretation and review of laboratory resultsNormalMiss[facility] Ketones, UANegativeNegative - 160(16) ++++ mg/dLMissouri Southern HealthcareLeukocytes, UA NegativeNegative - 500+++ Zuleyka/mcLMissouri Southern HealthcareNitrite, UANegativeNegative - PositiveSALT LAKE [facility] HealthcarepH, UA6.55 - 9NOGA HealthcareProtein, UANegativeNegative - 2000(20) ++++ mg/dLMissouri Southern HealthcareSpec Grav, UA1.011 - 1.03[facility] Urobilinogen, UA0.20.2 - 12 mg/dLPutnam County Memorial Hospital HealthcareALL CBC WITH AUTO DIFFon 80-33-5186Tldsykqelgv distribution width (RBC) [Ratio]11.9 %11.8 - 14.4 % [facility] HealthcareHematocrit (Bld) [Volume fraction]41.4 %36.3 - 47.1 %[facility] HealthcareHemoglobin (Bld) [Mass/Vol]13.4 g/dL11.9 - 15.1 g/dLScotland County Memorial HospitalH (RBC) [Entitic mass]30 pg25.2 - 33.5 pgScotland County Memorial HospitalHC (RBC) [Mass/Vol]32.4 g/dL28.4 - 34.8 g/dLScotland County Memorial HospitalV (RBC) [Entitic vol]92.6 fL82.6 - 102.9 fLSaint John's Hospital NRBC VFPKAXDFT81.0 per 100 WBCSaint John's Hospital PLATELET DLPVV003IQLRSaint John's Hospital WBC COUNT9.6[facility] HealthcarePlatelet mean volume (Bld) [Entitic vol]10.2 fL8.1 - 13.5 fLMissouri Southern HealthcareRBC (Bld) [#/Vol]4.47 10*6/uL3.95 - 5.11 m/uLNOMS HealthcareOriginal Ordering Provider: AWA JOSEPH SHILAURAINISYNCNOMS [facility] 61-12-7377Ngwgerfddms distribution width (RBC) [Ratio]11.9 %11.8 - 14.4 %[facility] HealthcareHematocrit (Bld) [Volume fraction]41.4 %36.3 - 47.1 %[facility] HealthcareHemoglobin (Bld) [Mass/Vol] 13.4 g/dL11.9 - 15.1 g/dLBon Premier Health [facility] HospitalH (RBC) [Entitic mass]30.0 pg 25.2 - 33.5 pgBon [facility] HospitalHC (RBC) [Mass/Vol]32.4 g/dL28.4 - 34.8 g/dLBon [facility] Valley HospitalV (RBC) [Entitic vol]92.6 fL82.6 - 102.9 fLTwin County Regional HealthcareNucleated RBC/100 WBC (Bld) [Ratio]0.0 %0.0 per 100 WBCTwin County Regional HealthcarePlatelet mean volume (Bld) [Entitic vol]10.2 fL8.1 - 13.5 fL [facility] HealthcarePlatelets (Bld) [#/Vol]328 10*3/uLTwin County Regional HealthcareRBC (Bld) [#/Vol]4.47 10*6/uL3.95 - 5.11 m/[facility] HealthcareWBC other (Bld) [#/Vol]9.6Bon [facility] Erythrocyte distribution width (RBC) [Ratio]11.9 %Txmjgk26.8-14.4[facility] HospitalComment on above:Performed By: #### TSH, CBC, CP #### [facility] [address] [place] [address] Electro Mechanical Technician: Marlon Parisi MD #### LIPR #### [facility] [address] [place] [address] Electro Mechanical Technician: Robinson Byrd MDHematocrit (Bld) [Volume fraction]41.4 %Normal 36.3-47.1MCleveland Clinic South Pointe HospitalComment on above:Performed By: #### TSH, CBC, CP #### [address] [place] [address] Electro Mechanical Technician: Marlon Parisi MD #### LIPR #### [address] [id number] Electro Mechanical Technician: Robinson Byrd MDHemoglobin (Bld) [Mass/Vol]13.4 g/dLNormal 11.9-15.1MBethesda North Hospital HospitalComment on above:Performed By: #### TSH, CBC, CP #### [address] [place] [address] Electro Mechanical Technician: Marlon Parisi MD #### LIPR #### [address] [id number] Electro Mechanical Technician: YAN DonnellyCH (RBC) [Entitic mass]30.0 aiXnaszy87.2-33.5 [facility] HospitalComment on above:Performed By: #### TSH, CBC, CP #### [address] [place] [address] Electro Mechanical Technician: Marlon Parisi MD #### LIPR #### [address] [id number] Electro Mechanical Technician: YAN DonnellyCHC (RBC) [Mass/Vol]32.4 g/qXJzdqby56.4-34.8 [facility] HospitalComment on above:Performed By: #### TSH, CBC, CP #### [address] [place] [address] Electro Mechanical Technician: Marlon Parisi MD #### LIPR #### [address] [id number] Electro Mechanical Technician: YAN DonnellyCV (RBC) [Entitic vol]92.6 vOMixfdk13.6-102.9 [facility] HospitalComment on above:Performed By: #### TSH, CBC, CP #### [address] [place] [address] Electro Mechanical Technician: Marlon Parisi MD #### LIPR #### [address] [id number] Electro Mechanical Technician: Robinson Byrd MDNRBC Automated0.0 per 100 WBCNormal0.0[facility] HospitalComformerly [facility] on above:Performed By: #### TSH, CBC, CP #### [address] [place], [place] [address] Electro Mechanical Technician: Marlon Parisi MD #### LIPR #### [address] [address] Electro Mechanical Technician: Sadia Donnelly mean volume (Bld) [Entitic vol]10.2 fL Normal8.1-13.5[facility] HospitalComformerly [facility] on above:Performed By: #### TSH, CBC, CP #### [address] [place], [place] [address] Electro Mechanical Technician: Marlon Parisi MD #### LIPR #### [address] [address] Electro Mechanical Technician: Faraz Donnelly (Bld) [#/Vol]328 10*3/fCIecmoq257-796 [facility] HospitalComformerly [facility] on above:Performed By: #### TSH, CBC, CP #### [address] [place], [place] [address] Electro Mechanical Technician: Marlon Parisi MD #### LIPR #### [address] [address] Electro Mechanical Technician: HEBERT DonnellyBC (Bld) [#/Vol]4.47 10*6/uLNormal3.95-5.11 [facility] HospitalComment on above:Performed By: #### TSH, CBC, CP #### [address] [place] [address] Electro Mechanical Technician: Marlon Parisi MD #### LIPR #### [address] [address] Electro Mechanical Technician: Robinson Byrd MDWMCHEALTH ([facility]) [#/Vol]9.6 10*3/uLNormal3.5-11.3MCleveland Clinic South Pointe HospitalComment on above:Performed By: #### TSH, CBC, CP #### [address] [place] [address] Electro Mechanical Technician: Marlon Parisi MD #### LIPR #### [address] [address] Electro Mechanical Technician: Robinson Byrd [facility] Metabolic Profon 12-83-6430Ldbepvj [Mass/Vol]4.2 g/dLNormal3.5-5.2Mgrand lake joint township district memorial hospitaly [facility]state Medical CenterComment on above:Performed By: #### TSH, CBC, CP #### [address] [place] [address] Electro Mechanical Technician: Marlon Parisi MD #### LIPR #### [address] [address] Electro Mechanical Technician: Robinson Byrd MDAlbumin/Glob Ratio1.1Pavufc6.0-2.5[facility] Hospitalcy [facility] Medical CenterComment on above:Performed By: #### TSH, CBC, CP #### [address] [place], [place] [address] Electro Mechanical Technician: Marlon Parisi MD #### LIPR #### [address] [address] Electro Mechanical Technician: Charisma Donnelly Phos68 U/YHxfafh83-331CibwsMemorial Health System Marietta Memorial HospitalComformerly [facility] on above:Performed By: #### TSH, CBC, CP #### [address] [place], [place] [address] Electro Mechanical Technician: Marlon Parisi MD #### LIPR #### [address] [id number] Electro Mechanical Technician: Robinson Byrd MDALT [Catalytic activity/Vol]41 U/WSmac57-80KozsoMemorial Health System Marietta Memorial HospitalComformerly [facility] on above:Performed By: #### TSH, CBC, CP #### [address] [place], [place] [address] Electro Mechanical Technician: Marlon Parisi MD #### LIPR #### [address] [address] Electro Mechanical Technician: Pamela Donnelly gap [Moles/Vol]11 mmol/LNormal9-16[facility] HospitalComformerly [facility] on above:Performed By: #### TSH, CBC, CP #### [address] [place], [place] [address] Electro Mechanical Technician: Marlon Parisi MD #### LIPR #### [address] [address] Electro Mechanical Technician: Robinson Byrd MDAST [Catalytic activity/Vol]25 U/DSbylxg00-80 [facility] HospitalComformerly [facility] on above:Performed By: #### TSH, CBC, CP #### [address] [place], [place] [address] Electro Mechanical Technician: Marlon Parisi MD #### LIPR #### [address] [address] Electro Mechanical Technician: Robinson Byrd MDBilirubin [Mass/Vol]0.5 mg/dLNormal0.00-1.20 [facility] HospitalComment on above:Performed By: #### TSH, CBC, CP #### [facility] [address] [place] [address] Electro Mechanical Technician: Marlon Parisi MD #### LIPR #### [address] [address] Electro Mechanical Technician: Robinson Byrd MDBUN/CRE Vrule99Vwxd7-59HyoomMemorial Health System Marietta Memorial Hospital Comment on above:Performed By: #### TSH, CBC, CP #### [facility] [address] [place] [address] Electro Mechanical Technician: Marlon Parisi MD #### LIPR #### [address] [address] Electro Mechanical Technician: Robinson Byrd MDCalcium [Mass/Vol]9.2 mg/dLNormal8.6-10.4[facility] HospitalComment on above:Performed By: #### TSH, CBC, CP #### [address] [place] [address] Electro Mechanical Technician: Marlon Parisi MD #### LIPR #### [address] [address] Electro Mechanical Technician: Robinson Byrd MDChloride [Moles/Vol]100 mmol/RNsneyh22-818CxucyMemorial Health System Marietta Memorial HospitalComment on above:Performed By: #### TSH, CBC, CP #### [address] [place] [address] Electro Mechanical Technician: Marlon Parisi MD #### LIPR #### [address] [address] Electro Mechanical Technician: Robinson Byrd MDCO2 [Moles/Vol]28 mmol/HIfktty35-34NucwpMemorial Health System Marietta Memorial HospitalComment on above:Performed By: #### TSH, CBC, CP #### [address] [place], [place] [address]83 Electro Mechanical Technician: Marlon Parisi MD #### LIPR #### [place] [address] [place], [place] 6[address] Electro Mechanical Technician: PARADISE Donnellyreatinine [Mass/Vol]0.6 mg/dLNormal0.50-0.90 [facility] HospitalComment on above:Performed By: #### TSH, CBC, CP #### [address] [place], [place] [address] Electro Mechanical Technician: Marlon Parisi MD #### LIPR #### [address] [phone] Electro Mechanical Technician: Robinson Byrd MDGFR/1.73 sq M.predicted among non-blacks MDRD (S/P/Bld) [Vol rate/Area]mL/min/{1.73_m2}Normal>60[facility] Memorial HospitalComment on above:Result Comment: These results are not [...] secretion.Performed By: #### TSH, CBC, CP #### [address] [place], [place] [address] Electro Mechanical Technician: Marlon Parisi MD #### LIPR #### [address] [address] Electro Mechanical Technician: Robinson Byrd MDGlucose [Mass/Vol]80 mg/mAActttn18-73IhfdzCleveland Clinic South Pointe HospitalComment on above:Performed By: #### TSH, CBC, CP #### [address] [place] [address] Electro Mechanical Technician: Marlon Parisi MD #### LIPR #### [place] [address] Electro Mechanical Technician: Robinson Byrd MDPotassium [Moles/Vol]3.7 mmol/LNormal3.7-5.3 [facility] HospitalComment on above:Performed By: #### TSH, CBC, CP #### [address] [place] [address] Electro Mechanical Technician: Marlon Parisi MD #### LIPR #### [place] [address] Electro Mechanical Technician: Robinson Byrd MDProtein [Mass/Vol]7.2 g/dLNormal6.6-8.7[facility] HospitalComment on above:Performed By: #### TSH, CBC, CP #### [address] [place] [address] Electro Mechanical Technician: Marlon Parisi MD #### LIPR #### [place] [address] Electro Mechanical Technician: JOSE Donnellyodium [Moles/Vol]139 mmol/RIqjxpk111-494SvspyMemorial Health System Marietta Memorial HospitalComment on above:Performed By: #### TSH, CBC, CP #### [address] [place] [address] Electro Mechanical Technician: Marlon Parisi MD #### LIPR #### [place] [address] Electro Mechanical Technician: Robinson Byrd MDUrea nitrogen [Mass/Vol]14 mg/dLNormal6-20MerStamford HospitalComment on above:Performed By: #### TSH, CBC, CP #### [address] [place] [id number] Electro Mechanical Technician: Marlon Parisi MD #### LIPR #### [facility] [address] [place] [address] Electro Mechanical Technician: Robinson Byrd [facility] Instituteensive Metabolic Panelon 07-05-2024 Albumin [Mass/Vol]4.2 g/dL3.5 - 5.2 g/dLBon [facility] [employer] InternationalAlbumin/Globulin [Mass ratio]1.4 {ratio}1.0 - 2.5Bon [facility] [employer] HealthALP [Catalytic activity/Vol]68 U/L35 - 104 U/LBon [facility] [employer] HealthALT [Catalytic activity/Vol]41 U/LHigh10 - 35 U/LBon [facility] [employer] InternationalAnion gap [Moles/Vol] 11 mmol/L9 - 16 mmol/LBon [facility] [employer] HealthAST [Catalytic activity/Vol]25 U/L 10 - 35 U/LBon [facility] [employer] InternationalBilirubin [Mass/Vol]0.5 mg/dL0.00 - 1.20 mg/dLBon [facility] [employer] InternationalCalcium [Mass/Vol]9.2 mg/dL8.6 - 10.4 mg/dLBon [facility] [employer] InternationalChloride [Moles/Vol]100 mmol/L98 - 107 mmol/LBon [facility] [employer] HealthCO2 [Moles/Vol]28 mmol/L20 - 31 mmol/LBon [facility] Creatinine [Mass/Vol]0.6 mg/dL0.50 - 0.90 mg/dLBon [facility] [employer] HealthEst, Glom Filt Rate- PINFBon [facility] [employer] InternationalComment on above: These results are not intended [...] secretion. Glucose [Mass/Vol]80 mg/dL74 - 99 mg/dLBon [facility] CenterMural.lyInterpretation and review of laboratory resultsAbnormalBon [facility] [employer] HealthPotassium [Moles/Vol]3.7 mmol/L3.7 - 5.3 mmol/LBon [facility] HealthProtein [Mass/Vol] 7.2 g/dL6.6 - 8.7 g/dLBon [facility] AdministrationSodium [Moles/Vol]139 mmol/L136 - 145 mmol/LBon [facility] AdministrationUrea nitrogen [Mass/Vol]14 mg/dL6 - 20 mg/dL [facility] HealthcareUrea nitrogen/Creatinine [Mass ratio]23 mg/mgHigh9 - 20 [facility] HealthcareLipid Panelon 86-82-1954Lod [facility] Health AdministrationLipid Profileon 30-95-5009Zsxflusryyo [Mass/Vol]162 mg/dLNormal0-199[facility] on above: Cholesterol Guidelines: <200 Desirable 200-240 Borderline >240 Undesirable Result Comment: Cholesterol Guidelines: <200 Desirable 200-240 Borderline >240 UndesirablePerformed By: #### TSH, CBC, CP #### [address] [address] Electro Mechanical Technician: Marlon Parisi MD #### LIPR #### [facility] [address] [place] [address] Electro Mechanical Technician: PARADISE Donnellyholesterol in HDL [Mass/Vol]70 mg/dLNormal>40 [facility] on above: HDL Guidelines: <40 Undesirable 40-59 Borderline >59 Desirable Result Comment: HDL Guidelines: <40 Undesirable 40-59 Borderline >59 DesirablePerformed By: #### TSH, CBC, CP #### [address] [place] [place] [address] Electro Mechanical Technician: Marlon Parisi MD #### LIPR #### [facility] [address] [place] [address] Electro Mechanical Technician: PARADISE Donnellyholesterol in LDL [Mass/Vol]72 mg/dLNormal0-100 [facility] on above: LDL Guidelines: <100 Desirable 100-129 Near to/above Desirable 130-159 Borderline >159 Undesirable Direct (measured) LDL and calculated LDL are not interchangeable tests. Result Comment: LDL Guidelines: <100 Desirable 100-129 Near to/above Desirable 130-159 Borderline >159 Undesirable Direct (measured) LDL and calculated LDL are not interchangeable tests.Performed By: #### TSH, CBC, CP #### [facility] [address] [place] [address] [place], [place] [id number] Electro Mechanical Technician: Marlon Parisi MD #### LIPR #### [address] [id number] Electro Mechanical Technician: PARADISE Donnellyholesterol in VLDL [Mass/Vol]20 mg/dLNormal1-30 [facility] on above:Performed By: #### TSH, CBC, CP #### [facility] [address] [place] [address] [place] [id number] Electro Mechanical Technician: Marlon Parisi MD #### LIPR #### [address] [id number] Electro Mechanical Technician: PARADISE Donnellyholeshane.total/Cholesterol in HDL [Mass ratio]2.3 {ratio}NormalMary Washington Healthcare on above:Performed By: #### TSH, CBC, CP #### [facility] [address] [place] [address] [place], [place] [id number] Electro Mechanical Technician: Marlon Parisi MD #### LIPR #### [address] [address] Electro Mechanical Technician: Robinson Byrd MDTriglyceride [Mass/Vol]100 mg/dLNormal<150Bon [facility] on above: Triglyceride Guidelines: <150 Desirable 150-199 Borderline 200-499 High >499 Very high Based on AHA Guidelines for fasting triglyceride, May 2012. Result Comment: Triglyceride Guidelines: <150 Desirable 150-199 Borderline 200-499 High >499 Very high Based on AHA Guidelines for fasting triglyceride, May 2012.Performed By: #### TSH, CBC, CP #### [facility] [address] [place], [place] [id number] Electro Mechanical Technician: Marlon Parisi MD #### LIPR #### [place] [address] [place], [place] 164[address]8 Electro Mechanical Technician: Robinson Byrd MDNo Panel Informationon 40-19-2587Pak Veterans Health AdministrationTSHon 76-33-1603YYR Qn2.02 m[IU]/LBon [facility] AdministrationThyroid Stim. Horm.on 68-98-4050Ykmxebz Stim. Horm.2.02 uIU/mLNormal0.27-4.20[facility] HospitalComment on above:Performed By: #### TSH, CBC, CP #### [address] [place] [address] Electro Mechanical Technician: Marlon Parisi MD #### LIPR #### [address] [id number] Electro Mechanical Technician: Robinson Byrd [facility] [place] [place] CITYyt[place] Cervical or vaginal smear or scraping studyOrdered By: Fernanda Snowden on 77-82-6476TIWGFulton State Hospital ACOG PANEL 2: 21 to 29on 01-16-2022..NormalHolzer Health SystemComment on above:Performed By: #### [id number] #### [facility] [address] [place] [address] [address] Harry Vasquez Gdln ACOG Rvenixd11-73ThsnpnZxmBucyrus Community HospitalComment on above:Performed By: #### [id number] #### [facility] [address] [place] [address] [address] Harry MenendezDIAGNOSIS:CommentNoBucyrus Community HospitalComment on above: Result Comment: NEGATIVE FOR INTRAEPITHELIAL LESION OR MALIGNANCY.Performed By: #### [id number] #### [facility] [address] [address] [address] Harry MenendezMethodology:CommentNoBucyrus Community HospitalComment on above: Result Comment: This liquid based ThinPrep(R) pap test was screened with the use of an image guided system.Performed By: #### [id number] #### [place] [address] [address]. Harry MenendezNote:CommentClermont County Hospital on above:Result Comment: The Pap smear is a screening test designed to aid in the detection of premalignant and malignant conditions of the uterine cervix. It is not a diagnostic procedure and should not be used as the sole means of detecting cervical cancer. Both false-positive and false-negative reports do occur. .Performed By: #### [id number] #### [place] [address] [address]. Harry MenendezPerformed by:CommentClermont County Hospital on above: Result Comment: Luisana Jeffries, Barrel Cleaner (ASCP)Performed By: #### [id number] #### [place] [address] [address]. Harry MenendezReflex Criteria:CommentClermont County Hospital on above:Result Comment: The HPV DNA reflex criteria were not met with this specimen result therefore, no HPV testing was performed. .Performed By: #### [id number] #### [place] [address] [address]. Harry MenendezSpecimen adequacy:CommentClermont County Hospital on above:Result Comment: Satisfactory for evaluation. Endocervical and/or squamous metaplastic cells (endocervical component) are present.Performed By: #### [id number] #### [place] [address] [address] Harry MenendezComprehensive Metabolic Empon 08-40-4170Vmyivmc [Mass/Vol]3.9 g/dLNormal3.2-5.5FKettering Health TroyComment on above:Performed By: #### PT, PTT, CBC, CRP, CMP, ESR, TSH3, T4F #### [place] [address] [place] #### CHROMATIN, THYGLOB AB, TPO, ALD, HLAB27, MYOG, CH50, LUPANTCOAG, HITESH, C4, C3, RPR W RFX #### [facility] ,Albumin/Globulin [Mass ratio]1.2 {ratio}[facility] Comment on above:Performed By: #### PT, PTT, CBC, CRP, CMP, ESR, TSH3, T4F #### [facility] [address] [place] [address] [place] #### CHROMATIN, THYGLOB AB, TPO, ALD, HLAB27, MYOG, CH50, LUPANTCOAG, HITESH, C4, C3, RPR W RFX #### [facility] ,ALP [Catalytic activity/Vol]43 U/RNxmqgo51-13KyflplbiyAcmc Healthcare System Glenbeigh Comment on above:Performed By: #### PT, PTT, CBC, CRP, CMP, ESR, TSH3, T4F #### [facility] [address] [place] [address] [place] #### CHROMATIN, THYGLOB AB, TPO, ALD, HLAB27, MYOG, CH50, LUPANTCOAG, HITESH, C4, C3, RPR W RFX #### [facility] ,ALT [Catalytic activity/Vol]39 U/VBvkbwu67-98KdxsrozyxAcmc Healthcare System Glenbeigh Comment on above:Performed By: #### PT, PTT, CBC, CRP, CMP, ESR, TSH3, T4F #### [facility] [address] [place] [address] [place] #### CHROMATIN, THYGLOB AB, TPO, ALD, HLAB27, MYOG, CH50, LUPANTCOAG, HITESH, C4, C3, RPR W RFX #### [facility] ,AST [Catalytic activity/Vol]24 U/DZdnkba21-15YvgianuwzAcmc Healthcare System Glenbeigh Comment on above:Performed By: #### PT, PTT, CBC, CRP, CMP, ESR, TSH3, T4F #### [place] [address] [place] #### CHROMATIN, THYGLOB AB, TPO, ALD, HLAB27, MYOG, CH50, LUPANTCOAG, HITESH, C4, C3, RPR W RFX #### [facility] ,Bilirubin [Mass/Vol]1.0 mg/dLNormal0.3-1.2FKettering Health Troy Comment on above:Performed By: #### PT, PTT, CBC, CRP, CMP, ESR, TSH3, T4F #### [address] #### CHROMATIN, THYGLOB AB, TPO, ALD, HLAB27, MYOG, CH50, LUPANTCOAG, HITESH, C4, C3, RPR W RFX #### [facility] ,Calcium [Mass/Vol]9.4 mg/dLNormal8.2-10.[address] [place] [address] Comment on above:Performed By: #### PT, PTT, CBC, CRP, CMP, ESR, TSH3, T4F #### [place] [address] [place] #### CHROMATIN, THYGLOB AB, TPO, ALD, HLAB27, MYOG, CH50, LUPANTCOAG, HITESH, C4, C3, RPR W RFX #### [facility] ,Chloride [Moles/Vol]104 mmol/DWxyetb57-479AowjfcdnwAcmc Healthcare System Glenbeigh Comment on above:Performed By: #### PT, PTT, CBC, CRP, CMP, ESR, TSH3, T4F #### [place] [address] [place] #### CHROMATIN, THYGLOB AB, TPO, ALD, HLAB27, MYOG, CH50, LUPANTCOAG, HITESH, C4, C3, RPR W RFX #### [facility] ,CO2 [Moles/Vol]22.7 mmol/TUtyngl96.0-30.0[facility] Comment on above:Performed By: #### PT, PTT, CBC, CRP, CMP, ESR, TSH3, T4F #### [place] [address] [place] #### CHROMATIN, THYGLOB AB, TPO, ALD, HLAB27, MYOG, CH50, LUPANTCOAG, HITESH, C4, C3, RPR W RFX #### [facility] ,Creatinine [Mass/Vol]0.60 mg/dLNormal0.44-1.03[facility] Comment on above:Performed By: #### PT, PTT, CBC, CRP, CMP, ESR, TSH3, T4F #### [facility] [address] [place] [address] #### CHROMATIN, THYGLOB AB, TPO, ALD, HLAB27, MYOG, CH50, LUPANTCOAG, HITESH, C4, C3, RPR W RFX #### [facility] ,Estimated GFR ( Nallely> 60[facility] Comment on above:Result Comment: GFR estimated reference range: According to KDOQI guidelines, <60 ml/min/1.73m2 is sufficient to diagnose a patient with chronic kidney disease.Performed By: #### PT, PTT, CBC, CRP, CMP, ESR, TSH3, T4F #### [address] #### CHROMATIN, THYGLOB AB, TPO, ALD, HLAB27, MYOG, CH50, LUPANTCOAG, HITESH, C4, C3, RPR W RFX #### [facility] ,Estimated GFR (Non- Am> 60[facility] Community HospitalComment on above:Performed By: #### PT, PTT, CBC, CRP, CMP, ESR, TSH3, T4F #### [address] #### CHROMATIN, THYGLOB AB, TPO, ALD, HLAB27, MYOG, CH50, LUPANTCOAG, HITESH, C4, C3, RPR W RFX #### [facility] ,Globulin (S) [Mass/Vol]3.3 g/dLNoTwin City HospitalComment on above:Performed By: #### PT, PTT, CBC, CRP, CMP, ESR, TSH3, T4F #### [place] [address] [place] #### CHROMATIN, THYGLOB AB, TPO, ALD, HLAB27, MYOG, CH50, LUPANTCOAG, HITESH, C4, C3, RPR W RFX #### [facility] ,Glucose [Mass/Vol]89 mg/gIVbihsd43-417ZehhzfgpzAcmc Healthcare System GlenbeighComment on above:Performed By: #### PT, PTT, CBC, CRP, CMP, ESR, TSH3, T4F #### [place] [address] [place] #### CHROMATIN, THYGLOB AB, TPO, ALD, HLAB27, MYOG, CH50, LUPANTCOAG, HITESH, C4, C3, RPR W RFX #### [facility] ,Potassium [Moles/Vol]4.3 mmol/LNormal3.5-5.1FKettering Health Troy Comment on above:Performed By: #### PT, PTT, CBC, CRP, CMP, ESR, TSH3, T4F #### [facility] [address] [place] [address] [place] #### CHROMATIN, THYGLOB AB, TPO, ALD, HLAB27, MYOG, CH50, LUPANTCOAG, HITESH, C4, C3, RPR W RFX #### [facility] ,Protein [Mass/Vol]7.2 g/dLNormal6.1-7.9Acmc Healthcare System GlenbeighComment on above:Performed By: #### PT, PTT, CBC, CRP, CMP, ESR, TSH3, T4F #### [place] [address] [place] #### CHROMATIN, THYGLOB AB, TPO, ALD, HLAB27, MYOG, CH50, LUPANTCOAG, HITESH, C4, C3, RPR W RFX #### [facility] ,Sodium [Moles/Vol]136 mmol/PNdjlhv150-982SiiokmyhrAcmc Healthcare System Glenbeigh Comment on above:Performed By: #### PT, PTT, CBC, CRP, CMP, ESR, TSH3, T4F #### [facility] [address] [place] [address] [place] #### CHROMATIN, THYGLOB AB, TPO, ALD, HLAB27, MYOG, CH50, LUPANTCOAG, HITESH, C4, C3, RPR W RFX #### [facility] ,Urea nitrogen [Mass/Vol]9 mg/dLNormal9-23[facility] Comment on above:Performed By: #### PT, PTT, CBC, CRP, CMP, ESR, TSH3, T4F #### [facility] [address] [place] [address] [place] #### CHROMATIN, THYGLOB AB, TPO, ALD, HLAB27, MYOG, CH50, LUPANTCOAG, HITESH, C4, C3, RPR W RFX #### [facility] ,Lipid Profileon 49-94-1970Nzsltsxwwqm [Mass/Vol]153 mg/hSXtpafh964-047YemrzyktsAcmc Healthcare System GlenbeighComment on above:Result Comment: Chol less than 200 mg/dl low risk Chol 201-239 mg/dl borderline risk Chol 240 mg/dl and greater high riskPerformed By: #### PT, PTT, CBC, CRP, CMP, ESR, TSH3, T4F #### [facility] [address] [place] [address] [place] #### CHROMATIN, THYGLOB AB, TPO, ALD, HLAB27, MYOG, CH50, LUPANTCOAG, HITESH, C4, C3, RPR W RFX #### [facility] ,Cholesterol in HDL [Mass/Vol]54 mg/pUJzgrca59-19LksfojhfcAcmc Healthcare System GlenbeighComment on above:Result Comment: HDL CHOL ATP-III CLASSIFICATION Cardiovascular Risk HDL > or equal to 60 mg/dL LOW HDL < 40 mg/dL HIGHPerformed By: #### PT, PTT, CBC, CRP, CMP, ESR, TSH3, T4F #### [place] [address] [place] #### CHROMATIN, THYGLOB AB, TPO, ALD, HLAB27, MYOG, CH50, LUPANTCOAG, HITESH, C4, C3, RPR W RFX #### [facility] ,Cholesterol.total/Cholesterol in HDL [Mass ratio]2.8 {ratio}Normal<5.0Acmc Healthcare System GlenbeighComment on above:Result Comment: PERFORMED BY: [place] [address] PATHOLOGIST TECHNICAL BUYER LUKE JAIME M.D.Performed By: #### PT, PTT, CBC, CRP, CMP, ESR, TSH3, T4F #### [address] #### CHROMATIN, THYGLOB AB, TPO, ALD, HLAB27, MYOG, CH50, LUPANTCOAG, HITESH, C4, C3, RPR W RFX #### [facility] ,LDL Cholesterol,Tzpeibkccv19 mg/dLNormal0-100[facility] Comment on above:Result Comment: LDL ATP III CLASSIFICATION LDL less than 100 mg/dL Optimal LDL 100-129 mg/dL Near or above optimal LDL 130-159 mg/dL Borderline high LDL 160-189 mg/dL High LDL greater than 189 mg/dL Very highPerformed By: #### PT, PTT, CBC, CRP, CMP, ESR, TSH3, T4F #### [place] [address] [place] #### CHROMATIN, THYGLOB AB, TPO, ALD, HLAB27, MYOG, CH50, LUPANTCOAG, HITESH, C4, C3, RPR W RFX #### [facility] ,Triglyceride w/Gcohyl22 mg/qZHxiwyn78-271WobrxjpkiAcmc Healthcare System Glenbeigh Comment on above:Result Comment: TRIG ATP III CLASSIFICATION TRIG less than 150 mg/dL Normal TRIG 150-199 mg/dL Borderline high TRIG 200-500 mg/dL High TRIG greater than 500 mg/dL Very high Standard traceable to the Center for Disease Conrtrol and Prevention (CDC) test method.Performed By: #### PT, PTT, CBC, CRP, CMP, ESR, TSH3, T4F #### [place] [address] [place] #### CHROMATIN, THYGLOB AB, TPO, ALD, HLAB27, MYOG, CH50, LUPANTCOAG, HITESH, C4, C3, RPR W RFX #### [facility] ,VLDL CHOLESTEROL8 mg/dLNormalAcmc Healthcare System GlenbeighComment on above: Performed By: #### PT, PTT, CBC, CRP, CMP, ESR, TSH3, T4F #### [place] [address] [place] #### CHROMATIN, THYGLOB AB, TPO, ALD, HLAB27, MYOG, CH50, LUPANTCOAG, HITESH, C4, C3, RPR W RFX #### [facility] ,HITESH Antinuclear Antibodieson 11-01-3458Rglfyzelbih Abs, IFANegativeNormal. [facility] System GlenbeighComment on above:Order Comment: Specimen Comment: Test(s) 197809-Eyvdroihksi Specimen Comment: was developed and its performance characteristics Specimen Comment: determined by [facility]. It has not been cleared or approved Specimen Comment: by the Food and Drug Administration. List any foods/meds the pt has taken (see Test/Proc Notes):: N/A Patient Posture before Draw (see Test/Proc Notes):: SITTING UPResult Comment: Negative <1:80 Borderline 1:80 Positive >1:80 Performed at: [facility] [id number] Electro Mechanical Technician: Oj Martin PhD, Phone: [phone] By: #### PT, PTT, CBC, CRP, CMP, ESR, TSH3, T4F #### [place] [address] [place] #### CHROMATIN, THYGLOB AB, TPO, ALD, HLAB27, MYOG, CH50, LUPANTCOAG, HITESH, C4, C3, RPR W RFX #### [facility] ,Aldosteroneon 41-99-9464Drkoyujxyht9.0 ng/dLNormal0.0-30.0Acm[facility] System GlenbeighComment on above:Order Comment: Specimen Comment: Test(s) 061894-Xmhujlmpkap Specimen Comment: was developed and its performance characteristics Specimen Comment: determined by [facility]. It has not been cleared or approved Specimen Comment: by the Food and Drug Administration. List any foods/meds the pt has taken (see Test/Proc Notes):: N/A Patient Posture before Draw (see Test/Proc Notes):: SITTING UPResult Comment: Performed at: [address] [id number] Electro Mechanical Technician: Radha Patel MD, Phone: [phone] By: #### PT, PTT, CBC, CRP, CMP, ESR, TSH3, T4F #### [address] #### CHROMATIN, THYGLOB AB, TPO, ALD, HLAB27, MYOG, CH50, LUPANTCOAG, HITESH, C4, C3, RPR W RFX #### [facility] ,Antithyroglobulin Abon 27-00-0285Xkjaiglcrxvvuwawg Ab175.7High0.0-0.9[facility] System GlenbeighComment on above:Order Comment: Specimen Comment: Test(s) 370057-Ewtpclmkbmw Specimen Comment: was developed and itsperformance characteristics Specimen Comment: determined by [facility]. It has not been cleared or approved Specimen Comment: by the Food and Drug Administration. List any foods/meds the pt has taken (see Test/Proc Notes):: N/A Patient Posture before Draw (see Test/Proc Notes):: SITTING UPResult Comment: Thyroglobulin Antibody measured by [employer] Performed at: [address] [id number] Electro Mechanical Technician: Oj Martin PhD, Phone: [phone] By: #### PT, PTT, CBC, CRP, CMP, ESR, TSH3, T4F #### [place] [address] [place] #### CHROMATIN, THYGLOB AB, TPO, ALD, HLAB27, MYOG, CH50, LUPANTCOAG, HITESH, C4, C3, RPR W RFX #### [facility] ,C-Reactive Proteinon 83-08-7466H-Reactive Protein0.7 mg/dLNormal0.0-1.0 [facility] GlenbeighComment on above:Performed By: #### PT, PTT, CBC, CRP, CMP, ESR, TSH3, T4F #### [facility] [address] #### CHROMATIN, THYGLOB AB, TPO, ALD, HLAB27, MYOG, CH50, LUPANTCOAG, HITESH, C4, C3, RPR W RFX #### [facility] ,Chromatin Antibodyon 55-14-5001Xlrzolnkv Antibody<0.9Auewxd5.0-0.9A[facility] System GlenbeighComment on above:Order Comment: Specimen Comment: Test(s) [id number]-Fyjxaoscgbr Specimen Comment: was developed and itsperformance characteristics Specimen Comment: determined by [facility]. It has not been cleared or approved Specimen Comment: by the Food and Drug Administration. List any foods/meds the pt has taken (see Test/Proc Notes):: N/A Patient Posture before Draw (see Test/Proc Notes):: SITTING UPPerformed By: #### PT, PTT, CBC, CRP, CMP, ESR, TSH3, T4F #### [facility] [address] [place] [address] [place] #### CHROMATIN, THYGLOB AB, TPO, ALD, HLAB27, MYOG, CH50, LUPANTCOAG, HITESH, C4, C3, RPR W RFX #### [facility] ,Complement C3on 77-10-4952Vcukkmxroo C3130 mg/ePMvfctk57-409UxgpctkqiAcmc Healthcare System GlenbeighComment on above:Order Comment: Specimen Comment: Test(s) [id number]- Aldosterone Specimen Comment: was developed and itsperformance characteristics Specimen Comment: determined by [facility]. It has not been cleared or approved Specimen Comment: by the Food and Drug Administration. List any foods/meds the pt has taken (see Test/Proc Notes):: N/A Patient Posture before Draw (see Test/Proc Notes):: SITTING UPPerformed By: #### PT, PTT, CBC, CRP, CMP, ESR, TSH3, T4F #### [place] [address] [place] #### CHROMATIN, THYGLOB AB, TPO, ALD, HLAB27, MYOG, CH50, LUPANTCOAG, HITESH, C4, C3, RPR W RFX #### [facility] ,Complement C4on 42-45-0218Xisewwqvbe C425 mg/cICekbdf39-59TycfkmzffAcmc Healthcare System GlenbeighComment on above:Order Comment: Specimen Comment: Test(s) 109857- Aldosterone Specimen Comment: was developed and itsperformance characteristics Specimen Comment: determined by [facility]. It has not been cleared or approved Specimen Comment: by the Food and Drug Administration. List any foods/meds the pt has taken (see Test/Proc Notes):: N/A Patient Posture before Draw (see Test/Proc Notes):: SITTING UPPerformed By: #### PT, PTT, CBC, CRP, CMP, ESR, TSH3, T4F #### [place] [address] [place] #### CHROMATIN, THYGLOB AB, TPO, ALD, HLAB27, MYOG, CH50, LUPANTCOAG, HITESH, C4, C3, RPR W RFX #### [facility] ,Complement Total (CH50)on 85-27-7554Dwhuubhpwd Total (CH50)>60Normal>41 [facility] GlenbeighComment on above:Order Comment: Specimen Comment: Test(s) 404378-Yxyrjvxxjjh Specimen Comment: was developed and its performance [...] of range values. Performed at: - [facility] [id number] Electro Mechanical Technician: Oj Martin PhD, Phone: [phone] By: #### PT, PTT, CBC, CRP, CMP, ESR, TSH3, T4F #### [address] #### CHROMATIN, THYGLOB AB, TPO, ALD, HLAB27, MYOG, CH50, LUPANTCOAG, HITESH, C4, C3, RPR W RFX #### [facility] ,Complete Blood Count Auto Diffon 89-40-7360Fxupdgivs (Bld) [#/Vol]0.0 10*3/uL Normal0.0-0.2FKettering Health TroyComment on above:Performed By: #### PT, PTT, CBC, CRP, CMP, ESR, TSH3, T4F #### [address] #### CHROMATIN, THYGLOB AB, TPO, ALD, HLAB27, MYOG, CH50, LUPANTCOAG, HITESH, C4, C3, RPR W RFX #### [facility] ,Basophils/100 WBC (Bld)1.0 %Normal.Acm[facility] Healthcare System GlenbeighComment on above:Performed By: #### PT, PTT, CBC, CRP, CMP, ESR, TSH3, T4F #### [place] [address] [place] #### CHROMATIN, THYGLOB AB, TPO, ALD, HLAB27, MYOG, CH50, LUPANTCOAG, HITESH, C4, C3, RPR W RFX #### [facility] ,Eosinophils (Bld) [#/Vol]0.1 10*3/uLNormal0.0-0.45A[facility] System GlenbeighComment on above:Performed By: #### PT, PTT, CBC, CRP, CMP, ESR, TSH3, T4F #### [address] #### CHROMATIN, THYGLOB AB, TPO, ALD, HLAB27, MYOG, CH50, LUPANTCOAG, HITESH, C4, C3, RPR W RFX #### [facility] ,Eosinophils/100 WBC (Bld)2.0 %Normal.A[facility] Healthcare System GlenbeighComment on above:Performed By: #### PT, PTT, CBC, CRP, CMP, ESR, TSH3, T4F #### [address] #### CHROMATIN, THYGLOB AB, TPO, ALD, HLAB27, MYOG, CH50, LUPANTCOAG, HITESH, C4, C3, RPR W RFX #### [facility] ,Erythrocyte distribution width (RBC) [Ratio]12.5 %Mnmges12.9-15.3FKettering Health TroyComment on above:Performed By: #### PT, PTT, CBC, CRP, CMP, ESR, TSH3, T4F #### [place] [address] [place] #### CHROMATIN, THYGLOB AB, TPO, ALD, HLAB27, MYOG, CH50, LUPANTCOAG, HITESH, C4, C3, RPR W RFX #### [facility] ,Hematocrit (Bld) [Volume fraction]38.8 %Ghtkno83.0-46.4FKettering Health TroyComment on above:Performed By: #### PT, PTT, CBC, CRP, CMP, ESR, TSH3, T4F #### [place] [address] [place] #### CHROMATIN, THYGLOB AB, TPO, ALD, HLAB27, MYOG, CH50, LUPANTCOAG, HITESH, C4, C3, RPR W RFX #### [facility] ,Hemoglobin (Bld) [Mass/Vol]13.4 g/aROrdvjk74.8-15.4FKettering Health TroyComment on above:Performed By: #### PT, PTT, CBC, CRP, CMP, ESR, TSH3, T4F #### [address] #### CHROMATIN, THYGLOB AB, TPO, ALD, HLAB27, MYOG, CH50, LUPANTCOAG, HITESH, C4, C3, RPR W RFX #### [facility] ,Lymphocytes (Bld) [#/Vol]1.1 10*3/uLNormal1.00-4.8A[facility] System GlenbeighComment on above:Performed By: #### PT, PTT, CBC, CRP, CMP, ESR, TSH3, T4F #### [place] [address] [place] #### CHROMATIN, THYGLOB AB, TPO, ALD, HLAB27, MYOG, CH50, LUPANTCOAG, HITESH, C4, C3, RPR W RFX #### [facility] ,Lymphocytes/100 WBC (Bld)25.9 %Normal.[facility] GlenbeighComment on above:Performed By: #### PT, PTT, CBC, CRP, CMP, ESR, TSH3, T4F #### [place] [address] [place] #### CHROMATIN, THYGLOB AB, TPO, ALD, HLAB27, MYOG, CH50, LUPANTCOAG, HITESH, C4, C3, RPR W RFX #### [facility] ,MCH (RBC) [Entitic mass]31.4 btTnmttn49.7-34.3FKettering Health Troy Comment on above:Performed By: #### PT, PTT, CBC, CRP, CMP, ESR, TSH3, T4F #### [place] [address] [place] #### CHROMATIN, THYGLOB AB, TPO, ALD, HLAB27, MYOG, CH50, LUPANTCOAG, HITESH, C4, C3, RPR W RFX #### [facility] ,MCV (RBC) [Entitic vol]91.3 uACmhefh05-157YnsiqesgjAcmc Healthcare System Glenbeigh Comment on above:Performed By: #### PT, PTT, CBC, CRP, CMP, ESR, TSH3, T4F #### [address] #### CHROMATIN, THYGLOB AB, TPO, ALD, HLAB27, MYOG, CH50, LUPANTCOAG, HITESH, C4, C3, RPR W RFX #### [facility] ,Mean Corpuscular HGB Conc34.4 g/uHOmldpk67.0-35.0[facility] GlenbeighComment on above:Performed By: #### PT, PTT, CBC, CRP, CMP, ESR, TSH3, T4F #### [address] #### CHROMATIN, THYGLOB AB, TPO, ALD, HLAB27, MYOG, CH50, LUPANTCOAG, HITESH, C4, C3, RPR W RFX #### [facility] ,Monocytes (Bld) [#/Vol]0.2 10*3/uLNormal0.0-0.8[facility] GlenbeighComment on above:Performed By: #### PT, PTT, CBC, CRP, CMP, ESR, TSH3, T4F #### [address] #### CHROMATIN, THYGLOB AB, TPO, ALD, HLAB27, MYOG, CH50, LUPANTCOAG, HITESH, C4, C3, RPR W RFX #### [facility] ,Monocytes/100 WBC (Bld)5.4 %Normal.[facility] GlenbeighComment on above:Performed By: #### PT, PTT, CBC, CRP, CMP, ESR, TSH3, T4F #### [place] [address] [place] #### CHROMATIN, THYGLOB AB, TPO, ALD, HLAB27, MYOG, CH50, LUPANTCOAG, HITESH, C4, C3, RPR W RFX #### [facility] ,Neutrophils (Bld) [#/Vol]2.8 10*3/uLNormal1.8-7.7FKettering Health TroyComment on above:Performed By: #### PT, PTT, CBC, CRP, CMP, ESR, TSH3, T4F #### [address] #### CHROMATIN, THYGLOB AB, TPO, ALD, HLAB27, MYOG, CH50, LUPANTCOAG, HITESH, C4, C3, RPR W RFX #### [facility] ,Neutrophils/100 WBC (Bld)65.7 %Normal.[facility] GlenbeighComment on above:Performed By: #### PT, PTT, CBC, CRP, CMP, ESR, TSH3, T4F #### [place] [address] [place] #### CHROMATIN, THYGLOB AB, TPO, ALD, HLAB27, MYOG, CH50, LUPANTCOAG, HITESH, C4, C3, RPR W RFX #### [facility] ,Nucleated RBC/100 WBC (Bld) [Ratio]0.1 %Normal0-0.5FKettering Health TroyComformerly [facility] on above:Performed By: #### PT, PTT, CBC, CRP, CMP, ESR, TSH3, T4F #### [place] [address] [place] #### CHROMATIN, THYGLOB AB, TPO, ALD, HLAB27, MYOG, CH50, LUPANTCOAG, HITESH, C4, C3, RPR W RFX #### [facility] ,Platelet mean volume (Bld) [Entitic vol]9.9 fLNormal6.3-10.7FKettering Health TroyComment on above:Performed By: #### PT, PTT, CBC, CRP, CMP, ESR, TSH3, T4F #### [facility] [address] [place] [address] [place] #### CHROMATIN, THYGLOB AB, TPO, ALD, HLAB27, MYOG, CH50, LUPANTCOAG, HITESH, C4, C3, RPR W RFX #### [facility] ,Platelets (Bld) [#/Vol]214 10*3/sIMylkrd159-087TphmydmznAcmc Healthcare System GlenbeighComment on above:Performed By: #### PT, PTT, CBC, CRP, CMP, ESR, TSH3, T4F #### [facility] [address] [place] [address] [place] #### CHROMATIN, THYGLOB AB, TPO, ALD, HLAB27, MYOG, CH50, LUPANTCOAG, HITESH, C4, C3, RPR W RFX #### [facility] ,RBC (Bld) [#/Vol]4.25 10*6/uLNormal3.60-5.00[facility] Comment on above:Performed By: #### PT, PTT, CBC, CRP, CMP, ESR, TSH3, T4F #### [facility] [address] [place] [address] [place] #### CHROMATIN, THYGLOB AB, TPO, ALD, HLAB27, MYOG, CH50, LUPANTCOAG, HITESH, C4, C3, RPR W RFX #### [facility] ,WBC (Bld) [#/Vol]4.2 10*3/uLLow4.5-11.0[facility] GlenbeighComment on above:Performed By: #### PT, PTT, CBC, CRP, CMP, ESR, TSH3, T4F #### [facility] [address] [place] [address] [place] #### CHROMATIN, THYGLOB AB, TPO, ALD, HLAB27, MYOG, CH50, LUPANTCOAG, HITESH, C4, C3, RPR W RFX #### [facility] ,Comprehensive Metabolic Panelon 21-21-6468Uujivsi [Mass/Vol]3.9 g/dLNormal 3.2-5.5FKettering Health TroyComment on above:Performed By: #### PT, PTT, CBC, CRP, CMP, ESR, TSH3, T4F #### [facility] [address] [place] [address] [place] #### CHROMATIN, THYGLOB AB, TPO, ALD, HLAB27, MYOG, CH50, LUPANTCOAG, HITESH, C4, C3, RPR W RFX #### [facility] ,Albumin/Globulin [Mass ratio]1.3 {ratio}[facility] Comment on above:Performed By: #### PT, PTT, CBC, CRP, CMP, ESR, TSH3, T4F #### [place] [address] [place] #### CHROMATIN, THYGLOB AB, TPO, ALD, HLAB27, MYOG, CH50, LUPANTCOAG, HITESH, C4, C3, RPR W RFX #### [facility] ,ALP [Catalytic activity/Vol]52 U/SWkbegt85-40MabfchtqaAcmc Healthcare System Glenbeigh Comment on above:Performed By: #### PT, PTT, CBC, CRP, CMP, ESR, TSH3, T4F #### [facility] [address] [place] [address] [place] #### CHROMATIN, THYGLOB AB, TPO, ALD, HLAB27, MYOG, CH50, LUPANTCOAG, HITESH, C4, C3, RPR W RFX #### [facility] ,ALT [Catalytic activity/Vol]20 U/SSmywpc36-86DmvzhzhvmAcmc Healthcare System Glenbeigh Comment on above:Performed By: #### PT, PTT, CBC, CRP, CMP, ESR, TSH3, T4F #### [place] [address] [place] #### CHROMATIN, THYGLOB AB, TPO, ALD, HLAB27, MYOG, CH50, LUPANTCOAG, HITESH, C4, C3, RPR W RFX #### [facility] ,AST [Catalytic activity/Vol]24 U/QIsdigk54-62DwpbsvcybAcmc Healthcare System Glenbeigh Comment on above:Performed By: #### PT, PTT, CBC, CRP, CMP, ESR, TSH3, T4F #### [address] #### CHROMATIN, THYGLOB AB, TPO, ALD, HLAB27, MYOG, CH50, LUPANTCOAG, HITESH, C4, C3, RPR W RFX #### [facility] ,Bilirubin [Mass/Vol]0.7 mg/dLNormal0.3-1.2FKettering Health Troy Comment on above:Performed By: #### PT, PTT, CBC, CRP, CMP, ESR, TSH3, T4F #### [place] [address] [place] #### CHROMATIN, THYGLOB AB, TPO, ALD, HLAB27, MYOG, CH50, LUPANTCOAG, HITESH, C4, C3, RPR W RFX #### [facility] ,Calcium [Mass/Vol]9.6 mg/dLNormal8.2-10.[address] [place] [address] Comment on above:Performed By: #### PT, PTT, CBC, CRP, CMP, ESR, TSH3, T4F #### [place] [address] [place] #### CHROMATIN, THYGLOB AB, TPO, ALD, HLAB27, MYOG, CH50, LUPANTCOAG, HITESH, C4, C3, RPR W RFX #### [facility] ,Chloride [Moles/Vol]103 mmol/HUxncjc73-638ZsmrcqsjoAcmc Healthcare System Glenbeigh Comment on above:Performed By: #### PT, PTT, CBC, CRP, CMP, ESR, TSH3, T4F #### [place] [address] [place] #### CHROMATIN, THYGLOB AB, TPO, ALD, HLAB27, MYOG, CH50, LUPANTCOAG, HITESH, C4, C3, RPR W RFX #### [facility] ,CO2 [Moles/Vol]23.4 mmol/KLeuaxs78.0-30.0[facility] Comment on above:Performed By: #### PT, PTT, CBC, CRP, CMP, ESR, TSH3, T4F #### [address] #### CHROMATIN, THYGLOB AB, TPO, ALD, HLAB27, MYOG, CH50, LUPANTCOAG, HITESH, C4, C3, RPR W RFX #### [facility] ,Creatinine [Mass/Vol]0.62 mg/dLNormal0.44-1.03[facility] Comment on above:Performed By: #### PT, PTT, CBC, CRP, CMP, ESR, TSH3, T4F #### [place] [address] [place] #### CHROMATIN, THYGLOB AB, TPO, ALD, HLAB27, MYOG, CH50, LUPANTCOAG, HITESH, C4, C3, RPR W RFX #### [facility] ,Estimated GFR ( Nallely> 60NoTwin City Hospital Comment on above:Result Comment: GFR estimated reference range: According to KDOQI guidelines, <60 ml/min/1.73m2 is sufficient to diagnose a patient with chronic kidney disease.Performed By: #### PT, PTT, CBC, CRP, CMP, ESR, TSH3, T4F #### [address] #### CHROMATIN, THYGLOB AB, TPO, ALD, HLAB27, MYOG, CH50, LUPANTCOAG, HITESH, C4, C3, RPR W RFX #### [facility] ,Estimated GFR (Non- Am> 60NormKettering Health – Soin Medical CenterComment on above:Performed By: #### PT, PTT, CBC, CRP, CMP, ESR, TSH3, T4F #### [address] #### CHROMATIN, THYGLOB AB, TPO, ALD, HLAB27, MYOG, CH50, LUPANTCOAG, HITESH, C4, C3, RPR W RFX #### [facility] ,Globulin (S) [Mass/Vol]3.1 g/dLNormKettering Health – Soin Medical CenterComment on above:Performed By: #### PT, PTT, CBC, CRP, CMP, ESR, TSH3, T4F #### [address] #### CHROMATIN, THYGLOB AB, TPO, ALD, HLAB27, MYOG, CH50, LUPANTCOAG, HITESH, C4, C3, RPR W RFX #### [facility] ,Glucose [Mass/Vol]80 mg/fHFiitxu62-814Snwabuyvn[address] [place], [place] [address]Comment on above:Result Comment: Random Glucose Reference Range is dependent on time and content of last meal. Glucose of more than 200 mg/dL in a nonstressed, ambulatory subject supports the diagnosis of Diabetes Mellitus. ADA recommended reference rangePerformed By: #### PT, PTT, CBC, CRP, CMP, ESR, TSH3, T4F #### [address] #### CHROMATIN, THYGLOB AB, TPO, ALD, HLAB27, MYOG, CH50, LUPANTCOAG, HITESH, C4, C3, RPR W RFX #### [facility] ,Potassium [Moles/Vol]4.1 mmol/LNormal3.5-5.1FKettering Health Troy Comment on above:Performed By: #### PT, PTT, CBC, CRP, CMP, ESR, TSH3, T4F #### [place] [address] [place] #### CHROMATIN, THYGLOB AB, TPO, ALD, HLAB27, MYOG, CH50, LUPANTCOAG, HITESH, C4, C3, RPR W RFX #### [facility] ,Protein [Mass/Vol]7.0 g/dLNormal6.1-7.9[facility] GlenbeighComment on above:Performed By: #### PT, PTT, CBC, CRP, CMP, ESR, TSH3, T4F #### [place] [address] [place] #### CHROMATIN, THYGLOB AB, TPO, ALD, HLAB27, MYOG, CH50, LUPANTCOAG, HITESH, C4, C3, RPR W RFX #### [facility] ,Sodium [Moles/Vol]138 mmol/RWiffmw561-298LwaslhvydAcmc Healthcare System Glenbeigh Comment on above:Performed By: #### PT, PTT, CBC, CRP, CMP, ESR, TSH3, T4F #### [address] #### CHROMATIN, THYGLOB AB, TPO, ALD, HLAB27, MYOG, CH50, LUPANTCOAG, HITESH, C4, C3, RPR W RFX #### [facility] ,Urea nitrogen [Mass/Vol]9 mg/dLNormal9-23[facility] Comment on above:Performed By: #### PT, PTT, CBC, CRP, CMP, ESR, TSH3, T4F #### [place] [address] [place] #### CHROMATIN, THYGLOB AB, TPO, ALD, HLAB27, MYOG, CH50, LUPANTCOAG, HITESH, C4, C3, RPR W RFX #### [facility] ,Dipstick and Microscopicon 11-82-5924Ctoscpyurf (U)ClearNoalClearAcmc Healthcare System GlenbeighComment on above:Order Comment: Name Collection Type:: Clean-Voided MidstreamPerformed By: #### PT, PTT, CBC, CRP, CMP, ESR, TSH3, T4F #### [place] [address] [place] #### CHROMATIN, THYGLOB AB, TPO, ALD, HLAB27, MYOG, CH50, LUPANTCOAG, HITESH, C4, C3, RPR W RFX #### [facility] ,Bacteria,UrineNone SeenNormalFlorence Community Healthcaree SeenAcmc Healthcare System GlenbeighComment on above:Order Comment: Name Collection Type:: Clean-Voided MidstreamPerformed By: #### PT, PTT, CBC, CRP, CMP, ESR, TSH3, T4F #### [address] #### CHROMATIN, THYGLOB AB, TPO, ALD, HLAB27, MYOG, CH50, LUPANTCOAG, HITESH, C4, C3, RPR W RFX #### [facility] ,Bilirubin,UrineNegativeNormalNegativeAcmc Healthcare System GlenbeighComment on above:Order Comment: Name Collection Type:: Clean-Voided MidstreamPerformed By: #### PT, PTT, CBC, CRP, CMP, ESR, TSH3, T4F #### [address] #### CHROMATIN, THYGLOB AB, TPO, ALD, HLAB27, MYOG, CH50, LUPANTCOAG, HITESH, C4, C3, RPR W RFX #### [facility] ,Color (U)YellowNormalYellowAcmc Healthcare System GlenbeighComment on above: Order Comment: Name Collection Type:: Clean-Voided MidstreamPerformed By: #### PT, PTT, CBC, CRP, CMP, ESR, TSH3, T4F #### [address] #### CHROMATIN, THYGLOB AB, TPO, ALD, HLAB27, MYOG, CH50, LUPANTCOAG, HITESH, C4, C3, RPR W RFX #### [facility] ,Glucose Ql (U)NormalNormalNormKettering Health – Soin Medical CenterComment on above:Order Comment: Name Collection Type:: Clean-Voided MidstreamPerformed By: #### PT, PTT, CBC, CRP, CMP, ESR, TSH3, T4F #### [address] #### CHROMATIN, THYGLOB AB, TPO, ALD, HLAB27, MYOG, CH50, LUPANTCOAG, HITESH, C4, C3, RPR W RFX #### [facility] ,Hyaline Casts,Owlfg0-4Vzadfi1-5KcrhjayvhAcmc Healthcare System GlenbeighComment on above:Order Comment: Name Collection Type:: Clean-Voided MidstreamResult Comment: PERFORMED BY: [place] [address] PATHOLOGIST TECHNICAL BUYER LUKE JAIME M.D.Performed By: #### PT, PTT, CBC, CRP, CMP, ESR, TSH3, T4F #### [address] #### CHROMATIN, THYGLOB AB, TPO, ALD, HLAB27, MYOG, CH50, LUPANTCOAG, HITESH, C4, C3, RPR W RFX #### [facility] ,Ketones Ql (U)NegativeNormalNegSelect Medical Cleveland Clinic Rehabilitation Hospital, BeachwoodComment on above:Order Comment: Name Collection Type:: Clean-Voided MidstreamPerformed By: #### PT, PTT, CBC, CRP, CMP, ESR, TSH3, T4F #### [address] #### CHROMATIN, THYGLOB AB, TPO, ALD, HLAB27, MYOG, CH50, LUPANTCOAG, HITESH, C4, C3, RPR W RFX #### [facility] ,Leukocyte esterase Test strip Ql (U)1+HighNegSelect Medical Cleveland Clinic Rehabilitation Hospital, BeachwoodComment on above:Order Comment: Name Collection Type:: Clean-Voided MidstreamPerformed By: #### PT, PTT, CBC, CRP, CMP, ESR, TSH3, T4F #### [place] [address] [place] #### CHROMATIN, THYGLOB AB, TPO, ALD, HLAB27, MYOG, CH50, LUPANTCOAG, HITESH, C4, C3, RPR W RFX #### [facility] ,Nitrite,UrineNegativeNormmdNegSelect Medical Cleveland Clinic Rehabilitation Hospital, BeachwoodComment on above:Order Comment: Name Collection Type:: Clean-Voided MidstreamPerformed By: #### PT, PTT, CBC, CRP, CMP, ESR, TSH3, T4F #### [address] #### CHROMATIN, THYGLOB AB, TPO, ALD, HLAB27, MYOG, CH50, LUPANTCOAG, HITESH, C4, C3, RPR W RFX #### [facility] ,Occult Blood,UrineTraceHighNegSelect Medical Cleveland Clinic Rehabilitation Hospital, BeachwoodComment on above:Order Comment: Name Collection Type:: Clean-Voided MidstreamPerformed By: #### PT, PTT, CBC, CRP, CMP, ESR, TSH3, T4F #### [address] #### CHROMATIN, THYGLOB AB, TPO, ALD, HLAB27, MYOG, CH50, LUPANTCOAG, HITESH, C4, C3, RPR W RFX #### [facility] ,pH (U)6.5 [pH]Normal5.0-9.0[facility] GlenbeighComment on above: Order Comment: Name Collection Type:: Clean-Voided MidstreamPerformed By: #### PT, PTT, CBC, CRP, CMP, ESR, TSH3, T4F #### [address] #### CHROMATIN, THYGLOB AB, TPO, ALD, HLAB27, MYOG, CH50, LUPANTCOAG, HITESH, C4, C3, RPR W RFX #### [facility] ,Protein,UrineNegativeNormalNegSelect Medical Cleveland Clinic Rehabilitation Hospital, BeachwoodComment on above:Order Comment: Name Collection Type:: Clean-Voided MidstreamPerformed By: #### PT, PTT, CBC, CRP, CMP, ESR, TSH3, T4F #### [address] #### CHROMATIN, THYGLOB AB, TPO, ALD, HLAB27, MYOG, CH50, LUPANTCOAG, HITESH, C4, C3, RPR W RFX #### [facility] ,RBC LM.HPF (Urine sed) [#/Area]0 /[HPF]Normal0-4FKettering Health TroyComment on above:Order Comment: Name Collection Type:: Clean-Voided MidstreamPerformed By: #### PT, PTT, CBC, CRP, CMP, ESR, TSH3, T4F #### [address] #### CHROMATIN, THYGLOB AB, TPO, ALD, HLAB27, MYOG, CH50, LUPANTCOAG, HITESH, C4, C3, RPR W RFX #### [facility] ,Specificy [place],Urine1.039Tdlhpv0.001-1.030[facility] Comment on above:Order Comment: Name Collection Type:: Clean-Voided Midstream Performed By: #### PT, PTT, CBC, CRP, CMP, ESR, TSH3, T4F #### [address] #### CHROMATIN, THYGLOB AB, TPO, ALD, HLAB27, MYOG, CH50, LUPANTCOAG, HITESH, C4, C3, RPR W RFX #### [facility] ,Squamous Epithelial Cell,Rsqvu7-4Ftxayd6-3LzikgqklbKettering Health Troy Comment on above:Order Comment: Name Collection Type:: Clean-Voided Midstream Performed By: #### PT, PTT, CBC, CRP, CMP, ESR, TSH3, T4F #### [address] #### CHROMATIN, THYGLOB AB, TPO, ALD, HLAB27, MYOG, CH50, LUPANTCOAG, HITESH, C4, C3, RPR W RFX #### [facility] ,Urobilinogen,UrineNormalNormalNormalAcmc Healthcare System GlenbeighComment on above:Order Comment: Name Collection Type:: Clean-Voided MidstreamPerformed By: #### PT, PTT, CBC, CRP, CMP, ESR, TSH3, T4F #### [address] #### CHROMATIN, THYGLOB AB, TPO, ALD, HLAB27, MYOG, CH50, LUPANTCOAG, HITESH, C4, C3, RPR W RFX #### [facility] ,WBC LM.HPF (Urine sed) [#/Area]0 /[HPF]Normal0-4FKettering Health TroyComment on above:Order Comment: Name Collection Type:: Clean-Voided MidstreamPerformed By: #### PT, PTT, CBC, CRP, CMP, ESR, TSH3, T4F #### [address] #### CHROMATIN, THYGLOB AB, TPO, ALD, HLAB27, MYOG, CH50, LUPANTCOAG, HITESH, C4, C3, RPR W RFX #### [facility] ,Erythrocyte Sedimentation Rateon 75-21-2203TPN (Bld) [Velocity]11 mm/hNormal 0-19A[facility] GlenbeighComment on above:Result Comment: PERFORMED BY: [place] [address] PATHOLOGIST TECHNICAL BUYER LUKE JAIME M.D.Performed By: #### PT, PTT, CBC, CRP, CMP, ESR, TSH3, T4F #### [place] [address] [place] #### CHROMATIN, THYGLOB AB, TPO, ALD, HLAB27, MYOG, CH50, LUPANTCOAG, HITESH, C4, C3, RPR W RFX #### [facility] ,Free T4 (Free Thyroxine)on 80-83-6116Fdfk T4 [Mass/Vol]0.78 ng/dLNormal 0.61-1.12[facility] GlenbeighComment on above:Performed By: #### PT, PTT, CBC, CRP, CMP, ESR, TSH3, T4F #### [facility] [address] [place] [address] [place] #### CHROMATIN, THYGLOB AB, TPO, ALD, HLAB27, MYOG, CH50, LUPANTCOAG, HITESH, C4, C3, RPR W RFX #### [facility] ,HLA B27 Disease Associationon 69-07-8194OIW B27 Disease AssociationPositive Normal.[facility] GlenbeighComment on above:Order Comment: Specimen Comment: Test(s) [id number]-Sjajkxvjwoq Specimen Comment: was developed and its performance [...] Drug Administration. [facility] CLIA ID Number [id number] This test was performed using PCR (Polymerase Chain Reaction)/SSOP (Sequence Specific Oligonucleotide Probes) technique. SBT (Sequence Based Typing) and/or SSP (Sequence Specific Primers) may be used as supplemental methods when necessary. Please contact [facility] Customer Service at if you have any questions. Director of [facility] Dr Sukhi Kinsey, PhD Performed at: [address] [id number] Electro Mechanical Technician: Sukhi Kinsey PhD, Phone: [phone] By: #### PT, PTT, CBC, CRP, CMP, ESR, TSH3, T4F #### [place] [address] [place] #### CHROMATIN, THYGLOB AB, TPO, ALD, HLAB27, MYOG, CH50, LUPANTCOAG, HITESH, C4, C3, RPR W RFX #### [facility] ,Lupus Anticoagulant Compon 75-97-2238Ocnaxj Prothrombin Time (dPt)25.6Normal 0.0-55.0[facility] GlenbeighComment on above:Order Comment: Specimen Comment: Test(s) [id number]-Olljkskxwjk Specimen Comment: was developed and itsperformance characteristics Specimen Comment: determined by [facility]. It has not been cleared or approved Specimen Comment: by the Food and Drug Administration. List any foods/meds the pt has taken (see Test/Proc Notes):: N/A Patient Posture before Draw (see Test/Proc Notes):: SITTING UPPerformed By: #### PT, PTT, CBC, CRP, CMP, ESR, TSH3, T4F #### [place] [address] [place] #### CHROMATIN, THYGLOB AB, TPO, ALD, HLAB27, MYOG, CH50, LUPANTCOAG, HITESH, C4, C3, RPR W RFX #### [facility] ,dPT Confirm Ratio1.61Dxsvcx9.00-1.40[facility] GlenbeighComment on above:Order Comment: Specimen Comment: Test(s) [id number] Specimen Comment: was developed and itsperformance characteristics Specimen Comment: determined by [facility]. It has not been cleared or approved Specimen Comment: by the Food and Drug Administration. List any foods/meds the pt has taken (see Test/Proc Notes):: N/A Patient Posture before Draw (see Test/Proc Notes):: SITTING UPPerformed By: #### PT, PTT, CBC, CRP, CMP, ESR, TSH3, T4F #### [place] [address] [place] #### CHROMATIN, THYGLOB AB, TPO, ALD, HLAB27, MYOG, CH50, LUPANTCOAG, HITESH, C4, C3, RPR W RFX #### [facility] ,DRVVT Lupus27.5Nkydcz5.0-47.0[facility] GlenbeighComment on above: Order Comment: Specimen Comment: Test(s) [id number] Specimen Comment: was developed and itsperformance characteristics Specimen Comment: determined by [facility]. It has not been cleared or approved Specimen Comment: by the Food and Drug Administration. List any foods/meds the pt has taken (see Test/Proc Notes):: N/A Patient Posture before Draw (see Test/Proc Notes):: SITTING UP Performed By: #### PT, PTT, CBC, CRP, CMP, ESR, TSH3, T4F #### [address] #### CHROMATIN, THYGLOB AB, TPO, ALD, HLAB27, MYOG, CH50, LUPANTCOAG, HITESH, C4, C3, RPR W RFX #### [facility] ,InterpretationComment:Normal.[facility] GlenbeighComment on above: Order Comment: Specimen Comment: Test(s) [id number] Specimen Comment: was developed and itsperformance characteristics Specimen Comment: determined by [facility]. It has not been cleared or approved Specimen Comment: by the Food and Drug Administration. List any foods/meds the pt has taken (see Test/Proc Notes):: N/A Patient Posture before Draw (see Test/Proc Notes):: SITTING UP Result Comment: No lupus anticoagulant was detected. Performed at: - [facility] [id number] Electro Mechanical Technician: Radha Patel MD, Phone: [phone] By: #### PT, PTT, CBC, CRP, CMP, ESR, TSH3, T4F #### [address] #### CHROMATIN, THYGLOB AB, TPO, ALD, HLAB27, MYOG, CH50, LUPANTCOAG, HITESH, C4, C3, RPR W RFX #### [facility] ,PTT-LA31.2Lkyewa2.0-51.9[facility] GlenbeighComment on above:Order Comment: Specimen Comment: Test(s) [id number] Specimen Comment: was developed and itsperformance characteristics Specimen Comment: determined by [facility]. It has not been cleared or approved Specimen Comment: by the Food and Drug Administration. List any foods/meds the pt has taken (see Test/Proc Notes):: N/A Patient Posture before Draw (see Test/Proc Notes):: SITTING UP Performed By: #### PT, PTT, CBC, CRP, CMP, ESR, TSH3, T4F #### [facility] [address] [place] [address] [place] #### CHROMATIN, THYGLOB AB, TPO, ALD, HLAB27, MYOG, CH50, LUPANTCOAG, HITESH, C4, C3, RPR W RFX #### [facility] ,Thrombin Time19.6Trdbup3.0-23.0[facility] GlenbeighComment on above:Order Comment: Specimen Comment: Test(s) 997033-Rvmszphncda Specimen Comment: was developed and itsperformance characteristics Specimen Comment: determined by [facility]. It has not been cleared or approved Specimen Comment: by the Food and Drug Administration. List any foods/meds the pt has taken (see Test/Proc Notes):: N/A Patient Posture before Draw (see Test/Proc Notes):: SITTING UPPerformed By: #### PT, PTT, CBC, CRP, CMP, ESR, TSH3, T4F #### [facility] [address] [place] [address] [place] #### CHROMATIN, THYGLOB AB, TPO, ALD, HLAB27, MYOG, CH50, LUPANTCOAG, HITEHS, C4, C3, RPR W RFX #### [facility] ,Myoglobinon [id number] [Mass/Vol]ng/xNQef15-27YrksfjnzmAcmc Healthcare System GlenbeighComment on above:Order Comment: Specimen Comment: Test(s) 562920- Aldosterone Specimen Comment: was developed and itsperformance characteristics Specimen Comment: determined by [facility]. It has not been cleared or approved Specimen Comment: by the Food and Drug Administration. List any foods/meds the pt has taken (see Test/Proc Notes):: N/A Patient Posture before Draw (see Test/Proc Notes):: SITTING UPResult Comment: Performed at: [facility] [id number] Electro Mechanical Technician: Oj Martin PhD, Phone: [phone] By: #### PT, PTT, CBC, CRP, CMP, ESR, TSH3, T4F #### [address] #### CHROMATIN, THYGLOB AB, TPO, ALD, HLAB27, MYOG, CH50, LUPANTCOAG, HITESH, C4, C3, RPR W RFX #### [facility] ,Partial Thromboplastin Timeon [id number] Coag (Bld) [Time]30.5 sNormal 25.1-36.5FKettering Health TroyComment on above:Result Comment: PERFORMED BY: [place] [address] PATHOLOGIST TECHNICAL BUYER LUKE JAIME M.D.Performed By: #### PT, PTT, CBC, CRP, CMP, ESR, TSH3, T4F #### [address] #### CHROMATIN, THYGLOB AB, TPO, ALD, HLAB27, MYOG, CH50, LUPANTCOAG, HITESH, C4, C3, RPR W RFX #### [facility] ,Prothrombin Time INRon [id number] Coag (PPP) [Relative time]0.9 {INR}Normal [facility] GlenbeighComment on above:Result Comment: INR Therapeutic Range A) [...] CBC, CRP, CMP, ESR, TSH3, T4F #### [address] #### CHROMATIN, THYGLOB AB, TPO, ALD, HLAB27, MYOG, CH50, LUPANTCOAG, HITESH, C4, C3, RPR W RFX #### [facility] ,PT Coag (PPP) [Time]10.4 sNormal9.0-12.9[facility] Comment on above:Performed By: #### PT, PTT, CBC, CRP, CMP, ESR, TSH3, T4F #### [address] #### CHROMATIN, THYGLOB AB, TPO, ALD, HLAB27, MYOG, CH50, LUPANTCOAG, HITESH, C4, C3, RPR W RFX #### [facility] ,RPR w/rfx to Quant TP Abson [id number], Rfx Quant RPRNon-ReactiveNormalNon ReactiveAcmc Healthcare System GlenbeighComment on above:Order Comment: Specimen Comment: Test(s) [id number]-Sdfpratuaat Specimen Comment: was developed and itsperformance characteristics Specimen Comment: determined by [facility]. It has not been cleared or approved Specimen Comment: by the Food and Drug Administration. List any foods/meds the pt has taken (see Test/Proc Notes):: N/A Patient Posture before Draw (see Test/Proc Notes):: SITTING UPResult Comment: Performed at: - [facility], [place], [place] [id number] Electro Mechanical Technician: Oj Martin PhD, Phone: [phone] PERFORMED BY: [place] [address] PATHOLOGIST TECHNICAL BUYER LUKE JAIME M.D.Performed By: #### PT, PTT, CBC, CRP, CMP, ESR, TSH3, T4F #### [address] #### CHROMATIN, THYGLOB AB, TPO, ALD, HLAB27, MYOG, CH50, LUPANTCOAG, HITESH, C4, C3, RPR W RFX #### [facility] ,Thyroid Peroxidase Antibodieson [id number] Peroxidase Axdqyetdxn93Rxfaga 0-34[facility]Comment on above:Order Comment: Specimen Comment: Test(s) [id number]-Scgkhwykpbg Specimen Comment: was developed and its performance characteristics Specimen Comment: determined by [facility]. It has not been cleared or approved Specimen Comment: by the Food and Drug Administration. List any foods/meds the pt has taken (see Test/Proc Notes):: N/A Patient Posture before Draw (see Test/Proc Notes):: SITTING UPResult Comment: Performed at: [address] [id number] Electro Mechanical Technician: Oj Martin PhD, Phone: [phone] By: #### PT, PTT, CBC, CRP, CMP, ESR, TSH3, T4F #### [address] #### CHROMATIN, THYGLOB AB, TPO, ALD, HLAB27, MYOG, CH50, LUPANTCOAG, HITESH, C4, C3, RPR W RFX #### [facility] ,Thyroid Stimulating Hormoneon 69-98-5416YWN Qn1.31 m[IU]/LNormal0.45-5.33 [facility]Comment on above:Result Comment: PERFORMED BY: [place] [address] PATHOLOGIST TECHNICAL BUYER LUKE JAIME M.D.Performed By: #### PT, PTT, CBC, CRP, CMP, ESR, TSH3, T4F #### [address] #### CHROMATIN, THYGLOB AB, TPO, ALD, HLAB27, MYOG, CH50, LUPANTCOAG, HITESH, C4, C3, RPR W RFX #### [facility] ,Auth for Release of Medical Recordson [id number] for Release of Medical [id number]#1.00CD:127[facility] HospitalCoding Summary.on 52-13-4593Ofghsh Summary.CODING DATE: 07/07/2019 FINAL [facility] STATUS: Home (Routine DC) PAYOR: Commercial Insurance [...] By: Consuelo Sandoval Date Saved: 07/07/2019 09:10 [facility] Intraoperative Recordon [id number] OR Intraoperative RecordIntraOp Document Type FTURO Summary Primary Physician: Jame Garcia Jr., MD Finalized Date/Time: 07/06/19 15:30:20 Pt. Name: NASREEN BOSS D.O.B./Sex: 1990 Female Med Rec #: [id number] Physician: Jame Garcia Jr., MD Financial #: [id number] Pt. Type: O Room/Bed: / Admit/Disch: 07/06/19 [...] Ritchie MD, Jame DE PAZ, RN, Earnest ASSEMBLY AND PACKING SUPERVISOR, Rossana Willson Role Performed Surgeon - Primary [employer] Industrial Arts Teacher - Primary Scrub - Primary Time In [...] By: Julia DE PAZ RN, Kelly 07/06/19 15:30[facility] Preoperative Recordon [id number] OR Preoperative RecordHolding Area Document Type FTURO Summary Primary Physician: Jame Garcia Jr., MD Finalized Date/Time: 07/06/19 15:25:12 Pt. Name: KARYNNASREEN/Sex: 1990 Female Med Rec #: [id number] Physician: Jame Garcia Jr., MD Financial #: [id number] Pt. Type: O Room/Bed: / Admit/Disch: 07/06/19 [...] 15:05 Julia DE PAZ RN, Kelly 07/06/19 15:25[facility] Operative Reporton [id number] ReportPatient: NASREEN BOSS Age: 29 years Sex: [...] urine. The Urethra was dilated to: 28 [place] w/ sounds. Devices Implanted: None. Removal: Cystoscope is removed, The patient tolerated it well. Postoperative Information Discharge: Patient is discharged home with antibiotic coverage, Follow up arranged.[facility] HospitalComment on above:Result Comment: Electronically Signed By: Jose Ritchie MD, Jame Camacho\Date and Time Signed: 07/06/1915:32 EST Vital Signs Date TimeVital SignValuePerforming NhxsjuvkhOxffkqqm21-17-8170 11:23-0400Body mass index (BMI) [Ratio]27.19 kg/t9Btnxp David DO Work Phone: [phone] [place], [place] [address]Prdvepvmzg27-79-0683 11:23-0400Body wtzrug11.1 kg Cuco David DO Work Phone: [phone] [place], [place] [address]210-21-2025 11:23-0400Diastolic blood iwsppmmk20 mm[Hg]Cuco David DO Work Phone: [phone] [place], [place] [address]Ynirncjgum86-90-8484 11:23-0400Systolic blood snvysgds748 mm[Hg]Cuco David DO Work Phone: [phone]09-17-2025 14:00-0400Body mass index (BMI) [Ratio]25.54 kg/p0Yjyis David DO Work Phone: [phone] [place], [place] [address]Qpwlydugsd95-49-7272 14:00-0400Body tujxtn66.2 kg Cuco David DO Work Phone: [phone] [place], [place] [address]Bfnpspfxqd62-93-9924 14:00-0400Diastolic blood eanvqpyt56 mm[Hg]Cuco David DO Work Phone: [phone] [place], [place] [address]Khjszdgmca90-19-2371 14:00-0400Systolic blood xirzxrje488 mm[Hg]Cuco David DO Work Phone: [phone]08-20-2025 14:33-0400Body mass index (BMI) [Ratio]25.24 kg/w1Taeie David DO Work Phone: [phone] [place], [place] [address]Epapgnehqm16-11-2386 14:33-0400Body .3 kg Cuco David DO Work Phone: [facility] HealthcareEyxtkgrhlf29-45-1273 14:33-0400Diastolic blood uvgfmtta83 mm[Hg]Cuco David DO Work Phone: [phone] HealthcareMejbqjvxgs36-15-7129 14:33-0400Systolic blood qacbgude352 mm[Hg]Cuco David DO Work Phone: [phone] HealthcareQymxnlcwmc20-61-7692 10:04-0400Body mass index (BMI) [Ratio]24.45 kg/e2WbmduClif[facility]08-01-2025 10:04-0400Body weight 72.94 kgClifton-Fine Hospital06-30-2025 16:00-0400Body xtuomo460.7 cmCorey David DO Work Phone: [phone] HealthcareIssxodaosb05-94-3455 16:00-0400Body mass index (BMI) [Ratio]23.87 kg/u8Bsipk David DO Work Phone: [phone] [place], [place] [address]Goecywpdzl36-16-6565 16:00-0400Body .22 kgCorey David DO Work Phone: [facility] HealthcareOlljvpbsva61-56-1264 16:00-0400Diastolic blood kwyuwyoy97 mm[Hg]Cuco David DO Work Phone: [facility] HealthcareNzaogkehab94-77-7240 16:00-0400Systolic blood briwahiv977 mm[Hg]Cuco David DO Work Phone: [facility] HealthcareEtenyfxoee98-88-3571 13:05-0500Body pzosou689.7 cmSherri Loleta HORSERADISH GRINDER Work Phone: [phone] HealthcareEjiaqvqvrf74-67-7279 13:05-0500Body mass index (BMI) [Ratio]23.72 kg/t4Udvqvi Loleta HORSERADISH GRINDER Work Phone: [facility] HealthcareMvgbtsruop92-90-0796 13:05-0500Body ubqvma59.76 kgSherri Noah H[employer]ERADISH GRINDER Work Phone: [phone] HealthcareFqrbsyadwp92-13-2353 13:05-0500Diastolic blood jvtqfxru45 mm[Hg]Awa Loleta H[employer]ERADISH GRINDER Work Phone: [facility] Rdioszrjbt97-64-5430 13:05-0500Heart rate91 /min Awa Zamora [employer]AD[employer] GRINDER Work Phone: noMS Dcybqxvstu84-75-4849 13:05-9946JsS3% (BldA) [Mass fraction]96 %Awa Zamora [employer]AD[employer] GRINDER Work Phone: [facility] Polllbmbmd56-28-6065 13:05-0500Systolic blood hwjnoone883 mm[Hg]Awa Zamora [employer]ERADISH GRINDER Work Phone: [facility] Encounters Encounter DateEncounter TypeCare ProviderFacilityStart: 06-05-2025 End: 08-04-0414hpwdbjgkuzGGBZN FAZIONot AvailableStart: 06-05-2025 End: 16-76-7583Dpkkcfng flow sheetCorey David DO Work Phone: [facility] [place] OBGYNComment on above:20 weeks gestation of ([facility]); Second trimester ([facility]); Nonintractable headache, unspecified chronicity pattern, unspecified headache typeStart: 06-05-2025 End: 24-00-3322ydbrzuvuomFWATP FAZIONot AvailableStart: 05-02-2025 End: 14-65-5604Lesakm flowsheetCorey David DO Work Phone: [facility]BGYNStart: 05-02-2025 End: 48-54-4586Kvvohv flowsheetCorey David DO Work Phone: [facility]BGYNStart: 05-02-2025 End: 92-53-4757Rnveviiw Result EncounterCorey David DO Work Phone: [facility] External Department UnsolicitedStart: 05-02-2025 End: 93-53-7329Khidvpgn flow sheetCorey David DO Work Phone: NOJH [facility] OBGYNComment on above:15 weeks gestation of ([facility]); Second trimester ([facility]); Nonintractable headache, unspecified chronicity pattern, unspecified headache type; Screening, , for anatomic survey ([facility]); Exposure to STD; Vaginal dischargeStart: 05-02-2025 End: 68-12-0415iqychdkccbWVOCY FAZIONot AvailableStart: 04-04-2025 End: 26-80-6143Zhkonrpr flow sheetCorey David DO Work Phone: [facility] OBGYNComment on above:First trimester ([facility]); 11 weeks gestation of ([facility]); UTI symptomsStart: 04-04-2025 End: 02-54-1422ywugjvranoFMJFG FAZIONot AvailableStart: 04-04-2025 End: 65-91-9814Fipnrw flowsheetCorey David DO Work Phone: [facility]BGYNStart: 04-04-2025 End: 35-79-8125Swuoav flowsheetCorey David DO Work Phone: [facility] [place] OBGYNStart: 03-24-2025 End: 03-03-4916Qvfmzxijc Result EncounterCorey David DO Work Phone: [facility] External Department UnsolicitedStart: 03-24-2025 End: 13-37-5071Xbdtqsbat Result EncounterCorey David DO Work Phone: [facility] External Department UnsolicitedStart: 03-16-2025 End: 31-85-8368Ahdqts outpatient visit 5 minutesFazio Nurse [facility] Bcp ObNOMS [place] OBGYNComment on above:GA: 6a1uJpmla: 03-16-2025 End: 20-07-3872nkbltkwmwiTKNNS FAZIONot AvailableStart: 02-12-2025 End: 00-80-0866Pixzquk encounter procedureCorey David DO Work Phone: NOJA HealthcareStart: 02-12-2025 End: 99-26-4622Pghdbhxu preventive med est patient 18-39 yrsCorey David DO Work Phone: n[facility] BCP OBComment on above:Well woman exam with routine gynecological exam; Dyspareunia in female; Urinary tract infection without hematuria, site unspecifiedStart: 02-12-2025 End: 55-06-3893wvaloqrfwsBMRUO FAZIONot AvailableStart: 02-12-2025 End: 16-37-6397Kgztdt flowsheetCorey David DO Work Phone: [facility] BCP OBStart: 02-12-2025 End: 86-26-6940Hbewek flowsheetCorey David DO Work Phone: [facility] BCP OBStart: 02-12-2025 End: 98-28-1612Oidfbsgcq Result EncounterCorey David DO Work Phone: [facility] External Department UnsolicitedStart: 07-05-2024 End: 06-65-8981Uhyccaxsa Result EncounterSmansi Zamora NP Work Phone: [facility] External Department UnsolicitedStart: 07-05-2024 End: 18-55-5259Pkndpuuej Result EncounterSmansi Zamora [employer]AD[employer] GRINDER Work Phone: n[facility] External Department UnsolicitedStart: 07-05-2024 End: 69-38-2629xkkqzibavdSLUUGVIH KAPLEMercy Latham HospitalStart: 07-05-2024 End: 51-81-7894Eqqioaenv for general adult medical examination without abnormal findingsGISEL Farnz [facility] HospitalStart: 07-05-2024 End: 88-37-2761Zkmepkwpwc hospital visit by physicianGisel Calderon NP Work Phone: mthz LaboratoryStart: 06-29-2024 End: 73-40-7907Oyloqty encounter statusAwa Zamora NP Work Phone: [facility] Work Phone: Start: 06-29-2024 End: 69-94-0455Qiirtcer preventive med est patient 18-39 yrsAwa Zamora NP Work Phone: [facility] CI FMComment on above:Encounter for wellness examination in adult (Primary Dx); Screening for lipid disorders; Screening for thyroid disorderStart: 06-29-2024 End: 32-53-6757rasvhkemigMWYKLB M SHIVELYNot AvailableStart: 06-28-2024 End: 25-04-1393Dtznuj OnlyAwa Zamora H[employer]ERADISH GRINDER Work Phone: [facility] CI FMComment on above:Bronchitis (Primary Dx) Start: 01-14-2022 End: 73-38-8753etvulyqoyoHQ CUCO FAZIOFacility:H1 Procedures DateProcedureProcedure DetailPerforming ClinicianStart: 28-84-4881Edpkg dip stick/tablet rgnt non-auto w/o micrscpCorey David DO Work Phone: Start: 21-23-5131GDGZFUHBA VAGINITIS (HTRX)Cuco David DO Work Phone: Start: 02-02-4225Fkgnl dip stick/tablet rgnt non-auto w/o micrscpCorey David DO Work Phone: Start: 37-66-1556Bkygf dip stick/tablet rgnt non-auto w/o micrscpCorey David DO Work Phone: Start: 17-06-5520YMW TESTCorey David DO Work Phone: Start: 03-16-2025 End: 90-91-6191Drfas dip stick/tablet rgnt non-auto w/o micrscpCorey David DO Work Phone: Start: 54-75-6966Lkpwh dip stick/tablet rgnt non-auto w/o micrscpCorey David DO Work Phone: Start: 72-02-7392UKG,APTIMA HPV,AGE GDLNCorey David DO Work Phone: Start: 83-81-1609Yugszgreuti observation [Identifier] in Cervix by Cyto stainFazio ObStart: 69-62-2900RLV CBC WITH AUTO DIFFSherri M Noah [employer] GRINDER Work Phone: Start: 75-09-1174Tlejcjvushifc metabolic panelSherdeepika Noah GLAZE MAKER - BOOKKEEPING MACHINE OPERATOR Work Phone: Start: 20-09-2613Xjxrk panelSmansi Zamora GLAZE MAKER - BOOKKEEPING MACHINE OPERATOR Work Phone: Start: 50-91-3495Lcxraghcwxl observation [Identifier] in Cervix by Cyto stainCorey David DO Work Phone: Start: 10-74-1707Wsdh cerv/vag auto thin layer prep mnl screenCorey David DO Work Phone: Start: 73-65-2421Vhlbimmtnvr observation [Identifier] in Cervix by Cyto stainSmansi Zamora H[employer]AD[employer] GRINDER Work Phone: Plan of Treatment DateCare ActivityDetailAuthorStart: 18-00-3820Yicjbzbzr for malignant neoplasm of cervixNOMS HealthcareStart: 99-13-7243Gfaloncvr for malignant neoplasm of cervixNOMS HealthcareStart: 47-08-1461Yrzpjpsxr for malignant neoplasm of cervix Pap SmearNOMS HealthcareStart: 02-18-2026 End: 40-11-7714Gqcdzmv encounter procedureNOMS BCP OBStart: 07-03-2025 End: 74-74-7457Otvwubn encounter rrxpeulsm61/18/2025 9:10 AM EST Routine [facility] [address] [place], [id number] Cuco Hernandez, DO [address] [place] [address] [facility] OBGYNStart: 06-05-2025 End: 41-16-0464Qbaghye encounter biyjznhvl30/21/2025 11:10 AM EDT Routine [facility] [place] [facility] [address] [place] [phone] Cuco Hernandez, DO [address] [place] [address] [facility]BGYNStart: 06-05-2025 End: 61-85-5153Xtkectpyixsl / ancillary services zjyyhlnszm98/21/2025 10:00 AM EDT Ancillary Procedure [facility] [address] [place] [phone] [facility] OBGYNStart: 05-02-2025 End: 82-77-7487Ryfid fetoprotein, maternalAlpha fetoprotein, maternal Lab Routine 15 weeks gestation of ([facility]) Second trimester ([facility]) Expected: 05/02/2025 (Approximate), Expires: 06/01/2025[facility] Comment on above:Expected: 05/02/2025 (Approximate), Expires: 06/01/2025Start: 05-02-2025 End: 52-18-2850OZ for pregnancyUS OB 14+ weeks anatomy scan Imaging Routine Screening, , for anatomic survey ([facility]) Expected: 05/02/2025, Expires: 08/01/2025[facility] HealthcareComment on above:Expected: 05/02/2025, Expires: 08/01/2025Start: 05-02-2025 End: 14-41-9402Gzzvuti encounter procedureNOMS Chani OBGYNComment on above: ArrivedStart: 79-39-8682Ljcqxctrc vaccinationNOGA HealthcareStart: 04-04-2025 End: 27-50-7500Ccixszw encounter procedureNOMS [facility] OBGYNComment on above: ArrivedStart: 03-16-2025 End: 42-28-7883IPA/RhABO/Rh Lab Routine Missed menses , unspecified gestational age ([facility]) Expected: 03/16/2025 (Approximate), Expires: 03/16/2026[facility] HealthcareComment on above:Expected: 03/16/2025 (Approximate), Expires: 03/16/2026Start: 03-16-2025 End: 21-05-1503Rqmqn type and Indirect antibody screen panel - BloodType and screen Lab Routine Missed menses , unspecified gestational age ([facility]) Expected: 03/16/2025 (Approximate), Expires: 03/16/2026[facility] Comment on above:Expected: 03/16/2025 (Approximate), Expires: 03/16/2026Start: 03-16-2025 End: 65-94-7079Ivxwu of abuse panel - Urine by Screen methodRapid drug screen, urine Lab Routine , unspecified gestational age ([facility]) Encounter for supervision of normal first in first trimester ([facility]) Expected: 03/16/2025 (Approximate), Expires: 03/16/2026[facility] HealthcareComment on above: Expected: 03/16/2025 (Approximate), Expires: 03/16/2026Start: 03-15-2025 End: 84-13-9837YQ Pelvis transvaginalUS OB transvaginal Imaging Routine Missed menses Positive urine test ([facility]) Expected: 03/15/2025, Expires: 06/15/2025[facility] Work Phone: comment on above:Expected: 03/15/2025, Expires: 06/15/2025Start: 02-12-2025 End: 61-89-3654Mklxths encounter procedureNOMS BCP OBComment on above:Arrived Start: 06-29-2024 End: 18-17-5373EKW panel - Blood by Automated countCBC Lab Routine Encounter for wellness examination in adult Expected: 06/29/2024 (Approximate), Expires: 06/29/2025[facility] HealthcareComment on above:Expected: 06/29/2024 (Approximate), Expires: 06/29/2025Start: 06-29-2024 End: 88-48-7607Zjoaklfocpgaf metabolic 2000 panel - Serum or PlasmaComprehensive metabolic panel Lab Routine Encounter for wellness examination in adult Expected: 06/29/2024 (Approximate), Expires: 06/29/2025[facility] HealthcareComment on above:Expected: 06/29/2024 (Approximate), Expires: 06/29/2025Start: 06-29-2024 End: 86-64-5232Ksghd 1996 panel - Serum or PlasmaLipid panel Lab Routine Encounter for wellness examination in adult Screening for lipid disorders Ex pected: 06/29/2024 (Approximate), Expires: 06/29/2025[facility] HealthcareComment on above:Expected: 06/29/2024 (Approximate), Expires: 06/29/2025Start: 06-29-2024 End: 83-86-0830Trtsqvvmwqo [Units/volume] in Serum or PlasmaTSH Lab Routine Encounter for wellness examination in adult Screening for thyroid disorder Expected: 06/29/2024 (Approximate), Expires: 06/29/2025[facility] Work Phone: Comment on above:Expected: 06/29/2024 (Approximate), Expires: 06/29/2025Start: 24-47-1914TLUSK-19 Vaccine ( season)COVID- 19 Vaccine ( season)[facility]Start: 04-16-2024 Influenza vaccinationInfluenza Vaccine (#1)[facility] HealthcareStart: 03-16-2024 Influenza vaccinationFlu vaccine (#1)[facility] HealthcareStart: 2011 DTaP/Tdap/Td vaccine (1 - Tdap)DTaP/Tdap/Td vaccine (1 - Tdap)[facility] HealthcareBacteria identified in Urine by CultureUrine culture Microbiology Routine Missed menses Ordered: 03/16/2025[facility] HealthcareComment on above:Ordered: 03/16/2025BC W Auto Differential panel - BloodCBC and differential Lab Routine Missed menses , unspecified gestational age ([facility]) Ordered: 03/16/2025[facility] HealthcareComment on above:Ordered: 03/16/2025HLAMYDIA TRACHOMATIS (GENITO/STI)CHLAMYDIA TRACHOMATIS (GENITO/STI) Lab Routine Exposure to STD Ordered: 05/02/2025[facility] HealthcareComment on above:Ordered: 05/02/2025 Cytology Cervical or vaginal smear or scraping studyPap Smear Pathology and Cytology Routine Well woman exam with routine gynecological exam Ordered: [facility] Healthcare Work Phone: comment on above:Ordered: 02/12/2025Hemoglobin A1c/Hemoglobin.total in BloodHemoglobin A1c Lab Routine Missed menses , unspecified gestational age ([facility]) Ordered: 03/16/2025[facility] HealthcareComment on above:Ordered: 03/16/2025Hepatitis B virus surface Ag [Presence] in Serum or Plasma by ImmunoassayHepatitis B surface antigen Lab Routine Missed menses , unspecified gestational age ([facility]) Ordered: 03/16/2025[facility] HealthcareComment on above:Ordered: 03/16/2025Hepatitis C virus Ab [Presence] in Serum or Plasma by ImmunoassayHepatitis C antibody Lab Routine Missed menses , unspecified gestational age ([facility]) Ordered: 03/16/2025[facility] HealthcareComment on above:Ordered: 03/16/2025HIV-1/HIV-2 antigen/antibody combination immunoassayHIV-1 and HIV-2 antibodies Lab Routine Missed menses , unspecified gestational age ([facility]) Ordered: 03/16/2025[facility] HealthcareComment on above:Ordered: 03/16/2025Human papilloma virus DNA [Presence] in Unspecified specimen by Probe with amplificationHPV DNA probe, amplified Microbiology Routine Well woman exam with routine gynecological exam Ordered: 02/12/2025[facility] HealthcareComment on above:Ordered: 02/12/2025Neisseria gonorrhoeae DNA [Presence] in Unspecified specimen by DIMPLE with probe detection Neisseria gonorrhea DNA probe, direct Lab Routine Exposure to STD Ordered: 05/02/2025[facility] HealthcareComment on above:Ordered: 05/02/2025Reagin Ab [Presence] in Serum by RPRRPR Lab Routine Missed menses , unspecified gestational age ([facility]) Ordered: 03/16/2025[facility] HealthcareComment on above: Ordered: 03/16/2025Rubella antibody, IgGRubella antibody, IgG Lab Routine Missed menses , unspecified gestational age ([facility]) Ordered: 03/16/2025[facility] HealthcareComment on above:Ordered: 03/16/2025SURESWAB(R) ADVANCED VAGINITIS PLUS, TMASURESWAB(R) ADVANCED VAGINITIS PLUS, TMA Pathology and Cytology Routine Vaginal discharge Ordered: 05/02/2025[facility] Work Phone: comment on above:Ordered: 05/02/2025US Pelvis transvaginalUS OB transvaginal Imaging Routine Missed menses Positive urine test ([facility]) 59:32 AM [facility] Immunizations Immunization DateImmunizationNotesCare DbmemhytHrkjaluf52-05-4288ascys papilloma virus vaccine, quadrivalentSherri Loleta H[employer]ERADISH GRINDER Work Phone: [facility] HealthcareWgqzgivuhr05-75-9184xcawf papilloma virus vaccine, quadrivalentSherri Loleta H[employer]ERADISH GRINDER Work Phone: [phone] TherapeuticsMissouri Southern HealthcareIzmkmiqdyn19-81-8020beipatwob B vaccine, pediatric or pediatric/adolescent dosageSherri Loleta H[employer]ERADISH GRINDER Work Phone: [phone] TherapeuticsMissouri Southern HealthcareWgpfvuoprs21-52-0117fnpfm papilloma virus vaccine, quadrivalentSherri Noah [employer]AD[employer] GRINDER Work Phone: [phone] TherapeuticsMissouri Southern HealthcareRwsjqbeohx46-75-4483qjokfchii B vaccine, pediatric or pediatric/adolescent dosageSherri Noah H[employer]ADISH GRINDER Work Phone: [phone] Southern HealthcareMappwsfgor28-80-3700fqewvlf toxoid, reduced diphtheria toxoid, and acellular pertussis vaccine, adsorbedShyumikoi Noah H[employer]AD[employer] GRINDER Work Phone: [phone] TherapeuticsMissouri Southern HealthcareOkuelxkwzf62-87-6970rbohrdqwl B vaccine, pediatric or pediatric/adolescent dosageSherri Noah [employer]INDER Work Phone: [phone] TherapeuticsMissouri Southern HealthcareGktzcbnoko46-47-3968joypuigqzjgxw polysaccharide (groups A, C, Y and W-135) diphtheria toxoid conjugate vaccine (MCV4P)Awadeepika Zamora [employer]ER Work Phone: [phone] TherapeuticsMissouri Southern HealthcareSvyuynytxo09-18-5951wtwigmo, mumps and rubella virus vaccineSri Noah HORSERADISH GRINDER Work Phone: [phone] TherapeuticsMiss[facility] Southern [id number], tetanus toxoids and acellular pertussis vaccine, unspecified formulationSherri Noah HORSERADISH GRINDER Work Phone: [phone] TherapeuticsMiss[facility] Southern [id number] vaccine, inactivatedShyumikoi Noah HORSERADISH GRINDER Work Phone: [facility] HealthcareEfnzgjsrjh70-03-1966ngvqddmhpy, tetanus toxoids and acellular pertussis vaccine, unspecified formulationSherri Noah HORSERADISH GRINDER Work Phone: [phone] TherapeuticsMissouri Southern HealthcareHaxnrnqypl54-22-0718sgoikttnyj vaccine, inactivatedSherri Loleta HORSERADISH GRINDER Work Phone: [phone] TherapeuticsMissouri Southern HealthcareMdvjlqoncl65-21-6017ynowtmbjsuz influenzae type b vaccine, conjugate unspecified formulationSherri Noah HORSERADISH GRINDER Work Phone: [phone] TherapeuticsMissouri Southern HealthcareNibgvgatuy06-91-8747awqjlut, mumps and rubella virus vaccineSherri Noah HORSERADISH GRINDER Work Phone: [phone] Southern HealthcareTgzdzsyxnz49-24-8043yxjwjzipqi, tetanus toxoids and acellular pertussis vaccine, unspecified formulationSherri Noah HORSERADISH GRINDER Work Phone: [phone] Southern HealthcareGaukaaasbj21-03-3611xbcovosindj influenzae type b vaccine, conjugate unspecified formulationSherri Noah HORSERADISH GRINDER Work Phone: [phone] TherapeuticsMissouri Southern HealthcareYfcbyzqafu09-39-7916liapgjlbgs vaccine, inactivatedSherri Loleta HORSERADISH GRINDER Work Phone: [phone] TherapeuticsMissouri Southern HealthcareIwislqhatf59-82-8612fzydtlsjdd, tetanus toxoids and acellular pertussis vaccine, unspecified formulationSherri Loleta HORSERADISH GRINDER Work Phone: [phone] TherapeuticsMissouri Southern HealthcareIhkzpusiun03-63-0324zidrddovlnb influenzae type b vaccine, conjugate unspecified formulationSherri Loleta HORSERADISH GRINDER Work Phone: [phone] TherapeuticsMissouri Southern HealthcareKwwrktrhty93-15-5977oyesmqawcf vaccine, inactivatedSherri Loleta HORSERADISH GRINDER Work Phone: [phone] TherapeuticsMissouri Southern HealthcareXpgqpjiebs80-59-1481cotbsyxlvh, tetanus toxoids and acellular pertussis vaccine, unspecified formulationSherri Loleta HORSERADISH GRINDER Work Phone: [phone] TherapeuticsMissouri Southern HealthcareAmeqkobgez58-57-4603qllqbcljgzh influenzae type b vaccine, conjugate unspecified formulationSherri Loleta HORSERADISH GRINDER Work Phone: [phone] TherapeuticsMissouri Southern HealthcareUfxjfwxrla18-43-7904vavymvwppx vaccine, inactivatedSherri Noah HORSERADISH GRINDER Work Phone: [phone] Southern Healthcare Payers DatePayer CategoryPayerPolicy [id number] Health Insurance [id number] Health [id number] [id number]5-6815Xgywtdl [id number] 2.16.840.1.712193.3.57[id number] 2.16.840.1.913063.3.57[id number] 2.16.840.1.526677.3.57[id number] 2.16.840.1.993935.3.57[id number] 2.16.840.1.320501.3.57[id number] 2.16.840.1.802942.3.57[id number] 2.16.840.1.254969.3.57[id number] 2.16.840.1.652920.3.57[id number] 2.16.840.1.680025.3.57[id number] 2.16.840.1.187374.3.579.2.072265-53-7804Hvjrxvi Health [id number] [id number] 1.2.840.657425.1.13.239.2.7.3.884121.315 Social History DateTypeDetailFacilityTobacco smoking status NHISTobacco smoking consumption unknownNOMS HealthcareStart: 29-08-2979Mml assigned at birthNot on fileBon [facility] HealthStart: 05-04-2023 End: 70-24-1190Qovqzr identityNot on fileNOGA HealthcareStart: 01-14-2023 End: 72-58-3964Yqxaehi smoking status NHISNever smoked tobaccoSALT LAKE BE[facility] Healthcare Start: 57-50-1055Pspycac use and exposureSmokeless tobacco non-userNOGA HealthcareStart: 06-29-2024 End: 82-19-8505Celklkdbo beverage intakeCurrent drinker of alcohol (finding)[facility] HealthcareStart: 06-22-2024 End: 51-23-7120Qetcpqydi beverage intakeSALT LAKE BEHAVIORAL HEALTH [facility]ITAL HealthcareStart: 40-57-8004Ayf often do you need to have someone [...] before (I/we) got money to buy more.Never trueNOGA HealthcareStart: 01-14-2023 Alcohol Commentcaffeine intake: sodaNOGA HealthcareStart: 47-61-2275Lwn assigned at birthFemaleNOGA HealthcareStart: 98-88-5561Ohxxxo identityIdentifies as female gender (finding)[facility] HealthcareStart: 25-82-0390DqrxnvltdAKDT Healthcare Clinical Notes 06-29-2024 to 06-05-2025 Note Date & EzjxMnadUrvxbiry01-63-4768 History of Present illness Narrative* Becca Espinosa LPN - 06/05/2025 11:10 AM EDT Reason for Appointment: Patient ID: Nasreen Felix is a 35 y.o. female who presents for Routine Visit Patient presents today for Return OB appointment. MEDICATIONS Current Outpatient Medications Medication Instructions magnesium oxide (MAG-OX) 400 mg, Oral, Daily Qhpwmdbn-Fef-Ug-FA ( 1 + IRON PO) 1 tablet, [...] nursing note reviewed. Exam conducted with a field marketing specialist present. Vitals: Estimated body mass index is 27.19 kg/m as calculated from the following: Height as of 02/12/25: 5' 8 . Weight as of this encounter: 178 lb 12.8 oz. BP: 120/68 Patient's last menstrual period was 01/13/2025. Assessment/Plan ICD-10-CM 1. 20 weeks gestation of ([facility]) Z3A.20 POCT urinalysis dipstick manually resulted 2. Second trimester ([facility]) Z34.92 [...] of: Cuco Hernandez DO documented in this encounterMissouri Southern HealthcareUlkraasuoe28-37-3029 History of Present illness Narrative* Cuco Hernandez DO - 05/02/2025 1:50 PM EDT Reason for Appointment: Patient ID: Nasreen Felix is a 35 y.o. female who presents for Routine Visit, Well Women Visit, and STI Screening Patient presents today for STD Check. and Return OB appointment. MEDICATIONS Current Outpatient Medications Medication Instructions magnesium oxide (MAG-OX) 400 mg, Oral, Daily Cfpnbxed-Qfn-Uh-FA ( 1 + IRON PO) 1 tablet, [...] nursing note reviewed. Exam conducted with a field marketing specialist present. Vitals: Estimated body mass index is 25.54 kg/m as calculated from the following: Height as of 02/12/25: 5' 8 . Weight as of this encounter: 168 lb. BP: 120/74 Patient's last menstrual period was 01/13/2025. ASSESSMENT & PLAN ICD-10-CM 1. 15 weeks gestation of ([facility]) Z3A.15 POCT urinalysis dipstick manually resulted Alpha fetoprotein, maternal Alpha fetoprotein, maternal 2. Second trimester ([facility]) Z34.92 POCT urinalysis dipstick manually resulted Alpha fetoprotein, maternal Alpha fetoprotein, maternal 3. Nonintractable headache, unspecified chronicity pattern, unspecified headache type R51.9 4. Screening, , for anatomic survey ([facility]) Z36.89 US OB 14+ weeks anatomy scan [...] or undercooked meat, and stay away from [facility]. Patient has been consulted regarding any further [...] of: Cuco Hernandez DO documented in this encounterMissouri Southern HealthcareGbnzqywksr25-48-2632 History of Present illness Narrative* Becca Espinosa LPN - 04/04/2025 2:50 PM EDT Reason for Appointment: Patient ID: Nasreen Felix is a 35 y.o. female who presents for Routine Visit Patient presents today for Return OB appointment. MEDICATIONS Current Outpatient Medications Medication Instructions Fqrrgnsn-Dea-Bs-FA ( 1 + IRON PO) 1 tablet, [...] nursing note reviewed. Exam conducted with a field marketing specialist present. Vitals: Estimated body mass index is 25.24 kg/m as calculated from the following: Height as of 02/12/25: 5' 8 . Weight as of this encounter: 166 lb. BP: 120/76 Patient's last menstrual period was 01/13/2025. ASSESSMENT & PLAN ICD-10-CM 1. First trimester ([facility]) Z34.91 POCT urinalysis dipstick manually resulted 2. 11 weeks gestation of ([facility]) Z3A.11 POCT urinalysis dipstick manually resulted New [...] or undercooked meat, and stay away from [facility]. Patient has been consulted regarding any further do's and don'tsof . Patient voiced understanding and all questions and concerns were answered. Orders Placed This Encounter Procedures POCT urinalysis dipstick manually resulted Follow Up: Patient is to return in 4 weeks for routine OB appointment. Documented by Becca Espinosa LPN on behalf of: Cuco Hernandez DO documented in this encounterMissouri Southern HealthcareCdemttccam14-71-1218 History of Present illness Narrative* Ning Garvey [...] medication list which includes the following prescription(s): ylscxeqv-rpz-ug-fa and trimethoprim. Medical History: Active Ambulatory Problems [...] urinalysis dipstick manually resulted Positive urine test ([facility]) - US OB transvaginal; Future , unspecified gestational age ([facility]) - Type and screen; Future - ABO/Rh; Future - CBC and differential - Hemoglobin A1c - RPR - Rubella antibody, IgG - Hepatitis B surface antigen - Hepatitis C antibody - HIV-1 and HIV-2 antibodies - Rapid drug screen, urine; Future Encounter for supervision of normal first in first trimester ([facility]) - Rapid drug screen, urine; Future [...] or undercooked meat, and stay away from [facility]. Patient has also been advised to [...] by: Ning Garvey LPN documented in this encounterMissouri Southern HealthcareKueajrggga99-97-2361 History of Present illness Narrative* Marysol SanJOAQUIN [...] nursing note reviewed. Exam conducted with a field marketing specialist present. Vitals: Estimated body mass index is [...] of: Cuco Hernandez DO documented in this encounterMissouri Southern HealthcareSleilkqsdq31-98-0626 History of Present illness Narrative* Awa Zamora [...] No follow-ups on file. documented in this encounterNOGA HealthcareEvaluation note* Diagnosis Bronchitis- Primary Bronchitis, not [...] note* Diagnosis Missed menses Positive urine test ([facility]) , unspecified gestational age ([facility]) Encounter for supervision of normal first in first trimester ([facility]) documented in this encounter N[facility] HealthcareEvaluation note* Diagnosis First trimester ([facility]) state, incidental 11 weeks gestation of ([facility]) UTI symptoms documented in this encounter [facility] HealthcareEvaluation note* Diagnosis 15 weeks gestation of ([facility]) Second trimester ([facility]) state, incidental Nonintractable headache, unspecified chronicity pattern, unspecified headache type Screening, , for anatomic survey ([facility]) Encounter for anatomic survey Exposure to STD Vaginal discharge Leukorrhea, not specified as infective documented in this encounter [facility] HealthcareEvaluation note* Diagnosis 20 weeks gestation of ([facility]) Second trimester ([facility]) state, [...] DATE CREATED AUTHOR AUTHOR'S ORGANIZ ATION 10/08/2021 [facility] DATE CREATED AUTHOR AUTHOR'S ORGANIZ ATION 01/20/2022 [facility] DATE CREATED AUTHOR AUTHOR'S ORGANIZ ATION 07/08/2024 [facility] DATE CREATED AUTHOR AUTHOR'S ORGANIZ ATION 06/06/2025 [facility] EPIC Care Teams (unrecognized sec tion and content) Team MemberRelationshipSpecialtyStart DateEnd Date Gisel Curran APRN - HORSERADISH GRINDER [address] [place] [address] PCP - GeneralNnapoleon Practitioner09/30/17Team MemberRelationshipSpecialtyStart Date End Date Awa Zamora NP [address] [address] PCP - General9/19/23Team MemberRelationshipSpecialtyStart DateEnd Date Awa Zamora, HORSERADISH GRINDER [address] [place] [address] [place] [address] PCP - General9/19/23Team MemberRelationshipSpecialtyStart DateEnd Date Awa Zamora, HORSERADISH GRINDER [address] [place] [address] PCP - General9/19/23Team MemberRelationshipSpecialtyStart DateEnd Date Awa Zamora, HORSERADISH GRINDER [address] [place] [address] PCP - General9/19/23Team MemberRelationshipSpecialtyStart DateEnd Date Awa Zamora, HORSERADISH GRINDER [address] [place] [address] PCP - General9/19/23Team MemberRelationshipSpecialtyStart DateEnd Date Awa Zamora, HORSERADISH GRINDER [address] [place] [address] PCP - General9/19/23Team MemberRelationshipSpecialtyStart DateEnd Date Awa Zamora, HORSERADISH GRINDER [address] [place] [address] PCP - General9/19/23Team MemberRelationshipSpecialtyStart DateEnd Date Awa Zamora, HORSERADISH GRINDER [address] [place] [address] PCP - General9/19/23Team MemberRelationshipSpecialtyStart DateEnd Date Awa Zamora, HORSERADISH GRINDER [address] [facility] [address] [place] [address] PCP - General05/04/23Team MemberRelationshipSpecialtyStart DateEnd Date Awa Zamora, JAKE [address] [facility] [address] [place] [address] PCP - General05/04/23Team MemberRelationshipSpecialtyStart DateEnd Date Awa Zamora, HORSERADISH GRINDER [address] [facility] [address] [place] [address] PCP - [facility]05/04/23 Reason for Visit (unrecogniz ed section and [...] BE BASED ON THE PRIMARY CLINICAL RECORDS. [facility] [employer] [facility]. provides no warranty or guarantee of the accuracy or completeness of information in this document.
--- OUTSIDE RECORDS SUMMARY | 2025-07-10 06:45 | XMS_ITS ---
Author Organization [facility] Source Produ ction (ClinicalSummary Clone) Address Unknown Care Team Providers Care Educational Audiologist Name Role Phone Unavailable Primary Care Physician Unavailab le Results * [UNITY] ANEUPLOIDY NIPT Performed by: [employer] Component Value Range Date Fraction 14.9% 2025 02:23 am UTCRh(D) NIPTRhD RXBRVKKY67/18/2025 02:23 am UTCSex Chromosome AneuploidyNOT RSMXFUWC75/18/2025 02:23 am UTCMonosomy XLOW RISK <1 in , 02:23 am UTCTrisomy 13LOW RISK <1 in , 02:23 am UTCTrisomy 18LOW RISK <1 in , 02:23 am UTCTrisomy 21LOW RISK <1 in , 02:23 am UTCFetal VtfNVUF8404/02/2025 02:23 am UTCPregnancy LgecunhvnTOLZPQYEE02/18/2025 02:23 am UTCFor detailed report, see PDFSee PDF 2025 02:23 am UTC2025 02:23 am UTC Social History Observation Value Start Date End Date
--- OUTSIDE RECORDS SUMMARY | 2025-07-10 06:45 | XMS_ITS | Encounter Summary ---
Author Organization [facility] Address [address] [place] [address] Care Team Providers Care Publication Specialist Name Role Phone Maria Isabel Zamora ENVIRONMENTAL PROTECTION ECONOMIST Primary Care Provider + [phone] Encounter Details DateTypeDepartmentCare Team (Latest Contact Info)Yqxoxyxtkes73/18/2025amboo flowsheet [facility] [address] [place] [place] [address] Manuel Hernandez DO [address] [facility] [address] [place], [facility] Social History Tobacco UseTypesPacks/DayYears UsedDateSmoking Tobacco: NeverSmokeless Tobacco: NeverAlcohol UseStandard Drinks/WeekCommentsYes2 (1 standard drink = 0.6 oz pure alcohol)caffeine intake: [id number] Health LiteracyAnswerDate RecordedHow often do you need [...] relatives?Twice a week06/22/2024How often do you attend mormonism or mu-ism services?Never 06/22/2024o you belong to any clubs or organizations such as mormonism groups, unions, frae994 or athletic groups, or school groups?No06/22/2024How often do you attend meetings of the clubs or organizations you belong to?Never06/22/2024 Are you , , , , never , or living with a partner?Qepgiun3206/22/2024UDIT-CAnswerDate RecordedQ1: How often do you have a [...] housing, medical care, and heating?Not hard at all06/22/2024[facility] [place] of Occupational Health - Occupational Stress QuestionnaireAnswerDate [...] a correction (including now)?No06/22/2024Estimated Date of Delivery ThtllohhBsi99/07/2026Based on last menstrual period of 01/13/2025Sex and Gender InformationValueDate RecordedSex Assigned at JvtxoGrxxde59/07/2024 11:39 AM EST Legal RvdSogykk27/15/2023 7:12 PM EDTGender IazedmzfVmhrvm99/07/2024 11:39 AM ESTSexual OrientationNot on filedocumented as of this encounter Plan of Treatment DateTypeDepartmentCare Team (Latest Contact Info)Veqizopuqet62/16/2025 10:20 AM ESTRoutine [facility] [address] [place] [place] [address] Manuel Hernandez, DO [address] [facility] [address] [place], [place] [address] 02/18/2026 4:00 PM EDTOffice Visit [facility] [address] [place] [address] Manuel Hernandez DO [address] [facility] [place] [address] documented as of this encounter Visit Diagnoses Not on filedocumented in this encounter Care Teams Team MemberRelationshipSpecialtyStart DateEnd Date Maria Isabel Zamora, ENVIRONMENTAL PROTECTION ECONOMIST [address] [place] [facility] [address] [place] [address] PCP - General05/04/23documented as of this encounter
--- OUTSIDE RECORDS SUMMARY | 2025-07-10 06:45 | XMS_ITS | Encounter Summary ---
Author Organization [facility] Address [address] [place] [address] Care Team Providers Care Senior Mechanical Project Manager Name Role Phone Maria Isabel Zamora SENIOR CLINICAL RESEARCH SCIENTIST Primary Care Provider + [phone] Encounter Details DateTypeDepartmentCare Team (Latest Contact Info)Dwxamzzrvzw98/11/2025Travel Social History Tobacco UseTypesPacks/DayYears UsedDateSmoking Tobacco: NeverSmokeless Tobacco: NeverAlcohol UseStandard Drinks/WeekCommentsYes2 (1 standard drink = 0.6 oz pure alcohol)caffeine intake: [id number] Health LiteracyAnswerDate RecordedHow often do you need [...] relatives?Twice a week06/22/2024How often do you attend baptist or uatsdin services?Never 06/22/2024o you belong to any clubs or organizations such as baptist groups, unions, fraternal or athletic groups, or school groups?No06/22/2024How often do you attend meetings of the clubs or organizations you belong to?Never06/22/2024 Are you , , , , never , or living with a partner?Myiytvl2106/22/2024UDIT-CAnswerDate RecordedQ1: How often do you have a [...] housing, medical care, and heating?Not hard at all06/22/2024[facility] [place] of Occupational Health - Occupational Stress QuestionnaireAnswerDate [...] homeless or living in a usp (including now)?No06/22/2024Estimated Date of Delivery PnzdqjfzFai61/07/2026Based on last menstrual period of 01/13/2025Sex and Gender InformationValueDate RecordedSex Assigned at TswqcHqojkz79/07/2024 11:39 AM EST Legal FjbXhemyd48/15/2023 7:12 PM EDTGender ZfltemvcBqlwri42/07/2024 11:39 AM ESTSexual OrientationNot on filedocumented as of this encounter Plan of Treatment DateTypeDepartmentCare Team (Latest Contact Info)Nwhrpstbecm68/16/2025 10:20 AM ESTRoutine [facility] [address] [place] [address] [place] [phone] Manuel Hernandez, DO [address] [facility] [place] [address] 02/18/2026 4:00 PM EDTOffice Visit [facility] [address] [place] [address] [place] [address] Manuel Hernandez, [address] [facility] [place] [address] documented as of this encounter Visit Diagnoses Not on filedocumented in this encounter Care Teams Team MemberRelationshipSpecialtyStart DateEnd Date Maria Isabel Zamora, SENIOR CLINICAL RESEARCH SCIENTIST [address] [facility] [address] [place] [address] PCP - General05/04/23documented as of this encounter
--- OUTSIDE RECORDS SUMMARY | 2025-07-10 06:45 | XMS_ITS | Clinical Summary ---
Author Organization [facility] Address [address], [address] [place] [address] Care Team Providers Care Cleaner Furniture Name Role Phone Gisel Curran APRN - AUDIO/VISUAL OPERATOR Primary Care Provider Social History Tobacco UseTypesPacks/DayYears UsedDateSmoking Tobacco: Never Assessed CommentsUnknownSex and Gender InformationValueDate RecordedSex Assigned at Not on fileLegal KnrFixfmq08/15/2018 2:16 PM ESTGender IdentityNot on fileSexual OrientationNot on file Plan of Treatment Health MaintenanceDue DateLast DoneCommentsDTaP/Tdap/Td vaccine (1 - Tdap) 2011Flu vaccine (#1)03/16/2025OVID-19 Vaccine ( season) 2025Polio vaccineAged OutNo longer eligible based on patient's age to complete this topic Insurance * Guarantor: Nasreen Andrade TypeRelation to PatientDate of BirthPhone Billing AddressPersonal/FzmxxgWwer1990 [address] [place] [address] [place] [address] Care Teams Team MemberRelationshipSpecialtyStart DateEnd Date Gisel Curran APRN - NP [address] [place] [address] PCP - GeneralNurse Practitioner09/30/17
--- OUTSIDE RECORDS SUMMARY | 2025-07-10 06:45 | XMS_ITS | Encounter Summary ---
Author Organization [facility] Address [address] [place] [address] Care Team Providers Care Head Worker Name Role Phone Maria Isabel Zamora NP Primary Care Provider + [phone] Encounter Details DateTypeDepartmentCare Team (Latest Contact Info)Uednyfyeeyl51/24/2025Telephone [facility] [address] [address] Manuel Hernandez DO [address] [place] [address] Social History Tobacco UseTypesPacks/DayYears UsedDateSmoking Tobacco: NeverSmokeless Tobacco: NeverAlcohol UseStandard Drinks/WeekCommentsYes2 (1 standard drink = 0.6 oz pure alcohol)caffeine intake: [id number] Health LiteracyAnswerDate RecordedHow often do you need [...] relatives?Twice a week06/22/2024How often do you attend tenriism or latter day services?Never 06/22/2024o you belong to any clubs or organizations such as tenriism groups, unions, fraAllegiance or athletic groups, or school groups?No06/22/2024How often do you attend meetings of the clubs or organizations you belong to?Never06/22/2024 Are you , , , , never , or living with a partner?Elqflad8406/22/2024UDIT-CAnswerDate RecordedQ1: How often do you have a [...] housing, medical care, and heating?Not hard at all06/22/2024[facility] [place] [facility] - Occupational Stress QuestionnaireAnswerDate [...] steady place to sleep or slept in atokaelter (including now)?No 05/04/2023Housing Stability Vital SignAnswerDate RecordedIn the last 12 months, was there a time when you were not able to pay the mortgage or rent on time?No 06/22/2024In the past 12 months, how many times have you moved where you were living?t any time in the past 12 months, were you homeless or living in a assisted (including now)?No06/22/2024Estimated Date of Delivery HxrpgdmpRij32/07/2026ased on last menstrual period of 01/13/2025Sex and Gender InformationValueDate RecordedSex Assigned at CjrsnGzommv10/07/2024 11:39 AM EST Legal JoyJvhjdq40/15/2023 7:12 PM EDTGender VtjvspzlRmgnvq80/07/2024 11:39 AM ESTSexual OrientationNot on filedocumented as of this encounter Miscellaneous Notes * Telephone Encounter - Rowena Concepcion LPN - 07/09/2025 8:36 AM EST Patient was called and she was left a detailed message that she did not pass the 1 hour she will need to do the 3 hour and she will need to call [facility] pre-register and schedule this test and plan to bethere for 4 hours. If any questions reach out to the office. documented in this encounter Plan of Treatment DateTypeDepartmentCare Team (Latest Contact Info)Jcypyekfikm57/16/2025 10:20 AM ESTRoutine [facility] [address] [phone] Manuel Hernandez, DO [address] [place], [place] [id number] 02/18/2026 4:00 PM EDTOffice Visit [facility] [address] [place] [address] Manuel Hernandez, DO [address] [place], [place] [id number] NameTypePriorityAssociated DiagnosesOrder ScheduleGlucose tolerance, 3 hoursLab Routine Elevated glucose tolerance test Expected: 07/09/2025 (Approximate), Expires: 07/09/2026documented as of this encounter Visit Diagnoses Diagnosis Elevated glucose tolerance test Impaired glucose tolerance test documented in this encounter Care Teams Team MemberRelationshipSpecialtyStart DateEnd Maria Isabel Zamora, JAKE [address] [place] [address] PCP - General05/04/23documented as of this encounter
--- OUTSIDE RECORDS SUMMARY | 2025-07-10 06:45 | XMS_ITS | Encounter Summary ---
Author Organization [facility] Address [address] [place] [address] Care Team Providers Care Health Claims Examiner Name Role Phone Maria Isabel Zamora NP Primary Care Provider + [phone] Encounter Details DateTypeDepartmentCare Team (Latest Contact Info)Caxwnrlrmlh48/22/2025linisync Result Encounter [facility] Unsolicited Manuel Hernandez, DO [address] [place], [place] [id number] Social History Tobacco UseTypesPacks/DayYears UsedDateSmoking Tobacco: NeverSmokeless Tobacco: NeverAlcohol UseStandard Drinks/WeekCommentsYes2 (1 standard drink = 0.6 oz pure alcohol)caffeine intake: [id number] Health LiteracyAnswerDate RecordedHow often do you need [...] relatives?Twice a week06/22/2024How often do you attend jew or quaker services?Never 06/22/2024o you belong to any clubs or organizations such as jew groups, unions, fraEvoke Pharma or athletic groups, or school groups?No06/22/2024How often do you attend meetings of the clubs or organizations you belong to?Never06/22/2024 Are you , , , , never , or living with a partner?Qhzppob1906/22/2024UDIT-CAnswerDate RecordedQ1: How often do you have a [...] and heating?Not hard at all06/22/2024[facility] [place] [facility] - Occupational Stress QuestionnaireAnswerDate [...] a long-term (including now)?No06/22/2024Estimated Date of Delivery UnzezislMbs50/07/2026Based on last menstrual period of 01/13/2025Sex and Gender InformationValueDate RecordedSex Assigned at SjgdoZjeero08/07/2024 11:39 AM EST Legal JqmIynxam21/15/2023 7:12 PM EDTGender RfphhcqySguivy14/07/2024 11:39 AM ESTSexual OrientationNot on filedocumented as of this encounter Plan of Treatment DateTypeDepartmentCare Team (Latest Contact Info)Fzaudostjbz91/16/2025 10:20 AM ESTRoutine [facility] [address] [place] [phone] Manuel Hernandez DO [address] [place] [address] 02/18/2026 4:00 PM EDTOffice Visit [facility] [address] [place] [address] Manuel Hernandez, [address] [place] [address] documented as of this encounter Procedures Procedure NamePriorityDate/TimeAssociated DiagnosisCommentsGLUCOSE 1 HOURRoutine 07/07/2025 9:17 AM EST ALL CBC WITH AUTO CBAVHclkxlt28/22/2025 9:17 AM EST documented in this encounter Results * (ABNORMAL) ALL CBC WITH AUTO DIFF (07/07/2025 9:17 AM EST)ComponentValueRef RangeTest MethodAnalysis TimePerformed AtPathologist SignatureTBH WBC11.6(H) 4.0 - 11.0 10 3/uLTBHTBH RBC3.53(L)4.20 - 5.40 10 6/uLTBHTBH HGB10.6(L)12.0 - 16.0 g/dLTBHTBH HCT32.8(L)36.0 - 48.0 %TBHTBH MCV92.981.0 - 99.0 fLTBHTBH MCH 30.026.7 - 34.0 pgTBHTBH MCHC32.329.9 - 35.2 g/dLTBHTBH RDW12.011.0 - 15.0 % TBHTBH VHO193928 - 450 10 3/uLTBHTBH MPV10.99.5 - 13.5 fLTBHNEUTROPHILS PERCENT AUTO80.2(H)43.0 - 75.0 %TBHLYMPHOCYTES PERCENT AUTO13.2(L)20.5 - 60.0 %TBHMONOCYTES PERCENT AUTO4.01.7 - 12.0 %TBHTBH EO %1.00.9 - 7.0 %TBHBASOPHILS PERCENT AUTO0.30.2 - 2.0 %TBHIMMATURE GRANULOCYTES PCT AUTO1.3(H)0.0 - 0.5 % TBHNEUTROPHILS ABSOLUTE AUTO9.3(H)1.4 - 6.5 10 3/uLTBHLYMPHOCYTES ABSOLUTE AUTO1.51.2 - 3.8 10 3/uLTBHMONOCYTES ABSOLUTE AUTO0.50.3 - 0.8 10 3/uLTBHTBH EO #0.10.0 - 0.7 10 3/uLTBHBASOPHILS ABSOLUTE AUTO0.00.0 - 0.1 10 3/uLTBH IMMATURE GRANULOCYTES ABS AUTO0.15(H)0.00 - 0.03 10 3/uLTBHSpecimen (Source) Anatomical Location / LateralityCollection Method / VolumeCollection Time Received Time07/07/2025 9:17 AM EST07/07/2025 9:20 AM EST Narrative CLINISYNC - 07/07/2025 10:11 AM EST Authorizing ProviderResult TypeResult StatusCorey David DOCLINISYNCFinal Result Performing OrganizationAddressCity/State/ZIP CodePhone Number SONALI REEVESH * (ABNORMAL) GLUCOSE 1 HOUR (07/07/2025 9:17 AM EST)ComponentValueRef RangeTest MethodAnalysis TimePerformed AtPathologist SignatureGLUCOSE 1 MVVM653(H)<130 mg/dLTBHSpecimen (Source)Anatomical Location / LateralityCollection Method / VolumeCollection TimeReceived Time07/07/2025 9:17 AM EST07/07/2025 9:20 AM EST Narrative CLINISYNC - 07/07/2025 10:06 AM EST Authorizing ProviderResult TypeResult StatusCorey David DOLAB BLOOD ORDERABLES Final ResultPerforming OrganizationAddressCity/State/ZIP CodePhone Number SONALI REEVES documented in this encounter Visit Diagnoses Not on filedocumented in this encounter Care Teams Team MemberRelationshipSpecialtyStart DateEnd Date Maria Isabel Zamora SERVICE DELIVERY CONSULTANT [address] [facility] [address] [place] [address] PCP - General05/04/23documented as of this encounter
--- OUTSIDE RECORDS SUMMARY | 2025-07-10 06:45 | XMS_ITS | Clinical Summary ---
Author Organization [facility] Address [address] [place] [address] Care Team Providers Care Curtain Drier Name Role Phone Maria Isabel Zamora NP Primary Care Provider [phone] Allergies No known active allergies Medications MedicationSigDispense QuantityRefillsLast FilledStart DateEnd DateStatus Usvuqcgh-Csp-Pl-FA ( 1 + IRON PO) Take 1 tablet by mouth DailyActive magnesium oxide (Mag-Ox) 400 MG tablet Indications:Nonintractable headache, unspecified chronicity pattern, unspecified headache typeTake 1 tablet (400 mg) by mouth Daily 30 tablet 60504/ctive trimethoprim (Trimpex) 100 MG tablet Indications:Dyspareunia in female,Urinary tract infection without hematuria, site unspecifiedTake 1 tablet (100 mg) by mouth if needed (Dyspareunia) for up to 20 doses Take 1 tablet by mouth immediately before intercourse PRN 20 tablet Discontinued Active Problems ProblemNoted DateDiagnosed YabfBwstndjaw60/16/2023Increased frequency of vcqulpefr26/16/2023Interstitial osqoenco41/16/2023Urgency of micturition 01/29/2023Estimated Date of OofnkpodJcroncjwOjk08/07/2026ased on last menstrual period of 01/13/2025 Encounters DateTypeDepartmentCare FwkdRdufsrnaprt99/24/2025Telephone [facility] [address] [place] [address] [place] [address] Manuel Hernandez DO 07/07/2025linisync Result Encounter [facility] External Department Unsolicited Manuel Hernandez, DO 07/03/2025 9:10 AM ESTRoutine [facility] [address] [facility] [address] Manuel Hernandez, DO 24 weeks gestation of ([facility]); Second trimester ([facility]); Nonintractable headache, unspecified chronicity pattern, unspecified headache type; Diabetes mellitus screening; Urinary qiwgetr1307/03/2025amboo flowsheet [facility] [address] [place] [address] Manuel Hernandez, DO 06/26/20252165Jbfutt12/21/2025 11:10 AM EDTRoutine [facility] [place] [address] Manuel Hernandez, DO 20 weeks gestation of ([facility]); Second trimester ([facility]); Nonintractable headache, unspecified chronicity pattern, unspecified headache type06/05/2025 10:00 AM EDTAncillary Procedure [facility] [address] [place] [address] 06/04/20257582Ihbkbh79/14/6065Jylrcg65/23/2025bstract [facility] [address] [place] [address] Manuel Hernandez, DO 05/02/2025 1:50 PM EDTRoutine [facility] [address] [place] [address] Manuel Hernandez, DO 15 weeks gestation of ([facility]); Second trimester ([facility]); Nonintractable headache, unspecified chronicity pattern, unspecified headache type; Screening, , for anatomic survey ([facility]); Exposure to STD; Vaginal hnyqmkhtp40/17/2025External Result Encounter [facility] External Department Unsolicited Manuel Hernandez, 5Bamboo flowsheet [facility] [address] [place] [address] Manuel Hernandez, 04/25/20250964Cdxixe90/03/2025Telephone [facility] [address] [facility] [place] [address] Fernanda Snowden MA 04/11/2025Telephone [facility] [address] [facility] [place] [address] Manuel Hernanedz, from Last 3 Months Immunizations ImmunizationAdministration DatesNext DueDTaP, Mknzddtbdzi52/05/1997,10/02/1993, 1992,1992,1992HPV, Ctrdmasfmmnc82/17/2011,10/02/2010, 08/01/2010Hep B, Adolescent or Omrvcvewm19/17/2010,02/27/2010,01/27/2010HiB, jdrhpjjaihf29/01/1993,1992,1992,1992IPV03/20/1997,10/02/1993, 1992,1992,1992MMR11/14/2003,07/16/1993Meningococcal MCV4P 01/27/2010Tdap02/27/2010 Family History Medical HistoryRelationNameCommentsArthritisFatherKentHyperlipidemiaFatherKent HypertensionFatherKentHyperlipidemiaMotherLynnHypertensionMotherLynnStrokeMother LynnBreast cancerMother's Sister 1Annadeceased 2011Kidney diseaseMother's Sister 1AnnaCancerMother's Sister 2SheilaDiabetesPaternal GrandfatherVernonCancer Paternal GrandmotherStephanieHypertensionSiblingMelanomaNeg HxPsoriasisNeg Hx RelationNameStatusCommentsFatherKentAliveMotherLynnAliveMother's Sister 1Anna DeceasedMother's Sister 2SheilaPaternal GrandfatherVernonPaternal Grandmother StephanieSibling Social History Tobacco UseTypesPacks/DayYears UsedDateSmoking Tobacco: NeverSmokeless Tobacco: Never Tobacco Cessation:Counseling Given: Not Answered Alcohol UseStandard Drinks/WeekCommentsYes2 (1 standard drink = 0.6 oz pure alcohol)caffeine intake: [id number] Health LiteracyAnswerDate RecordedHow often do you need [...] relatives?Twice a week06/22/2024How often do you attend catholic or zoroastrian services?Never 06/22/2024o you belong to any clubs or organizations such as catholic groups, unions, fraternal or athletic groups, or school groups?No06/22/2024How often do you attend meetings of the clubs or organizations you belong to?Never06/22/2024 Are you , , , , never , or living with a partner?Uzwjmvi7106/22/2024UDIT-CAnswerDate RecordedQ1: How often do you have a [...] housing, medical care, and heating?Not hard at all06/22/2024[facility] - Occupational Stress QuestionnaireAnswerDate [...] homeless or living in a usp (including now)?No4Estimated Date of Delivery UqvpnmvvWev02/07/2026Based on last menstrual period of 01/13/2025Sex and Gender InformationValueDate RecordedSex Assigned at VrggxBhrxel43/07/2024 11:39 AM EST Legal QdmMqyymj99/15/2023 7:12 PM EDTGender VzlzktcfKexqrt86/07/2024 11:39 AM ESTSexual OrientationNot on file Last Filed Vital Signs Vital SignReadingTime TakenCommentsBlood Fiptmiua093/6807/03/2025 9:30 AM EST Hyhjj663506/29/2024 1:05 PM ESTTemperature--Respiratory Tuwn7910 4:21 PM EDTOxygen Vyhlbhcedy19%06/29/2024 1:05 PM ESTInhaled Oxygen Concentration-- Hybaho21.3 kg (185 lb 12.8 oz)07/03/2025 9:30 AM UUIVmqdva067.7 cm (5' 8 ) 02/12/2025 4:00 PM EDTBody Mass Index28.25002/12/2025 4:00 PM EDT Plan of Treatment DateTypeDepartmentCare Team (Latest Contact Info)Haiiibkkcnc52/16/2025 10:20 AM ESTRoutine NOMJulius MOREAU [address] [place] [address] [place] [address] Manuel Hernandez, DO [address] [facility] [address] [place], [place] [address] 02/18/2026 4:00 PM EDTOffice Visit KHADAR MOREAU [address] [facility] [place] [address] Manuel Hernandez, DO [address] [facility] [place] [address] Health MaintenanceDue DateLast DoneCommentsCOVID-19 Vaccine ( season) 505/10/2021, 09/10/2020, 08/13/2020Influenza Vaccine (#1)2025 HPV/Bbyjqm7802/02/2028Cervical Cancer Uciujykmq84/30/2028Pap Smear02/13/2028 02/12/2025, 02/07/2024, 02/01/2023, Additional history existsPneumococcal Vaccine: Pediatrics (0 to 5 Years) and At-Risk Patients (6 to 64 Years)Aged Out No longer eligible based on patient's age to complete this topic Procedures Procedure NamePriorityDate/TimeAssociated DiagnosisCommentsALL CBC WITH AUTO KEDJLqxhmqf35/22/2025 9:17 AM EST GLUCOSE 1 DPDQYjldntp52/22/2025 9:17 AM EST URINARY TRACT INFECTION (HTRX)Fyehlgg8407/03/2025 12:17 PM EST POCT URINALYSIS JCKKHZQIBjvpobf04/18/2025 9:27 AM EST 24 weeks gestation of ([facility]) Second trimester ([facility]) POCT URINALYSIS XZFZNOPPLtochim37/21/2025 11:27 AM EDT 20 weeks gestation of ([facility]) Second trimester ([facility]) US OB 14+ WEEKS ANATOMY EGDVFwfcldi63/21/2025 11:17 AM EDT Screening, , for anatomic survey ([facility]) RECURRENT VAGINITIS (HTRX)Ndcrgra7905/02/2025 3:19 PM EDT POCT URINALYSIS LMDFWCXHVgzxszc63/17/2025 2:07 PM EDT 15 weeks gestation of ([facility]) Second trimester ([facility]) PAP GAWWPQvwzzsk56/30/2025 12:00 AM EDTfrom Last 3 Months or Most Recently Relevant to Health Maintenance Results * (ABNORMAL) GLUCOSE 1 HOUR (07/07/2025 9:17 AM EST)ComponentValueRef RangeTest MethodAnalysis TimePerformed AtPathologist SignatureGLUCOSE 1 QGBF043(H)<130 mg/dLTBHSpecimen (Source)Anatomical Location / LateralityCollection Method / VolumeCollection TimeReceived Time07/07/2025 9:17 AM EST07/07/2025 9:20 AM EST Narrative CLINISYNC - 07/07/2025 10:06 AM EST Authorizing ProviderResult TypeResult StatusCorey David DOLAB BLOOD ORDERABLES Final ResultPerforming OrganizationAddressCity/State/ZIP CodePhone Number [facility] * (ABNORMAL) ALL CBC WITH AUTO DIFF (07/07/2025 9:17 AM EST)ComponentValueRef RangeTest MethodAnalysis TimePerformed AtPathologist SignatureTBH WBC11.6(H) 4.0 - 11.0 10 3/uLTBHTBH RBC3.53(L)4.20 - 5.40 10 6/uLTBHTBH HGB10.6(L)12.0 - 16.0 g/dLTBHTBH HCT32.8(L)36.0 - 48.0 %TBHTBH MCV92.981.0 - 99.0 fLTBHTBH MCH 30.026.7 - 34.0 pgTBHTBH MCHC32.329.9 - 35.2 g/dLTBHTBH RDW12.011.0 - 15.0 % TBHTBH NYY644098 - 450 10 3/uLTBHTBH MPV10.99.5 - 13.5 [...] David DOCLINISYNCFinal Result Performing OrganizationAddressCity/State/ZIP CodePhone Number [facility] * URINARY TRACT INFECTION (HTRX) (07/03/2025 12:17 PM EST)ComponentValueRef RangeTest MethodAnalysis TimePerformed AtPathologist SignatureACINETOBACTER KHKZOWWO887.961 - 24.689 ppm07/04/2025 6:33 AM ESTHealthTrackRx at [facility] ACINETOBACTER BAUMANIINot Gafmeyfk03.961 - 24.689 ppm07/04/2025 6:33 AM EST [facility] at LabPortCITROBACTER MXVJNKOB750.000 - 32.015 ppm07/04/2025 6:33 AM ESTHealthTrackRx at LabPortCITROBACTER FREUNDIINot Vbeijvzu52.000 - 32.015 ppm07/04/2025 6:33 AM ESTHealthTrackRx at LabPortENTEROBACTER AEROGENES, SEFPBMX158.000 - 32.290 ppm07/04/2025 6:33 AM ESTHealthTrackRx at LabPortENTEROBACTER AEROGENES, CLOACAENot Scijrkgh99.000 - 32.290 ppm 07/04/2025 6:33 AM ESTHealthTrackRx at LabPortENTEROCOCCUS FAECALIS, FAECIUM0 26.000 - 33.043 ppm07/04/2025 6:33 AM ESTHealthTrackRx at LabPortENTEROCOCCUS FAECALIS, FAECIUMNot Xbohtfst74.000 - 33.043 ppm07/04/2025 6:33 AM EST [facility] at LabPortESCHERICHIA VIAG498.000 - 28.500 ppm07/04/2025 6:33 AM ESTHealthTrackRx at LabPortESCHERICHIA COLINot Pqcmtiib66.000 - 28.500 ppm 07/04/2025 6:33 AM ESTHealthTrackRx at LabPortKLEBSIELLA PNEUMONIAE, OXYTOCA0 23.000 - 31.865 ppm07/04/2025 6:33 AM ESTHealthTrackRx at LabPortKLEBSIELLA PNEUMONIAE, OXYTOCANot Xkootluw93.000 - 31.865 ppm07/04/2025 6:33 AM EST [facility] at LabPortMORGANELLA ZDSETNBS736.961 - 24.689 ppm07/04/2025 6:33 AM ESTHealthTrackRx at LabPortMORGANELLA MORGANIINot Vveeonrl49.961 - 24.689 ppm07/04/2025 6:33 AM ESTHealthTrackRx at LabPortPROTEUS MIRABILIS, VULGARIS0 23.000 - 28.500 ppm07/04/2025 6:33 AM ESTHealthTrackRx at LabPortPROTEUS MIRABILIS, VULGARISNot Ofquxrab02.000 - 28.500 ppm07/04/2025 6:33 AM EST [facility] at LabPortPSEUDOMONAS ADQFEXQQNA903.000 - 31.801 ppm07/04/2025 6:33 AM ESTHealthTrackRx at LabPortPSEUDOMONAS AERUGINOSANot Bhluijyg48.000 - 31.801 ppm07/04/2025 6:33 AM ESTHealthTrackRx at LabPortSTAPHYLOCOCCUS AUREUS0 26.000 - 31.595 ppm07/04/2025 6:33 AM ESTHealthTrackRx at [facility] STAPHYLOCOCCUS AUREUSNot Qbeyvwam07.000 - 31.595 ppm07/04/2025 6:33 AM EST [facility] at LabPortSTREPTOCOCCUS AGALACTIAE (GROUP B STREP)026.000 - 32.435 ppm07/04/2025 6:33 AM ESTHealthTrackRx at LabPortSTREPTOCOCCUS AGALACTIAE (GROUP B STREP)Not Uvzfqbfo77.000 - 32.435 ppm07/04/2025 6:33 AM ESTHealthTrackRx at LabPortCANDIDA ALBICANS, PARAPSILOSIS, RSXBWYRNNT783.000 - 30.347 ppm07/04/2025 6:33 AM ESTHealthTrackRx at LabPortCANDIDA ALBICANS, PARAPSILOSIS, TROPICALISNot Wcmotklc09.000 - 30.347 ppm07/04/2025 6:33 AM EST [facility]PortCANDIDA AMWFZYBI522.000 - 31.618 ppm07/04/2025 6:33 AM ESTHealthTrackRx at LabPortCANDIDA GLABRATANot Trnyaboo55.000 - 31.618 ppm 07/04/2025 6:33 AM ESTHealthTrackRx at LabPortCANDIDA PSLMJI979.000 - 30.873 ppm07/04/2025 6:33 AM ESTHealthTrackRx at LabPortCANDIDA KRUSEINot Detected 23.000 - 30.873 ppm07/04/2025 6:33 AM ESTHealthTrackRx at LabPortSERRATIA UYZZQQSWVH702.000 - 31.581 ppm07/04/2025 6:33 AM ESTHealthTrackRx at [facility] SERRATIA MARCESCENSNot Kivzbkii53.000 - 31.581 ppm07/04/2025 6:33 AM EST [facility] at LabPortSTREPTOCOCCUS PYOGENES (GROUP A STREP)019.961 - 24.689 ppm07/04/2025 6:33 AM ESTHealthTrackRx at LabPortSTREPTOCOCCUS PYOGENES (GROUP A STREP)Not Koiudeiy50.961 - 24.689 ppm07/04/2025 6:33 AM ESTHealthTrackRx at LabPortSTAPHYLOCOCCUS EPIDERMIDIS, HAEMOLYTICUS, LUGDUNENSIS, SAPROPHYTICUS (SULSE826.961 - 24.689 ppm07/04/2025 6:33 AM ESTHealthTrackRx at [facility] STAPHYLOCOCCUS EPIDERMIDIS, HAEMOLYTICUS, LUGDUNENSIS, SAPROPHYTICUS (URINANot Yejlpdyh42.961 - 24.689 ppm07/04/2025 6:33 AM ESTHealth[facility] STAPHYLOCOCCUS EPIDERMIDIS, HAEMOLYTICUS, LUGDUNENSIS, SAPROPHYTICUS (URINA0 19.961 - 24.689 ppm07/04/2025 6:33 AM ESTHealthTrackRx at [facility] STAPHYLOCOCCUS EPIDERMIDIS, HAEMOLYTICUS, LUGDUNENSIS, SAPROPHYTICUS (URINANot Wewlejgo87.961 - 24.689 ppm07/04/2025 6:33 AM ESTHealthTrackRx at [facility] Specimen (Source)Anatomical Location / LateralityCollection Method / Volume Collection TimeReceived VkiuGcdew84/18/2025 12:17 PM EST07/04/2025 1:31 AM EST Narrative Authorizing ProviderResult TypeResult StatusCorey David DOLAB BLOOD ORDERABLES Final ResultPerforming OrganizationAddressCity/State/ZIP CodePhone Number [facility] [address] [place] [address] * (ABNORMAL) POCT urinalysis dipstick manually resulted [...] Location / LateralityCollection Method / VolumeCollection TimeReceived WpmlLpzzg83/18/2025 9:27 AM EST Narrative Authorizing ProviderResult TypeResult [...] Keller MD Authorizing ProviderResult TypeResult StatusCorey David [facility] OB US PROCEDURES Final Result * RECURRENT VAGINITIS (HTRX) (05/02/2025 3:19 PM EDT)ComponentValueRef RangeTest MethodAnalysis TimePerformed AtPathologist SignatureATOPOBIUM JNWEVLX414.961 - 24.9 ppm05/03/2025 6:41 AM EDTHealthTrackRx at LabPortATOPOBIUM VAGINAENot Suacloxk57.961 - 24.689 ppm05/03/2025 6:41 AM EDTHealthTrackRx at LabPortBVAB 2,3 (BACTERIAL VAGINOSIS ASSOCIATED BACTERIA 2, 3); MOBILUNCUS QHE698.961 - 24.689 ppm05/03/2025 6:41 AM EDTHealthTrackRx at [facility] HealthBVAB 2,3 (BACTERIAL VAGINOSIS ASSOCIATED BACTERIA 2, 3); MOBILUNCUS SPPNot Yaejfcet02.961 - 24.689 ppm05/03/2025 6:41 AM EDTHealthTrackRx at LabPortCANDIDA ALBICANS, PARAPSILOSIS, HNAYCAVVCY080.000 - 30.347 ppm05/03/2025 6:41 AM EDT [facility]CANDIDA ALBICANS, PARAPSILOSIS, TROPICALISNot Detected 23.000 - 30.347 ppm05/03/2025 6:41 AM EDTHealthTrackRx at LabPortCANDIDA DHGTITFD917.000 - 31.618 ppm05/03/2025 6:41 AM EDTHealthTrackRx at [facility] OSBALDO GLABRATANot Hompwxbf41.000 - 31.618 ppm05/03/2025 6:41 AM EDT [facility] HealthCANDIDA FATRQT444.000 - 30.873 ppm05/03/2025 6:41 AM EDTHealthTrackRx at [facility] HealthCANDIDA KRUSEINot Axpgiime66.000 - 30.873 ppm 05/03/2025 6:41 AM EDTHealthTrackRx at [facility]PortCHLAMYDIA DQNUVKRHNTD180.000 - 31.586 ppm05/03/2025 6:41 AM EDTHealthTrackRx at [facility] HealthCHLAMYDIA TRACHOMATIS Not Zcxkpaps39.000 - 31.586 ppm05/03/2025 6:41 AM EDTHealthTrackRx at [facility] GARDNERELLA WMRSIFJTX299.961 - 24.689 ppm05/03/2025 6:41 AM EDTHealthTrackRx at [facility] HealthGARDNERELLA VAGINALISNot Pnszqsrr52.961 - 24.689 ppm05/03/2025 6:41 AM EDTHealthTrackRx at [facility] HealthMEGASPHAERA (TYPES 1, 2)019.961 - 24.689 ppm 05/03/2025 6:41 AM EDTHealthTrackRx at LabPortMEGASPHAERA (TYPES 1, 2)Not Rvfbpnpf05.961 - 24.689 ppm05/03/2025 6:41 AM EDTHealthTrackRx at [facility] NEISSERIA GRRZFWNWDCV077.000 - 32.587 ppm05/03/2025 6:41 AM EDTHealthTrackRx at [facility] HealthNEISSERIA GONORRHOEAENot Raysvvdz51.000 - 32.587 ppm05/03/2025 6:41 AM EDTHealthTrackRx at [facility] HospitalTRICHOMONAS LUPUKDIVR925.000 - 31.995 ppm 05/03/2025 6:41 AM EDTHealthTrackRx at [facility] HealthTRICHOMONAS VAGINALISNot Lpemjvdx32.000 - 31.995 ppm05/03/2025 6:41 AM EDT[facility] at [facility] MYCOPLASMA VVGQYJFKNL129.961 - 24.689 ppm05/03/2025 6:41 AM EDTHealthTrackRx at [facility] HealthMYCOPLASMA GENITALIUMNot Flywbdey55.961 - 24.689 ppm05/03/2025 6:41 AM EDTHealthTrackRx at LabPortSpecimen (Source)Anatomical Location / LateralityCollection Method / VolumeCollection TimeReceived TimeTissue 05/02/2025 3:19 PM EDT05/03/2025 1:53 AM EDT Narrative Authorizing ProviderResult TypeResult StatusCorey David DOLAB BLOOD ORDERABLES Final ResultPerforming OrganizationAddressCity/State/ZIP CodePhone Number [facility] [address] [address] * Pap Smear (02/12/2025 12:00 AM EDT)Specimen (Source)Anatomical Location / LateralityCollection Method / VolumeCollection TimeReceived TimeSwabCervical swab / Unknown Narrative Authorizing ProviderResult TypeResult StatusCorey David DOLAB CYTOLOGY ORDERABLESFinal ResultPerforming OrganizationAddressCity/State/ZIP CodePhone Number EXTERNAL LAB from Last 3 Months or Most Recently Relevant to Health Maintenance Insurance * Guarantor: Nasreen Andrade TypeRelation to PatientDate of BirthPhone Billing AddressPersonal/VcrokvXomj43/ [id number] [place] [address] [place] [address] Care Teams Team MemberRelationshipSpecialtyStart DateEnd Date Maria Isabel Zamora, JAKE [address] [facility] [address] [place] [address] PCP - [facility]05/04/23
[2025-07-10 09:31] LABS: Glucose 1 Hour 170 mg/dL (<180)
== END 2025-07-10 06:42 | disposition home or self-care (01) ==
LOC: LAB 06:42
PROVIDERS: PCP Nurse Practitioner Family; Visit Provider Obstetrics & Gynecology
DX: Z34.92 Encounter for supervision of normal pregnancy, unspecified, second trimester (principal); R73.09 Other abnormal glucose
CPT/HCPCS: 36415; 82951; 82952; 83036